=== PATIENT | male | born 1965 | race Caucasian/White ===

== ENCOUNTER 2019-07-23 10:39 | Inpatient (IN) | payer OTHER, MEDICAID ==
[~2019-07-23] VITALS: Ht 162.6 cm; Wt 63.0 kg
[~2019-07-23 10:39] MED LIST: ALBU0.0952 INH; ASPI81EC98 PO; ATI.5 PO; DIAZ10GE PR; LEVE500T9 PO; MIDO10TA PO; MIRABULK PO; NA P PR; SIMV20TA6 PO
[2019-07-23 10:58] VITALS: BP 102/65
[2019-07-23] MEDS ORDERED: ACETAMINOPHEN 325 MG TAB PO ONE (12:00)
[2019-07-23] MEDS ORDERED: FAMOTIDINE 20 MG TAB PO ONE (12:00)
[2019-07-23 12:15] LABS: BASOPHILS # (AUTO) 0.2 K/uL (0.00-0.22); BASOPHILS % (AUTO) 4.5 % (0.0-2.0); EOSINOPHILS % (AUTO) 0.6 % (0.0-4.0); HEMATOCRIT 39.7 % (36-52); HEMOGLOBIN 13.4 g/dL (12.0-18.0); LYMPHOCYTES # (AUTO) 0.9 K/uL (2.0-11.5); LYMPHOCYTES % (AUTO) 26.6 % (20.5-51.1); MEAN CORPUSCULAR HEMOGLOBIN 34 pg (27-31); MEAN CORPUSCULAR HGB CONC 34 g/dL (33-37); MEAN CORPUSCULAR VOLUME 99.5 fL (80-94); MONOCYTES # (AUTO) 0.7 K/uL (0.8-1.0); MONOCYTES % (AUTO) 18.9 % (1.7-9.3); NEUTROPHILS # (AUTO) 1.7 K/uL (1.8-7.7); NEUTROPHILS % (AUTO) 49.4 % (42.2-75.2); PLATELET COUNT (AUTO) 167 K/uL (140-450); RED BLOOD CELL COUNT(AUTO) 3.99 MIL/uL (4.20-6.10); RED CELL DISTRIBUTION WIDTH 13.6 % (11.6-13.7); WHITE BLOOD COUNT (AUTO) 3.5 K/uL (4.8-10.8)
[2019-07-23 12:22] LABS: ANION GAP 9.5 (8-16); CARBON DIOXIDE 32.1 mmol/L (21-32); CREATININE 0.8 mg/dL (0.7-1.3); POTASSIUM 4.6 mmol/L (3.5-5.1)
[2019-07-23 12:29] LABS: ALBUMIN 3.3 g/dL (3.4-5.0); TOTAL BILIRUBIN 0.2 mg/dL (0.0-1.0)
--- NOTE | 2019-07-23 12:30 | NUR ---
brought in by agricultural produce sorter s/p fall while seated in bed-pt more agitated than usual; pain left side of face, denies loc, denies use of blood thinners, denies recent seizure. ecchymosis os---no globe injury noted ambulates independently hx---down's syndrome/ copd/ bradycardia/chf/hld/seizure rx---see list
--- NOTE | 2019-07-23 12:48 | NUR ---
PT UNABLE TO GIVE URINE AT THIS TIME
--- NOTE | 2019-07-23 13:26 | NUR ---
# 14 FR Urinary catheter inserted utilizing sterile technique. Immediate return of YELLOW urine noted. Urine sample collected and sent to lab. Pt tolerated procedure WELL COMPLETED BY STUDENTS WITH INSTRUCTOR
--- NOTE | 2019-07-23 13:30 | NUR ---
URINE DIP COMPLETED
--- NOTE | 2019-07-23 14:08 | NUR ---
[place] swift in [facility] - 07/23/19 at 1536 by MEDAJR TIMA NAGEL PT
[2019-07-23 14:12] LABS: APPEARANCE,URINE CLEAR (CLEAR); BILIRUBIN,URINE NEGATIVE (NEGATIVE); BLOOD, URINE NEGATIVE (NEGATIVE); COLOR,URINE YELLOW (YELLOW); LEUKOCYTE ESTERASE ,URINE NEGATIVE (NEGATIVE); NITRITE, URINE NEGATIVE (NEGATIVE); PH,URINE 6.5 (5.0-9.0); UGLUCOSE NEGATIVE (NEGATIVE)
[2019-07-23] MEDS ORDERED: HYDROcodone/APAP 7.5/325 MG 1 TAB PO PRN (15:00)
[2019-07-23] MEDS ORDERED: ONDANSETRON 4 MG/2 ML VIAL IVP PRN (15:00)
[2019-07-23] MEDS ORDERED: ACETAMINOPHEN 325 MG TAB PO PRN ×2 (15:00→16:55)
[2019-07-23] MEDS ORDERED: SODI50SP NS (15:12)
[2019-07-23] MEDS ORDERED: PUL.5N NEB (15:13)
[2019-07-23] MEDS ORDERED: DOCU100C5 PO (15:15)
[2019-07-23] MEDS ORDERED: LEVE1000 PO (15:16)
[2019-07-23] MEDS ORDERED: MAGN400S60 PO (15:17)
[2019-07-23] MEDS ORDERED: NA P135N RC (15:20)
[2019-07-23] MEDS ORDERED: ROB PO (15:23)
[2019-07-23] MEDS ORDERED: ONDA4TAB PO (15:26)
[2019-07-23] MEDS ORDERED: OXCA600T2 PO (15:28)
[2019-07-23] MEDS ORDERED: OXCA300T PO (15:28)
[2019-07-23] MEDS ORDERED: ACET-2619 PO (15:30)
[2019-07-23 16:00] VITALS: BP 108/60
--- NOTE | 2019-07-23 16:10 | NUR ---
RECEIVED REPORT FROM FACULTY HEAD. PATIENT ARRIVED VIA GURNEY. PATIENT AMBULATED TO BED WITH SHUFFLED GAIT WHICH IS HIS BASELINE. PATIENT DENIES DIZZINESS OR SHORTNESS OF BREATH. NO SIGNS OF DISTRESS ON RA. 20 GAUGE IV CATHETER IN PLACE, SALINE LOCKED, IN RIGHT AC. DRESSING CLEAN DRY AND INTACT. PATIENT IS COOPERATIVE AND FOLLOWING COMMANDS. PATIENT CHANGED TO FALL RISK GOWN, TELE MONITOR IN PLACE. BED LOW. ORIENTED PATIENT TO ROOM AND CALL LIGHT. CALL LIGHT IN REACH.
[2019-07-23] MEDS ORDERED: MECLIZINE 25 MG TAB PO PRN (16:20)
--- NOTE | 2019-07-23 16:26 | NUR ---
Patient will be admitted to care of [facility]. Admited to tele. Will go to room 124b. Belongings list completed. Report to paula ugalde.
[2019-07-23 16:49] LABS: FREE T4 (FREE THYROXINE) 0.73 ng/dL (0.76-1.46); MAGNESIUM 2.3 mg/dL (1.8-2.4); PHOSPHORUS 4.3 mg/dL (2.5-4.9)
[2019-07-23 16:50] LABS: THYROID STIMULATING HORMONE 1.18 uIU/mL (0.34-3.74)
[2019-07-23] MEDS ORDERED: SODIUM CHLORIDE 0.65% 45 ML BTL NS PRN (16:55)
[2019-07-23] MEDS ORDERED: LORazepam 2 MG/ML VIAL IM/IVP PRN (16:55)
[2019-07-23] MEDS ORDERED: SODIUM PHOSPHATE 118 ML ENEM RC PRN (16:55)
[2019-07-23] MEDS: NACL 0.9% 1,000 ML IV SCH (16:55)
--- NOTE | 2019-07-23 17:15 | NUR ---
RECEIVED PHONE CALL FROM AMY CASTILLO, PRESIDENT OF [facility], PATIENT'S BOARD AND CARE OF RESIDENCE. SHE CAN BE REACHED AT [phone]. SHE SATED THAT CONSENT CAN BE OBTAINED FROM INDUCTION COORDINATION ENGINEER RENNY SIERRA AT [facility] AT [phone]. AMY ALSO STATED THAT PATIENT HAD CARDIAC WORKUP AT [facility] UNDER DR. RENITA ARIAS, 2 MONTHS AGO. IN-HOUSE DOCTOR AWARE.
--- NOTE | 2019-07-23 17:44 | NUR ---
PATIENT SITTING UP IN BED, EATING FOOD. NO DISTRESS NOTED ON RA. BED LOW, CALL LIGHT IN REACH. PATIENT IS IN PLEASANT COOPERATIVE MOOD.
--- NOTE | 2019-07-23 19:20 | NUR ---
RECEIVED ENDORSEMENT FROM AM SHIFT AT BEDSIDE FOR CONTINUITY OF CARE, PT IN STABLE CONDITION.
[2019-07-23] MEDS ORDERED: BUDESONIDE 0.5 MG/2 ML NEBU INH SCH (19:30)
[2019-07-23 20:00] VITALS: BP 93/57
--- NOTE | 2019-07-23 20:05 | NUR ---
PT SITTING UP IN BED AND HIS EYES STARTED TO CLOSE, PT STARTED TO HAVE A PETITE MAL SEIZURE HE WAS NODDING HIS HEAD SLIGHTLY UP AND DOWN AND SQUEEZING HIS HANDS ON AND OFF. PT ALSO NOTED WITH EYES FILTERING. SEIZURE LASTED 9 MINUTES. PAGED MD ARIAS NEW ORDERS RECEIVED. PT KEPPRA INCREASED FROM 1000MG BID TO 1500MG BID. CONSULT WITH DR. LYNNE ORDERED WELL EEG.
--- NOTE | 2019-07-23 20:30 | NUR ---
PT OUT OF BED TO BATHROOM. PT IS ORIENTED AT BASELINE.
[2019-07-23] MEDS: DOCUSATE SODIUM 100 MG GELCAP PO SCH (21:00)
[2019-07-23] MEDS ORDERED: levETIRAcetam 500 MG TAB PO SCH (21:00)
[2019-07-23] MEDS: levETIRAcetam 500 MG TAB PO SCH (21:01)
[2019-07-23] MEDS: OXcarbazepine 150 MG TAB PO SCH (21:02)
--- NOTE | 2019-07-23 21:15 | NUR ---
PT RECEIVED KEPPRA (INCREASED TO 1500) WELL ORDERED ATIVAN FOR POST SEIZURE. PT ALSO RECEIVED ALL SCHEDULED MEDS AT THIS TIME.
--- NOTE | 2019-07-23 22:30 | NUR ---
EEG DONE AT BEDSIDE.
--- NOTE | 2019-07-24 | NUR ---
PT IN BED ASLEEP V/S FOLLOWS T 97.75 P 45 R 18 B/P 90/50 02 93% ON ROOM AIR.
--- NOTE | 2019-07-24 02:00 | NUR ---
PT IN LOW BED WITH ALL SEIZURE PRECAUTIONS IN PLACE. PT SLEEPING SOUNDLY NO S/S OF PAIN OR DISTRESS NOTED.
[2019-07-24 04:00] VITALS: BP 100/65
--- NOTE | 2019-07-24 04:00 | NUR ---
PT UP AND MONITORED WITH STAND BY ASSISTANCE TO TOILET AND BACK TO BED. ALL FALLS AND SEIZURE PRECAUTIONS IN PLACE.
--- NOTE | 2019-07-24 06:00 | NUR ---
PT AWAKE AND SITTING UP IN BED NO S/S OF PAIN OR DISTRESS NOTED. IV SITE ON R AC INTACT AND RUNNING N/S AT 50MLS/HR. ALL FALLS AND SEIZURE PRECAUTIONS IN PLACE.
--- NOTE | 2019-07-24 07:20 | NUR ---
RECEIVED BEDSIDE REPORT FROM HOUSEFELLOW NURSE FOR CONTINUITY OF CARE. PATIENT IS AWAKE AND RESTING ON BED AT THIS TIME. PATIENT IS AAOX1 TO NAME AND ABLE TO STATE HIS BIRTHDAY CORRECTLY. PATIENT IS ABLE TO FOLLOW SIMPLE COMMANDS. RESPIRATION EVEN AND UNLABORED ON RA. PATIENT DENIED PAIN AND SOB. NO SIGNS OF DISTRESS NOTED. IV ON RAC 20, CLEAN AND INTACT,INFUSING PER MD ORDER. SKIN CLEAN AND INTACT. PATIENT IS ABLE TO ASK FOR HELP WHEN HE NEEDS TO GO TO BATHROOM. PATIENT IS ABLE TO AMBULATE WITH ASSIST. DISCUSSED PLAN OF CARE WITH PATIENT AND REINFORCEMENT NEEDED. TELE MONITOR IN PLACE. BED IN LOW POSITION AND CALL LIGHT WITHIN REACH. BED ALARM ACTIVATED. INSTRUCTED PATIENT TO USE THE CALL LIGHT FOR ANY ASSISTANCE AND PATIENT SAID " OK, I KNOW."
[2019-07-24 08:00] VITALS: BP 113/72
--- NOTE | 2019-07-24 08:36 | NUR ---
PATIENT HAS BEEN SCREENED AND CATEGORIZED MODERATE NUTRITION RISK. PATIENT WILL BE SEEN WITHIN 3-5 DAYS OF ADMISSION. 07/26/19D[address]
[2019-07-24 08:39] LABS: BASOPHILS # (AUTO) 0.1 K/uL (0.00-0.22); BASOPHILS % (AUTO) 3.4 % (0.0-2.0); EOSINOPHILS % (AUTO) 0.8 % (0.0-4.0); HEMATOCRIT 42.6 % (36-52); HEMOGLOBIN 14.1 g/dL (12.0-18.0); LYMPHOCYTES # (AUTO) 1.1 K/uL (2.0-11.5); LYMPHOCYTES % (AUTO) 29.4 % (20.5-51.1); MEAN CORPUSCULAR HEMOGLOBIN 33 pg (27-31); MEAN CORPUSCULAR HGB CONC 33 g/dL (33-37); MEAN CORPUSCULAR VOLUME 99.7 fL (80-94); MONOCYTES # (AUTO) 0.5 K/uL (0.8-1.0); MONOCYTES % (AUTO) 13.7 % (1.7-9.3); NEUTROPHILS # (AUTO) 1.9 K/uL (1.8-7.7); NEUTROPHILS % (AUTO) 52.7 % (42.2-75.2); PLATELET COUNT (AUTO) 180 K/uL (140-450); RED BLOOD CELL COUNT(AUTO) 4.27 MIL/uL (4.20-6.10); RED CELL DISTRIBUTION WIDTH 13.8 % (11.6-13.7); WHITE BLOOD COUNT (AUTO) 3.7 K/uL (4.8-10.8)
[2019-07-24] MEDS: POLYETHYLENE GLYCOL 17 GM/PKT PO SCH (09:34)
[2019-07-24] MEDS: levETIRAcetam 500 MG TAB PO SCH ×2 (09:35→20:19)
[2019-07-24] MEDS: OXcarbazepine 150 MG TAB PO SCH ×2 (09:35→20:18)
[2019-07-24] MEDS: FAMOTIDINE 20 MG TAB PO SCH (09:36)
[2019-07-24] MEDS: ASPIRIN 81 MG TAB.CHEW PO SCH (09:36)
[2019-07-24] MEDS: DOCUSATE SODIUM 100 MG GELCAP PO SCH ×2 (09:37→20:18)
--- NOTE | 2019-07-24 09:39 | NUR ---
ADMINISTERED MEDS PER MD ORDER, PATIENT TOLERATED WELL. MEDS EDUCATION PROVIDED TO PATIENT AND REINFORCEMENT NEEDED DUE TO PATIENT'S MENTAL CONDITION. PATIENT AWAKE AND RESTING ON BED. NO SIGNS OF DISTRESS NOTED. SAFETY MEASURES IN PLACE. BED IN LOW POSITION AND CALL LIGHT WITHIN REACH. BED ALARM ACTIVATED. INSTRUCTED PATIENT TO USE THE CALL LIGHT FOR ANY ASSISTANCE AND PATIENT SAID OK.
--- NOTE | 2019-07-24 09:53 | NUR ---
DR HUGO Neville IS TALKING AND ASSESSING PATIENT AT BEDSIDE. NO SIGNS OF DISTRESS NOTED. SAFETY MEASURES IN PLACE. TELE MONITOR ATTACHED. BED IN LOW POSITION AND CALL LIGHT WITHIN REACH. BED ALARM ACTIVATED.
[2019-07-24 10:58] LABS: ANION GAP 10.8 (8-16); CARBON DIOXIDE 30.3 mmol/L (21-32); POTASSIUM 4.1 mmol/L (3.5-5.1)
[2019-07-24 10:59] LABS: CREATININE 0.8 mg/dL (0.7-1.3)
[2019-07-24 11:12] LABS: MAGNESIUM 2.2 mg/dL (1.8-2.4); PHOSPHORUS 2.8 mg/dL (2.5-4.9)
--- NOTE | 2019-07-24 11:26 | NUR ---
PATIENT AWAKE AND DOING CROSS-WORD BOOK ON BED. PATIENT SAID " NO PAIN." NO SIGNS DISTRESS NOTED. SAFETY MEASURES IN PLACE. BED IN LOW POSITION AND CALL LIGHT WITHIN REACH. BED ALARM ACTIVATED. INSTRUCTED PATIENT TO USE THE CALL LIGHT FOR ANY ASSISTANCE AND PATIENT SAID "OK."
[2019-07-24] MEDS: NACL 0.9% 1,000 ML IV SCH (11:29)
[2019-07-24 12:00] VITALS: BP 96/68
--- NOTE | 2019-07-24 12:38 | NUR ---
PAGED DR ARIAS THAT PATIENT HAD 30 SECONDS SEIZURE DURING EEG.
--- NOTE | 2019-07-24 12:45 | NUR ---
RECEIVED A CALL BACK FROM DR ARIAS, NOTIFIED DR ARIAS PATIENT'S CURRENT CONDITION, BP 96/61, PULSE 52, RR16. PATIENT LOST CONSCIOUSNESS FOR 30 SECONDS, THEN HE WAS RESPONSIVE AND ABLE TO SPEAK AND ANSWERED QUESTION. PER DR ARIAS, HOLD THE ATIVAN IF PATIENT IS RESPONSIVE.
[2019-07-24 13:09] LABS: CHOL/HDL RATIO 3.1 (1-4.5)
--- NOTE | 2019-07-24 13:35 | NUR ---
PATIENT IS AWAKE AND RESTING ON BED. DENIED PAIN, DIZZINESS AND SOB. NO SIGNS DISTRESS NOTED. SAFETY MEASURES IN PLACE. BED IN LOW POSITION AND CALL LIGHT WITHIN REACH. BED ALARM ACTIVATED. INSTRUCTED PATIENT TO USE THE CALL LIGHT FOR ANY ASSISTANCE AND PATIENT WAS AWARE.
--- NOTE | 2019-07-24 15:15 | NUR ---
PATIENT AWAKE AND SITTING UP ON BED. ASKED IF PATIENT WANTS TO WATCH, AND HE SAID " SURE!" PATIENT DENIED PAIN AND SOB. NO SIGNS DISTRESS NOTED. SAFETY MEASURES IN PLACE. BED IN LOW POSITION AND CALL LIGHT WITHIN REACH. BED ALARM ACTIVATED. INSTRUCTED PATIENT TO USE THE CALL LIGHT FOR ANY ASSISTANCE AND PATIENT WAS AWARE.
[2019-07-24 16:00] VITALS: BP 101/57
--- NOTE | 2019-07-24 16:25 | NUR ---
PATIENT PULLED OUT HIS IV. ORIENTED PATIENT AND EDUCATED PATIENT NOT TO REMOVE HIS IV AND REINFORCEMENT NEEDED. PATIENT WAS POINTING AT ME AND SAID " YOU PULLED IT OUT. I DIDN'T DO ANYTHING." RESTARTED IV ON RFA 22G, CONTINUE INFUSING IVF. PATIENT AWAKE AND DOING CROSS-WORDS ON BED AT THIS TIME. NO SIGNS OF DISTRESS NOTED. SAFETY MEASURES IN PLACE. BED IN LOW POSITION AND CALL LIGHT WITHIN REACH. BED ALARM ACTIVATED AND TELE MONITOR ATTACHED.
--- NOTE | 2019-07-24 16:59 | NUR ---
KARYN FROM HALF-WAY IS TALKING TO PATIENT AT THIS TIME. NO SIGNS OF DISTRESS NOTED. TELE MONITOR ATTACHED. BED IN LOW POSITION AND CALL LIGHT WITHIN REACH. BED ALARM ACTIVATED.
--- NOTE | 2019-07-24 17:31 | NUR ---
PATIENT IS SITTING UP AND EATING SNACKS FROM KARYN. DENIED PAIN AND SOB. NO SIGNS OF DISTRESS NOTED. SAFETY MEASURES IN PLACE. BED IN LOW AND CALL LIGHT WITHIN REACH. TELE MONITOR ATTACHED. BED ALARM ACTIVATED.
--- NOTE | 2019-07-24 19:17 | NUR ---
ENDORSED PATIENT AT BEDSIDE TO RESIDENTIAL ELECTRICIAN NURSE FOR CONTINUITY OF CARE. PATIENT AWAKE AND EATING DINNER ON BED. NO SIGNS OF DISTRESS NOTED. PATIENT IS IN STABLE CONDITION. SAFETY MEASURES IN PLACE. TELE MONITOR ATTACHED. BED IN LOW POSITION AND CALL LIGHT WITHIN REACH. BED ALARM ACTIVATED. INSTRUCTED PATIENT TO USE THE CALL LIGHT FOR ANY ASSISTANCE AND PATIENT SAID "OK."
--- NOTE | 2019-07-24 19:30 | NUR ---
ASSUMED CARE OF PATIENT, EATING DINNER. NO COMPLAINS. CALL LIGHT WITHIN REACH.
[2019-07-24 19:49] VITALS: BP 96/62
--- NOTE | 2019-07-24 20:00 | NUR ---
VITALS SIGNS STABLE. NO COMPLAINS. CARE BOARD UPDATED. CALL LIGHT WITHIN REACH. BED ALARM ON ALL THE TIME.
--- NOTE | 2019-07-24 21:30 | NUR ---
PATIENT GETTING OUT OF BED, START PUTTING SHOES AND WANTING TO GO HOME. START PULLING OUT IV. WINDOW GLASS CUTTER OFF AT BEDSIDE, BACK IN BED. CALL LIGHT WITHIN REACH.
[2019-07-24] MEDS ORDERED: LORazepam 2 MG/ML VIAL IM/IVP PRN (21:50)
--- NOTE | 2019-07-25 | NUR ---
ASLEEP. NO COMPLAINS. VITAL SIGNS STABLE. CALL LIGHT WITHIN REACH.
[2019-07-25 00:43] VITALS: BP 97/48
--- NOTE | 2019-07-25 02:35 | NUR ---
SLEEPING WELL. NO DISTRESS. BED ALARM ON. CALL LIGHT WITHIN REACH.
[2019-07-25 03:53] VITALS: BP 96/49
--- NOTE | 2019-07-25 03:59 | NUR ---
ASLEEP. NO COMPLAINS. VITAL SIGNS STABLE CALL LIGHT WITHIN REACH.
--- NOTE | 2019-07-25 05:45 | NUR ---
ASSISTED BRP, AMBULATING WITH ASSIST. VOIDING WELL. BACK TO BED. CALL LIGHT WITHIN REACH. BED ALARM TURN ON.
--- NOTE | 2019-07-25 07:12 | NUR ---
ENDORSED CARE AT BEDSIDE WITH JUAN ANTHONY, PATIENT IN STABLE CONDITION.
--- NOTE | 2019-07-25 07:14 | NUR ---
RECEIVED BEDSIDE REPORT FROM MASSEUR/MASSEUSE NURSE FOR CONTINUITY OF CARE. PATIENT IS AWAKE AND RESTING ON BED AT THIS TIME. PATIENT IS AAOX1 TO NAME AND PATIENT STATED " I WANT COFFEE FOR BREAKFAST." PATIENT IS ABLE TO FOLLOW SIMPLE COMMANDS AND MAKE NEEDS KNOWN. RESPIRATION EVEN AND UNLABORED ON RA. PATIENT DENIED PAIN AND SOB. NO SIGNS OF DISTRESS NOTED. IV ON LFA 22G, CLEAN AND INTACT,INFUSING PER MD ORDER. SKIN CLEAN AND INTACT. PATIENT IS ABLE TO ASK FOR ASSIST TO GO TO BATHROOM. PATIENT IS ABLE TO AMBULATE WITH ASSIST. DISCUSSED PLAN OF CARE WITH PATIENT AND REINFORCEMENT NEEDED. TELE MONITOR IN PLACE. SAFETY MEASURES IN PLACE. SEIZURE PRECAUTION IN PLACE, PADDING ON BOTH SIDE RAILS AND SIGN POSTED. BED IN LOW POSITION AND CALL LIGHT WITHIN REACH. BED ALARM ACTIVATED. INSTRUCTED PATIENT TO USE THE CALL LIGHT FOR ANY ASSISTANCE AND PATIENT SAID OK.
[2019-07-25 08:00] VITALS: BP 93/58
[2019-07-25] MEDS: NACL 0.9% 1,000 ML IV SCH (08:39)
[2019-07-25] MEDS: POLYETHYLENE GLYCOL 17 GM/PKT PO SCH (08:39)
[2019-07-25] MEDS: levETIRAcetam 500 MG TAB PO SCH ×2 (08:40→20:51)
[2019-07-25] MEDS: DOCUSATE SODIUM 100 MG GELCAP PO SCH ×2 (08:41→20:52)
[2019-07-25] MEDS: FAMOTIDINE 20 MG TAB PO SCH (08:41)
[2019-07-25] MEDS: ASPIRIN 81 MG TAB.CHEW PO SCH (08:41)
[2019-07-25] MEDS: OXcarbazepine 150 MG TAB PO SCH ×2 (08:41→20:51)
--- NOTE | 2019-07-25 08:48 | NUR ---
ADMINISTERED MEDS PER MD ORDER, PATIENT TOLERATED WELL. MEDS EDUCATION PROVIDED TO PATIENT AT BEDSIDE, REINFORCEMENT NEEDED. PATIENT AWAKE AND RESTING ON BED. DENIED PAIN, DIZZINESS AND SOB. NO SIGNS OF DISTRESS NOTED. SAFETY MEASURES IN PLACE. SEIZURE PRECAUTION IN PLACE. BED IN LOW POSITION AND CALL LIGHT WITHIN REACH. TELE MONITOR ATTACHED. BED ALARM ACTIVATED. DEMONSTRATED TO PATIENT ON HOW TO USE THE CALL LIGHT AND INSTRUCTED PATIENT TO USE THE CALL LIGHT FOR ANY ASSISTANCE AND PATIENT WAS AWARE.
[2019-07-25] MEDS ORDERED: MAGNESIUM HYDROXIDE 2400 MG/30 ML UDC PO SCH (09:00)
--- NOTE | 2019-07-25 09:40 | NUR ---
PATIENT IS PARTICIPATING IN PHYSICAL THERAPY SESSION WITH PT THERAPIST LIA. NO SIGNS OF DISTRESS NOTED. TELE MONITOR ATTACHED.
--- NOTE | 2019-07-25 11:23 | NUR ---
PATIENT AWAKE AND DOING CROSS-WORD BOOK ON BED. DENIED PAIN. ASKED IF PATIENT WANTS TO GO TO USE THE BATHROOM, PATIENT SAID " NO, I DON'T NEED TO GO." NO SIGNS OF DISTRESS NOTED. TELE MONITOR ATTACHED. SAFETY MEASURES IN PLACE. BED IN LOW POSITION AND CALL LIGHT WITHIN REACH. BED ALARM ACTIVATED. INSTRUCTED PATIENT TO USE THE CALL LIGHT FOR ANY ASSISTANCE, PATIENT SAID OK.
[2019-07-25 12:00] VITALS: BP 92/54
--- NOTE | 2019-07-25 13:33 | NUR ---
PATIENT IS NAPPING ON BED AT THIS TIME. RESPIRATION EVEN AND UNLABORED ON RA. FLACC 0. NO SIGNS OF DISTRESS NOTED. SAFETY MEASURES IN PLACE. TELE MONITOR ATTACHED. BED IN LOW POSITION AND CALL LIGHT WITHIN REACH. BED ALARM ACTIVATED.
--- NOTE | 2019-07-25 15:27 | NUR ---
PATIENT AWAKE AND SITTING UP ON BED READING THE MAGAZINES. DENIED PAIN, DIZZINESS, AND SOB. NO SIGNS OF DISTRESS NOTED. ASKED IF PATIENT WANTS TO USE THE BATHROOM, PATIENT STATED " NOPE, NOT NOW." TELE MONITOR ATTACHED. SAFETY MEASURES IN PLACE. BED IN LOW POSITION AND CALL LIGHT WITHIN REACH. BED ALARM ACTIVATED. INSTRUCTED PATIENT TO USE THE CALL LIGHT FOR ANY ASSISTANCE AND PATIENT SAID "OK."
[2019-07-25 16:00] VITALS: BP 96/53
--- NOTE | 2019-07-25 16:40 | NUR ---
PATIENT IS MAZA AND ATTEMPTED TO PULL OUT THE IV LINE AND HE KEPT SAING " NAH NAH NAH...." REORIENTED PATIENT AND INSTRUCTED PATIENT NOT TO REMOVED THE IV AND PATIENT SAID "OK, I WANT SOME JELLO." PROVIDED JELLO TO PATIENT AND PATIENT IS EATING JELLO QUIETLY ON BED. NO SIGNS OF DISTRESS NOTED. SAFETY MEASURES IN PLACE. TELE MONITOR ATTACHED. BED IN LOW POSITION AND CALL LIGHT WITHIN REACH. BED ALARM ACTIVATED. INSTRUCTED PATIENT TO PRESS THE CALL LIGHT RED BOTTOM FOR ANY ASSISTANCE AND PATIENT SAID " I KNOW."
--- NOTE | 2019-07-25 17:29 | NUR ---
PATIENT AWAKE AND SITTING UP ON BED. PATIENT REMOVED HIS ID BAND AND SAID " NO WANT THIS." INSTRUCTED PATIENT NOT TO REMOVED ID BAND AND IV LINE, PATIENT SAID " OK, I AM NOT GOING TO DO." TAPED ID BAND ON SIDE RAIL FOR NOW. CALL ADMISSION FOR A NEW ID BAND. TELE MONITOR ATTACHED. SAFETY MEASURES IN PLACE. BED IN LOW POSITION AND CALL LIGHT WITHIN REACH. BED ALARM ACTIVATED.
--- NOTE | 2019-07-25 18:45 | NUR ---
ASSISTED PATIENT TO USE THE BATHROOM. PATIENT HAD 1 MEDIUM BM. BODY DESIGN CHECKER ASSISTS PATIENT TO GO BACK ON BED.
--- NOTE | 2019-07-25 19:23 | NUR ---
ENDORSED PATIENT AT BEDSIDE TO PARENT AIDE NURSE FOR CONTINUITY OF CARE. PATIENT AWAKE AND SITTING UP ON BED DOING CROSS-WORDS. NO SIGNS OF DISTRESS NOTED. PATIENT IS IN STABLE CONDITION. TELE MONITOR ATTACHED. SAFETY MEASURES IN PLACE. BED IN LOW POSITION AND CALL LIGHT WITHIN REACH. BED ALARM ACTIVATED.
--- NOTE | 2019-07-25 19:25 | NUR ---
RECEIVED BEDSIDE REPORT FROM AM SHIFT RN LIO, FOR PT'S CONTINUITY OF CARE. PT IS AWAKE, ALERT, ORIENTED TO PERSON/SELF, SITTING UP DOING WORD SEARCH ACTIVITY, IS ON HYDROSTATIC TUBING TESTER, ON ROOM AIR, HAS LEFT FA 22G INFUSING WITH NS AT 50ML/HR, DENIES PAIN AT THIS TIME. BED IS ON LOW POSITION, SIDE RAILS ARE UP, FALL PRECAUTION IS IN PLACE. WILL MONITOR PT THROUGHOUT SHIFT.
[2019-07-25 20:00] VITALS: BP 101/65
--- NOTE | 2019-07-25 20:52 | NUR ---
VS CHECKED AND CHARTED. ADMINISTERED SCHEDULED PO AND SUBQ MEDICATIONS ORDERED. PT TOLERATED THEM WELL. WILL CONTINUE TO MONITOR PT.
--- NOTE | 2019-07-25 22:30 | NUR ---
MADE ROUNDS. PT LYING DOWN IN BED STILL AWAKE WITH NO SIGNS OF DISTRESS. INSTRUCTED PT TO GET SOME REST/SLEEP. WILL CONTINUE TO MONITOR PT.
[2019-07-26] VITALS: BP 105/69
--- NOTE | 2019-07-26 00:10 | NUR ---
VS CHECKED AND CHARTED. PT STILL AWAKE, QUIETLY LYING DOWN, ENCOURAGED PT TO GET SOME SLEEP. WILL CONTINUE TO MONITOR PT.
--- NOTE | 2019-07-26 01:51 | NUR ---
MADE ROUNDS. PT LYING DOWN ASLEEP WITH NO SIGNS OF DISTRESS. WILL CONTINUE TO MONITOR PT.
[2019-07-26 04:00] VITALS: BP 106/50
[2019-07-26] MEDS: NACL 0.9% 1,000 ML IV SCH (04:00)
--- NOTE | 2019-07-26 04:05 | NUR ---
VS CHECKED AND CHARTED. PT DENIES ANY PAIN AT THIS TIME. CORRECTION ON IV SITE: LEFT FA 22G
--- NOTE | 2019-07-26 04:25 | NUR ---
MADE ROUNDS. PT LYING DOWN AWAKE, QUIETLY PLAYING WITH HIS BLANKET, WITH NO SIGNS OF DISTRESS. ENCOURAGED PT TO GO BACK TO SLEEP. WILL CONTINUE TO MONITOR PT.
--- NOTE | 2019-07-26 06:35 | NUR ---
PT LYING DOWN, ASLEEP, WITH NO SIGNS OF DISTRESS. WILL ENDORSE TO AM SHIFT RN FOR PT'S CONTINUITY OF CARE.
--- NOTE | 2019-07-26 07:20 | NUR ---
RECEIVED BEDSIDE REPORT FROM SPECIAL NEEDS BUS DRIVER NURSE HAJA. PT IS ASLEEP, NO S/S OF ACUTE DISTRESS NOTED. PT IS ON ROOM AIR, SKIN IS INTACT. FALL PRECAUTIONS ARE IN PLACE. IV SITE IS IN THE L FA 22 G, INFUSING NS 50 ML/HR. SEIZURE PRECAUTIONS ARE IN PLACE, CALL LIGHT IS WITHIN REACH. WILL CONTINUE TO MONITOR.
[2019-07-26 08:00] VITALS: BP 95/57
--- NOTE | 2019-07-26 08:43 | NUR ---
PT ENDORSED TO MELANIE ANTHONY FOR CONTINUITY OF CARE.
[2019-07-26] MEDS: OXcarbazepine 150 MG TAB PO SCH (09:42)
[2019-07-26] MEDS: ASPIRIN 81 MG TAB.CHEW PO SCH (09:42)
[2019-07-26] MEDS: levETIRAcetam 500 MG TAB PO SCH (09:42)
[2019-07-26] MEDS: DOCUSATE SODIUM 100 MG GELCAP PO SCH (09:42)
[2019-07-26] MEDS: FAMOTIDINE 20 MG TAB PO SCH (09:42)
[2019-07-26] MEDS: POLYETHYLENE GLYCOL 17 GM/PKT PO SCH (09:45)
--- NOTE | 2019-07-26 09:51 | NUR ---
MEDICATIONS ADMINISTERED PER ORDER. PATIENT TOLERATED WELL. SAFETY MEASURES IN PLACE. BED IN LOW POSITION. WILL CONTINUE TO MONITOR.
--- NOTE | 2019-07-26 12:22 | NUR ---
SW attempted to contact [facility] Betsey Miller [phone] to complete assessment. Betsey's voice mailbox is full. MEETA will attempt to call again.
--- NOTE | 2019-07-26 13:15 | NUR ---
DISCHARGE INSTRUCTIONS PROVIDED TO PATIENT/CAREGIVER AT BEDSIDE IN PREFERRED LANGUAGE OF PERUVIAN. INSTRUCTIONS ON MEDICATION REGIMEN, DIET REGIMEN, FOLLOW-UP WITH PCP AND DISEASE MANAGEMENT OF SEIZURES. ANSWERED ALL OF PATIENTS/CAREGIVERS QUESTIONS REGARDING DISCHARGE. PATIENT/CAREGIVER VERBALIZED COMPLETE UNDERSTANDING. IV SITE REMOVED WITH MINIMAL BLOOD AND LUMEN COMPLETELY INTACT. ID BANDS REMOVED. CAREGIVER TO HELP PATIENT GET DRESSED. PATIENT ALL DRESSED AND READY TO GO. ALL BELONGINGS WITH PATIENT/CAREGIVER. ESCORTED PATIENT TO LOBBY VIA AMBULATION. PATIENT DISCHARGED AT THIS TIME IN STABLE CONDITION TO [facility].
== END 2019-07-26 13:15 | disposition home or self-care (01) | DRG 74 ==
LOC: MED 10:39 → MTU 14:59
PROVIDERS: ADMIT Internal Medicine Cardiovascular Disease; ATTEND Internal Medicine Cardiovascular Disease
DX: G90.8 Other disorders of autonomic nervous system (principal); G40.909 Epilepsy, unspecified, not intractable, without status epilepticus; E87.8 Other disorders of electrolyte and fluid balance, not elsewhere classified; R00.1 Bradycardia, unspecified; J44.9 Chronic obstructive pulmonary disease, unspecified; I50.9 Heart failure, unspecified; E78.5 Hyperlipidemia, unspecified; K59.09 Other constipation; Q90.9 Down syndrome, unspecified
CPT/HCPCS: 36415; 71045; 80048; 80053; 81003; 82150; 83036; 83690; 83735; 83880; 84100; 84439; 84443; 84484; 85025; 85610; 85730; 87081; 93005; 93880; 95816; 97110; 97116; 97161-GP; 97530; 99285; C1758; J1644; J2060; J7030; Q0092

== ENCOUNTER 2022-11-13 22:20 | Inpatient (IN) | payer OTHER, MEDICAID ==
[~2022-11-13] VITALS: Ht 175.3 cm; Wt 74.4 kg
[~2022-11-13 22:20] MED LIST changes: +ACET-2619 PO; -ATI.5 PO; +DOCU100C5 PO; +LEVE1000 PO; -LEVE500T9 PO; +MAGN400S60 PO; -MIDO10TA PO; +ONDA4TAB PO; +OXCA300T PO; +OXCA600T2 PO; +PUL.5N NEB; +SIMV-30 PO; -SIMV20TA6 PO; +SODI50SP NS
[2022-11-13 22:23] VITALS: BP 124/74
[2022-11-13] MEDS ORDERED: methylPREDNISolone SS 125 MG/2 ML VIAL IVP ONE (22:40)
[2022-11-13] MEDS ORDERED: ALBUTEROL SULFATE/IPRATROPIU 3 ML SOL IH ONE (22:40)
[2022-11-13] MEDS ORDERED: NACL 0.9% 1,000 ML IV ONE (22:40)
[2022-11-13 23:04] LABS: BASOPHILS # (AUTO) 0.1 K/uL (0.00-0.22); BASOPHILS % (AUTO) 0.6 % (0.0-2.0); HEMATOCRIT 45.2 % (36-52); HEMOGLOBIN 15.2 g/dL (12.0-18.0); LYMPHOCYTES # (AUTO) 1.2 K/uL (2.0-11.5); LYMPHOCYTES % (AUTO) 7.2 % (20.5-51.1); MEAN CORPUSCULAR HEMOGLOBIN 33 pg (27-31); MEAN CORPUSCULAR HGB CONC 34 g/dL (33-37); MEAN CORPUSCULAR VOLUME 99.2 fL (80-94); MONOCYTES # (AUTO) 1.6 K/uL (0.8-1.0); MONOCYTES % (AUTO) 9.8 % (1.7-9.3); NEUTROPHILS # (AUTO) 13.2 K/uL (1.8-7.7); NEUTROPHILS % (AUTO) 82.4 % (42.2-75.2); PLATELET COUNT (AUTO) 249 K/uL (140-450); RED BLOOD CELL COUNT(AUTO) 4.56 MIL/uL (4.20-6.10); RED CELL DISTRIBUTION WIDTH 13.9 % (11.6-13.7)
[2022-11-13 23:20] LABS: ANION GAP 9.3 (8-16); ASPARTATE AMINOTRANSFERASE 28 U/L (15-37); CARBON DIOXIDE 35.2 mmol/L (21-32); CHLORIDE 104 mmol/L (98-107); CREATININE 0.9 mg/dL (0.6-1.3); GFR ARICAN-AMERICAN 112 mL/min (>90); GLUCOSE 127 mg/dL (74-106); POTASSIUM 4.5 mmol/L (3.5-5.1); SODIUM SERUM 144 mmol/L (136-145); TOTAL BILIRUBIN 0.3 mg/dL (0.0-1.0); UREA NITROGEN, BLOOD 16 mg/dL (7-18)
[2022-11-13] MEDS ORDERED: AZITHROMYCIN 500 MG in DEXTROSE 5% 250 ML IV ONE (23:25)
[2022-11-13] MEDS ORDERED: cefTRIAXone 1,000 MG VIAL ONE (23:54)
[2022-11-13] MEDS ORDERED: AZITHROMYCIN 500 MG INJ VIAL IV ONE (23:54)
[2022-11-14] MEDS ORDERED: MIRT-91 PO (00:21)
[2022-11-14] MEDS ORDERED: [UNRECOGNIZED DRUG - CODE] PO (00:21)
[2022-11-14] MEDS ORDERED: ONDA-188 PO (00:21)
[2022-11-14] MEDS ORDERED: ZINC220C29 PO (00:21)
[2022-11-14] MEDS ORDERED: FAMO-92 PO (00:21)
[2022-11-14] MEDS ORDERED: ASCO500T95 PO (00:21)
[2022-11-14] MEDS ORDERED: MAG-27 PO (00:21)
[2022-11-14 00:45] VITALS: BP 117/81
[2022-11-14 05:46] LABS: BASOPHILS # (AUTO) 0.1 K/uL (0.00-0.22); BASOPHILS % (AUTO) 0.5 % (0.0-2.0); HEMATOCRIT 43.5 % (36-52); HEMOGLOBIN 14.4 g/dL (12.0-18.0); LYMPHOCYTES # (AUTO) 0.6 K/uL (2.0-11.5); LYMPHOCYTES % (AUTO) 3.4 % (20.5-51.1); MEAN CORPUSCULAR HEMOGLOBIN 33 pg (27-31); MEAN CORPUSCULAR HGB CONC 33 g/dL (33-37); MEAN CORPUSCULAR VOLUME 99.4 fL (80-94); MONOCYTES # (AUTO) 0.5 K/uL (0.8-1.0); MONOCYTES % (AUTO) 2.9 % (1.7-9.3); NEUTROPHILS # (AUTO) 16.5 K/uL (1.8-7.7); NEUTROPHILS % (AUTO) 93.2 % (42.2-75.2); PLATELET COUNT (AUTO) 241 K/uL (140-450); RED BLOOD CELL COUNT(AUTO) 4.38 MIL/uL (4.20-6.10); RED CELL DISTRIBUTION WIDTH 14.3 % (11.6-13.7); WHITE BLOOD COUNT (AUTO) 17.7 K/uL (4.8-10.8)
[2022-11-14 06:03] LABS: ANION GAP 9.2 (8-16); CARBON DIOXIDE 34.9 mmol/L (21-32); CREATININE 0.9 mg/dL (0.6-1.3); POTASSIUM 5.1 mmol/L (3.5-5.1)
[2022-11-14] MEDS ORDERED: MAG SULF 2000 MG/WATER PREMIX 50 ML IV PRN (07:40)
[2022-11-14] MEDS ORDERED: POTASSIUM CHLORIDE 10 MEQ TABER PO PRN ×2 (07:40→08:15)
[2022-11-14] MEDS ORDERED: ONDANSETRON 4 MG/2 ML VIAL IVP PRN (07:40)
[2022-11-14] MEDS ORDERED: DOCUSATE SODIUM 100 MG GELCAP PO PRN (07:40)
[2022-11-14] MEDS ORDERED: ACETAMINOPHEN 325 MG TAB PO PRN (07:40)
[2022-11-14] MEDS ORDERED: ALBUTEROL 0.083% 2.5 MG/3 ML NEBU INH PRN (07:45)
[2022-11-14 08:00] VITALS: BP 136/64
[2022-11-14] MEDS ORDERED: DOCUSATE SODIUM 100 MG GELCAP PO SCH (09:00)
[2022-11-14] MEDS ORDERED: levETIRAcetam 500 MG TAB PO SCH (09:00)
[2022-11-14] MEDS: ECOTRIN 81 MG TABEC PO SCH (10:20)
[2022-11-14] MEDS: OXcarbazepine 150 MG TAB PO SCH (10:22)
[2022-11-14] MEDS: MAGNESIUM HYDROXIDE 2400 MG/30 ML UDC PO SCH (10:23)
[2022-11-14] MEDS: methylPREDNISolone SS 40 MG/ML VIAL IVP SCH ×2 (10:57→20:47)
[2022-11-14 12:00] VITALS: BP 109/57
[2022-11-14] MEDS: PIPERACILLIN/TAZOBACTAM 3.375 GM in DEXTROSE 5% 50 ML IV SCH ×2 (12:51→18:24)
[2022-11-14] MEDS: DEXT 5% /NACL 0.9% 1,000 ML IV SCH (15:31)
[2022-11-14 16:00] VITALS: BP 99/57
[2022-11-14 20:00] VITALS: BP 116/69
[2022-11-14] MEDS: LORazepam 2 MG/ML VIAL IVP PRN (20:20)
[2022-11-14] MEDS ORDERED: levETIRAcetam 100 MG/ML VIAL IV ONE (20:37)
[2022-11-14] MEDS: levETIRAcetam 1,000 MG in NACL 0.9% 100 ML IV SCH (20:48)
[2022-11-15] VITALS: BP 123/74
[2022-11-15] MEDS: PIPERACILLIN/TAZOBACTAM 3.375 GM in DEXTROSE 5% 50 ML IV SCH ×5 (00:23→23:25)
[2022-11-15 04:00] VITALS: BP 133/56
[2022-11-15 07:12] LABS: ANION GAP 10.4 (8-16); CARBON DIOXIDE 36.9 mmol/L (21-32); CREATININE 0.9 mg/dL (0.6-1.3); POTASSIUM 4.3 mmol/L (3.5-5.1)
[2022-11-15 07:30] LABS: BASOPHILS % (AUTO) 0.1 % (0.0-2.0); HEMOGLOBIN 14.3 g/dL (12.0-18.0); LYMPHOCYTES % (AUTO) 6.2 % (20.5-51.1); MEAN CORPUSCULAR HEMOGLOBIN 32 pg (27-31); MEAN CORPUSCULAR HGB CONC 33 g/dL (33-37); MEAN CORPUSCULAR VOLUME 99.1 fL (80-94); MONOCYTES # (AUTO) 1.4 K/uL (0.8-1.0); MONOCYTES % (AUTO) 8.3 % (1.7-9.3); NEUTROPHILS # (AUTO) 14.3 K/uL (1.8-7.7); NEUTROPHILS % (AUTO) 85.4 % (42.2-75.2); PLATELET COUNT (AUTO) 279 K/uL (140-450); RED BLOOD CELL COUNT(AUTO) 4.44 MIL/uL (4.20-6.10); RED CELL DISTRIBUTION WIDTH 13.9 % (11.6-13.7); WHITE BLOOD COUNT (AUTO) 16.7 K/uL (4.8-10.8)
[2022-11-15 08:00] VITALS: BP 141/67
[2022-11-15] MEDS: levETIRAcetam 1,000 MG in NACL 0.9% 100 ML IV SCH ×2 (08:46→20:24)
[2022-11-15] MEDS: methylPREDNISolone SS 40 MG/ML VIAL IVP SCH ×2 (08:46→20:25)
[2022-11-15] MEDS: MAGNESIUM HYDROXIDE 2400 MG/30 ML UDC PO SCH (08:51)
[2022-11-15] MEDS: OXcarbazepine 150 MG TAB PO SCH (08:51)
[2022-11-15] MEDS: ECOTRIN 81 MG TABEC PO SCH (08:51)
[2022-11-15] MEDS: DEXT 5% /NACL 0.9% 1,000 ML IV SCH (08:52)
[2022-11-15 16:00] VITALS: BP 101/64
[2022-11-15 20:00] VITALS: BP 90/53
[2022-11-16] VITALS: BP 99/57
[2022-11-16] MEDS: DEXT 5% /NACL 0.9% 1,000 ML IV SCH (04:43)
[2022-11-16] MEDS: PIPERACILLIN/TAZOBACTAM 3.375 GM in DEXTROSE 5% 50 ML IV SCH ×3 (05:39→17:57)
[2022-11-16 05:52] LABS: BASOPHILS % (AUTO) 0.1 % (0.0-2.0); HEMATOCRIT 39.1 % (36-52); HEMOGLOBIN 12.8 g/dL (12.0-18.0); LYMPHOCYTES % (AUTO) 7.4 % (20.5-51.1); MEAN CORPUSCULAR HEMOGLOBIN 32 pg (27-31); MEAN CORPUSCULAR HGB CONC 33 g/dL (33-37); MONOCYTES # (AUTO) 0.9 K/uL (0.8-1.0); MONOCYTES % (AUTO) 6.7 % (1.7-9.3); NEUTROPHILS % (AUTO) 85.8 % (42.2-75.2); PLATELET COUNT (AUTO) 250 K/uL (140-450); RED BLOOD CELL COUNT(AUTO) 3.94 MIL/uL (4.20-6.10); RED CELL DISTRIBUTION WIDTH 13.6 % (11.6-13.7); WHITE BLOOD COUNT (AUTO) 12.8 K/uL (4.8-10.8)
[2022-11-16 06:17] LABS: ANION GAP 7.8 (8-16); CARBON DIOXIDE 35.2 mmol/L (21-32); CREATININE 0.9 mg/dL (0.6-1.3)
[2022-11-16 08:00] VITALS: BP 102/65
[2022-11-16] MEDS: ECOTRIN 81 MG TABEC PO SCH (09:00)
[2022-11-16] MEDS: OXcarbazepine 150 MG TAB PO SCH (09:00)
[2022-11-16] MEDS: MAGNESIUM HYDROXIDE 2400 MG/30 ML UDC PO SCH (09:00)
[2022-11-16] MEDS: methylPREDNISolone SS 40 MG/ML VIAL IVP SCH ×2 (09:13→21:58)
[2022-11-16] MEDS: levETIRAcetam 1,000 MG in NACL 0.9% 100 ML IV SCH ×2 (09:13→21:57)
[2022-11-16] MEDS: DEXT 5% / NACL 0.9% 1,000 ML IV SCH ×2 (12:01→20:19)
[2022-11-16 16:00] VITALS: BP 106/68
[2022-11-17] VITALS: BP 97/59
[2022-11-17] MEDS: PIPERACILLIN/TAZOBACTAM 3.375 GM in DEXTROSE 5% 50 ML IV SCH ×4 (00:32→17:47)
[2022-11-17] MEDS: DEXT 5% / NACL 0.9% 1,000 ML IV SCH ×3 (04:39→21:19)
[2022-11-17 06:03] LABS: BASOPHILS # (AUTO) 0.1 K/uL (0.00-0.22); BASOPHILS % (AUTO) 0.7 % (0.0-2.0); HEMATOCRIT 36.8 % (36-52); HEMOGLOBIN 12.3 g/dL (12.0-18.0); LYMPHOCYTES # (AUTO) 0.6 K/uL (2.0-11.5); LYMPHOCYTES % (AUTO) 6.8 % (20.5-51.1); MEAN CORPUSCULAR HEMOGLOBIN 33 pg (27-31); MEAN CORPUSCULAR HGB CONC 34 g/dL (33-37); MEAN CORPUSCULAR VOLUME 98.1 fL (80-94); MONOCYTES # (AUTO) 0.3 K/uL (0.8-1.0); MONOCYTES % (AUTO) 3.4 % (1.7-9.3); NEUTROPHILS # (AUTO) 8.3 K/uL (1.8-7.7); NEUTROPHILS % (AUTO) 89.1 % (42.2-75.2); PLATELET COUNT (AUTO) 225 K/uL (140-450); RED BLOOD CELL COUNT(AUTO) 3.75 MIL/uL (4.20-6.10); RED CELL DISTRIBUTION WIDTH 13.6 % (11.6-13.7); WHITE BLOOD COUNT (AUTO) 9.3 K/uL (4.8-10.8)
[2022-11-17 06:35] LABS: ANION GAP 10.3 (8-16); CARBON DIOXIDE 30.6 mmol/L (21-32); CREATININE 0.8 mg/dL (0.6-1.3); POTASSIUM 3.9 mmol/L (3.5-5.1)
[2022-11-17 08:00] VITALS: BP 96/68
[2022-11-17] MEDS: ECOTRIN 81 MG TABEC PO SCH (09:00)
[2022-11-17] MEDS: MAGNESIUM HYDROXIDE 2400 MG/30 ML UDC PO SCH (09:00)
[2022-11-17] MEDS: OXcarbazepine 150 MG TAB PO SCH (09:00)
[2022-11-17] MEDS: methylPREDNISolone SS 40 MG/ML VIAL IVP SCH ×2 (11:02→20:49)
[2022-11-17] MEDS: levETIRAcetam 1,000 MG in NACL 0.9% 100 ML IV SCH ×2 (11:02→20:47)
[2022-11-17] MEDS: LORazepam 2 MG/ML VIAL IVP PRN (11:03)
[2022-11-17 11:58] VITALS: BP 102/60
[2022-11-17 18:20] VITALS: BP 125/83
[2022-11-17 20:00] VITALS: BP 98/63
[2022-11-17] MEDS: ZOLPIDEM 10 MG TAB PO PRN (21:16)
[2022-11-18] MEDS: PIPERACILLIN/TAZOBACTAM 3.375 GM in DEXTROSE 5% 50 ML IV SCH ×4 (00:35→18:59)
[2022-11-18 04:00] VITALS: BP 104/65
[2022-11-18] MEDS: DEXT 5% / NACL 0.9% 1,000 ML IV SCH ×3 (04:18→14:20)
[2022-11-18 05:57] LABS: BASOPHILS # (AUTO) 0.1 K/uL (0.00-0.22); BASOPHILS % (AUTO) 0.8 % (0.0-2.0); EOSINOPHILS % (AUTO) 0.3 % (0.0-4.0); HEMATOCRIT 38.7 % (36-52); HEMOGLOBIN 12.9 g/dL (12.0-18.0); LYMPHOCYTES % (AUTO) 9.8 % (20.5-51.1); MEAN CORPUSCULAR HEMOGLOBIN 32 pg (27-31); MEAN CORPUSCULAR HGB CONC 34 g/dL (33-37); MEAN CORPUSCULAR VOLUME 96.9 fL (80-94); MONOCYTES # (AUTO) 0.6 K/uL (0.8-1.0); NEUTROPHILS # (AUTO) 8.5 K/uL (1.8-7.7); NEUTROPHILS % (AUTO) 83.1 % (42.2-75.2); PLATELET COUNT (AUTO) 247 K/uL (140-450); RED BLOOD CELL COUNT(AUTO) 3.99 MIL/uL (4.20-6.10); RED CELL DISTRIBUTION WIDTH 13.5 % (11.6-13.7); WHITE BLOOD COUNT (AUTO) 10.2 K/uL (4.8-10.8)
[2022-11-18 06:47] LABS: ANION GAP 11.5 (8-16); CARBON DIOXIDE 28.7 mmol/L (21-32); CREATININE 0.8 mg/dL (0.6-1.3); POTASSIUM 4.2 mmol/L (3.5-5.1)
[2022-11-18] MEDS: methylPREDNISolone SS 40 MG/ML VIAL IVP SCH ×2 (09:23→22:10)
[2022-11-18] MEDS: MAGNESIUM HYDROXIDE 2400 MG/30 ML UDC PO SCH (09:24)
[2022-11-18] MEDS: ECOTRIN 81 MG TABEC PO SCH (09:24)
[2022-11-18] MEDS: OXcarbazepine 150 MG TAB PO SCH (09:24)
[2022-11-18] MEDS: levETIRAcetam 1,000 MG in NACL 0.9% 100 ML IV SCH ×2 (09:26→22:09)
[2022-11-18] MEDS: LORazepam 2 MG/ML VIAL IVP PRN (12:57)
[2022-11-18 16:00] VITALS: BP 101/60
[2022-11-18 20:00] VITALS: BP 107/64
[2022-11-19] VITALS: BP 118/80
[2022-11-19] MEDS: ZOLPIDEM 10 MG TAB PO PRN (00:35)
[2022-11-19] MEDS: LORazepam 2 MG/ML VIAL IVP PRN (04:29)
[2022-11-19 06:05] LABS: BASOPHILS % (AUTO) 0.2 % (0.0-2.0); HEMATOCRIT 39.3 % (36-52); HEMOGLOBIN 13.3 g/dL (12.0-18.0); LYMPHOCYTES # (AUTO) 0.7 K/uL (2.0-11.5); MEAN CORPUSCULAR HEMOGLOBIN 32 pg (27-31); MEAN CORPUSCULAR HGB CONC 34 g/dL (33-37); MEAN CORPUSCULAR VOLUME 95.3 fL (80-94); MONOCYTES # (AUTO) 0.4 K/uL (0.8-1.0); NEUTROPHILS # (AUTO) 9.7 K/uL (1.8-7.7); PLATELET COUNT (AUTO) 233 K/uL (140-450); RED BLOOD CELL COUNT(AUTO) 4.13 MIL/uL (4.20-6.10); RED CELL DISTRIBUTION WIDTH 13.5 % (11.6-13.7); WHITE BLOOD COUNT (AUTO) 10.8 K/uL (4.8-10.8)
[2022-11-19 06:26] LABS: ANION GAP 7.8 (8-16); CREATININE 0.7 mg/dL (0.6-1.3); POTASSIUM 3.8 mmol/L (3.5-5.1)
[2022-11-19] MEDS: DEXT 5% / NACL 0.9% 1,000 ML IV SCH ×2 (06:39→15:06)
[2022-11-19 07:16] LABS: LYMPHOCYTES % (AUTO) 6.5 % (20.5-51.1); NEUTROPHILS % (AUTO) 89.3 % (42.2-75.2)
[2022-11-19 08:00] VITALS: BP 126/42
[2022-11-19] MEDS: ECOTRIN 81 MG TABEC PO SCH (09:00)
[2022-11-19] MEDS: OXcarbazepine 150 MG TAB PO SCH (09:00)
[2022-11-19] MEDS: MAGNESIUM HYDROXIDE 2400 MG/30 ML UDC PO SCH (09:00)
[2022-11-19] MEDS: levETIRAcetam 1,000 MG in NACL 0.9% 100 ML IV SCH ×2 (09:52→21:50)
[2022-11-19] MEDS: methylPREDNISolone SS 40 MG/ML VIAL IVP SCH ×2 (09:53→21:51)
[2022-11-19] MEDS: PIPERACILLIN/TAZOBACTAM 3.375 GM in DEXTROSE 5% 50 ML IV SCH ×4 (12:47→17:00)
[2022-11-19 16:00] VITALS: BP 131/47
[2022-11-19 20:00] VITALS: BP 128/46
[2022-11-20] MEDS: DEXT 5% / NACL 0.9% 1,000 ML IV SCH ×3 (01:47→15:59)
[2022-11-20] MEDS: PIPERACILLIN/TAZOBACTAM 3.375 GM in DEXTROSE 5% 50 ML IV SCH ×4 (01:50→17:04)
[2022-11-20] MEDS: ZOLPIDEM 10 MG TAB PO PRN ×2 (02:03→23:41)
[2022-11-20 04:00] VITALS: BP 109/73
[2022-11-20] MEDS: ECOTRIN 81 MG TABEC PO SCH (08:49)
[2022-11-20] MEDS: methylPREDNISolone SS 40 MG/ML VIAL IVP SCH ×2 (08:49→21:57)
[2022-11-20] MEDS: OXcarbazepine 150 MG TAB PO SCH (08:49)
[2022-11-20] MEDS: MAGNESIUM HYDROXIDE 2400 MG/30 ML UDC PO SCH (09:00)
[2022-11-20] MEDS: levETIRAcetam 1,000 MG in NACL 0.9% 100 ML IV SCH ×2 (09:03→21:55)
[2022-11-20] MEDS: MORPHINE SULFATE 2 MG/ML SYR IVP PRN (09:04)
[2022-11-20 16:00] VITALS: BP 194/84
[2022-11-21] MEDS: PIPERACILLIN/TAZOBACTAM 3.375 GM in DEXTROSE 5% 50 ML IV SCH ×4 (00:37→18:15)
[2022-11-21] MEDS: DEXT 5% / NACL 0.9% 1,000 ML IV SCH ×3 (00:37→16:59)
[2022-11-21 04:00] VITALS: BP 142/75
[2022-11-21] MEDS: ECOTRIN 81 MG TABEC PO SCH (09:00)
[2022-11-21] MEDS: levETIRAcetam 1,000 MG in NACL 0.9% 100 ML IV SCH (09:00)
[2022-11-21] MEDS: OXcarbazepine 150 MG TAB PO SCH (09:00)
[2022-11-21] MEDS: methylPREDNISolone SS 40 MG/ML VIAL IVP SCH (09:00)
[2022-11-21] MEDS: MAGNESIUM HYDROXIDE 2400 MG/30 ML UDC PO SCH (09:00)
[2022-11-21] MEDS ORDERED: AZIT250T4 PO (09:16)
[2022-11-21] MEDS: MORPHINE SULFATE 2 MG/ML SYR IVP PRN (11:37)
[2022-11-21] MEDS: LORazepam 2 MG/ML VIAL IVP PRN (15:07)
[2022-11-21 17:07] VITALS: BP 136/75
== END 2022-11-21 18:45 | DRG 871 ==
LOC: MED 22:20 → MTU 11-14 00:22
PROVIDERS: ADMIT Family Medicine; ATTEND Family Medicine
PROC: 5A09357 Assistance with Respiratory Ventilation, Less than 24 Consecutive Hours, Continuous Positive Airway Pressure (ICD-10-PCS; principal; 2022-11-15)
PROC: 5A09357 Assistance with Respiratory Ventilation, Less than 24 Consecutive Hours, Continuous Positive Airway Pressure (ICD-10-PCS; 2022-11-16)
PROC: 5A09357 Assistance with Respiratory Ventilation, Less than 24 Consecutive Hours, Continuous Positive Airway Pressure (ICD-10-PCS; 2022-11-17)
DX: A41.9 Sepsis, unspecified organism (principal); I21.A1 Myocardial infarction type 2; J69.0 Pneumonitis due to inhalation of food and vomit; J96.00 Acute respiratory failure, unspecified whether with hypoxia or hypercapnia; J44.0 Chronic obstructive pulmonary disease with (acute) lower respiratory infection; E44.1 Mild protein-calorie malnutrition; I50.40 Unspecified combined systolic (congestive) and diastolic (congestive) heart failure; G80.9 Cerebral palsy, unspecified; R13.10 Dysphagia, unspecified; Z20.822 Contact with and (suspected) exposure to COVID-19; Z79.899 Other long term (current) drug therapy; Q90.9 Down syndrome, unspecified; Z68.24 Body mass index [BMI] 24.0-24.9, adult
CPT/HCPCS: 36415; 71045; 80048; 80053; 83605; 83735; 84484; 85025; 87040; 92610; 93005; 94660; 96365; 96375; 99285; J0456; J0696; J1953; J2060; J2270; J2543; J2920; J2930; J7060; J7613; Q0092

== ENCOUNTER 2023-03-09 21:17 | Inpatient (IN) | payer OTHER, MEDICAID ==
[~2023-03-09] VITALS: Ht 152.4 cm; Wt 71.7 kg
[~2023-03-09 21:17] MED LIST changes: +ASCO500T95 PO; +AZIT250T4 PO; +FAMO-92 PO; +MAG-27 PO; +MIRT-91 PO; +ONDA-188 PO; -ONDA4TAB PO; +ZINC220C29 PO; +[UNRECOGNIZED DRUG - CODE] PO
--- NOTE | 2023-03-09 21:25 | NUR ---
PT BIBA ALS ER BED 10
[2023-03-09 21:26] VITALS: BP 118/73
--- NOTE | 2023-03-09 21:35 | NUR ---
RT at bedside.
[2023-03-09] MEDS ORDERED: NACL 0.9% 2,000 ML IV ONE (21:40)
[2023-03-09] MEDS ORDERED: VANCOMYCIN 1,000 MG in DEXTROSE 5% 250 ML IV ONE (21:40)
[2023-03-09] MEDS ORDERED: MEROPENEM 1,000 MG in NACL 0.9% 50 ML IV ONE (21:40)
[2023-03-09] MEDS ORDERED: ALBUTEROL 0.083% 2.5 MG/3 ML NEBU INH ONE (21:45)
--- NOTE | 2023-03-09 21:59 | NUR ---
RAD at bedside for imaging.
[2023-03-09 22:22] LABS: BASOPHILS # (AUTO) 0.1 K/uL (0.00-0.22); BASOPHILS % (AUTO) 0.8 % (0.0-2.0); EOSINOPHILS % (AUTO) 0.1 % (0.0-4.0); HEMATOCRIT 41.3 % (36-52); HEMOGLOBIN 13.8 g/dL (12.0-18.0); LYMPHOCYTES # (AUTO) 0.9 K/uL (2.0-11.5); LYMPHOCYTES % (AUTO) 5.4 % (20.5-51.1); MEAN CORPUSCULAR HEMOGLOBIN 33 pg (27-31); MEAN CORPUSCULAR HGB CONC 34 g/dL (33-37); MONOCYTES % (AUTO) 6.3 % (1.7-9.3); NEUTROPHILS # (AUTO) 14.5 K/uL (1.8-7.7); NEUTROPHILS % (AUTO) 87.4 % (42.2-75.2); PLATELET COUNT (AUTO) 283 K/uL (140-450); RED BLOOD CELL COUNT(AUTO) 4.26 MIL/uL (4.20-6.10); RED CELL DISTRIBUTION WIDTH 14.5 % (11.6-13.7); WHITE BLOOD COUNT (AUTO) 16.6 K/uL (4.8-10.8)
[2023-03-09] MEDS ORDERED: MEROPENEM 1,000 MG VIAL IV ONE (22:22)
[2023-03-09] MEDS ORDERED: VANCOMYCIN 1,000 MG VIAL ONE (22:23)
--- NOTE | 2023-03-09 22:30 | NUR ---
Urine collected and sent to lab.
[2023-03-09 22:32] LABS: APPEARANCE,URINE CLEAR (CLEAR); BILIRUBIN,URINE NEGATIVE (NEGATIVE); BLOOD, URINE TRACE-I (NEGATIVE); COLOR,URINE YELLOW (YELLOW); LEUKOCYTE ESTERASE ,URINE NEGATIVE (NEGATIVE); NITRITE, URINE NEGATIVE (NEGATIVE); PH,URINE 5.5 (5.0-9.0); UGLUCOSE NEGATIVE (NEGATIVE)
[2023-03-09 22:36] LABS: ALBUMIN 3.2 g/dL (3.4-5.0); ANION GAP 11.3 (8-16); CARBON DIOXIDE 31.2 mmol/L (21-32); CREATININE 1.2 mg/dL (0.6-1.3); POTASSIUM 4.5 mmol/L (3.5-5.1); TOTAL BILIRUBIN 0.2 mg/dL (0.0-1.0)
[2023-03-09 22:38] LABS: WBC,URINE 0-5 /HPF (0-5)
[2023-03-10] VITALS (14 sets, daily range): BP systolic 79–128; BP diastolic 54–88
[2023-03-10] MEDS ORDERED: NACL 0.9% 1,000 ML IV SCH (00:35)
[2023-03-10] MEDS ORDERED: PIPERACILLIN/TAZOBACTAM 3.375 GM in DEXTROSE 5% 50 ML IV SCH (01:15)
--- NOTE | 2023-03-10 01:55 | NUR ---
Report given to De ANTHONY for transfer of care
--- NOTE | 2023-03-10 02:20 | NUR ---
RECEIVED PT FROM ER NURSE FOR CONTINUITY OF CARE. PATIENT O2 SATURATION WAS AT 65%. PER NURSE, O2 SAT WENT DOWN TO 60'S DURING TRANSPORT , CALLED RT FOR ASSISTANCE. BREATHING TREATMENT GIVEN AND HIGH FLOW OXYGEN GIVEN. INSPITE OF ALL EFFORTS, PATIENT STILL CONTINUE TO DESAT. CALLED DR SCOTT AND SHE SAID TO YRANSFER THE PATIENT TO ICU.
[2023-03-10] MEDS ORDERED: ALBUTEROL 0.083% 2.5 MG/3 ML NEBU INH ONE (02:44)
[2023-03-10] MEDS ORDERED: ALBUTEROL 0.083% 2.5 MG/3 ML NEBU INH PRN ×2 (02:50→07:30)
--- NOTE | 2023-03-10 03:00 | NUR ---
PATIENT TRANSFERRED TO ICU FOR CONTINUITY OF CARE. REPORT GIVEN TO ICU NURSE
[2023-03-10] MEDS ORDERED: FUROSEMIDE 20 MG/2 ML VIAL IVP SCH (04:20)
[2023-03-10] MEDS ORDERED: NOREPINEPHRINE 4 MG in DEXTROSE 5% 250 ML IV PRN (04:25)
[2023-03-10] MEDS ORDERED: FUROSEMIDE 40 MG/4 ML VIAL IVP ONE (04:42)
--- NOTE | 2023-03-10 04:46 | NUR ---
REPORT RECEIVED FROM RILEY ANTHONY. PT UPGRADED FOR ACUTE REPARATORY FAILURE. UPON ARRIVAL PT HAD A SHONCI SOUND UPON AUSCULTATION ON INSPIRATORY AND EXPIRATORY PHASE. PT HAS DOWN SYNDROME AND UNABLE TO COMMUNICATE WITH UNDERSTANDABLE WORDS. PT PLACED ON BIPAP BY RESPIRATORY THERAPIST. DR SCOTT CALLED REPORT SUSPICION OF FLUYID OVERLOAD AND LASIX WAS ORDERED WELL THE DC OF MAINTENANCE FLUID. LEVOPHED WAS ORDERED ON STANDBY. ECHO WAS ORDERED AND CHEST XRAY WAS ORDERED FOR SUSPICION OF PNEUMOTHORAX OR RIB INJURY DUE TO PATIENT GUARDING LEFT SIDE. DERMATITIS NOTED ON BUTTOCKS REGION WHERE DIAPER WAS UPON TRANSFER. DIAPER WAS REMOVED AND FORMED STOOL WAS NOTED WELL SIGNS OF URINATION. CONDOM CATH WAS PLACED WITHOUT COMPLICATION
[2023-03-10] MEDS ORDERED: NOREPINEPHRINE 4 MG/4 ML VIAL IV ONE (05:08)
[2023-03-10] MEDS ORDERED: PIPERACILLIN/TAZOBACTAM 3.375 GM VIAL IV ONE (05:27)
[2023-03-10] MEDS: PIPERACILLIN/TAZOBACTAM 3.375 GM in DEXTROSE 5% 50 ML IV SCH ×2 (06:04→12:44)
--- NOTE | 2023-03-10 06:12 | NUR ---
ATTEMPTED TO PLACE INDWELLING CATHETER HOWEVER OBSTRUCTION WAS FELT SO I WITHDREW AND PLACED CONDOM CATHETER INSTEAD. NO BLEEDING OR INJURY SUSTAINED. HOSPITAL ENTERTAINMENT AGENT AMY WILCOX ATTEMPPTED TO CALL N\ME TO GIVE MORE BACKGROUND INFO ON PATIENT BUT UNABLE TO ANSWER. ATTEMPTER\D TO CALL BACK BUT LINE WAS BUSY. WILLL ENDORSE TO AM SHIFT Addendum: 03/10/23 at 0646 by Agency Liz ANTHONY RN AMY WILCOX'S NUMBER IS [phone]
[2023-03-10] MEDS ORDERED: ONDANSETRON 4 MG/2 ML VIAL IVP PRN (07:30)
[2023-03-10] MEDS ORDERED: MORPHINE SULFATE 2 MG/ML SYR IVP PRN (07:30)
[2023-03-10] MEDS ORDERED: MAG SULF 2000 MG/WATER PREMIX 50 ML IV PRN (07:30)
[2023-03-10] MEDS ORDERED: DOCUSATE SODIUM 100 MG GELCAP PO PRN (07:30)
[2023-03-10] MEDS ORDERED: POTASSIUM CHLORIDE 10 MEQ TABER PO PRN (07:30)
[2023-03-10] MEDS ORDERED: VANCOMYCIN PER PHARMACY MC PRN ×2 (07:35→08:00)
[2023-03-10] MEDS ORDERED: ZOLPIDEM 5 MG TAB PO PRN (07:55)
[2023-03-10 08:23] LABS: BASOPHILS # (AUTO) 0.1 K/uL (0.00-0.22); BASOPHILS % (AUTO) 0.9 % (0.0-2.0); EOSINOPHILS # (AUTO) 0.1 K/uL (0-0.4); EOSINOPHILS % (AUTO) 0.5 % (0.0-4.0); HEMATOCRIT 39.4 % (36-52); HEMOGLOBIN 13.1 g/dL (12.0-18.0); MEAN CORPUSCULAR HEMOGLOBIN 33 pg (27-31); MEAN CORPUSCULAR HGB CONC 33 g/dL (33-37); MONOCYTES # (AUTO) 1.1 K/uL (0.8-1.0); MONOCYTES % (AUTO) 7.6 % (1.7-9.3); NEUTROPHILS # (AUTO) 12.6 K/uL (1.8-7.7); PLATELET COUNT (AUTO) 254 K/uL (140-450); RED BLOOD CELL COUNT(AUTO) 4.02 MIL/uL (4.20-6.10); RED CELL DISTRIBUTION WIDTH 14.1 % (11.6-13.7)
[2023-03-10 08:37] LABS: ANION GAP 8.2 (8-16); CARBON DIOXIDE 34.2 mmol/L (21-32); CREATININE 1.1 mg/dL (0.6-1.3); POTASSIUM 4.4 mmol/L (3.5-5.1)
[2023-03-10] MEDS: NACL 0.9% 1,000 ML IV SCH ×2 (08:49→21:53)
[2023-03-10] MEDS: ECOTRIN 81 MG TABEC PO SCH (08:55)
[2023-03-10] MEDS: SIMVASTATIN 20 MG TAB PO SCH (08:56)
[2023-03-10] MEDS: OXcarbazepine 150 MG TAB PO SCH (08:56)
[2023-03-10] MEDS ORDERED: levETIRAcetam 500 MG TAB PO SCH (09:00)
--- NOTE | 2023-03-10 09:01 | NUR ---
PATIENT HAS BEEN SCREENED AND CATEGORIZED MODERATE NUTRITION RISK. PATIENT WILL BE SEEN WITHIN 3-5 DAYS OF ADMISSION. REVIEWED BY MARILIN PALACIOS RD Addendum: 03/10/23 at [address] PATIENT RE-SCREENED HIGH NUTRITION RISK. PATIENT WILL BE SEEN WITHIN 1-2 DAYS OF ADMISSION. 03/11/23-03/12/23
[2023-03-10] MEDS: levETIRAcetam 1,000 MG in NACL 0.9% 100 ML IV SCH ×2 (10:16→20:31)
--- NOTE | 2023-03-10 10:40 | NUR ---
PT BIPAP WAS TITRATED TO 12/6 RR 16 FIO2 30% DUE TO PT RECEIVING HIGH TIDAL VOLUMES WITH 14/6 SETTINGS. PT IS TOLERATING NEW SETTINGS WELL. NO DISTRESS NOTED. WILL CONTINUE TO MONITOR.
--- NOTE | 2023-03-10 12:14 | NUR ---
DC PLANNING ASSESSMENT COMPLETE PLEASE REFER TO ASSESSMENT FOR ADDITIONAL DETAILS MEETA OUTREACHED TO [facility] NURSE, , TO GATHER COLLATERAL INFORMATION.JOSEE PITTS PT HAS BEEN A LONG-TERM RESIDENT OF [facility], [facility], ADMISSION DATE 10/16/2007. RAMONA PITTS PT IS [facility] CONNECTED, MEEAT; SUZANNE PRO, . PT IS REPORTED TO BE MINIMALLY VERBAL AND CAN BE HARD TO UNDERSTAND. PT IS ABLE TO ANSWER SIMPLE QUESTIONS WITH YES/NO. PT IS REPORTED TO HAVE NO FAMILY INVOLVEMENT. PT IS REPORTED TO BE AMBULATORY AT BASELINE, NO DME REPORTED, HOWEVER, JOSEE REPORTS PT'S HEALTH HAS DECLINED OF RECENT. PT IS REPORTED TO BE AMBULATORY WHEN IN A GOOD MOOD AND IS TOTAL CARE AT FACILITY. JOSEE REPORTS PT HAS RECENTLY BECOME FEARFUL OF WALKING AND WILL REFUSE TO WALK HOWEVER, ON SOME DAYS PT WILL WALK WITH NO DME ASSISTANCE. PT IS REPORTED TO BE COOPERATIVE AND DOES NOT DISPLAY ANY COMBATIVE/AGGRESSIVE BEHAVIORS. JOSEESusan PITTS DC PLAN IS FOR PT TO RETURN, ONCE MEDICALLY STABLE. JOSEE REPORTS TRANSPORTATION IS PROVIDED BY FACILITY HOWEVER, IF TRANSPORTATION UNAVAILABLE FACILITY TYPICALLY UTILIZES [employer]. JOSEE REQUESTING CLINICAL UPDATE, JOSEE TRANSFERRED TO ICU. PEDRO EQUESTED CM OUTREACH TO HER, MEETA ENDORSED TO LEONEL, LEONEL INGRAM. Addendum: 03/10/23 at 1215 by Amie BEASLEY Amended: Links added.
[2023-03-10] MEDS: methylPREDNISolone SS 125 MG/2 ML VIAL IVP SCH ×2 (12:44→20:29)
--- NOTE | 2023-03-10 16:41 | NUR ---
03/10/23 RD INITIAL ASSESSMENT COMPLETED PLEASE REFER TO NUTRITION ASSESSMENT UNDER CARE ACTIVITY FOR ESTIMATED NUTRITIONAL NEEDS. 1. RECOMMEND REGULAR DIET WITH TEXTURE MODIFICATIONS PER ST SWALLOW EVAL RECOMMENDATIONS 2. MONITOR PO INTAKE AND NUTRITION RELATED LAB VALUES 3. RD TO FOLLOW-UP 2-3 DAYS, HIGH RISK REVIEWED BY MARILIN PALACIOS RD
[2023-03-10] MEDS ORDERED: VANCOMYCIN 1,000 MG in DEXTROSE 5% 250 ML IV SCH (17:00)
[2023-03-10] MEDS: ALBUTEROL 0.083% 2.5 MG/3 ML NEBU INH SCH ×3 (17:15→19:54)
--- NOTE | 2023-03-10 19:20 | NUR ---
PT WAS SEEN FOR DYSPHAGIA. PT WAS ABLE TO SAFELY SWALLOW PUREE DIET WITH NTL LIQUID. MILD COUGH FOR THIN LIQUID. RECOMMENDATION PUREE DIET WITH NECTAR THICK LIQUID
--- NOTE | 2023-03-10 19:30 | NUR ---
RECEIVED PT FROM MORNING SHIFT NURSE. PT IS ON AOX1 AND BEDBOUND. PT IS ON 4L NC WITH CCHO DIET. PT HAS CONDOM CATHETER AND HAS IV ON RIGHT HAND GAUGE 20 SALINE LOCK AND LEFT AC GAUGE 20 RUNNING WITH NS AT 80ML/HR. PT HAS EXCORATION IN BUTTOCKS. ALL SAFETY MEASURES IMPLEMENTED. BED IN LOW POSITION, BED WHEELS ON LOCK AND CALL LIGHT WITHIN REACH.
--- NOTE | 2023-03-10 20:31 | NUR ---
ALL SCHEDULED AND PRESCRIBED MEDICATION WAS GIVEN TO PT PER MD ORDER. ALL SAFETY MEASURES IMPLEMENTED. BED IN LOW POSITION, BED WHEELS ON LOCK AND CALL LIGHT WITHIN REACH.
[2023-03-10] MEDS: LORazepam 2 MG/ML VIAL IVP PRN (22:00)
--- NOTE | 2023-03-10 22:00 | NUR ---
ATIVAN WAS GIVEN TO PT DUE TO AGITATION AND ANXIETY. ALL SAFETY MEASURES IMPLEMENTED. BED IN LOW POSITION, BED WHEELS ON LOCK AND CALL LIGHT WITHIN REACH.
[2023-03-11] VITALS (9 sets, daily range): BP systolic 98–133; BP diastolic 62–75
--- NOTE | 2023-03-11 | NUR ---
PT IS ON SLEEP. CHEST RISE AND FALL SYMMETRICALLY NOTED. RESPIRATION IS EVEN AND UNLABORED. ALL SAFETY MEASURES IMPLEMENTED. BED IN LOW POSITION AND CALL LIGHT WITHIN REACH.
[2023-03-11] MEDS: PIPERACILLIN/TAZOBACTAM 3.375 GM in DEXTROSE 5% 50 ML IV SCH ×5 (00:14→18:11)
[2023-03-11] MEDS: ALBUTEROL 0.083% 2.5 MG/3 ML NEBU INH SCH ×4 (00:27→19:00)
--- NOTE | 2023-03-11 04:00 | NUR ---
MORNING CARE WAS DONE TO PT. CHANGED LINENS AND CHUCKS. ALL SAFETY MEASURES IMPLEMENTED. BED IN LOW POSITION, BED WHEELS ON LOCKS AND CALL LIGHT WITHIN REACH.
[2023-03-11] MEDS: methylPREDNISolone SS 125 MG/2 ML VIAL IVP SCH (04:38)
--- NOTE | 2023-03-11 06:48 | NUR ---
LIABILITY ANALYST CALLED TO BEDSIDE; PATIENT PRESENTING WITH INCREASED WOB WITH RATE AT 32 BPM; SUPPLEMENTAL OXYGEN AT 4 LPM VIA NC SATURATION 89%-90%; BREATH SOUNDS DIMINISHED BILATERAL GOOD CHEST RISE; SPONTANEOUS COUGH ORAL PHARYNGEAL SUCTION FOR HAZY BLOOD FREIDA SECRETIONS; LIABILITY ANALYST TO ADMINISTRATION [facility]; POST [facility] LIABILITY ANALYST TO ASSESS FOR POSSIBLE BIPAP TO MASK
--- NOTE | 2023-03-11 07:26 | NUR ---
ENDORSED PT TO MORNING SHIFT NURSE FOR CONTINUITY OF CARE.
[2023-03-11 07:29] LABS: BASOPHILS % (AUTO) 0.3 % (0.0-2.0); HEMATOCRIT 39.8 % (36-52); HEMOGLOBIN 13.2 g/dL (12.0-18.0); LYMPHOCYTES # (AUTO) 0.7 K/uL (2.0-11.5); LYMPHOCYTES % (AUTO) 5.6 % (20.5-51.1); MEAN CORPUSCULAR HEMOGLOBIN 33 pg (27-31); MEAN CORPUSCULAR HGB CONC 33 g/dL (33-37); MEAN CORPUSCULAR VOLUME 97.8 fL (80-94); MONOCYTES # (AUTO) 0.4 K/uL (0.8-1.0); MONOCYTES % (AUTO) 2.9 % (1.7-9.3); NEUTROPHILS # (AUTO) 11.2 K/uL (1.8-7.7); PLATELET COUNT (AUTO) 257 K/uL (140-450); RED BLOOD CELL COUNT(AUTO) 4.07 MIL/uL (4.20-6.10); RED CELL DISTRIBUTION WIDTH 14.3 % (11.6-13.7); WHITE BLOOD COUNT (AUTO) 12.3 K/uL (4.8-10.8)
[2023-03-11 07:44] LABS: ANION GAP 11.4 (8-16); CARBON DIOXIDE 29.7 mmol/L (21-32); CREATININE 0.7 mg/dL (0.6-1.3); POTASSIUM 4.1 mmol/L (3.5-5.1)
--- NOTE | 2023-03-11 08:00 | NUR ---
RECEIVED PATIENT IN BED WITH RT AT BEDSIDE. PER NOC NURSE PATIENT WAS DESATING TO 84'S. BREATHING TREATMENT WAS GIVEN. PLACED PATIENT ON BIPAP TOLERATING WELL. O2 SAT ON 97-99%. WILL CONTINUE TO MONITOR.
[2023-03-11 08:13] LABS: NEUTROPHILS % (AUTO) 91.2 % (42.2-75.2)
[2023-03-11] MEDS: VANCOMYCIN 1,000 MG in DEXTROSE 5% 250 ML IV SCH ×2 (09:12→21:42)
[2023-03-11] MEDS: SIMVASTATIN 20 MG TAB PO SCH (09:14)
[2023-03-11] MEDS: OXcarbazepine 150 MG TAB PO SCH (09:14)
[2023-03-11] MEDS: FUROSEMIDE 20 MG/2 ML VIAL IVP SCH (09:14)
[2023-03-11] MEDS: ECOTRIN 81 MG TABEC PO SCH (09:14)
[2023-03-11] MEDS: levETIRAcetam 1,000 MG in NACL 0.9% 100 ML IV SCH ×2 (09:15→20:15)
[2023-03-11] MEDS: NACL 0.9% 1,000 ML IV SCH (11:05)
[2023-03-11] MEDS: methylPREDNISolone SS 40 MG/ML VIAL IVP SCH ×2 (14:46→20:20)
[2023-03-11] MEDS: LORazepam 2 MG/ML VIAL IVP PRN (14:46)
--- NOTE | 2023-03-11 19:30 | NUR ---
RECEIVED REPORT FROM DAY SHIFT NURSE LUIS FERNANDO FOR CONTINUITY OF CARE. PATIENT IS A&O X0. PATIENT IS ON BIPAP, BREATHING IS NORMAL WITH SYMMETRICAL RISE AND FALL OF CHEST. IV IS A 20G RHAND, RUNNING NS; AND A 20G LFA. PATIENT IS SLEEPING, LYING HIGH-FOWLERS POSITION. BED IS IN LOWEST POSITION, WHEELS LOCKED, CALL LIGHT IN PLACE. WILL CONTINUE TO OBSERVE PATIENT.
[2023-03-11] MEDS ORDERED: levETIRAcetam 100 MG/ML VIAL IV ONE (20:10)
[2023-03-12] VITALS: BP 118/77
--- NOTE | 2023-03-12 | NUR ---
PATIENT IS LYING SEMI-FOWLERS POSITION. BREATHING IS NORMAL ON BIPAP, WITH SYMMETRICAL RISE AND FALL OF CHEST. WILL CONTINUE TO OBSERVE PATIENT.
[2023-03-12] MEDS: NACL 0.9% 1,000 ML IV SCH ×2 (00:25→13:45)
[2023-03-12] MEDS: PIPERACILLIN/TAZOBACTAM 3.375 GM in DEXTROSE 5% 50 ML IV SCH ×4 (00:28→17:43)
[2023-03-12] MEDS: ALBUTEROL 0.083% 2.5 MG/3 ML NEBU INH SCH ×4 (00:41→19:41)
[2023-03-12 04:00] VITALS: BP 130/81
--- NOTE | 2023-03-12 04:00 | NUR ---
PATIENT WAS CLEAN AND DRY. PATIENT DID NOT HAVE A BM AND CONDOM CATHETER WAS STILL INTACT OVER PENIS. CATHETER BAG IS EMPTY WITH NO URINE. PATIENT'S CHUCKS ARE DRY. WILL CONTINUE TO OBSERVE PATIENT.
[2023-03-12] MEDS: methylPREDNISolone SS 40 MG/ML VIAL IVP SCH ×3 (05:12→20:15)
[2023-03-12 07:28] LABS: BASOPHILS % (AUTO) 0.2 % (0.0-2.0); HEMATOCRIT 37.1 % (36-52); HEMOGLOBIN 12.4 g/dL (12.0-18.0); LYMPHOCYTES # (AUTO) 0.8 K/uL (2.0-11.5); LYMPHOCYTES % (AUTO) 5.9 % (20.5-51.1); MEAN CORPUSCULAR HEMOGLOBIN 32 pg (27-31); MEAN CORPUSCULAR HGB CONC 33 g/dL (33-37); MEAN CORPUSCULAR VOLUME 96.8 fL (80-94); MONOCYTES # (AUTO) 0.8 K/uL (0.8-1.0); MONOCYTES % (AUTO) 6.3 % (1.7-9.3); NEUTROPHILS # (AUTO) 11.3 K/uL (1.8-7.7); NEUTROPHILS % (AUTO) 87.6 % (42.2-75.2); PLATELET COUNT (AUTO) 259 K/uL (140-450); RED BLOOD CELL COUNT(AUTO) 3.83 MIL/uL (4.20-6.10); RED CELL DISTRIBUTION WIDTH 14.2 % (11.6-13.7); WHITE BLOOD COUNT (AUTO) 12.9 K/uL (4.8-10.8)
[2023-03-12 07:39] LABS: ANION GAP 7.1 (8-16); CARBON DIOXIDE 32.7 mmol/L (21-32); CREATININE 0.8 mg/dL (0.6-1.3); POTASSIUM 3.8 mmol/L (3.5-5.1)
--- NOTE | 2023-03-12 07:47 | NUR ---
ENDORSED TO DAY SHIFT NURSE ELAINE FOR CONTINUITY OF CARE. PATIENT IS STABLE.
[2023-03-12 08:00] VITALS: BP 96/61
--- NOTE | 2023-03-12 08:30 | NUR ---
FOUND PT ON BIPAP, SKIN BREAKDOWN AND REDNESS NOTED. PLACED PT ON 2 L NASAL CANNULA. PT SHOWS NO SIGNS OF RESPIRATORY DISTRESS. PT VITALS ARE STABLE. RN NOTIFIED Addendum: 03/12/23 at 1121 by AVRIL JAIME RT FOUND PT ON BIPAP, SKIN BREAKDOWN AND REDNESS NOTED. PLACED PT ON 2 L NASAL CANNULA. PT SHOWS NO SIGNS OF RESPIRATORY DISTRESS. PT VITALS ARE STABLE. RN NOTIFIED, WILL CONTINUE TO MONITOR
[2023-03-12] MEDS: levETIRAcetam 1,000 MG in NACL 0.9% 100 ML IV SCH ×2 (10:23→20:21)
[2023-03-12] MEDS: VANCOMYCIN 1,000 MG in DEXTROSE 5% 250 ML IV SCH ×2 (10:23→21:39)
[2023-03-12] MEDS: FUROSEMIDE 20 MG/2 ML VIAL IVP SCH (10:24)
[2023-03-12] MEDS: OXcarbazepine 150 MG TAB PO SCH (10:25)
[2023-03-12] MEDS: SIMVASTATIN 20 MG TAB PO SCH (10:25)
[2023-03-12] MEDS: ECOTRIN 81 MG TABEC PO SCH (10:25)
--- NOTE | 2023-03-12 10:35 | NUR ---
1035 pt found with Right hand 22G dislodged from vein, lying on top of hand covered with tape. No active bleeding, pt not in pain or distress. skin intact and canula intact.
[2023-03-12 11:30] VITALS: BP 126/83
--- NOTE | 2023-03-12 13:40 | NUR ---
Correction to eMAR, Keppra given at 1310.
[2023-03-12 15:30] VITALS: BP 112/57
--- NOTE | 2023-03-12 15:33 | NUR ---
03/12/23 RD FOLLOW UP COMPLETED.PLEASE REFER TO NUTRITION ASSESSMENT UNDER CARE ACTIVITY FOR ESTIMATED NUTRITIONAL NEEDS. 1. RECOMMEND PUREE DIET WITH NECTAR THICK LIQUID PER ST RECOMMENDATION. 2. MONITOR PO INTAKE 3. RD TO FOLLOW-UP IN 3-5 DAYS PATIENT IS MODERATE RISK. RILEY TROTTER RD
[2023-03-12] MEDS: MUPIROCIN CA NASAL 2% 1GM TUBE NS SCH (17:43)
--- NOTE | 2023-03-12 18:00 | NUR ---
Not able to update I/O accurately due to missing information.
--- NOTE | 2023-03-12 19:30 | NUR ---
RECEIVED REPORT FROM DAY SHIFT NURSE ELAINE FOR CONTINUITY OF CARE. PATIENT IS A&O X0. PATIENT IS ON NC 2L, BREATHING IS NORMAL WITH SYMMETRICAL RISE AND FALL OF CHEST. IV IS A 20G LFA, RUNNING NS. PATIENT IS AWAKE, LYING HIGH-FOWLERS POSITION. BED IS IN LOWEST POSITION, WHEELS LOCKED, CALL LIGHT IN PLACE. WILL CONTINUE TO OBSERVE PATIENT.
[2023-03-12 20:00] VITALS: BP 127/71
[2023-03-12] MEDS: CHLORHEXADINE GLUC 2% CLOTH TP SCH (20:02)
--- NOTE | 2023-03-12 21:45 | NUR ---
RECEIVED TROPH OF 18.1. CALLED OVERNIGHT PHARMACIST AND SPOKE TO PHARMACIST NIXON. INFORMED HIM OF TROP LEVEL. PHARMACIST THANKED ME FOR INFORMING HIM AND SAID ELINA WAS OKAY TO GIVE. HE SAID HE WILL SET UP A NEW TROPH DATE. MEDICATION WAS STARTED SUCCESSFULLY WITHOUT ANY ISSUES. WILL CONTINUE TO OBSERVE PATIENT.
[2023-03-13] VITALS: BP 109/68
[2023-03-13] MEDS: LORazepam 2 MG/ML VIAL IVP PRN (00:25)
[2023-03-13] MEDS: PIPERACILLIN/TAZOBACTAM 3.375 GM in DEXTROSE 5% 50 ML IV SCH ×4 (00:25→17:14)
--- NOTE | 2023-03-13 00:35 | NUR ---
PATIENT WOKE UP AROUND 2230 AND HAS NOT GONE BACK TO SLEEP. PATIENT CONTINUED TO GROW AGITATED; YELLING AND PULLING OFF PULSE OXIMETER AND NASAL CANULA. ALL EFFORTS TO CALM PATIENT DOWN HAVE BEEN UNSUCCESSFUL. CHECKED PATIENT'S BP; BP WAS 102/77, O2 WAS 95%, HR WAS 85. ADMINISTERED ATIVAN FOR AGITATION AT 0025. PATIENT'S BREATHING IS NORMAL. WILL CONTINUE TO OBSERVE PATIENT.
[2023-03-13] MEDS: ALBUTEROL 0.083% 2.5 MG/3 ML NEBU INH SCH ×4 (01:00→19:20)
[2023-03-13] MEDS: NACL 0.9% 1,000 ML IV SCH ×2 (03:05→16:28)
[2023-03-13 04:00] VITALS: BP 105/58
--- NOTE | 2023-03-13 04:21 | NUR ---
PATIENT'S 02 SATURATION WAS DECREASING ON NC (FLUCTUATING BETWEEN 70 - 90%). NOTIFIED RT TO ASSESS NEED FOR BIPAP. RT RESPONDED AND ASSESSED PATIENT. RT DECIDED TO PLACE PATIENT ON BIPAP. PATIENT IS NOW ON BIPAP, SATURATION FLUCTUATING BETWEEN 90 - 100%. WILL CONTINUE TO OBSERVE PATIENT.
[2023-03-13] MEDS: methylPREDNISolone SS 40 MG/ML VIAL IVP SCH ×3 (05:34→21:40)
--- NOTE | 2023-03-13 07:15 | NUR ---
RECEIVED REPORT FROM SYSTEMS SUPPORT SPECIALIST NURSE FOR CONTINUITY OF CARE. PT STABLE AT THIS TIME.
[2023-03-13 07:24] LABS: BASOPHILS % (AUTO) 0.3 % (0.0-2.0); LYMPHOCYTES # (AUTO) 1.1 K/uL (2.0-11.5); LYMPHOCYTES % (AUTO) 9.3 % (20.5-51.1); MEAN CORPUSCULAR HEMOGLOBIN 32 pg (27-31); MEAN CORPUSCULAR HGB CONC 33 g/dL (33-37); MEAN CORPUSCULAR VOLUME 96.5 fL (80-94); MONOCYTES # (AUTO) 1.3 K/uL (0.8-1.0); MONOCYTES % (AUTO) 11.5 % (1.7-9.3); NEUTROPHILS % (AUTO) 78.9 % (42.2-75.2); PLATELET COUNT (AUTO) 254 K/uL (140-450); RED BLOOD CELL COUNT(AUTO) 3.73 MIL/uL (4.20-6.10); RED CELL DISTRIBUTION WIDTH 14.4 % (11.6-13.7); WHITE BLOOD COUNT (AUTO) 11.5 K/uL (4.8-10.8)
[2023-03-13 07:43] LABS: CARBON DIOXIDE 30.5 mmol/L (21-32); CREATININE 0.7 mg/dL (0.6-1.3); POTASSIUM 4.5 mmol/L (3.5-5.1)
--- NOTE | 2023-03-13 07:48 | NUR ---
ENDORSED TO DAY SHIFT NURSE ANTHONY FOR CONTINUITY OF CARE. PATIENT IS STABLE.
[2023-03-13 08:00] VITALS: BP 108/76
--- NOTE | 2023-03-13 08:50 | NUR ---
PT. WITH LOW BLAYNE SCALE AT MODERATE TO HIGH RISK, CONTINUE TO FOLLOW PRESSURE INJURY PREVENTION INTERVENTIONS. -POSITIONING: TURN AND REPOSITION PATIENT Q 2H OR SOONER USE PILLOWS TO KEEP BONY PROMINENCES FROM DIRECT CONTACT WITH SURFACES USE REPOSITIONING WEDGES TO PROVIDE 30-DEGREE ANGLE FOR SIDE LYING POSITIONS OFFLOADING OR FOAM DRESSING TO ALL TUBING TO PREVENT MEDICAL DEVICES RELATED PRESSURE INJURY -RE-EVALUATING AND MANAGING INCONTINENCE MONITOR SKIN CONDITION DURING POSITION CHANGE DO NOT MASSAGE REDNESS, BONY PROMINENCES FREQUENT JR-CARE AND PROVIDE BARRIER CREAMS PRN IF SOILING MOISTURE CONTROL BY OFFER BED PRIETO/URINAL /ABSORBENT PAD TO WICK AND HOLD MOISTURE KEEP SKIN DRY AND PROTECT FROM FRICTION -MANAGE FRICTION/SHEAR/MOBILITY KEEP HOB AT THE LOWEST LEVEL OF ELEVATION NO MORE THAN 30 DEGREE UNLESS OTHERWISE CONTRAINDICATED USE LIFT SHEET OR TRANSFER DEVICE TO MOVE PATIENT AND PREVENT LATERAL SHEER. PROTECT HEELS, ELBOWS BONY PROMINENCES WITH SKIN BERRIES OR FOAM DRESSING IF EXPOSED TO FRICTION OFFLOAD BILATERAL HEELS BY PLACING PILLOWS UNDER CALVES AT ALL TIMES, UNLESS OTHERWISE CONTRAINDICATED -PRESSURE REDISTRIBUTION SURFACE THERAPY CAROL ISOFLEX MATTRESS -NUTRITION: PLEASE FOLLOW RD RECOMMENDATIONS AND OFFER NUTRITION SUPPLEMENTS IF ORDERED. PLEASE CONTACT WOUND CARE NURSE FOR ANY QUESTION AND CHANGE OF WOUND CONDITION.
[2023-03-13] MEDS: OXcarbazepine 150 MG TAB PO SCH (09:00)
[2023-03-13] MEDS: ECOTRIN 81 MG TABEC PO SCH (09:00)
[2023-03-13] MEDS: SIMVASTATIN 20 MG TAB PO SCH (09:00)
[2023-03-13] MEDS: FUROSEMIDE 20 MG/2 ML VIAL IVP SCH (09:01)
[2023-03-13] MEDS: levETIRAcetam 1,000 MG in NACL 0.9% 100 ML IV SCH ×2 (09:04→21:40)
--- NOTE | 2023-03-13 09:11 | NUR ---
TRIED TO WAKE PT TO ADMINISTER ORAL MORNING MEDICATION, PT WOULD WAKE A LITTLE BUT ENOUGH TO SAFELY SWALLOW. WHILE IN ROOM PTS HR KEEPS DROPPING TO 44 AND WILL JUMP BACK UP ABOVE 55. DR INGRAM WILL CONTINUE TO MONITOR.
[2023-03-13] MEDS: VANCOMYCIN 1,000 MG in DEXTROSE 5% 250 ML IV SCH ×2 (09:56→22:47)
[2023-03-13 12:00] VITALS: BP 99/64
[2023-03-13] MEDS: Z-GUARD PASTE TP SCH (12:05)
--- NOTE | 2023-03-13 14:00 | NUR ---
PT WAS REMOVED FROM BIPAP AND PLACED ON 2L NC. PT IS STATING IN THE HIGH 90'S.
[2023-03-13 16:00] VITALS: BP 118/74
[2023-03-13] MEDS: MUPIROCIN CA NASAL 2% 1GM TUBE NS SCH (17:12)
--- NOTE | 2023-03-13 19:15 | NUR ---
ENDORSED TO BURR BENCH HAND NURSE FOR CONTINUITY OF CARE. PT STABLE AT THIS TIME.
[2023-03-13] MEDS: CHLORHEXADINE GLUC 2% CLOTH TP SCH (19:30)
[2023-03-13 20:00] VITALS: BP_SYST 118; BP_SYST 122; BP_DIAS 67; BP_DIAS 74
--- NOTE | 2023-03-13 21:30 | NUR ---
PT KEEPING PULLING THE NASAL CANULLA , THE IV AND TRY TO GET UP , AND KEEP BITTING HIS FINGERS - WILL REFER TO
[2023-03-13] MEDS: ACETAMINOPHEN 325 MG TAB PO PRN (22:43)
[2023-03-14] VITALS: BP 125/70
--- NOTE | 2023-03-14 00:50 | NUR ---
de sat to 88 % - refer to rt .
--- NOTE | 2023-03-14 00:54 | NUR ---
rt at bedside , giving breathing treatment .
[2023-03-14] MEDS: PIPERACILLIN/TAZOBACTAM 3.375 GM in DEXTROSE 5% 50 ML IV SCH ×4 (01:00→17:46)
--- NOTE | 2023-03-14 01:02 | NUR ---
o2 sat 99 %
[2023-03-14] MEDS: ALBUTEROL 0.083% 2.5 MG/3 ML NEBU INH SCH ×2 (01:11→17:24)
[2023-03-14] MEDS: Z-GUARD PASTE TP SCH ×2 (01:39→13:33)
--- NOTE | 2023-03-14 01:40 | NUR ---
bp re check 122/ 70 , hr 80 , rr 20 - still awake and keep on talking , - will medicate , on tele monitor .
--- NOTE | 2023-03-14 03:54 | NUR ---
ROUNDS , BP 122/75 , O2 SAT 97 % , ON TELE MONITOR - SR , RR 20 , TEMP 98.8 F HR 84 . WILL CONT. TO MONITOR
[2023-03-14 04:00] VITALS: BP 127/62
--- NOTE | 2023-03-14 04:24 | NUR ---
inform dr. cruz pt redd uw and the pt ocassional sr , sb - for closely watch .
[2023-03-14 04:39] LABS: BASOPHILS % (AUTO) 0.1 % (0.0-2.0); HEMATOCRIT 36.2 % (36-52); HEMOGLOBIN 12.2 g/dL (12.0-18.0); LYMPHOCYTES # (AUTO) 0.7 K/uL (2.0-11.5); LYMPHOCYTES % (AUTO) 7.3 % (20.5-51.1); MEAN CORPUSCULAR HEMOGLOBIN 33 pg (27-31); MEAN CORPUSCULAR HGB CONC 34 g/dL (33-37); MEAN CORPUSCULAR VOLUME 96.7 fL (80-94); MONOCYTES # (AUTO) 0.7 K/uL (0.8-1.0); MONOCYTES % (AUTO) 6.8 % (1.7-9.3); NEUTROPHILS # (AUTO) 8.3 K/uL (1.8-7.7); NEUTROPHILS % (AUTO) 85.8 % (42.2-75.2); PLATELET COUNT (AUTO) 239 K/uL (140-450); RED BLOOD CELL COUNT(AUTO) 3.74 MIL/uL (4.20-6.10)
[2023-03-14 04:55] LABS: WHITE BLOOD COUNT (AUTO) 9.7 K/uL (4.8-10.8)
[2023-03-14 05:00] LABS: ANION GAP 8.6 (8-16); CREATININE 0.8 mg/dL (0.6-1.3); POTASSIUM 3.6 mmol/L (3.5-5.1)
[2023-03-14 05:06] LABS: MAGNESIUM 2.1 mg/dL (1.8-2.4); PHOSPHORUS 3.1 mg/dL (2.5-4.9)
--- NOTE | 2023-03-14 05:40 | NUR ---
RELAYED THE RESULT OF BMP , PHOS , MG TO DR. VELAZQUEZ - BP 118/ 60 , HR 63 , O2 SAT 98 % , AFEBRILE - WILL CONT. TO MONITOR .
[2023-03-14] MEDS: NACL 0.9% 1,000 ML IV SCH (05:45)
[2023-03-14] MEDS: methylPREDNISolone SS 40 MG/ML VIAL IVP SCH ×2 (06:00→13:11)
--- NOTE | 2023-03-14 07:15 | NUR ---
RECEIVED REPORT FROM DISC PAD GRINDER NURSE FOR CONTINUITY OF CARE. PT STABLE AT THIS TIME.
--- NOTE | 2023-03-14 07:25 | NUR ---
ENDORSED PT FOR CONT. OF CARE , AWAKE , O2 SAT 96 % , BP 115/ 67
[2023-03-14 08:00] VITALS: BP 115/72
[2023-03-14] MEDS ORDERED: HALOPERIDOL IM 5 MG/ML VIAL IM SCH (08:22)
[2023-03-14] MEDS: FUROSEMIDE 20 MG/2 ML VIAL IVP SCH (09:30)
[2023-03-14] MEDS: SIMVASTATIN 20 MG TAB PO SCH (09:30)
[2023-03-14] MEDS: ECOTRIN 81 MG TABEC PO SCH (09:30)
[2023-03-14] MEDS: OXcarbazepine 150 MG TAB PO SCH (09:31)
[2023-03-14] MEDS: levETIRAcetam 1,000 MG in NACL 0.9% 100 ML IV SCH (09:36)
[2023-03-14 12:00] VITALS: BP 127/62
--- NOTE | 2023-03-14 12:27 | NUR ---
DC PLANNING A 57 Y.O. MALE PATIENT, A RESIDENT OF [facility] ([facility]) WAS BROUGHT TO ER FOR FEVER,TACHYCARDIA AND SOB.HE IS NON VERBAL.WITH HX OF DOWN SYNDROME,SEIZURE DISORDER,CARDIOMEGALY AND COPD.ON AN DOFF BI PAP BUT CURRENTLY ON 5L NC.BLOOD AND URINE CULTURE (-).CXR SHOWS CARDIOMEGALY WITH PULM VASCULAR CONGESTION.ON VANCO AND ZOSYN.DC PLAN- BACK TO [facility] WHEN PATIENT RESPONDS TO TX.CM TO FOLLOW.
[2023-03-14 16:00] VITALS: BP 86/47
[2023-03-14 16:09] LABS: FREE T4 (FREE THYROXINE) 1.11 ng/dL (0.76-1.46); THYROID STIMULATING HORMONE 0.32 uIU/mL (0.34-3.74)
[2023-03-14] MEDS: MUPIROCIN CA NASAL 2% 1GM TUBE NS SCH (17:46)
--- NOTE | 2023-03-14 19:30 | NUR ---
ENDORSED TO STONEWORKER NURSE FOR CONTINUITY OF CARE. PT STABLE AT THIS TIME.
[2023-03-15] MEDS: Z-GUARD PASTE TP SCH ×2 (01:00→13:06)
[2023-03-15] MEDS: PIPERACILLIN/TAZOBACTAM 3.375 GM in DEXTROSE 5% 50 ML IV SCH ×3 (01:12→12:55)
[2023-03-15 06:50] LABS: BASOPHILS % (AUTO) 0.2 % (0.0-2.0); HEMATOCRIT 39.2 % (36-52); LYMPHOCYTES % (AUTO) 10.1 % (20.5-51.1); MEAN CORPUSCULAR HEMOGLOBIN 32 pg (27-31); MEAN CORPUSCULAR HGB CONC 33 g/dL (33-37); MEAN CORPUSCULAR VOLUME 97.9 fL (80-94); MONOCYTES # (AUTO) 0.8 K/uL (0.8-1.0); NEUTROPHILS % (AUTO) 81.7 % (42.2-75.2); PLATELET COUNT (AUTO) 261 K/uL (140-450); RED BLOOD CELL COUNT(AUTO) 4.01 MIL/uL (4.20-6.10); RED CELL DISTRIBUTION WIDTH 14.1 % (11.6-13.7); WHITE BLOOD COUNT (AUTO) 9.7 K/uL (4.8-10.8)
[2023-03-15 06:55] LABS: ANION GAP 8.1 (8-16); CARBON DIOXIDE 35.3 mmol/L (21-32); CREATININE 0.9 mg/dL (0.6-1.3); POTASSIUM 4.4 mmol/L (3.5-5.1)
--- NOTE | 2023-03-15 07:32 | NUR ---
RECEIVED REPORT FROM RELIABILITY MANAGER NURSE FOR CONTINUITY OF CARE. PT IN BED AT THIS TIME RESTING. RESPIRATIONS ARE EVEN AND UNLABORED, PT IS ON 3L NC, HOWEVER, PER RELIABILITY MANAGER NURSE, PT CONTINUES TO REMOVED NC. PT HAS HX OF DOWN SYNDROME. ABD IS NONTENDER, NONDISTENDED WITH BOWEL SOUNDS PRESENT. PT HAS IV TO RAC 22G. SKIN IS WARM AND DRY. REDNESS NOTED AT JR AREA. 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 CALL LIGHT WITHIN REACH. ALL SAFETY MEASURES IN PLACE.
[2023-03-15 08:00] VITALS: BP 145/61
[2023-03-15] MEDS: NACL 0.9% 1,000 ML IV SCH (08:25)
[2023-03-15] MEDS: ECOTRIN 81 MG TABEC PO SCH (09:03)
[2023-03-15] MEDS: OXcarbazepine 150 MG TAB PO SCH (09:03)
[2023-03-15] MEDS: SIMVASTATIN 20 MG TAB PO SCH (09:03)
[2023-03-15] MEDS: ALBUTEROL 0.083% 2.5 MG/3 ML NEBU INH SCH ×2 (09:15→14:38)
[2023-03-15] MEDS: FUROSEMIDE 20 MG/2 ML VIAL IVP SCH (09:30)
[2023-03-15] MEDS: levETIRAcetam 1,000 MG in NACL 0.9% 100 ML IV SCH (11:10)
--- NOTE | 2023-03-15 11:10 | NUR ---
SILVANA IVPB ADMINISTERED BY
[2023-03-15 12:00] VITALS: BP 95/46
[2023-03-15] MEDS: methylPREDNISolone SS 40 MG/ML VIAL IVP SCH ×2 (13:00→13:16)
--- NOTE | 2023-03-15 13:44 | NUR ---
PT HAS DISCHARGE ORDER. CALLED [facility], SPOKE WITH JOSEE TO INFORM HER. GAVE JOSEE REPORT. PER OJSEE, [facility] CONTRACTS WITH [employer] SO THEY WILL CALL US WITH A MANAGER ARCHITECTURAL TIME.
[2023-03-15 13:59] VITALS: BP 108/66
--- NOTE | 2023-03-15 14:19 | NUR ---
IV PUSH PREDNISONE ADMINISTERED BY CORBY ANTHONY.
--- NOTE | 2023-03-15 14:59 | NUR ---
CALLED JEN FROM [facility] TO SCHEDULE PICKUP TO [facility]. ESTIMATED PICKUP TIME IS 17:30.
[2023-03-15] MEDS: ACETAMINOPHEN 325 MG TAB PO PRN (15:39)
--- NOTE | 2023-03-15 15:43 | NUR ---
PT THRASHING AROUND IN BED, GRIMACING, AND YELLING. ADMINISTERED PO TYLENOL. WILL RE-ASSESS PT.
[2023-03-15 16:00] VITALS: BP 96/48
[2023-03-15] MEDS: MUPIROCIN CA NASAL 2% 1GM TUBE NS SCH (17:30)
--- NOTE | 2023-03-15 17:48 | NUR ---
[facility] HERE TO SENIOR SHAREPOINT DEVELOPER PT. DISCHARGE PACKET SENT HOME WITH PT. REMOVED IV. IV CATHETER INTACT.
== END 2023-03-15 17:50 | disposition home or self-care (01) | DRG 871 ==
LOC: MED 21:17 → MTU 03-10 00:35 → MIC 03-10 03:05 → MTU 03-10 16:00
PROVIDERS: ADMIT Family Medicine; ATTEND Family Medicine
PROC: 5A09357 Assistance with Respiratory Ventilation, Less than 24 Consecutive Hours, Continuous Positive Airway Pressure (ICD-10-PCS; principal; 2023-03-10)
PROC: 5A09457 Assistance with Respiratory Ventilation, 24-96 Consecutive Hours, Continuous Positive Airway Pressure (ICD-10-PCS; 2023-03-11)
PROC: 5A0935A Assistance with Respiratory Ventilation, Less than 24 Consecutive Hours, High Flow/Velocity Cannula (ICD-10-PCS; 2023-03-14)
DX: A41.9 Sepsis, unspecified organism (principal); G93.41 Metabolic encephalopathy; J18.9 Pneumonia, unspecified organism; R65.21 Severe sepsis with septic shock; J96.01 Acute respiratory failure with hypoxia; J96.02 Acute respiratory failure with hypercapnia; I50.33 Acute on chronic diastolic (congestive) heart failure; E44.1 Mild protein-calorie malnutrition; J81.1 Chronic pulmonary edema; E83.51 Hypocalcemia; Q90.9 Down syndrome, unspecified; Z68.30 Body mass index [BMI] 30.0-30.9, adult; G47.33 Obstructive sleep apnea (adult) (pediatric); G40.909 Epilepsy, unspecified, not intractable, without status epilepticus; Z20.822 Contact with and (suspected) exposure to COVID-19; J44.9 Chronic obstructive pulmonary disease, unspecified
CPT/HCPCS: 36415; 36600; 71045; 80048; 80053; 80202; 81001; 82803; 83605; 83735; 83880; 84100; 84439; 84443; 85025; 87040; 87070; 87081; 87086; 87205; 89220; 93005; 94640; 94660; 96365; 96368; 99291; J1630; J1940; J1953; J2060; J2185; J2543; J2920; J2930; J3370; J3490; J7060; J7613; Q0092

== ENCOUNTER 2023-04-28 21:24 | Inpatient (IN) | payer OTHER, MEDICAID ==
--- NOTE | 2020-05-05 01:00 | NUR ---
bradycardia-49- dopamine increased up to 15 mcg/kg/min. still christopher at times fentanyl decreased to 10mcg/hr. .slept most of the noc. vented with same setting no resp. distress noted. restraint to both arms intact. cont. to monitor pt.
[~2023-04-28] VITALS: Ht 167.6 cm; Wt 64.9 kg
[~2023-04-28 21:24] MED LIST changes: -AZIT250T4 PO; +LEVO-481 PO; +METH4TAB1 PO; +PANT40EC56 PO
--- NOTE | 2023-04-28 21:32 | NUR ---
PT. INOCENTE VILLARREAL. PLACED IN BED 04
[2023-04-28 21:33] VITALS: BP 98/45; PULSE 110; RESP 18; TEMP 99.6; O2SAT 95
--- NOTE | 2023-04-28 21:49 | NUR ---
Patient resting in bed, alert but confused, chest rise and fall symmetrical, no s/s of pain and no s/s of distress, on monitor. Addendum: 04/28/23 at 2215 by [email or web address] Patient resting in bed, alert but confused, chest rise and fall symmetrical, no s/s of pain and no s/s of distress, on monitor, seizure precautions/pads in place.
[2023-04-28] MEDS ORDERED: NACL 0.9% 1,000 ML IV ONE ×3 (21:50→23:45)
--- NOTE | 2023-04-28 22:13 | NUR ---
X-Ray at bedside.
[2023-04-28 22:20] LABS: APPEARANCE,URINE CLEAR (CLEAR); BILIRUBIN,URINE NEGATIVE (NEGATIVE); BLOOD, URINE NEGATIVE (NEGATIVE); COLOR,URINE YELLOW (YELLOW); LEUKOCYTE ESTERASE ,URINE NEGATIVE (NEGATIVE); NITRITE, URINE NEGATIVE (NEGATIVE); UGLUCOSE NEGATIVE (NEGATIVE)
[2023-04-28 22:22] LABS: HEMOGLOBIN 13.5 g/dL (12.0-18.0); MEAN CORPUSCULAR HEMOGLOBIN 32 pg (27-31); MEAN CORPUSCULAR HGB CONC 34 g/dL (33-37); MEAN CORPUSCULAR VOLUME 95.5 fL (80-94); PLATELET COUNT (AUTO) 275 K/uL (140-450); RED BLOOD CELL COUNT(AUTO) 4.18 MIL/uL (4.20-6.10); WHITE BLOOD COUNT (AUTO) 24.5 K/uL (4.8-10.8)
[2023-04-28 22:36] LABS: ALBUMIN 2.8 g/dL (3.4-5.0); ANION GAP 11.7 (8-16); CARBON DIOXIDE 29.7 mmol/L (21-32); POTASSIUM 4.4 mmol/L (3.5-5.1); TOTAL BILIRUBIN 0.2 mg/dL (0.0-1.0)
[2023-04-28 22:39] LABS: LIPASE 72 U/L (73-393)
[2023-04-28] MEDS ORDERED: PIPERACILLIN/TAZOBACTAM 3.375 GM in DEXTROSE 5% 50 ML IV ONE (22:40)
[2023-04-28] MEDS ORDERED: VANCOMYCIN 1,000 MG in DEXTROSE 5% 250 ML IV ONE (22:40)
--- NOTE | 2023-04-28 22:41 | NUR ---
DR. GRAMAJO AT BEDSIDE
[2023-04-28] MEDS ORDERED: PIPERACILLIN/TAZOBACTAM 3.375 GM VIAL IV ONE (22:50)
[2023-04-28 22:58] LABS: BASOPHILS % (MANUAL) 0 % (0-2); EOSINOPHILS % (MANUAL) 0 % (0-4); LYMPHOCYTES % (MANUAL) 5 % (20-46); MONOCYTES % (MANUAL) 9 % (5-12)
[2023-04-28] MEDS ORDERED: MORPHINE SULFATE 2 MG/ML SYR IVP PRN (23:40)
[2023-04-28] MEDS ORDERED: POTASSIUM CHLORIDE 10 MEQ TABER PO PRN (23:40)
[2023-04-28] MEDS ORDERED: MAG SULF 2000 MG/WATER PREMIX 50 ML IV PRN (23:40)
[2023-04-28] MEDS ORDERED: ZOLPIDEM 10 MG TAB PO PRN (23:40)
[2023-04-28] MEDS ORDERED: DOCUSATE SODIUM 100 MG GELCAP PO PRN (23:40)
[2023-04-28] MEDS ORDERED: VANCOMYCIN PER PHARMACY MC PRN (23:45)
[2023-04-28] MEDS ORDERED: FLUO118.1 TP (23:54)
[2023-04-28] MEDS ORDERED: ATI.5 PO (23:54)
[2023-04-28] MEDS ORDERED: VOL25 PO (23:54)
[2023-04-28] MEDS ORDERED: NA P135N RC (23:54)
[2023-04-28] MEDS ORDERED: QUET25TA PO (23:54)
[2023-04-28] MEDS ORDERED: KETO120S5 TP (23:54)
[2023-04-28] MEDS ORDERED: ROB PO (23:54)
[2023-04-28] MEDS ORDERED: [UNRECOGNIZED DRUG - CODE] PO (23:54)
[2023-04-28] MEDS ORDERED: [UNRECOGNIZED DRUG - CODE] PO (23:54)
[2023-04-28] MEDS ORDERED: VANCOMYCIN 1,000 MG VIAL ONE (23:55)
--- NOTE | 2023-04-28 23:55 | NUR ---
PT. MOVED TO BED 01.
[2023-04-29] VITALS (22 sets, daily range): BP systolic 92–158; BP diastolic 54–84; PULSE 51–89; RESP 9–33; TEMP 96.9–98.4; O2SAT 93–100
--- NOTE | 2023-04-29 00:45 | NUR ---
Patient resting in bed, alert but confused, chest rise and fall symmetrical, no s/s of pain and no s/s of distress, on monitor, seizure precautions/pads in place.
[2023-04-29] MEDS: ALBUTEROL 0.083% 2.5 MG/3 ML NEBU INH PRN ×2 (00:50→16:14)
--- NOTE | 2023-04-29 02:23 | NUR ---
Patient resting in bed, alert but confused, chest rise and fall symmetrical, no s/s of pain and no s/s of distress, on monitor, seizure precautions/pads in place. on moderate high back rest
--- NOTE | 2023-04-29 02:28 | NUR ---
pt. screaming on bed
[2023-04-29] MEDS: LORazepam 2 MG/ML VIAL IVP PRN ×2 (02:32→14:34)
--- NOTE | 2023-04-29 02:59 | NUR ---
pt. seen resting, not in distress
[2023-04-29] MEDS ORDERED: PIPERACILLIN/TAZOBACTAM 3.375 GM VIAL IV ONE (05:05)
[2023-04-29] MEDS: PIPERACILLIN/TAZOBACTAM 3.375 GM in DEXTROSE 5% 50 ML IV SCH ×3 (05:14→21:09)
[2023-04-29 05:45] LABS: BASOPHILS # (AUTO) 0.1 K/uL (0.00-0.22); BASOPHILS % (AUTO) 0.4 % (0.0-2.0); EOSINOPHILS % (AUTO) 0.2 % (0.0-4.0); HEMOGLOBIN 11.9 g/dL (12.0-18.0); LYMPHOCYTES # (AUTO) 1.1 K/uL (2.0-11.5); LYMPHOCYTES % (AUTO) 5.8 % (20.5-51.1); MEAN CORPUSCULAR HEMOGLOBIN 32 pg (27-31); MEAN CORPUSCULAR HGB CONC 33 g/dL (33-37); MEAN CORPUSCULAR VOLUME 97.6 fL (80-94); MONOCYTES # (AUTO) 1.6 K/uL (0.8-1.0); MONOCYTES % (AUTO) 8.6 % (1.7-9.3); NEUTROPHILS # (AUTO) 15.8 K/uL (1.8-7.7); PLATELET COUNT (AUTO) 234 K/uL (140-450); RED BLOOD CELL COUNT(AUTO) 3.69 MIL/uL (4.20-6.10); WHITE BLOOD COUNT (AUTO) 18.6 K/uL (4.8-10.8)
[2023-04-29 06:10] LABS: CARBON DIOXIDE 29.3 mmol/L (21-32); CREATININE 0.8 mg/dL (0.6-1.3); POTASSIUM 4.3 mmol/L (3.5-5.1)
--- NOTE | 2023-04-29 06:59 | NUR ---
bedside care done, change linen and diaper, turned to side with side rail up
--- NOTE | 2023-04-29 07:02 | NUR ---
wound care done on right buttock
--- NOTE | 2023-04-29 07:19 | NUR ---
Change of shift report given to AM shift Nurse Bartolo ANTHONY. AM shift Nurse Bartolo RN verbalized understanding of report, no further questions.
--- NOTE | 2023-04-29 07:30 | NUR ---
low bp, 78/45, repeated 79/48, nsr on cm, hr 78. pt sleeping, not arousable bs 129, perrl admitting md texted
[2023-04-29] MEDS ORDERED: NOREPINEPHRINE 4 MG/4 ML VIAL IV ONE ×2 (07:42→20:41)
[2023-04-29] MEDS: NOREPINEPHRINE 4 MG/4 ML VIAL IV ONE ×2 (07:44→08:08)
[2023-04-29] MEDS: NOREPINEPHRINE 4 MG in DEXTROSE 5% 250 ML IV PRN ×2 (07:52→09:02)
--- NOTE | 2023-04-29 08:05 | NUR ---
started on Levophed per admitting MD, 5 mcg/min bp 83/58, then 81/52, hr 75 then increased to 8 mcg/min, bp now 90/53, then 98/59, hr 73
[2023-04-29] MEDS: DOCUSATE SODIUM 100 MG GELCAP PO SCH ×3 (09:00→17:00)
[2023-04-29] MEDS ORDERED: OXcarbazepine 150 MG TAB PO SCH (09:00)
[2023-04-29] MEDS: MAGNESIUM HYDROXIDE 2400 MG/30 ML UDC PO SCH (09:00)
[2023-04-29] MEDS ORDERED: levETIRAcetam 500 MG TAB PO SCH (09:00)
[2023-04-29] MEDS ORDERED: ECOTRIN 81 MG TABEC PO SCH (09:00)
[2023-04-29] MEDS: SIMVASTATIN 20 MG TAB PO SCH (09:00)
--- NOTE | 2023-04-29 10:15 | NUR ---
PT NOT AROUSABLE, NOT ABLE TO GIVE PO MEDS, WILL TEXT MD, WILL TRANSFER PT TO ICU
--- NOTE | 2023-04-29 10:20 | NUR ---
PT TRANSFERRED TO ICU 3, REPORT TO GABRIELLE JOY PT SHOWED NO DISTRESS AT TRANSFER TIME, NSR ON CM O2 SAT 96% 3L/M VIA NC
--- NOTE | 2023-04-29 10:38 | NUR ---
PT TOO LETHARGIC TO TOLERATE PO MEDS. DR. SCOTT MADE AWARE.
--- NOTE | 2023-04-29 10:50 | NUR ---
PT ADMITTED FROM ED TRANSFER TO ICU FRO CLOSED MONITOING PT IS DROWSY REPSOSNE TO PAIN NONVERBAL GROANS AND MOANS ABLE TO OPEN EYES PT V/S 96.9 HR 60 BP 99/68 RR 18 O2 SAT ON 3 LPM NC 100% PT IS ON LEVOPHED DRIP 8 MCG/ HAS 2 iv LINE lAC AND RIGHT fa INTACT PATENT PT HAS 1 BM SOFT LARGE BROWN IN COLOR PT IS INCONTINENT OF BOTH BLADDER AND BOWEL PT HAS NOTED A RIGHT BUTTOCK SKIN PRESSURE DRESSING WAS PLACED AND WOUND CARE CONSULT PT ON FALL PRECAUTION LOW BED PLACED INTENTIONAL ROUNDING DONE.
[2023-04-29] MEDS ORDERED: levETIRAcetam 1,000 MG in NACL 0.9% 100 ML IV SCH (11:00)
--- NOTE | 2023-04-29 11:01 | NUR ---
RECEIVED PT FROM ER. CURRENTLY ON 2 L NASAL CANNULA, SATURATION 99%. BREATH SOUNDS ARE COARSE. PT UNABLE TO COUGH OUT SECRETIONS. NASOTRACHEAL SUCTIONED AND SENT SPUTUM SAMPLE TO LAB. PT RESTING COMFORTABLY. NO DISTRESS NOTED. WILL CONTINUE TO MONITOR.
[2023-04-29] MEDS: VANCOMYCIN 1,000 MG in DEXTROSE 5% 250 ML IV SCH ×2 (12:49→23:14)
--- NOTE | 2023-04-29 13:01 | NUR ---
CALLED CUSTODIAL HAZARDOUS SUBSTANCES SCIENTIST, ARMANI, TO UPDATE ON PT PLAN OF CARE AND NOTIFY OF PICC LINE ORDER. NO FURTHER QUESTIONS AT THIS TIME.
--- NOTE | 2023-04-29 14:31 | NUR ---
DRESSING PLACED MEPILEX NO DRAINAGE NOTED Addendum: 04/29/23 at 1432 by ISAIAH MUSA RN Amended: Links added.
--- NOTE | 2023-04-29 15:00 | NUR ---
SPOKE WITH DR BOONE. PT UNABLE TO PROTECT AIRWAY, PER DOCTOR ORDER WE INTUBATED. DR. ZAPATA PERFORMED THE INTUBATION. PER DR ORDER ACVC 400, F22,+5, 70%. ABG TO FOLLOW. PT VOLUMES ARE GOOD. SATURATION 98%. BLOOD PRESSURE STABLE, PT RESTING COMFORTABLY. WILL CONTINUE TO MONITOR.
[2023-04-29] MEDS ORDERED: fentaNYL citrate 1 MG in NACL 0.9% 80 ML IV PRN (16:55)
[2023-04-29] MEDS ORDERED: NACL 0.9% 1,000 ML IV ONE (16:55)
--- NOTE | 2023-04-29 16:55 | NUR ---
PHONE CALL TO MATERIAL INSPECTOR DR. BOONE TO NOTIFY OF PT CHANGE IN CONDITION. PT INCREASINGLY TACHYPNEIC WITH LABORED BREATHING. MADE AWARE AND ORDERED FOR ER DOCTOR TO INTUBATE.
[2023-04-29] MEDS ORDERED: PROPOFOL 1000 MG/100 ML PREMIX 100 ML IV ONE (16:58)
--- NOTE | 2023-04-29 17:10 | NUR ---
dR SANCHES CAME IN AND SEE PT AWARE ON ONGOING INTUBATION
[2023-04-29] MEDS ORDERED: SUCCINYLCHOLINE CHLORIDE 200 MG/10 ML VIAL IVP SCH (17:20)
[2023-04-29] MEDS ORDERED: ETOMIDATE 20 MG/10 ML VIAL IVP SCH (17:20)
--- NOTE | 2023-04-29 17:20 | NUR ---
ER DOCTOR Emiliana SEN CAME TO BEDSIDE AND INTUBATED PT. ORDERS RECEIVED FOR ETOMIDATE 20MG IVP AND SUCCINYLCHOLINE 100 MG IVP. NGT PLACED TO R NARE.
[2023-04-29] MEDS ORDERED: fentaNYL citrate 0.05 MG/ML VIAL ONE ×2 (17:42→17:59)
[2023-04-29] MEDS: PROPOFOL 1000 MG/100 ML PREMIX 100 ML IV PRN (17:49)
--- NOTE | 2023-04-29 17:50 | NUR ---
PROGRAM ADVOCATE AT BEDSIDE TO PERFORM ORDERED CXR. AWAITING IMPRESSION.
--- NOTE | 2023-04-29 18:11 | NUR ---
ABG DRAWN AND WALKED TO RN IN ICU. FIO2 DECREASED FROM 70% TO 40%. WILL CONTINUE TO MONITOR.
--- NOTE | 2023-04-29 18:12 | NUR ---
DR. BOONE NOTIFIED OF ABG RESULTS. NO NEW ORDERS.
--- NOTE | 2023-04-29 19:15 | NUR ---
NICOLE GARCIA RN MEDICAL DELIVERY TECHNICIAN PT IS STABLE V/S AT THIS TIME 52 HR 22 RR 99% O2SAT 101/64 BP ON ETT TO VENT AC FIO2 35 TV 400 RATE 22 PEEP 5 PT HAS IC DRIP PROFOL DRIP 10 MCG LEVOPHED DRIP 10 MCG SUBLIMAZE 25 MCG PENDING CXR FOR NGT PLACEMENT ON RIGHT NARES, AWAIITNG PICC LINE NURSE AT [facility].
--- NOTE | 2023-04-29 20:08 | NUR ---
PICC NURSE AT BEDSIDE PREPARING FOR PICC INSERTION
--- NOTE | 2023-04-29 20:08 | NUR ---
TRANSFER OF CARE FROM DAY SHIFT, REPORT RECEIVED FROM OMAR RN, AND ISAIAH RN. PATIENT IS CURRENTLY INTUBATED AND SEDATED, WITH THE FOLLOWING VENT SETTINGS: MODE = AC/VC, FIO2 = 40%, VT = 400, R = 22, AND PEEP = 5. PATIENT HAS NG TUBE TO LEFT NARE AND IS PENDING CONFIRMATION OF PLACEMENT. PATIENT HAS 18G PERIPHERAL LINE IN THE LEFT AC AND 20G PERIPHERAL LINE IN THE RIGHT WRIST. PATIENT HAS CONDOM CATHETER IN PLACE. PRESSURE INJURY TO BUTTOCKS. PATIENT HAS THE FOLLOWING MEDICATION CURRENTLY INFUSING: LEVOPHED 4MG @ 10MC/MIN, FENTANYL 1MG @ 25MCG/HR, PROPOFOL 1000MG @ 10MCG/KG/MIN, AND NORMAL SALINE @ 5ML/HR. VITALS AT START OF SHIFT ARE: TEMP = 98.1F, HR = 53, RESP = 22, O2 SAT = 98%, BP = 106/72
--- NOTE | 2023-04-29 20:19 | NUR ---
PHONE CALL PLACED TO RADIOLOGY FOR STAT XRAY TO CONFIRM PICC PLACEMENT
--- NOTE | 2023-04-29 20:36 | NUR ---
PER PICC NURSE, PICC IS NOW OKAY TO USE HAS 2CM OUT
[2023-04-29] MEDS ORDERED: QUEtiapine FUMARATE 25 MG TAB PO SCH (21:00)
[2023-04-29] MEDS: levETIRAcetam 1,000 MG in NACL 0.9% 100 ML IV SCH (21:08)
[2023-04-29] MEDS: NOREPINEPHRINE 8 MG in DEXTROSE 5% 250 ML IV PRN (21:35)
--- NOTE | 2023-04-29 23:35 | NUR ---
PATIENT WITH BRADYCARDIA AND IS BEING SEDATED WITH BOTH PROPOFOL AND FENTANYL, HR DROPPED TO 38 AND SEDATION WAS STOPPED FOR 30 MINUTES, HR THEN INCREASED TO THE HIGH 60's TO THE LOW 70's AND PATIENT BEGAN TO AWAKEN SO PROPOFOL WAS RESTARTED. PATIENT THEN BEGAN TO HAVE BRADYCARDIA AGAIN WITH HEART RATE LOW 44. FENTANYL REMAINS TURNED OFF. MESSAGE SENT TO DR. SCOTT AN FYI CALL PLACED TO DR BOONE REGARDING PATIENT'S HEART RATE. NEW ORDER RECEIVED FOR DOPAMINE 5MCG/KG/MIN NON-TITRATABLE.
[2023-04-29] MEDS ORDERED: DOPamine 400 MG/D5W PREMIX 250 ML IV ONE (23:47)
[2023-04-29] MEDS: DOPamine 400 MG/D5W PREMIX 250 ML IV PRN (23:57)
[2023-04-30] VITALS (33 sets, daily range): BP systolic 84–121; BP diastolic 50–103; PULSE 52–70; RESP 22–23; TEMP 97.9–98.2; O2SAT 56–100
[2023-04-30] MEDS: PROPOFOL 1000 MG/100 ML PREMIX 100 ML IV PRN ×3 (02:55→20:45)
[2023-04-30 05:06] LABS: BASOPHILS # (AUTO) 0.1 K/uL (0.00-0.22); BASOPHILS % (AUTO) 0.7 % (0.0-2.0); EOSINOPHILS # (AUTO) 0.3 K/uL (0-0.4); EOSINOPHILS % (AUTO) 2.1 % (0.0-4.0); HEMATOCRIT 36.3 % (36-52); HEMOGLOBIN 12.1 g/dL (12.0-18.0); LYMPHOCYTES # (AUTO) 1.3 K/uL (2.0-11.5); LYMPHOCYTES % (AUTO) 8.8 % (20.5-51.1); MEAN CORPUSCULAR HEMOGLOBIN 32 pg (27-31); MEAN CORPUSCULAR HGB CONC 33 g/dL (33-37); MEAN CORPUSCULAR VOLUME 96.3 fL (80-94); MONOCYTES # (AUTO) 1.4 K/uL (0.8-1.0); MONOCYTES % (AUTO) 9.8 % (1.7-9.3); NEUTROPHILS # (AUTO) 11.6 K/uL (1.8-7.7); NEUTROPHILS % (AUTO) 78.6 % (42.2-75.2); PLATELET COUNT (AUTO) 255 K/uL (140-450); RED BLOOD CELL COUNT(AUTO) 3.77 MIL/uL (4.20-6.10); RED CELL DISTRIBUTION WIDTH 14.9 % (11.6-13.7); WHITE BLOOD COUNT (AUTO) 14.7 K/uL (4.8-10.8)
[2023-04-30 05:22] LABS: ANION GAP 9.1 (8-16); CARBON DIOXIDE 29.1 mmol/L (21-32); CREATININE 0.6 mg/dL (0.6-1.3); POTASSIUM 3.2 mmol/L (3.5-5.1)
[2023-04-30] MEDS: PIPERACILLIN/TAZOBACTAM 3.375 GM in DEXTROSE 5% 50 ML IV SCH ×3 (05:40→20:01)
--- NOTE | 2023-04-30 05:47 | NUR ---
MESSAGE SENT TO MD REGARDING LOW POTASSIUM LEVEL (3.2); PATIENT CURRENTLY DOES NOT HAVE ORDERS FOR SUPPLEMENT
--- NOTE | 2023-04-30 07:00 | NUR ---
RECEIVED REPORT FROM POLLY RADIOLOGICAL TECHNOLOGIST RN PT V/S TEMP 98.1 HR 63 BP 91/58 RR 22 O2SAT 96 ON ETT TO VENT AC MODE FIO2 35 TV 400 RATE 22 PEEP 5 PT IS SEDATED TO MAINTAIN RASS SCORE OF -3 PT PT IS SR ON THE MONITOR PT HAS LEFT NARES NGT NPO EXCEPT MEDS PT IS BOTH INCONTINENECE BLADDER AND BOWEL PT HAS KRISTI PICC LINE WITH IV DRIPS OF DOMAPINE 4.998 MCG/KG/HR, PROPOFOL 20 MCG,KG/HR, LECOPHED 10 MCG/MIN HAS A LEAC IV PERIPHERAL KVO PT HAS RIGHT BUTTOCK WOUND WITH DRESSING INTACT WITH MEIPLEX BORDER INTACT ON SACROCCYX ON BILATERLA SOFT WRIST RESTRAINTS KEP SAFE COMFORTABLE FREQUESNT ROUNDINGS DONE. Addendum: 04/30/23 at 1019 by ISAIAH MSUA RN ADDITIONAL PT HAS BROWN CATHETER DRAINING YELLOW COLRED URINE .
--- NOTE | 2023-04-30 07:00 | NUR ---
RECEIVED PT ON ACVC 400,F22,+5,35%. VENT PLUGGED INTO RED OUTLET, WHEELS ARE LOCKED, ALARMS ARE SET AND AUDIBLE, AMBUBAG AT BEDSIDE. BREATH SOUNDS ARE CLEAR/ DIMINISHED. SATURATION 96%. PT RESTING COMFORTABLY, NO DISTRESS NOTED. WILL CONTINUE TO MONITOR.
--- NOTE | 2023-04-30 07:09 | NUR ---
TRANSFER OF CARE TO DAY SHIFT, REPORT ENDORSED TO GABRIELLE BRUNO AND ISAIAH RN
--- NOTE | 2023-04-30 09:03 | NUR ---
PATIENT HAS BEEN SCREENED AND CATEGORIZED HIGH NUTRITION RISK. PATIENT WILL BE SEEN WITHIN 1-2 DAYS OF ADMISSION. 04/28/23-04/30/[address] FNS CONSULT RECEIVED FOR PRESSURE INJURY
[2023-04-30] MEDS: levETIRAcetam 1,000 MG in NACL 0.9% 100 ML IV SCH ×2 (09:10→20:02)
[2023-04-30] MEDS: MAGNESIUM HYDROXIDE 2400 MG/30 ML UDC PO SCH (09:21)
[2023-04-30] MEDS: SIMVASTATIN 20 MG TAB PO SCH (09:21)
--- NOTE | 2023-04-30 09:40 | NUR ---
DR SCOTT CAME IN AND SEE PT TODAY. Addendum: 04/30/23 at 1224 by ISAIAH MUSA RN MADE AWARE OF K LEVEL 3.2 TODAY OKAY TO GIVE K RIDER 40 MEQ IVPB AND OKAY TO FOLLOW PROTOCOL PRN FOR KCL IV K LEVEL LESS THAN 3
[2023-04-30] MEDS: VANCOMYCIN 1,000 MG in DEXTROSE 5% 250 ML IV SCH ×2 (09:59→22:47)
--- NOTE | 2023-04-30 10:34 | NUR ---
04/30/23 RD INITIAL ASSESSMENT COMPLETED. PLEASE REFER TO NUTRITION ASSESSMENT UNDER CARE ACTIVITY FOR ESTIMATED NUTRITIONAL NEEDS. 1. RECOMMEND VITAL AF 1.2 MALLY WITH A GOAL RATE OF 55 ML/HR -START AT 10 ML/HR AND INCREASE BY 10 ML Q4H UNTIL GOAL RATE IS REACHED -FWF 200 Q6H OR PER MD THIS WILL PROVIDE 1320 ML VOLUME, 1584 KCAL, AND 99 GRAMS OF PROTEIN. WITH TENISHA AND PROPOFOL AT CURRENT RATE (PROVIDES 277 KCAL), THIS MEETS 100% OF ESTIMATED ENERGY NEEDS; ADEQUATE 2. RECOMMEND TENISHA BID (180 KCAL, 5 GRAMS PROTEIN) TO PROMOTE WOUND HEALING 3. MONITOR GI SYMPTOMS AND WOUND 4. RD TO FOLLOW-UP 2-3 DAYS, RISK RILEY TROTTER RD
[2023-04-30] MEDS: ASPIRIN 81 MG TAB.CHEW GT SCH (10:38)
[2023-04-30] MEDS: DOCUSATE 100 MG/10 ML UDC GT SCH ×3 (10:39→16:53)
[2023-04-30] MEDS: KCL 20 MEQ IN 100 mL PREMIX 200 ML IV PRN ×2 (10:40→12:21)
--- NOTE | 2023-04-30 12:24 | NUR ---
dR EVERT BENJAMIN mD [employer] IN AND SEE PT TODAY.
--- NOTE | 2023-04-30 13:00 | NUR ---
PT BLOOD PRESSURE IS LOW. NOTIFIED RN.
--- NOTE | 2023-04-30 14:40 | NUR ---
PAGED DR BOONE REGARDING PT BP KEEP DROPPING WITH TITRATING UP LEVOPHED. RECEIVED PT THIS MORNING LEVOPHED AT 10MCG/MIN. AT 1432, BP 81/47, AND LEVOPHED AT 14 MCG/KG/MIN. LEVOPHED TITRATE UP TO 16 MCG/MIN. DR BOONE ORDER VASOPRESSIN AND EPINEPHRINE. IF VASOPRESSIN NOT WORKING, THEN START EPINEPHRINE. KEEP DOPAMINE AT 5 MCG/KG/MIN.
[2023-04-30] MEDS ORDERED: EPINEPHrine 1 mg/mL 1 MG in DEXTROSE 5% 250 ML IV PRN (14:45)
[2023-04-30] MEDS: VASOPRESSIN 20 UNITS in NACL 0.9% 250 ML IV SCH ×2 (15:05→17:58)
--- NOTE | 2023-04-30 16:57 | NUR ---
SPUTUM SAMPLE OBTAINED AND DROPPED OFF AT LAB.
--- NOTE | 2023-04-30 18:17 | NUR ---
DR AMEZQUITA CAME IN AND SEE PT TODAY.
--- NOTE | 2023-04-30 19:15 | NUR ---
RECEIVED REPORT FROM [facility] NURSEISAIAHRN. ALL CARES ASSUMED. RECEIVED PT ON BED, ON SEMI-MONACO'S POSITION WITH PADDED SIDE RAILS UP. PT IS SEDATED BUT RESPONSIVE TO DEEP STIMULI. ON ETT TO VENT A/C VC SETTINGS FIO2 35% TV-400ML RR-22 PEEP-5, EQUAL CHEST RISE NOTED, SPO2 95%. ON SINUS RHYTHM ON MANAGEMENT ASSOCIATE. WITH NGT OVER LEFT NARES, INTACT WITH TUBE FEEDING OF VITAL AF 1.2 AT 20ML/HR 200ML FWF Q6H. WITH RIGHT UPPER ARM PICC LINE FLOWING LEVOPHED AT 14 MCG/MIN, PROPOFOL 20 MCG/KG/MIN, VASOPRESSIN 0.03 UNITS/MIN & DOPAMINE 5 MCG/KG/MIN - ALL FLUIDS FLOWING WELL. WITH IV ACCESS OVER RIGHT WRIST GAUGE 20 - INTACT AND PATENT. WITH ANOTHER PERIPHERAL IV ACCESS OVER LEFT ARM WITH NS FLOWING AT TKO - PATENT AND INTACT. ON BILATERAL SOFT WRIST RESTRAINTS. BOWEL SOUNDS ACTIVE. ON BROWN CATHETER DRAINING TO GRAVITY. WITH HEEL PROTECTORS. WITH WOUND OVER RIGHT BUTTOCKS WITH DRESSING APPLIED-DRY AND INTACT. SAFETY AND SEIZURE PRECAUTIONS OBSERVED. WILL MONITOR PT CLOSELY.
--- NOTE | 2023-04-30 19:15 | NUR ---
ENDORSED PT TO AVNI ANTHONY PARIMUTUEL CASHIER PT IS SEDATED ON ETT TO VENT FIO2 OF 35 TV 400 RATE 22 PEEP 5 PT V/S IS 60 HR 22 RR 95% O2SAT 97/52 BP PT HAS KRISTI PICC LINE WITH LEVOPHED DRIP 14 MCG, DOPAMINE AT 5 MCG PROPOFOL AT 20 MCG VASOPRESSIN AT 0.03 MCG HAS RIGHT WRIST AND LEFT FOREARM. PT IS SB AND SR ON THE HEART MONITOR. PT HAS LEFT NARES NGT WITH FEEDING VITAL AF GOAL IS 55ML TO START AT 10 INCREASE BY 10 Q4HR TOLERATED WELL. PT HAS F/C INTACT PATENT DRAINING YELLOW URINE. PT REPOSITOON AND TURN Q2H PT RIGHT BUTTOCK WOUND DRESSING INTACT. ENDORSED PROPOFOL AND DOPAMINE AND LEVOPHED DRIP MEDS TO BE GIVEN AT THE BEDSIDE TABLE FOR READILY AVAILABLE. PT ON BILATERAL WRIST RESTRAINTS KEPST PATIENT SAFE AND COMFORTABLE
--- NOTE | 2023-04-30 19:40 | NUR ---
FIO2 DECREASED BY RT TO 30%. PT SATTING AT 90-95%. NO RESP DISTRESS OBSERVED.
--- NOTE | 2023-04-30 21:00 | NUR ---
NGT PLACEMENT CHECKED VIA AUSCULTATION AND GASTRIC ASPIRATES. TUBE FEEDING RESIDUAL CHECKED - 20 ML OBTAINED. TUBE FEEDING INCREASED TO 30 ML/HR.
[2023-04-30] MEDS: NOREPINEPHRINE 8 MG in DEXTROSE 5% 250 ML IV PRN (21:01)
[2023-04-30] MEDS: DOPamine 400 MG/D5W PREMIX 250 ML IV PRN (21:06)
[2023-05-01] VITALS (32 sets, daily range): BP systolic 103–163; BP diastolic 56–82; PULSE 48–64; RESP 20–48; TEMP 96.5–97.8; O2SAT 93–99
[2023-05-01] MEDS ORDERED: VASOPRESSIN 20 UNITS/ML VIAL ONE (00:51)
[2023-05-01] MEDS: VASOPRESSIN 20 UNITS in NACL 0.9% 250 ML IV SCH ×2 (01:18→13:09)
--- NOTE | 2023-05-01 03:00 | NUR ---
TUBE FEEDING INCREASED TO 40 ML/HR AFTER LESS THAN 50ML RESIDUAL.
--- NOTE | 2023-05-01 04:00 | NUR ---
MORNING CARE DONE. BED SPONGE BATH PROVIDED. ORAL CARE GIVEN. KEPT COMFORTABLE IN BED.
--- NOTE | 2023-05-01 04:10 | NUR ---
IV LINE OVER RIGHT WRIST NON-INTACT. REMOVED ASEPTICALLY DRESSING APPLIED.
[2023-05-01] MEDS: PIPERACILLIN/TAZOBACTAM 3.375 GM in DEXTROSE 5% 50 ML IV SCH ×3 (04:44→20:21)
--- NOTE | 2023-05-01 05:00 | NUR ---
FEEDING INCREASED TO 55ML/HR AFTER RESIDUAL LESS THAN 50ML.
[2023-05-01] MEDS: PROPOFOL 1000 MG/100 ML PREMIX 100 ML IV PRN ×2 (05:27→13:23)
[2023-05-01 05:55] LABS: BASOPHILS # (AUTO) 0.1 K/uL (0.00-0.22); BASOPHILS % (AUTO) 0.8 % (0.0-2.0); EOSINOPHILS # (AUTO) 0.1 K/uL (0-0.4); EOSINOPHILS % (AUTO) 0.8 % (0.0-4.0); HEMATOCRIT 33.9 % (36-52); HEMOGLOBIN 11.6 g/dL (12.0-18.0); LYMPHOCYTES # (AUTO) 1.2 K/uL (2.0-11.5); LYMPHOCYTES % (AUTO) 7.5 % (20.5-51.1); MEAN CORPUSCULAR HEMOGLOBIN 33 pg (27-31); MEAN CORPUSCULAR HGB CONC 34 g/dL (33-37); MEAN CORPUSCULAR VOLUME 96.4 fL (80-94); MONOCYTES # (AUTO) 2.1 K/uL (0.8-1.0); NEUTROPHILS # (AUTO) 12.4 K/uL (1.8-7.7); NEUTROPHILS % (AUTO) 77.9 % (42.2-75.2); PLATELET COUNT (AUTO) 213 K/uL (140-450); RED BLOOD CELL COUNT(AUTO) 3.51 MIL/uL (4.20-6.10); RED CELL DISTRIBUTION WIDTH 14.5 % (11.6-13.7); WHITE BLOOD COUNT (AUTO) 15.9 K/uL (4.8-10.8)
[2023-05-01 05:57] LABS: ANION GAP 10.3 (8-16); CARBON DIOXIDE 28.4 mmol/L (21-32); POTASSIUM 3.7 mmol/L (3.5-5.1)
[2023-05-01 06:06] LABS: CREATININE 0.6 mg/dL (0.6-1.3)
--- NOTE | 2023-05-01 07:00 | NUR ---
PT SEDATED THE WHOLE SHIFT WITH COUGH REFLEX PRESENT OFTEN TIMES. SINUS BRADYCARDIC TO SINUR RHYTHM ON MONITOR. NORMOTENSIVE THE WHOLE SHIFT. STILL ON ETT TO VENT SPO2 ALWAYS ABOVE 90%. MAINTAINED DOPAMINE DRIP AT 5MCG/KG/MIN, LEVOPHED AT 12MCG/MIN, PROPOFOL AT 20 MCG/KG/MIN AND VASOPRESSIN AT 0.03 UNITS/MIN. TUBE FEEDING GOAL RATE OF 55 ML/HR REACHED AND MAINTAINED- WELL TOLERATED BY PT. BM NOTED ONCE - SMEAR ONLY. ADEQUATE URINE OUTPUT OBTAINED. NO SEIZURE EPISODES THE WHOLE SHIFT. NO PAIN OBSERVED - FLACC 0. STILL ON BILATERAL SOFT WRIST RESTRAINTS.STILL WITH WOUND ON RIGHT BUTTOCKS - INTACT AND DRY.
--- NOTE | 2023-05-01 07:10 | NUR ---
REPORT GIVEN TO DA[employer]FLFT NURSE, GABRIELLE BORREGO. ALL QUESTIONS ANSWERED.
[2023-05-01] MEDS: ALBUTEROL 0.083% 2.5 MG/3 ML NEBU INH PRN ×2 (07:21→21:27)
--- NOTE | 2023-05-01 07:26 | NUR ---
Received report from material handler 1st shift nurse GABRIELLE Moore. Patient is AOx0 unable to follow commands. PERRL noted. Currently on ETT to vent A/C VC FIO2 30%, VT 400, RR 22, Peep 5 with SpO2 saturation of 94%. Sinus Pierce on monitor. Abdomen is soft with abdominal quadrants active. Patient has NGT to left nare with Vital AF infusing at 55 ml/hr with FWF of 200 QH6 with TENISHA BID. Right buttocks wound to skin. Left AC 20G infusing NS TKO at 5 ml/hr, no infiltration or redness noted. Right upper arm picc line no infiltration or redness noted currently infusing propofol at 20 mcg/kg/min, Dopamine 5mcg/kg/min, Vasopressin 0.03 units/min. Fentanyl on standby. Donis catheter to gravity with no dependent loops with clear yellow urine. Patient has bilateral soft wrist restraints in place for safety. standard precaution, HOB 30 degrees for aspiration precaution, bed wheels locked and in lowest position. Addendum: 05/01/23 at 0823 by KUN SIDHU RN Left forearm 20G not AC.
[2023-05-01] MEDS ORDERED: NOREPINEPHRINE 4 MG/4 ML VIAL IV ONE (08:42)
--- NOTE | 2023-05-01 09:35 | NUR ---
WOUND CARE EVALUATION NOTE: SKIN ASSESSMENT DONE WITH THIS 58 Y/O PT ADMITTED WITH INITIAL DX SHORTNESS OF BREATH.PAST MEDICAL HX INCLUDES HX DOWN SYNDROME, SEIZURE DISORDER, COPD. PT ADMITTED FROM SNF WITH PRESSURE ULCER TO SACRAL. ALL ABOVE INFORMATION OBTAINED FROM ADMISSION H&P AND CHART REVIEW. PT IS INTUBATED, TF, SKIN IS WARM AND DRY, BILATERAL LOWER EXTREMITY NO EDEMA. DORSAL PEDAL PULSES PRESENT AND NORMAL. CAPILLARY REFILLED <3 SEC. X 10 TOES. F/C PATENT WITH SMALL AMOUNT MARCUS COLOR URINE OUT PUT OBSERVED. PLAN OF CARE DISCUSSED WITH PRIMARY RN KUN. COMORBIDITIES RELATED TO DELAY WOUND HEALING, FURTHER SKIN BREAKS: INFECTION, ACUTE HYPOXEMIC DECREASE TISSUE PERFUSION, DECREASE MOBILITY AND FUNCTIONAL ABILITIES, AND HOB ELEVATED THE MAJORITY OF TIMES DUE TO MEDICAL REASONS. INTEGUMENTARY: -LIPS AND ORAL MUCOSA DRY AND CLEAN. SKIN INTACT. -MOISTURE ASSOCIATED SKIN DAMAGE(MASD) TO: B/L GROINS, SCROTAL, SKIN MOIST -PRESSURE INJURY STAGE 3, SACRAL 1X1X0.2CM, WOUND BED 100% PINK TISSUE, MOIST, NO ODOR, WOUND EDGE FLAT, JR-WOUND SKIN MOIST SURROUNDING BLANCHABLE REDNESS WITH SKIN INTACT RECOMMENDATIONS: -APPLY HYDRAGUARD TO ALL LIMBS, TRUNK OF BODY, R/L GROINS AND SCROTAL BID AND PRN IF SOILING -CLEANSE SACRAL WOUND WITH WOUND CLEANSING SOLUTION AND APPLY HYDROGEL TO WOUND BED AND HYDROGUARD TO JR WOUND SKIN COVER WITH FOAM DRESSING QD AND PRN IF SOILING -POSITIONING: TURN AND REPOSITION PATIENT Q 2H OR SOONER USE PILLOWS TO KEEP BONY PROMINENCES FROM DIRECT CONTACT WITH SURFACES USE REPOSITIONING WEDGES TO PROVIDE 30-DEGREE ANGLE FOR SIDE LYING POSITIONS OFFLOADING OR FOAM DRESSING TO ALL TUBING TO PREVENT MEDICAL DEVICES RELATED PRESSURE INJURY -RE-EVALUATING AND MANAGING INCONTINENCE MONITOR SKIN CONDITION DURING POSITION CHANGE DO NOT MASSAGE REDNESS, BONY PROMINENCES, DO NOT USE DONUT-TYPE DEVICES FREQUENT JR-CARE AND PROVIDE BARRIER CREAMS PRN IF SOILING MOISTURE CONTROL BY F/C, ABSORBENT PAD TO WICK AND HOLD MOISTURE. KEEP SKIN DRY AND PROTECT FROM FRICTION -MANAGE FRICTION/SHEAR/MOBILITY KEEP HOB AT THE LOWEST LEVEL OF ELEVATION NO MORE THAN 30 DEGREES UNLESS OTHERWISE CONTRAINDICATED USE LIFT SHEET OR TRANSFER DEVICE TO MOVE PATIENT AND PREVENT LATERAL SHEER. CONSIDER TRAPEZE IF APPROPRIATE PROTECT HEELS, ELBOWS BONY PROMINENCES WITH SKIN BERRIES OR FOAM DRESSING IF EXPOSED TO FRICTION OFFLOAD BILATERAL HEELS BY PLACING PILLOWS UNDER CALVES AT ALL TIMES, UNLESS OTHERWISE CONTRAINDICATED -PRESSURE REDISTRIBUTION SURFACE THERAPY CAROL ISOFLEX BRALDY MATTRESS -NUTRITION: PLEASE FOLLOW RD RECOMMENDATIONS AND OFFER NUTRITION SUPPLEMENTS IF ORDERED.
--- NOTE | 2023-05-01 09:40 | NUR ---
Wound care nurse Khloe ANTHONY, rounded at patient bedside. See wound assessment notes.
[2023-05-01] MEDS: SIMVASTATIN 20 MG TAB PO SCH (09:49)
[2023-05-01] MEDS: ASPIRIN 81 MG TAB.CHEW GT SCH (09:49)
[2023-05-01] MEDS: MAGNESIUM HYDROXIDE 2400 MG/30 ML UDC PO SCH (09:49)
[2023-05-01] MEDS: DOCUSATE 100 MG/10 ML UDC GT SCH ×3 (09:49→16:53)
[2023-05-01] MEDS: levETIRAcetam 1,000 MG in NACL 0.9% 100 ML IV SCH ×2 (09:51→20:23)
[2023-05-01] MEDS ORDERED: SKINTEGRITY HYDROGEL TP PRN (10:40)
--- NOTE | 2023-05-01 10:50 | NUR ---
status update: stop and turned off patients feeding. Residuals are more than 180 ml. will continue to follow plan of care.
--- NOTE | 2023-05-01 11:45 | NUR ---
Spoke to pharmacist Salma regarding patients critical Trough levels drawn yesterday of 16.5. Per Salma ok to administer Vancomycin today since Trough levels haven't exceeded 20. Will continue to follow plan of care.
[2023-05-01] MEDS: VANCOMYCIN 1,000 MG in DEXTROSE 5% 250 ML IV SCH ×2 (11:50→22:18)
--- NOTE | 2023-05-01 11:50 | NUR ---
status update: rechecked patients residuals, current residual 30 ml. Will continue patient on feeding. HOB at 30 degree for aspiration precautions. No acute distress or SOB noted. Will continue to follow plan of care.
--- NOTE | 2023-05-01 12:11 | NUR ---
DC PLANNING A 58Y.O. WITH MENTAL DISABILITY ,HX OF DOWN'S SYNDROME.SEIZURE DISORDER COPD ADMITTED FOR EVAL OF LOW BP.ON VASOPRESSIN.DOPAMINE,NOREPINEPHRINE,FENTANYL. PROPOFOL ,VANCO,ZOSYN.LEVITARECEM .BLOOD CULTURE (-),SPUTUM GM STAIN AND CULTURE (-).PATIENT IS INTUBATED.PULMO.CARDIO,ID FOLLOWING.DC PLAN-BACK TO [facility] WHEN PATIENT RESPOND TO TX.CM TO FOLLOW. Addendum: 05/03/23 at 1518 by KING NEAL CM DC PLANNING PATIENT HAD SEIZURE TODAY.WAS GIVEN ATIVAN. HR AND MAP B/P <65.LEVOPHED WAS RESTARTED. BLOOD, URINE AND SPUTUM CULTURES (-)ON ZOSYN AND LEVETIRACETAM .STILL INTUBATED.[facility] WORKER UPADATED BY CHELSIE TO FOLLOW. Addendum: 05/04/23 at 1608 by KING NEAL CM DC PLANNING ATTEMPTED CPAP TRIAL THIS AM BUT PATIENT FAILED .PLACED BACK ON AC MODE.OFF LEVOPHED DRIP .FENTANYL DRIP ON HOLD.WBC GOING UP(21.5 ).ID ,PULMO AND CARDIO ON BOARD.CM TO FOLLOW. Addendum: 05/08/23 at 1545 by KING NEAL CM DC PLANNING UNABLE TO EXTUBATE PATIENT.ON DOPAMINE DRIP OFF LEVOPHED.CONSERVATOR ADVISED BY MEETA FOLEY) THE NEED FOR TRACHEOSTOMY CONSENT.PNEUMONIA AND UTI IMPROVING PER ID.CM TO FOLLOW. Addendum: 05/11/23 at 1152 by KING NEAL CM DC PLANNING PATIENT IS STILL INTUBATED AND ON DRIPS (DOPAMINE,LEVOPHED AND FENTANYL).WAITING FOR TRACHEOSTOMY CONSENT.FOLLOWED UP WITH DAVID WHO'S COVERING FOR SUZANNE, THE CONSERVATOR AT [facility].CM TO FOLLOW. Addendum: 05/12/23 at 1115 by KING NEAL CM DC PLANNING CONSENT FOR TRACH AND PEG SIGNED BY CONSERVATOR AND SENT TO ICU BY KYLEE MENA. DR. PKA WAS ASKED TO BE NOTIFIED BY ICU NURSE THAT CONSENT HAS BEEN PROVIDED FOR THE PLANNED PROCEDURE HAS BEEN OBTAINED.PATIENT STILL ON PRESSORS .STARTED LOOKING FOR POSSIBLE SUBACUTE PLACEMENT.CLINICALS TO BE FAXED TO [facility].CARDIO, PULMO,ID ON BOARD.CM TO FOLLOW. Addendum: 05/15/23 at 1108 by Stefanie Lazar RN DC PLANNING: PATIENT STILL INTUBATED SEDATED ON LEVO AND DOPAMINE DRIP FOR BP SUPPORT, PER SURGEON TO HOLD OFF ON TRACH AND PEG UNTIL PATIENT IS MORE HEMODYNAMICALLY STABLE /DECREASED PRESSORS. CONTINUE CPAP TRIALS. ORDERED LTAC EVALUATION. CM FAXED TO [facility] TO FOLLOW Addendum: 05/18/23 at 1115 by KING NEAL CM DC PLANNING CX TO SURGERY REQUESTED BUT UNABLE TO DO TRACH AND PEG DUE TO LOW B/P .ON LEVOPHED BUT LOW DOSE.ON MIDODRINE PO Q 8H.WBC DOWN TO 9.8.HGB STABLE.(+) FOR MRSA ETT SPECIMEN.LTAC EVALUATION INITIATED.WILL FOLLOW UP WITH [facility].MEENAKSHI TO BE NOTIFIED OF ABOVE PLAN.CM TO FOLLOW. Addendum: 05/19/23 at 1407 by KING NEAL CM DC PLANNING PATIENT HAS PERFORATED BOWEL AND NEED TO GO TO OR TODAY PER .LEFT A MESSAGE TO DAVID ARRIETA AT [facility] .CM TO FOLLOW. Addendum: 05/19/23 at 1510 by KING NEAL CM LATE ENTRY ABDOMEN/PELVIS CT SCAN 05/18 SHOWS SMALL BOWEL RUPTURE.PATIENT HAD ABDOMINAL DISTENTION.SCHEDULED TRACH AND PEG TODAY ON HOLD FOR NOW. Addendum: 05/22/23 at 1252 by KING NEAL CM DC PLANNING INTUBATED SINCE 05/12.05/19 HAD EXPLOR LAP FOR BOWEL INFARCT WITH BOWEL PERFORATION.ON DOPAMINE DRIP.HAS 3 ABX (VANCOMYCIN , MEROPENEM AND FLUCONAZOLE).GI WAS CONSULTED FOR A DROP IN HGB/HCT R/O GI BLEED POSSIBLE STRESS ULCER..WAS GIVEN 1 UNIT PRBC.ID ,GI,CARDIO ON BOARD. SUZANNE, THE CONSERVATOR FROM [facility] UPDATED OF PATIENT'S STATUS AND PLAN FOR TRANSFER TO EITHER [facility] OR [facility].CM TO FOLLOW. Addendum: 05/24/23 at 1200 by KING NEAL CM DC PLANNING TRACH AND PEG DONE 05/23.PATIENT STILL ON DOPAMINE DRIP.ON TRIPLE ABXS (MEROPENEM,FLUCONAZOLE AND VANCOMYCIN) TRACH TO VENT.PATIENT HAS BEEN ACCEPTED AT [facility] WAITING FOR BED ASSIGNMENT.SUZANNE AT [facility] TO BE NOTIFIED OF PATIENT'S TRANSFER TO [facility].PATIENTS NEEDS FOLLOW UP WITH CARDIO, PULMO AND PRIMARY CARE AT [facility].CM TO FOLLOW. Addendum: 05/24/23 at 1256 by TRAMAINE VALLES CM RECEIVED ORDER FOR PATIENT TO GET DISCHARGED TO AC [facility] LOCATED AT [address] [address]. TRANSPORTATION ARRANGED WITH [facility] THAT WAS SETUP TO BE A WILL CALL DUE TO NO BED INDORSED TO US YET. ONCE LEONEL MALIK OR STAFF GETS BED AT [facility] CALL [facility] TO SETUP TIME THEY WANT PATIENT TO GET PICKED UP. Addendum: 05/25/23 at 1110 by KING NEAL CM DC PLANNING WBC TRENDING UP (27.3).FLUCONAZOLE ADDED TO VANCO AND MEROPENEM.BLOOD AND URINE CULTURE 05/20/23 NEGATIVE.OFF DOPAMINE DRIP.AWAITING FOR A BED AT [facility].CM TO FOLLOW. Addendum: 05/25/23 at 1112 by KING NEAL CM LATE ENTRY [facility] WAS ADVISED 05/24 THAT PATIENT WILL GO TO [facility] FOR LT[facility].SPOKE WITH KARYN AND LEFT A MESSAGE TO JOSEE AND LATTER WAS ASKED TO INFORM AYM. Addendum: 05/26/23 at 0926 by TRAMAINE VALLES CM TRANSPORTATION ARRANGED WITH [facility] FOR A WILL CALL LIST ONCE WE OBTAIN BED DUE TO BED CHANGE AT [facility]. Addendum: 05/26/23 at 1220 by KING NEAL CM DC PLANNING PATIENT GOING TO [facility] ROOM 502, ACCEPTING DIXIE PEARSON . GARMENT PARTS CUTTER HAND TIME AT 3PM BY [facility].ICU NOTIFIED.
[2023-05-01] MEDS: SKINTEGRITY HYDROGEL TP SCH (12:37)
[2023-05-01] MEDS: HYDRAGUARD CREAM TP SCH (12:37)
--- NOTE | 2023-05-01 13:00 | NUR ---
Performed wound dressing change on patient's right sacral area. No oozing, foul smell, or drainage noted. Bed of wound is pink with red color noticeable around the wound. Will continue to follow plan of care.
[2023-05-01] MEDS ORDERED: DEXTROSE 50% 50 ML SYR IVP PRN (13:15)
--- NOTE | 2023-05-01 13:35 | NUR ---
Helper Shear Operator CHEMICAL LABORATORY CHIEF was asked to look into this mentally challenged pt. who recently was intubated. Pt. resides at [facility], , and Admin is Audrey, who stated pt. is with [facility], Shanell Patino, . CHEMICAL LABORATORY CHIEF wanted to inform Audrey that pt. is no longer medically cleared and was intubated over the weekend. Audrey stated she knows as an Rn. called from the hospital. CHEMICAL LABORATORY CHIEF called Audrey from [facility] and stated this pt. passed his swallow eval but feels he is still at risk for aspiration. Additionally, Audrey stated 3 doctors are recommending a g-tube, but [facility] does not want one. Dr. Morales is planning on speaking with [facility]. CHEMICAL LABORATORY CHIEF will remain available as needed.
--- NOTE | 2023-05-01 13:53 | NUR ---
Zosyn started to infuse after vancomycin IVPB done per protocol. Pt. with no acute distress. Remains intubed with no diff. no resp. diff. Pt. is being closely monitored.
--- NOTE | 2023-05-01 16:30 | NUR ---
Patient had large hard and formed brown green BM's. Will continue to follow plan of care.
--- NOTE | 2023-05-01 16:45 | NUR ---
Dr. Vuong at bedside to examine pt. After MD order ABG stat. Respiratory therapist notified. Pt. with no acute distress. Pt. is with NO fever. Pt. remains intubated with no acute distress. No Sx of pain or discomfort. Pt. remains sedated on Propofol. Will cont. to monitor.
[2023-05-01] MEDS: BLOOD GLUCOSE MONITORING 1 DEV DEV FS SCH ×2 (16:49→20:32)
--- NOTE | 2023-05-01 18:20 | NUR ---
Patients caregiver Betsey came to receive patient updates. Caregiver stated she will call at night to receive more updates.
[2023-05-01] MEDS: DOPamine 400 MG/D5W PREMIX 250 ML IV PRN (18:29)
[2023-05-01] MEDS: NOREPINEPHRINE 8 MG in DEXTROSE 5% 250 ML IV PRN (18:34)
--- NOTE | 2023-05-01 19:13 | NUR ---
Endorsed report to warehouse worker 2nd shift nurses GABRIELLE Moore and GABRIELLE Hendricks. For continuity of care. All answered questions.
--- NOTE | 2023-05-01 19:15 | NUR ---
REPORT RECEIVED FROM MICAELA ANTHONY, KITA. PT IS ON SEMI MONACO'S POSITION AND SIDE RAILS UP. PT IS ON BILATERAL ARM SOFT WRIST RESTRAINTS. PT. ORALLY INTUBATED WITH ETT IN PLACE ATTACH TO VENT. VENT: A/C VC, FIO2 30%, R 22, PEEP 5, VT 400. PT IS SEDATED AND ONLY RESPONDS TO PHYSICAL STIMULATION WITH STERNAL RUB. RECEIVED PT ON SINUS RHYTHM ON TRUCK BRACER. BILATERAL CHEST EXPANSION NOTED. WITH NGT ON LEFT NARE WITH VITAL AF TUBE FEEDING AT 50 ML/HR WITH 200ML FWF. WITH KRISTI PICC LINE - DRESSING DRY AND INTACT- FLOWING WITH NOREPINEPHRINE 12MCG/MIN, PROPOFOL 20 MCG/KG/MIN, DOPAMINE 5MCG/KG/MIN, VASOPRESSIN 0.03 IU/MIN. WITH LEFT ARM IV ACCESS GAUGE 20 WITH FLOWING NS ON TKO-PATENT AND INTACT. PT'S SKIN IS INTACT EXCEPT WITH WOUND TO RIGHT SACRUM AREA, DRESSING IN PLACE. BROWN CATH IN PLACE INTACT AND DRAINING TO GRAVITY. HEEL PROTECTORS IN PLACE. NOT IN DISTRESS. WILL CONTINUE TO MONITOR.
[2023-05-01] MEDS: FAMOTIDINE 20 MG/2 ML VIAL IV SCH (20:22)
[2023-05-01] MEDS: INSULIN LISPRO SLIDING SCALE 100 UNITS/ML VIAL SUBQ PRN (20:41)
--- NOTE | 2023-05-01 21:10 | NUR ---
TACHYPNEA NOTED 48 CPM. DONE SUCTIONING, PROPOFOL INCREASED TO 25 MCG/KG/MIN. REFERRED TO RT FOR FURTHER EVALUATION.
--- NOTE | 2023-05-01 21:20 | NUR ---
RT ARRIVED AND ASSESS THE PT. MEDS GIVEN PRN DOSE.
[2023-05-01] MEDS: DEXAMETHASONE 4 MG/ML VIAL IVP SCH (23:26)
[2023-05-02] VITALS (33 sets, daily range): BP systolic 51–137; BP diastolic 46–78; PULSE 43–72; RESP 17–25; TEMP 96.8–98.4; O2SAT 93–99
[2023-05-02] MEDS: PROPOFOL 1000 MG/100 ML PREMIX 100 ML IV PRN (00:08)
[2023-05-02] MEDS: VASOPRESSIN 20 UNITS in NACL 0.9% 250 ML IV SCH ×2 (00:11→06:34)
[2023-05-02] MEDS: ALBUTEROL 0.083% 2.5 MG/3 ML NEBU INH PRN ×2 (02:48→08:08)
--- NOTE | 2023-05-02 04:17 | NUR ---
0400 PATIENT TAKEN OFF PROPOFOL. PATIENTS RR INCREASED AND PT SEEMS UNCOMFORTABLE
[2023-05-02] MEDS: PIPERACILLIN/TAZOBACTAM 3.375 GM in DEXTROSE 5% 50 ML IV SCH ×3 (04:26→20:48)
[2023-05-02] MEDS: HYDRAGUARD CREAM TP SCH ×2 (05:00→12:07)
[2023-05-02 05:29] LABS: BASOPHILS # (AUTO) 0.1 K/uL (0.00-0.22); BASOPHILS % (AUTO) 0.5 % (0.0-2.0); EOSINOPHILS % (AUTO) 0.1 % (0.0-4.0); HEMOGLOBIN 11.8 g/dL (12.0-18.0); LYMPHOCYTES # (AUTO) 0.5 K/uL (2.0-11.5); LYMPHOCYTES % (AUTO) 3.3 % (20.5-51.1); MEAN CORPUSCULAR HEMOGLOBIN 32 pg (27-31); MEAN CORPUSCULAR HGB CONC 34 g/dL (33-37); MEAN CORPUSCULAR VOLUME 95.2 fL (80-94); MONOCYTES # (AUTO) 0.4 K/uL (0.8-1.0); MONOCYTES % (AUTO) 2.4 % (1.7-9.3); NEUTROPHILS # (AUTO) 13.9 K/uL (1.8-7.7); NEUTROPHILS % (AUTO) 93.7 % (42.2-75.2); PLATELET COUNT (AUTO) 223 K/uL (140-450); RED BLOOD CELL COUNT(AUTO) 3.67 MIL/uL (4.20-6.10); RED CELL DISTRIBUTION WIDTH 14.4 % (11.6-13.7); WHITE BLOOD COUNT (AUTO) 14.8 K/uL (4.8-10.8)
[2023-05-02 05:31] LABS: ANION GAP 9.8 (8-16); CARBON DIOXIDE 28.1 mmol/L (21-32); CREATININE 0.6 mg/dL (0.6-1.3); POTASSIUM 3.9 mmol/L (3.5-5.1)
[2023-05-02] MEDS: DEXAMETHASONE 4 MG/ML VIAL IVP SCH (06:07)
--- NOTE | 2023-05-02 07:26 | NUR ---
ENDORSED PT AND REPORT TO NURSE KITA RN. FOR CONTINUITY OF CARE. ALL QUESTIONS ANSWERED.
--- NOTE | 2023-05-02 07:30 | NUR ---
Received report from third shift lieutenant nurse GABRIELLE Moore. Patient is sedated. PERRL noted. Currently on ETT to vent A/C VC FIO2 30%, VT 400, RR 22, Peep 5 with SpO2 saturation of 98%. Sinus Pierce on monitor. Abdomen is soft with abdominal quadrants active. Patient has NGT to left nare with Vital AF infusing at 55 ml/hr with FWF of 200 QH6 with TENISHA BID. Right sacral wound to skin. Left forearm 20G infusing NS TKO at 5 ml/hr, no infiltration or redness noted dressing is dry and intact. Right upper arm picc line dressing is dry and intact currently infusing propofol at 5 mcg/kg/min, Dopamine 5mcg/kg/min, Vasopressin 0.03 units/min. Donis catheter to gravity with no dependent loops with clear yellow urine. Patient has bilateral soft wrist restraints in place for safety. standard precaution, HOB 30 degrees for aspiration precaution, bed wheels locked and in lowest position.
[2023-05-02] MEDS: BLOOD GLUCOSE MONITORING 1 DEV DEV FS SCH ×4 (07:54→23:37)
[2023-05-02] MEDS: INSULIN LISPRO SLIDING SCALE 100 UNITS/ML VIAL SUBQ PRN ×4 (07:54→23:40)
[2023-05-02] MEDS ORDERED: ZOLPIDEM 5 MG TAB PO PRN (08:00)
[2023-05-02] MEDS: LORazepam 2 MG/ML VIAL IVP PRN (09:01)
--- NOTE | 2023-05-02 09:01 | NUR ---
Pt noted agitated and tachypneic despite suctioning and other comfort measures. Administered PRN ativan per MD order.
--- NOTE | 2023-05-02 09:30 | NUR ---
Dr Cadena rounded at patients bedside. New orders received. MD wants patient to be off propofol and start him on Fentanyl and Versed. Will continue to follow plan of care.
--- NOTE | 2023-05-02 09:45 | NUR ---
Pt noted calm and in no signs of distress or pain after PRN ativan given. No adverse reactions noted.
[2023-05-02] MEDS: DOCUSATE 100 MG/10 ML UDC GT SCH ×3 (10:08→17:32)
[2023-05-02] MEDS: FAMOTIDINE 20 MG/2 ML VIAL IV SCH ×2 (10:08→20:40)
[2023-05-02] MEDS: ASPIRIN 81 MG TAB.CHEW GT SCH (10:08)
[2023-05-02] MEDS: SIMVASTATIN 20 MG TAB PO SCH (10:08)
[2023-05-02] MEDS: MAGNESIUM HYDROXIDE 2400 MG/30 ML UDC PO SCH (10:10)
[2023-05-02] MEDS: levETIRAcetam 1,000 MG in NACL 0.9% 100 ML IV SCH ×2 (10:11→21:00)
[2023-05-02] MEDS: SKINTEGRITY HYDROGEL TP SCH (12:07)
[2023-05-02] MEDS: DEXAMETHASONE 10 MG/ML VIAL IVP SCH ×3 (12:07→23:48)
--- NOTE | 2023-05-02 14:18 | NUR ---
05/02/23 RD FOLLOW UP COMPLETED PLEASE REFER TO NUTRITION ASSESSMENT UNDER CARE ACTIVITY FOR ESTIMATED NUTRITIONAL NEEDS. 1. RD RECOMMENDS CONTINUE WITH VITAL AF 1.2 MALLY AT 55 ML/H WITH FWF 200ML Q6H OR PER MD. THIS WILL PROVIDE 1584 KCALS AND 99 GRAMS OF PROTEIN. 2. RD RECOMMENDS CONTINUE WITH TENISHA BID FOR WOUNDS WHICH WILL PROVIDE 160 CALORIES AND 5 GRAMS OF PROTEIN. 3. RD WILL MONITOR WEIGHT, NUTRITION SUPPORT, GI ISSUES AND RELATED LABS. 4. RD TO FOLLOW-UP 2-3 DAYS, HIGH RISK CHYNA CLAYTON RD
[2023-05-02] MEDS: DOPamine 400 MG/D5W PREMIX 250 ML IV PRN (15:32)
[2023-05-02] MEDS: EPINEPHrine 1 mg/mL 3 MG in DEXTROSE 5% 250 ML IV PRN (15:35)
[2023-05-02] MEDS: NOREPINEPHRINE 8 MG in DEXTROSE 5% 250 ML IV PRN (15:35)
[2023-05-02] MEDS: MIDAZOLAM MDV 50 MG in NACL 0.9% 40 ML IV PRN (16:04)
[2023-05-02] MEDS: fentaNYL citrate 1 MG in NACL 0.9% 80 ML IV PRN (16:08)
--- NOTE | 2023-05-02 17:27 | NUR ---
Dr. New assessed and rounded at patients bedside. No new orders received. Will continue to follow plan of care.
--- NOTE | 2023-05-02 19:18 | NUR ---
Endorsed report to slot shift manager nurse GABRIELLE Espinoza for continuity of care. Patient vss with no acute distress or SOB.
--- NOTE | 2023-05-02 20:00 | NUR ---
RECEIVED REPORT FROM DAY SHIFT NURSE GABRIELLE BORREGO. PT WAS IN BED SEDATED PER ORDER OF RASS-2. NO S/S OF DISTRESS. PT AROUSED BY STIMULATIONS AND QUICKLY FALLING BACK TO SLEEP. PT WITH HR OF 47 AND SINUS BRADYCARDIA. LUNG SOUNDS WAS CLEAR TO AUSCULTATION. NO SOB. PT WITH ETT TO VENT WITH FIO2 OF 30%. THERE IS NO PRESENCE OF COUGH. UPON ASSESSMENT PT SKIN WAS WARM AND DRY. REPORT OF A PRESSURE WOUND ON PT SACRUM AREA WITH MEPIPLEX IN PLACE CLEAN, DRY, AND INTACT. PT UPPER AND LOWER EXTREMITY WITHDRAW TO PAIN WITH CAPILLARY RETURN OF <3 SECONDS. PT WAS ON LEVOPHED AT 4MCG, FENTANYL AT 25MCG, DOPAMINE AT 5MCG, AND VERSED AT 1MCG. PT WITH RESTRAINTS FOR NON-BEHAVIORAL. Q2H ASSESSMENT. CONTINUE TO MONITOR FOR CHANGES
[2023-05-03] VITALS (30 sets, daily range): BP systolic 91–115; BP diastolic 47–63; PULSE 46–69; RESP 22–23; TEMP 97.4–97.9; O2SAT 93–98
[2023-05-03] MEDS: HYDRAGUARD CREAM TP SCH ×3 (01:33→15:48)
[2023-05-03] MEDS: PIPERACILLIN/TAZOBACTAM 3.375 GM in DEXTROSE 5% 50 ML IV SCH ×3 (05:03→20:17)
[2023-05-03 05:39] LABS: BASOPHILS # (AUTO) 0.1 K/uL (0.00-0.22); BASOPHILS % (AUTO) 0.5 % (0.0-2.0); HEMATOCRIT 33.8 % (36-52); HEMOGLOBIN 11.1 g/dL (12.0-18.0); LYMPHOCYTES # (AUTO) 0.4 K/uL (2.0-11.5); LYMPHOCYTES % (AUTO) 2.9 % (20.5-51.1); MEAN CORPUSCULAR HEMOGLOBIN 32 pg (27-31); MEAN CORPUSCULAR HGB CONC 33 g/dL (33-37); MONOCYTES # (AUTO) 0.5 K/uL (0.8-1.0); MONOCYTES % (AUTO) 3.1 % (1.7-9.3); NEUTROPHILS # (AUTO) 13.8 K/uL (1.8-7.7); NEUTROPHILS % (AUTO) 93.5 % (42.2-75.2); PLATELET COUNT (AUTO) 246 K/uL (140-450); RED BLOOD CELL COUNT(AUTO) 3.53 MIL/uL (4.20-6.10); RED CELL DISTRIBUTION WIDTH 14.3 % (11.6-13.7); WHITE BLOOD COUNT (AUTO) 14.8 K/uL (4.8-10.8)
[2023-05-03] MEDS: DOPamine 400 MG/D5W PREMIX 250 ML IV PRN (05:40)
[2023-05-03 05:55] LABS: ANION GAP 8.7 (8-16); CARBON DIOXIDE 30.3 mmol/L (21-32); CREATININE 0.7 mg/dL (0.6-1.3)
[2023-05-03] MEDS: BLOOD GLUCOSE MONITORING 1 DEV DEV FS SCH ×3 (06:26→17:52)
[2023-05-03] MEDS: INSULIN LISPRO SLIDING SCALE 100 UNITS/ML VIAL SUBQ PRN ×2 (06:28→12:18)
[2023-05-03] MEDS: DEXAMETHASONE 10 MG/ML VIAL IVP SCH ×3 (06:29→17:56)
--- NOTE | 2023-05-03 07:30 | NUR ---
RECEIVED PT FROM SWATI ANTHONY DAY SHIFT PT IS MODERATE SEDATED ABLE TO WITHDRAW EXTREMITY TO MILD STIMULI AND ABLE TO OPEN EYES BOTH + PERRL, NO RESPIRATORY DISTRESS NOTED,, SB-SR ON THE HEART MONITOR VS/ 97.4 HR 51 Addendum: 05/03/23 at 0936 by ISAIAH MUSA RN VS 97.4 HR 51 BP 102/62 RR22 O2SAT 94% ON ETT TO VENT FIO2 30 VT 400 RATE 22 PEEP 5 ON KRISTI PICC LINE WITH DONT DRIPS OF FENTABYL 25 MCG AND DOPMAINE AT 10 MMCG PT HAS BASWR FOR SAFETY ABLE TO MOVE HIS HANDS PT HAS BROWN CATH PATENT AND INTACT DRAINING YELLOW URINE PT HAS LEFT NARES NGT WITH FEEDING XIOMARA AF AT 55 ML GOAR AND FWF Q6 200ML PT HAS NO RESIDUAL CHECK PT HAS RIGHT BUTTOCK PRESSURE MEPILEX DRESSING INTACT. PT KEPT SAFE AND COMFORTABLE WILL CONTINUE CLOSE MONITORING
[2023-05-03] MEDS: ASPIRIN 81 MG TAB.CHEW GT SCH (08:45)
[2023-05-03] MEDS: MAGNESIUM HYDROXIDE 2400 MG/30 ML UDC PO SCH (08:45)
[2023-05-03] MEDS: SIMVASTATIN 20 MG TAB PO SCH (08:45)
[2023-05-03] MEDS: DOCUSATE 100 MG/10 ML UDC GT SCH ×4 (08:45→17:56)
[2023-05-03] MEDS: FAMOTIDINE 20 MG/2 ML VIAL IV SCH ×2 (08:46→20:16)
[2023-05-03] MEDS: levETIRAcetam 1,000 MG in NACL 0.9% 100 ML IV SCH ×2 (08:48→20:16)
--- NOTE | 2023-05-03 10:00 | NUR ---
dR. Kaye MADE ROUNDS TODAY ASSESS PT AT BEDSIDE NO NEW ORDER GIVEN. Addendum: 05/03/23 at 1419 by ISAIAH MUSA RN ERROR ENTRY THE NAME OF DR VALERIA FATIMA IS THE PT MADE ROUNDS TODAY ASSESS PT AT BEDSIDE NO NEW ORDER GIVEN.
--- NOTE | 2023-05-03 11:05 | NUR ---
DR. CARBAJAL MADE ROUND TODAY GET UPDATE FOR PT REPOSRT PT HAS EPISODE OF LOW BP TODAY IS 92/48 PT ON FENTANYL DRIP AT 20 MCG AND DOPAMINE DRIP AT 10 MCG WITH NEW ORDER TO START LEVOPHED AT 2MCG Addendum: 05/03/23 at 1113 by ISAIAH MUSA RN RECHECK BP AFTER RESTARTING LEVOPHED DRIP BP 101/56 TO KEEP MAP >65
--- NOTE | 2023-05-03 11:44 | NUR ---
JOSEE ANTHONY FROM [facility] GET UPDATE FOR PT REPOSRT GIVEN PT ONN ETT TO VENT AND SETTINGS GIVEN PT IS AFEBRILE, PT ON DRIPS AND CLOSELY MONITORING THE BLOOD PRESSURE ALL QUESTIONS ANSWERED VERBALIZED UNDERSTANDING.
[2023-05-03] MEDS: fentaNYL citrate 1 MG in NACL 0.9% 80 ML IV PRN (12:33)
[2023-05-03] MEDS: LORazepam 2 MG/ML VIAL IVP PRN (12:51)
--- NOTE | 2023-05-03 12:51 | NUR ---
AROUND 1249 PT FOUND HAVING TONIC CLONIC SEIZURE AT 1249 ATIVAN GIVEN AT 2 MG IVP PT CALM AND NO SOB AFTER ATIVAN GIVEN WILL CALL MD TO [facility].
[2023-05-03] MEDS: SKINTEGRITY HYDROGEL TP SCH ×2 (13:00→15:47)
--- NOTE | 2023-05-03 13:09 | NUR ---
CALLED DR. FATIMA AND MADE AWARE REGARDING PT HAS A GENERALIZED SEIZURE EPISODE VS 53HR 112/56 BP 95% O2SAT ON EET TO VENT RR 22 PT GIVEN ATIVAN 2 MG PER PRN MED ORDER PT IS CALM NO DISTRESS NO SEIZURE NOTED AWAITING FOR NEW ORDERS.
--- NOTE | 2023-05-03 14:14 | NUR ---
DR. SANCHES CAME IN AND SEE PT UPDATE FOR PT GIVEN WITH DRIPS OF FEBTANYL, DOPAMINE AND LEVOPHED RESTARTED PER DR CARBAJAL FOR PT HAS EPISODE OF BP MAP <65 AND PT HAS EPISODE OF SEIZURE GENERAL TONIC CLONIC NO NEW ORDER GIVEN
--- NOTE | 2023-05-03 14:48 | NUR ---
Central Office Maintainer OIL WELL GUN PERFORATOR OPERATOR called and spoke to Shanell Patino, from [facility] to let her know since pt. is currently intubated, at some point pt. may need to have a trach. At that point, hospital would need a consent from . Shanell appreciated the heads up , asked for hospital to notify them a couple of days prior to needed to trach so they can decide if consent will be given. OIL WELL GUN PERFORATOR OPERATOR thanked her for her input.
--- NOTE | 2023-05-03 19:22 | NUR ---
ENDORSED PT TO POLLY ANTHONY AND CLARK COLON RN PT VS 58 HR RR 22 BP 93/54 95% O2 SAT ON ETT TO VENT FIO2 30% TV 400 PEEP 5 RATE 22 NO DISTRESS NO SEIZURE EPSIODE PT IS AFEBRILE MAKE ON FENTANYL DRIP AT 20 MCG AND DOPAMNNE DRIP AT 10 MCG ON KRISTI PICC LINE MAKE PT SAFE AND COMFORTABLE.
--- NOTE | 2023-05-03 19:30 | NUR ---
REPORT RECEIVED FROM [facility] NURSE ISAIAH RN. PT IS ON SEMI MONACO'S POSITION AND SIDE RAILS UP. PT IS ON BILATERAL ARM SOFT WRIST RESTRAINTS. PT. ORALLY INTUBATED WITH ETT IN PLACE ATTACH TO VENT. VENT: A/C VC, FIO2 30%, R 22, PEEP 5, VT 400. PT IS SEDATED AND ONLY RESPONDS TO PHYSICAL STIMULATION WITH STERNAL RUB. RECEIVED PT ON SINUS RHYTHM ON AUTO ROLLER. BILATERAL CHEST EXPANSION NOTED. WITH NGT ON LEFT NARE WITH VITAL AF TUBE FEEDING AT 55 ML/HR WITH 200ML FWF Q6H. WITH KRISTI PICC LINE - DRESSING DRY AND INTACT- FLOWING WITH FENTANYL 20MCG/HR, DOPAMINE 10 MCG/KG/MIN. WITH LEFT ARM IV ACCESS GAUGE 20 WITH FLOWING NS ON TKO-PATENT AND INTACT. PT'S SKIN IS INTACT EXCEPT WITH WOUND TO RIGHT SACRUM AREA, DRESSING IN PLACE. BROWN CATH IN PLACE INTACT AND DRAINING TO GRAVITY. HEEL PROTECTORS IN PLACE. NOT IN DISTRESS. WILL CONTINUE TO MONITOR.
[2023-05-04] VITALS (37 sets, daily range): BP systolic 91–133; BP diastolic 50–92; PULSE 51–99; RESP 14–36; TEMP 97.2–98.7; O2SAT 52–98
[2023-05-04] MEDS: DEXAMETHASONE 10 MG/ML VIAL IVP SCH ×5 (00:19→23:32)
[2023-05-04] MEDS: BLOOD GLUCOSE MONITORING 1 DEV DEV FS SCH ×5 (00:27→23:50)
[2023-05-04] MEDS: HYDRAGUARD CREAM TP SCH ×2 (01:00→13:19)
[2023-05-04] MEDS: DOPamine 400 MG/D5W PREMIX 250 ML IV PRN ×3 (01:59→22:06)
--- NOTE | 2023-05-04 02:57 | NUR ---
PT IS SEDATED. CHECKED NGT RESIDUAL = 100 ML.
[2023-05-04] MEDS: PIPERACILLIN/TAZOBACTAM 3.375 GM in DEXTROSE 5% 50 ML IV SCH ×3 (04:51→20:49)
[2023-05-04] MEDS: INSULIN LISPRO SLIDING SCALE 100 UNITS/ML VIAL SUBQ PRN ×3 (05:39→23:41)
--- NOTE | 2023-05-04 07:30 | NUR ---
RECEIVED PT FROM POLLY ANTHONY AND CLARK COLON RN DAY SHIFT PT IS MODERATE SEDATED ABLE TO WITHDRAW EXTREMITY TO MILD STIMULI AND ABLE TO OPEN EYES BOTH + PERRL, NO RESPIRATORY DISTRESS NOTED,, SB-SR ON THE HEART MONITOR VS 97.4 HR 58 BP 117/64 RR22 O2SAT 94% ON ETT TO VENT FIO2 30 VT 400 RATE 22 PEEP 5 ON KRISTI PICC LINE WITH DONT DRIPS OF FENTABYL 20 MCG AND DOPMAINE AT 10 MMCG PT HAS BSWR FOR SAFETY ABLE TO MOVE HIS HANDS PT HAS BROWN CATH PATENT AND INTACT DRAINING YELLOW URINE PT HAS LEFT NARES NGT WITH FEEDING XIOMARA AF AT 55 ML GOAL MET AND FWF Q6 200ML PT HAS NO RESIDUAL CHECK PT HAS RIGHT BUTTOCK PRESSURE MEPILEX DRESSING INTACT. PT KEPT SAFE AND COMFORTABLE WILL CONTINUE CLOSE MONITORING
--- NOTE | 2023-05-04 07:30 | NUR ---
ENDORSED PT TO DAYSHIFT NURSE ISAIAH RN AND OMAR RN. ALL QUESTIONS ANSWERED.
[2023-05-04] MEDS: LORazepam 2 MG/ML VIAL IVP PRN ×2 (07:54→19:00)
[2023-05-04 08:00] LABS: HEMATOCRIT 34.6 % (36-52); HEMOGLOBIN 11.6 g/dL (12.0-18.0); MEAN CORPUSCULAR HEMOGLOBIN 32 pg (27-31); MEAN CORPUSCULAR HGB CONC 34 g/dL (33-37); MEAN CORPUSCULAR VOLUME 94.9 fL (80-94); PLATELET COUNT (AUTO) 303 K/uL (140-450); RED BLOOD CELL COUNT(AUTO) 3.65 MIL/uL (4.20-6.10); RED CELL DISTRIBUTION WIDTH 14.3 % (11.6-13.7); WHITE BLOOD COUNT (AUTO) 21.5 K/uL (4.8-10.8)
--- NOTE | 2023-05-04 08:00 | NUR ---
AROUND 0751 PT HAS EPISODE OF SEIZURE 0754 ATIVAN 2 MG IVP GIVEN 0755 SEIZURE STOP PT THR 60 BP 117/64 RR 22 O2 SAT 95% KEPT SAFE
[2023-05-04 08:10] LABS: ANION GAP 10.5 (8-16); CARBON DIOXIDE 30.5 mmol/L (21-32); CREATININE 0.7 mg/dL (0.6-1.3)
[2023-05-04 08:13] LABS: MAGNESIUM 2.5 mg/dL (1.8-2.4); PHOSPHORUS 2.4 mg/dL (2.5-4.9)
[2023-05-04 08:15] LABS: BASOPHILS % (MANUAL) 0 % (0-2); EOSINOPHILS % (MANUAL) 0 % (0-4); LYMPHOCYTES % (MANUAL) 4 % (20-46); MONOCYTES % (MANUAL) 4 % (5-12)
[2023-05-04] MEDS: FAMOTIDINE 20 MG/2 ML VIAL IV SCH ×2 (09:30→20:48)
[2023-05-04] MEDS: levETIRAcetam 1,000 MG in NACL 0.9% 100 ML IV SCH (09:30)
[2023-05-04] MEDS: DOCUSATE 100 MG/10 ML UDC GT SCH ×3 (09:30→18:12)
[2023-05-04] MEDS: ASPIRIN 81 MG TAB.CHEW GT SCH (09:30)
[2023-05-04] MEDS: SIMVASTATIN 20 MG TAB PO SCH (09:30)
[2023-05-04] MEDS: MAGNESIUM HYDROXIDE 2400 MG/30 ML UDC PO SCH (09:30)
--- NOTE | 2023-05-04 10:16 | NUR ---
DR SANON CAME IN AND SEE PT ASSESS AND UPDATE PT CONDITION PT HAS X2 EPISODE OF SEIZURE YESTERDAY 05/03 AND TODAY 05/04 NEW ORDER GIVEN TO INCREASE DOSE OF KEPPRA TO 1500 MG BID ORDER PLACED WILL CLOSELY MONITOR.
--- NOTE | 2023-05-04 10:36 | NUR ---
dR. CARBAJAL CAME IN AND SEE PT GET UPDATE MADE AWARE OF TALITA CAVAZOS NEW ORDER FOR EPISODE OF SEIZURE AND DR SANCHES ORDER TO LEVOPHED OFF AND OKA FOR DOPAMINE TO TITRATE UP FOR HR AND BP SUPPORT, RT AT BEDSIDE DR. CARBAJAL PLAN ON WEAN TO CPAP TRIAL ORDER TO HOLD FENTANYL DRIP.
--- NOTE | 2023-05-04 10:46 | NUR ---
PER VERBAL ORDER OF DR. SANON, AND CONFIRMED BY DR. CARBAJAL, ATTEMPTED CPAP TRIAL AT 1029. PT RESPIRATORY RATE BEGAN TO DECREASE AFTER 2 MINUTES. AT 1034 RESP RATE WAS AT 8 BPM. RETURNED TO AC/VC VENT SETTINGS. DR. CARBAJAL SAID TO STOP FENTANYL AND REATTEMPT SBT IN 2 HOURS. RN AWARE OF PLAN. WILL CONTINUE TO MONITOR PT.
[2023-05-04] MEDS: SKINTEGRITY HYDROGEL TP SCH (13:19)
--- NOTE | 2023-05-04 14:05 | NUR ---
RESTARTED SBT NOW THAT PATIENT IS OFF FENTANYL. PATIENT MORE AWAKE AND ALERT. INITIALLY RR DROPPED TO 8 BPM BUT QUICKLY REBOUNDED AND WAS RESP RATE WAS BETWEEN 14 AND 17. TOOK OFF AT 1505. PT RESTING COMFORTABLY. WILL CONTINUE TO MONITOR PT.
--- NOTE | 2023-05-04 19:15 | NUR ---
185 PT STARTED SEIZURE AT 1899 ATIVAN 2 MG IVP GIVEN 1901 SEIZURE STOP V/S HR 103 , RR 21 BP 130/85 O2 SAT 95% KEPT SAFE.
--- NOTE | 2023-05-04 19:31 | NUR ---
REPORT GIVEN TO POLLY ANTHONY AND CLARK COLON RN FOR CONITNUITY OF CARE PT SAFE AND COMFORTABLE
--- NOTE | 2023-05-04 19:34 | NUR ---
FOUND PT ON VENT SETTINGS AC/VC RR 12, TV 400, PEEP 5, 30%. THE SET RATE DOES NOT CORRESPOND TO VENT ORDER AND FLOW SHEET CHART. SWITCHED SET RATE BACK TO 22 IN THE VENT ORDER.
[2023-05-04] MEDS: levETIRAcetam 1,500 MG in NACL 0.9% 100 ML IV SCH (20:51)
[2023-05-05] VITALS (34 sets, daily range): BP systolic 89–150; BP diastolic 55–83; PULSE 44–84; RESP 15–23; TEMP 97.1–98; O2SAT 94–98
[2023-05-05] MEDS: HYDRAGUARD CREAM TP SCH ×2 (01:36→12:10)
[2023-05-05 05:23] LABS: BASOPHILS % (AUTO) 0.1 % (0.0-2.0); HEMATOCRIT 37.7 % (36-52); HEMOGLOBIN 12.5 g/dL (12.0-18.0); LYMPHOCYTES # (AUTO) 0.9 K/uL (2.0-11.5); LYMPHOCYTES % (AUTO) 4.4 % (20.5-51.1); MEAN CORPUSCULAR HEMOGLOBIN 32 pg (27-31); MEAN CORPUSCULAR HGB CONC 33 g/dL (33-37); MEAN CORPUSCULAR VOLUME 95.4 fL (80-94); MONOCYTES # (AUTO) 1.2 K/uL (0.8-1.0); NEUTROPHILS # (AUTO) 17.3 K/uL (1.8-7.7); NEUTROPHILS % (AUTO) 89.5 % (42.2-75.2); PLATELET COUNT (AUTO) 305 K/uL (140-450); RED BLOOD CELL COUNT(AUTO) 3.95 MIL/uL (4.20-6.10); RED CELL DISTRIBUTION WIDTH 14.8 % (11.6-13.7); WHITE BLOOD COUNT (AUTO) 19.4 K/uL (4.8-10.8)
[2023-05-05] MEDS: PIPERACILLIN/TAZOBACTAM 3.375 GM in DEXTROSE 5% 50 ML IV SCH ×3 (05:27→20:22)
[2023-05-05] MEDS: BLOOD GLUCOSE MONITORING 1 DEV DEV FS SCH ×3 (05:28→17:59)
[2023-05-05] MEDS: DEXAMETHASONE 10 MG/ML VIAL IVP SCH ×3 (05:36→17:11)
[2023-05-05 05:46] LABS: ANION GAP 10.8 (8-16); CARBON DIOXIDE 30.2 mmol/L (21-32); CREATININE 0.7 mg/dL (0.6-1.3)
[2023-05-05 05:49] LABS: MAGNESIUM 2.6 mg/dL (1.8-2.4); PHOSPHORUS 2.7 mg/dL (2.5-4.9)
--- NOTE | 2023-05-05 07:17 | NUR ---
PLACED PT ON SBT TRIAL WITH PRESSURE SUPPORT OF 10. COACHED PT TO START BREATHING ON OWN PT FAILED TRAIL AFTER 2MIN RR DECREASED TO 8. PT PLACED BACK ON PREVIOUS SETTINGS . WILL TRY AGAIN LATER ON IN DAY. NO DISTRESS NOTED AT THIS TIME. WILL CONTINUE TO MONITOR
--- NOTE | 2023-05-05 07:30 | NUR ---
Opening Received report on pt. Pt intubated and sedated with fentanyl drip. No signs of distress or pain noted, opens eyes, does not follow commands. Pt also on dopamine drip. Noted HR in 40s. NGT with tube feeding. Donis draining urine to gravity. Bilateral soft wrist restraints in place for safety.
[2023-05-05] MEDS: DOPamine 400 MG/D5W PREMIX 250 ML IV PRN ×2 (08:08→17:14)
[2023-05-05] MEDS: MAGNESIUM HYDROXIDE 2400 MG/30 ML UDC PO SCH (08:14)
[2023-05-05] MEDS: FAMOTIDINE 20 MG/2 ML VIAL IV SCH ×2 (08:15→20:27)
[2023-05-05] MEDS: SIMVASTATIN 20 MG TAB PO SCH (08:15)
[2023-05-05] MEDS: DOCUSATE 100 MG/10 ML UDC GT SCH ×3 (08:15→17:11)
[2023-05-05] MEDS: ASPIRIN 81 MG TAB.CHEW GT SCH (08:15)
[2023-05-05] MEDS: levETIRAcetam 1,500 MG in NACL 0.9% 100 ML IV SCH ×2 (08:17→20:28)
--- NOTE | 2023-05-05 11:56 | NUR ---
WOUND CARE NOTE: PT. AT ICU, INTUBATED WITH SEDATION. SKIN /WOUND CARE PER ORDERS PT. SUPINE POSITION WITH SACRALCOCCYX AND HEELS OFFLOADING WITH PILLOWS. -MOISTURE ASSOCIATED SKIN DAMAGE(MASD) TO: B/L GROINS, SCROTAL, SKIN MOIST -PRESSURE INJURY STAGE 3, SACRAL 1X1CM, SUPERFICIAL DEPTH, WOUND BED 100% PINK TISSUE, MOIST, NO ODOR, WOUND EDGE FLAT, JR-WOUND SKIN MOIST SURROUNDING BLANCHABLE REDNESS WITH SKIN INTACT
[2023-05-05] MEDS: SKINTEGRITY HYDROGEL TP SCH (12:11)
--- NOTE | 2023-05-05 18:00 | NUR ---
Jewels replaced per MD clemons using aseptic technique. Pt tolerated well. Addendum: 05/05/23 at 1928 by Agency Nurse GABRIELLE Duran RN 16 Fr catheter
[2023-05-05] MEDS: FLUCONAZOLE 200 MG/NS PREMIX 100 ML IV SCH (18:01)
--- NOTE | 2023-05-05 19:28 | NUR ---
Closing Pt in no signs of pain or distress, remains on dopamine drip. Fentanyl drip on hold. Endorsed plan of care to RN.
--- NOTE | 2023-05-05 19:30 | NUR ---
RECEIVED PATIENT ON BED LETHARGIC, TRIES TO OPEN EYES TO CALLS;ORALLY INTUBATED AND VENTILATED AT 24% FIO2. SO2 96%. CARDIADSCOPE SHOWS ON SINUS RHYTHM HR 65/MIN NO ARRHYTHMIAS SEEN. DOPAMINE DRIP IN PROGRESS AT 10 MCG/KG/MIN VIA PICC LINE ON RIGHT UPPER ARM; PATENT AND INTACT. ABDOMEN SOFT; NON TENDER WITH ACTIVE BOWEL SOUNDS; WITH NGT TO LEFT NARE AND RECEIVING CONTINOUS TUBE FEEDING VITAL AF AT 55 ML/HR WITH WATER FLUSH 200 ML Q6 HR;BROWN CATH IN SITU TO GRAVITY DRAINAGE BAG, DRAINING TO CLEAR PALE YELLOW URINE OUTPUT; INTACT.
--- NOTE | 2023-05-05 20:00 | NUR ---
PATIENT IS SOMEWHAT RESTLESS; FENTANYL DRIP RE STARTED AT 2 MCG/HR.
--- NOTE | 2023-05-05 20:30 | NUR ---
TURNED AND REPOSITIONED PATIENT; ORAL CARE DONE WITH VAP KIT.
[2023-05-06] VITALS (37 sets, daily range): BP systolic 80–144; BP diastolic 46–86; PULSE 43–77; RESP 12–25; TEMP 97.4–98.2; O2SAT 95–99
--- NOTE | 2023-05-06 | NUR ---
ACCUCHECK DONE; RESULT IS 162, 2 UNITS HUMALOG INSULIN GIVEN SUBQ PER SLIDING SCALE.
[2023-05-06] MEDS: DEXAMETHASONE 10 MG/ML VIAL IVP SCH ×4 (00:03→17:47)
[2023-05-06] MEDS: INSULIN LISPRO SLIDING SCALE 100 UNITS/ML VIAL SUBQ PRN ×4 (00:15→17:52)
[2023-05-06] MEDS: BLOOD GLUCOSE MONITORING 1 DEV DEV FS SCH ×4 (00:22→17:45)
[2023-05-06] MEDS: DOPamine 400 MG/D5W PREMIX 250 ML IV PRN ×2 (02:51→14:19)
[2023-05-06] MEDS: HYDRAGUARD CREAM TP SCH ×2 (04:30→12:11)
--- NOTE | 2023-05-06 04:30 | NUR ---
HAD BM TO MODERATE AMOUNT OF SOFT PASTY BROWN STOOL; MORNING BED BATH DONE; KEPT CLEAN DRY AND COMFORTABLE.
--- NOTE | 2023-05-06 04:45 | NUR ---
DRESSING CHANGED ON RIGHT UPPER ARM PICC LINE.
[2023-05-06] MEDS: PIPERACILLIN/TAZOBACTAM 3.375 GM in DEXTROSE 5% 50 ML IV SCH ×3 (04:54→20:55)
[2023-05-06 05:26] LABS: BASOPHILS % (AUTO) 0.2 % (0.0-2.0); HEMATOCRIT 35.6 % (36-52); HEMOGLOBIN 12.2 g/dL (12.0-18.0); LYMPHOCYTES # (AUTO) 0.6 K/uL (2.0-11.5); LYMPHOCYTES % (AUTO) 3.6 % (20.5-51.1); MEAN CORPUSCULAR HEMOGLOBIN 32 pg (27-31); MEAN CORPUSCULAR HGB CONC 34 g/dL (33-37); MEAN CORPUSCULAR VOLUME 94.2 fL (80-94); MONOCYTES # (AUTO) 0.8 K/uL (0.8-1.0); MONOCYTES % (AUTO) 4.8 % (1.7-9.3); NEUTROPHILS # (AUTO) 16.1 K/uL (1.8-7.7); NEUTROPHILS % (AUTO) 91.4 % (42.2-75.2); PLATELET COUNT (AUTO) 320 K/uL (140-450); RED BLOOD CELL COUNT(AUTO) 3.78 MIL/uL (4.20-6.10); RED CELL DISTRIBUTION WIDTH 14.7 % (11.6-13.7); WHITE BLOOD COUNT (AUTO) 17.6 K/uL (4.8-10.8)
[2023-05-06 05:31] LABS: ANION GAP 11.5 (8-16); CARBON DIOXIDE 27.3 mmol/L (21-32); CREATININE 0.7 mg/dL (0.6-1.3); POTASSIUM 3.8 mmol/L (3.5-5.1)
[2023-05-06 05:35] LABS: MAGNESIUM 2.4 mg/dL (1.8-2.4); PHOSPHORUS 2.2 mg/dL (2.5-4.9)
--- NOTE | 2023-05-06 07:15 | NUR ---
Opening Received report on pt. Pt intubated on ventilator, sedated with fentanyl drip, no signs of pain or distress noted, eyes open and calm. Pt also on dopamine drip, HR 40s. NGT with feeding, residual [address] draining urine to gravity. Bilateral soft wrist restraints in place for safety, pulses present, skin intact. HOB elevated 30 degrees. Bilateral heels offloaded with heel protector boots.
--- NOTE | 2023-05-06 07:40 | NUR ---
Dr. Cadena roundjacki on pt, made aware of weaning attempts and current updates.
[2023-05-06] MEDS: ALBUTEROL 0.083% 2.5 MG/3 ML NEBU INH PRN (08:42)
[2023-05-06] MEDS: MAGNESIUM HYDROXIDE 2400 MG/30 ML UDC PO SCH (08:56)
[2023-05-06] MEDS: SIMVASTATIN 20 MG TAB PO SCH (08:56)
[2023-05-06] MEDS: DOCUSATE 100 MG/10 ML UDC GT SCH ×3 (08:57→17:49)
[2023-05-06] MEDS: ASPIRIN 81 MG TAB.CHEW GT SCH (08:57)
[2023-05-06] MEDS: FAMOTIDINE 20 MG/2 ML VIAL IV SCH ×2 (08:57→20:54)
[2023-05-06] MEDS: levETIRAcetam 1,500 MG in NACL 0.9% 100 ML IV SCH ×2 (09:00→20:54)
[2023-05-06] MEDS: fentaNYL citrate 1 MG in NACL 0.9% 80 ML IV PRN (09:02)
--- NOTE | 2023-05-06 12:00 | NUR ---
Remains orally intubated on ventilator, sedated with fentanyl drip, no signs of pain or distress noted, eyes open and calm. Dopamine drip with no diff. to PICC line to Right upper arm with dressing intact, HR 40s. NGT with feeding, pt. tolerating with no difficulty. Donis draining urine clear-yellow to gravity. Bilateral soft wrist restraints in place for safety, pulses present, skin intact. HOB elevated 30 degrees. Bilateral heels offloaded with heel protector boot. Will cont. to monitor.
[2023-05-06] MEDS: SKINTEGRITY HYDROGEL TP SCH (12:12)
[2023-05-06] MEDS: FLUCONAZOLE 200 MG/NS PREMIX 100 ML IV SCH (17:49)
[2023-05-07] VITALS (31 sets, daily range): BP systolic 91–143; BP diastolic 49–86; PULSE 43–68; RESP 20–26; TEMP 97.2–98.6; O2SAT 91–98
[2023-05-07] MEDS: DEXAMETHASONE 10 MG/ML VIAL IVP SCH ×4 (01:15→18:11)
[2023-05-07] MEDS: HYDRAGUARD CREAM TP SCH ×2 (01:15→12:53)
[2023-05-07] MEDS: BLOOD GLUCOSE MONITORING 1 DEV DEV FS SCH ×4 (01:34→18:10)
[2023-05-07] MEDS: INSULIN LISPRO SLIDING SCALE 100 UNITS/ML VIAL SUBQ PRN ×4 (01:35→18:07)
[2023-05-07] MEDS: DOPamine 400 MG/D5W PREMIX 250 ML IV PRN ×3 (01:42→22:21)
[2023-05-07 05:14] LABS: HEMATOCRIT 37.1 % (36-52); HEMOGLOBIN 12.5 g/dL (12.0-18.0); LYMPHOCYTES # (AUTO) 0.5 K/uL (2.0-11.5); LYMPHOCYTES % (AUTO) 3.1 % (20.5-51.1); MEAN CORPUSCULAR HEMOGLOBIN 32 pg (27-31); MEAN CORPUSCULAR HGB CONC 34 g/dL (33-37); MEAN CORPUSCULAR VOLUME 95.1 fL (80-94); MONOCYTES % (AUTO) 5.9 % (1.7-9.3); PLATELET COUNT (AUTO) 352 K/uL (140-450); RED BLOOD CELL COUNT(AUTO) 3.91 MIL/uL (4.20-6.10); RED CELL DISTRIBUTION WIDTH 14.9 % (11.6-13.7); WHITE BLOOD COUNT (AUTO) 16.5 K/uL (4.8-10.8)
[2023-05-07] MEDS: PIPERACILLIN/TAZOBACTAM 3.375 GM in DEXTROSE 5% 50 ML IV SCH ×3 (05:30→21:14)
[2023-05-07 05:36] LABS: ANION GAP 10.6 (8-16); CREATININE 0.6 mg/dL (0.6-1.3); POTASSIUM 3.6 mmol/L (3.5-5.1)
[2023-05-07 05:46] LABS: MAGNESIUM 2.4 mg/dL (1.8-2.4)
--- NOTE | 2023-05-07 07:30 | NUR ---
RECEIVED REPORT FROM MIDDLE OR INTERMEDIATE SCHOOL PRINCIPAL NURSE. PATIENT LYING DOWN IN BED SLEEPING, RESPONDS TO SHAKING. ON ETT TO VENT WITH O2 SAT 97%. NO DISTRESS NOTED. SEDATED PER MD ORDERS. KRISTI PICC LINE INTACT, PATENT, AND INFUSING IVF AND DRIPS PER MD ORDERS. BROWN CATH IN PLACE. RIGHT BUTTOCK WOUND DRESSING INTACT. BILATERAL SOFT WRIST RESTRAINTS IN PLACE, NO S/S OF SKIN BREAKDOWN. REVIEWED PLAN OF CARE WITH PATIENT, UNABLE TO COMPREHEND, SEDATED. SAFETY MEASURES IN PLACE, CALL LIGHT WITHIN REACH. WILL CONTINUE TO MONITOR.
[2023-05-07] MEDS: DOCUSATE 100 MG/10 ML UDC GT SCH ×3 (09:06→18:05)
[2023-05-07] MEDS: MAGNESIUM HYDROXIDE 2400 MG/30 ML UDC PO SCH (09:07)
[2023-05-07] MEDS: ASPIRIN 81 MG TAB.CHEW GT SCH (09:07)
[2023-05-07] MEDS: SIMVASTATIN 20 MG TAB PO SCH (09:07)
[2023-05-07] MEDS: FAMOTIDINE 20 MG/2 ML VIAL IV SCH ×2 (09:08→20:33)
[2023-05-07] MEDS: levETIRAcetam 1,500 MG in NACL 0.9% 100 ML IV SCH ×2 (09:52→20:31)
--- NOTE | 2023-05-07 10:00 | NUR ---
SCHEDULED MEDICATIONS DUE GIVEN. WILL CONTINUE TO MONITOR.
[2023-05-07] MEDS: fentaNYL citrate 1 MG in NACL 0.9% 80 ML IV PRN (10:50)
--- NOTE | 2023-05-07 10:50 | NUR ---
DECREASED FENTANYL TO 40 MCG/HR. WILL CONTINUE TO MONITOR.
--- NOTE | 2023-05-07 12:06 | NUR ---
05/07/23 RD FOLLOW UP COMPLETED. PLEASE REFER TO NUTRITION ASSESSMENT UNDER CARE ACTIVITY FOR ESTIMATED NUTRITIONAL NEEDS. 1. CONTINUE WITH VITAL AF 1.2 MALLY AT 55 ML/H WITH FWF 200ML Q6H OR PER MD. THIS WILL PROVIDE 1584 KCALS AND 99 GRAMS OF PROTEIN. WITH TENISHA, THIS MEETS 89% OF ESTIMATED ENERGY NEEDS; ADEQUATE 2. CONTINUE WITH TENISHA BID FOR WOUNDS WHICH WILL PROVIDE 160 CALORIES AND 5 GRAMS OF PROTEIN. 3. RD WILL MONITOR WEIGHT, NUTRITION SUPPORT, GI ISSUES AND RELATED LABS. 4. RD TO FOLLOW-UP IN 2-3 DAYS PATIENT IS HIGH RISK. RILEY TROTTER RD
[2023-05-07] MEDS: SKINTEGRITY HYDROGEL TP SCH (12:53)
--- NOTE | 2023-05-07 12:53 | NUR ---
SCHEDULED MEDICATIONS DUE GIVEN. WILL CONTINUE TO MONITOR.
--- NOTE | 2023-05-07 17:30 | NUR ---
PT RESTLESS, INCREASED FENTAYL RATE
[2023-05-07] MEDS: FLUCONAZOLE 200 MG/NS PREMIX 100 ML IV SCH (18:11)
--- NOTE | 2023-05-07 18:12 | NUR ---
SCHEDULED MEDICATIONS DUE GIVEN. WILL CONTINUE TO MONITOR.
--- NOTE | 2023-05-07 19:23 | NUR ---
GAVE REPORT TO CASKET TRIMMER NURSE FOR CONTINUITY OF CARE.
--- NOTE | 2023-05-07 19:30 | NUR ---
RECEIVED REPORT FROM DAY SHIFT NURSE. PATIENT LYING DOWN IN BED SLEEPING, RESPONDS TO SHAKING. ON ETT TO VENT WITH O2 SAT 97%, VENT SETTING AC/VC FIO2 24, VT 400, RATE 22, PEEP 55 . NO DISTRESS NOTED. SINUS BRADYCARDIA ON ASSISTANT WOMEN'S BASKETBALL COACH KRISTI PICC LINE INTACT, PATENT, AND INFUSING IVF AND DRIPS PER MD ORDERS. BROWN CATH IN PLACE. RIGHT BUTTOCK WOUND DRESSING INTACT. BILATERAL SOFT WRIST RESTRAINTS IN PLACE, NO S/S OF SKIN BREAKDOWN. REVIEWED PLAN OF CARE WITH PATIENT, UNABLE TO COMPREHEND, SEDATED. SAFETY MEASURES IN PLACE, CALL LIGHT WITHIN REACH. WILL CONTINUE TO MONITOR.
--- NOTE | 2023-05-07 21:30 | NUR ---
PT RESTLESS, INCREASED FENTAYL RATE TO 60 MCG/HR.
[2023-05-07] MEDS: MIDAZOLAM MDV 50 MG in NACL 0.9% 40 ML IV PRN (22:03)
--- NOTE | 2023-05-07 22:10 | NUR ---
STARTED VERSED AT 1.0 MCG/HR PT STILL RESTLESS.
--- NOTE | 2023-05-07 22:30 | NUR ---
CHECKED NGT FOR RESIDUAL (RESIDUAL = 15 ML). TENISHA SUPPLEMENT GIVEN.
[2023-05-08] VITALS (33 sets, daily range): BP systolic 70–132; BP diastolic 47–80; PULSE 44–73; RESP 14–27; TEMP 96.7–97.9; O2SAT 93–98
--- NOTE | 2023-05-08 | NUR ---
PT IS ASLEEP AND NOT RESTLESS.
[2023-05-08] MEDS: DEXAMETHASONE 10 MG/ML VIAL IVP SCH ×3 (00:12→20:16)
[2023-05-08] MEDS: BLOOD GLUCOSE MONITORING 1 DEV DEV FS SCH ×4 (00:21→18:17)
[2023-05-08] MEDS: INSULIN LISPRO SLIDING SCALE 100 UNITS/ML VIAL SUBQ PRN ×4 (00:23→18:21)
[2023-05-08] MEDS: HYDRAGUARD CREAM TP SCH ×2 (01:00→13:59)
[2023-05-08] MEDS: PIPERACILLIN/TAZOBACTAM 3.375 GM in DEXTROSE 5% 50 ML IV SCH ×3 (05:21→20:11)
[2023-05-08 05:23] LABS: BASOPHILS # (AUTO) 0.1 K/uL (0.00-0.22); BASOPHILS % (AUTO) 0.4 % (0.0-2.0); HEMATOCRIT 40.6 % (36-52); HEMOGLOBIN 13.5 g/dL (12.0-18.0); LYMPHOCYTES # (AUTO) 0.5 K/uL (2.0-11.5); LYMPHOCYTES % (AUTO) 2.8 % (20.5-51.1); MEAN CORPUSCULAR HEMOGLOBIN 32 pg (27-31); MEAN CORPUSCULAR HGB CONC 33 g/dL (33-37); MEAN CORPUSCULAR VOLUME 95.2 fL (80-94); MONOCYTES # (AUTO) 0.6 K/uL (0.8-1.0); MONOCYTES % (AUTO) 3.3 % (1.7-9.3); NEUTROPHILS % (AUTO) 93.5 % (42.2-75.2); PLATELET COUNT (AUTO) 369 K/uL (140-450); RED BLOOD CELL COUNT(AUTO) 4.27 MIL/uL (4.20-6.10); RED CELL DISTRIBUTION WIDTH 14.6 % (11.6-13.7); WHITE BLOOD COUNT (AUTO) 18.2 K/uL (4.8-10.8)
[2023-05-08 05:42] LABS: MAGNESIUM 2.5 mg/dL (1.8-2.4); PHOSPHORUS 2.7 mg/dL (2.5-4.9)
[2023-05-08 06:10] LABS: ANION GAP 10.8 (8-16); CREATININE 0.6 mg/dL (0.6-1.3); POTASSIUM 3.8 mmol/L (3.5-5.1)
--- NOTE | 2023-05-08 07:00 | NUR ---
RECEIVED REPORT FROM CLARK [facility] DAY SHIFT PT IS SEDATED ON FENTANYL DRIP RUNNING AT 60MCG/HR OPEN EYES PT CONNECETED TO ETT TO VENT FIO2 OF 24% TV 400 RR22 PEEP 5 PT HAS LEFT NARES NGT FEEDING AND VITAL AF RUNING AT 55ML/H AND FWF 200ML Q6 PER REPORT NO REDUAL TOLERATED FEEDING PT HAS F/C PATENT DRAINING YELLOW URINE PT HAS KRISTI PICC LINE ON DOPAMINE DRIP 10 MCG VS TODAT TEMOP 97.3 HR 45 BP 112/65 RR 22 O2SAT 95% PT HAS RIGHT BUTTOCK OPEN WOUND WITH MEPILEX DRESSING . KEPT PT SAFE BED LOCKED AND LOW POSITION ON PADDED SIDE RAILS WILL CONITNUNE TO MONITOR.
--- NOTE | 2023-05-08 07:32 | NUR ---
ENDORSED REPORT TO DAYSMOFT NURSE FOR CONTINUITY OF CARE.
[2023-05-08] MEDS: DOPamine 400 MG/D5W PREMIX 250 ML IV PRN ×2 (09:08→18:11)
[2023-05-08] MEDS: MAGNESIUM HYDROXIDE 2400 MG/30 ML UDC PO SCH (09:21)
[2023-05-08] MEDS: DOCUSATE 100 MG/10 ML UDC GT SCH ×3 (09:21→18:19)
[2023-05-08] MEDS: SIMVASTATIN 20 MG TAB PO SCH (09:21)
[2023-05-08] MEDS: ASPIRIN 81 MG TAB.CHEW GT SCH (09:21)
[2023-05-08] MEDS: levETIRAcetam 1,500 MG in NACL 0.9% 100 ML IV SCH ×2 (09:21→20:47)
--- NOTE | 2023-05-08 09:30 | NUR ---
DR. FATIMA CAME IN AND SEE PT GET UPDATE ON PT CONDITION NO NEW ORDER GIVEN.
[2023-05-08] MEDS: FAMOTIDINE 20 MG/2 ML VIAL IV SCH ×2 (09:33→20:12)
[2023-05-08] MEDS: fentaNYL citrate 1 MG in NACL 0.9% 80 ML IV PRN (09:36)
--- NOTE | 2023-05-08 10:55 | NUR ---
Shared Services And Outsourcing Manager GARMENT SUPERVISOR called Shanell SCHMIDT to update her from last conversation. [facility] it was discussed pt. has been on a vent and may need a trach on Day 14. GARMENT SUPERVISOR asked Shanell if she can prepare for possible trach. Shanell will need the consent form sent, will speak to her Rn and rest of team to discuss if they will give consent for Trac. Additionally, Shanell is leaving for vacation, last day is 05/09. GARMENT SUPERVISOR can call Main agency number and ask to speak to "[facility]" where anyone can be of assistance in this matter. Pt does not have a POLST. This is something else they will discuss. GARMENT SUPERVISOR transferred Shanell to legal internship. [phone]. GARMENT SUPERVISOR will remain available as needed. Our Rn will fax over the consent form to Shanell. Addendum: 05/08/23 at 1348 by April Barragan CM Shared Services And Outsourcing Manager [facility] workerShanell unavailable. GARMENT SUPERVISOR attempted to call 3 times, called and spoke to Duty Worker Miranda. GARMENT SUPERVISOR will fax over the consent for them to begin working on it. [facility] will decide if they will provide consent with the help of their Rn. GARMENT SUPERVISOR will fax over consent to [phone] ( also her phone number) Miranda confirmed she received fax, will forward to their Rn and notify Jose Guadalupe Reece.s [facility] Worker.
--- NOTE | 2023-05-08 11:40 | NUR ---
DR. BROOKS CAME IN AND SEE PT GET UPDATE MD ORDER FOR WEAN TRIAL TODAY FOR 1 HR ORDER TO STOP SEDATION. WEAN TRIAL STARTED AT 1130 RT AT BEDSIDE AWARE.
--- NOTE | 2023-05-08 11:47 | NUR ---
PT PLACED ON SBT CPAP 5 PS 10 FIO2 24% SEDATION VACATION STARTED PRIOR TO TRIAL.
--- NOTE | 2023-05-08 12:15 | NUR ---
PT DID NOT TOLERATE SBT FOR ANY LONGER THAN 20 MIN. PT TACHYPNEIC RR RANGING FROM 35-40. PT AGITATED KICKING AND MOVING AROUND IN BED. NURSE MADE AWARE.
[2023-05-08] MEDS: SKINTEGRITY HYDROGEL TP SCH (13:00)
--- NOTE | 2023-05-08 14:27 | NUR ---
WOUND CARE NOTE: PT. SKIN IMPROVING WITH CURRENT TX. PT. SIDE LYING POSITION WITH SACRALCOCCYX AND HEELS OFFLOADING WITH PILLOWS. WILL CONTINUE ALL INTERVENTIONS PREVENT FURTHER SKIN BREAKS -MOISTURE ASSOCIATED SKIN DAMAGE(MASD) TO: B/L GROINS, SCROTAL, SKIN MOIST -PRESSURE INJURY STAGE 3, SACRAL RESURFACING WITH THIN SCARING TISSUE,WOUND BED 100% PINK TISSUE, MOIST, NO ODOR, WOUND EDGE FLAT, JR-WOUND SKIN MOIST SURROUNDING BLANCHABLE REDNESS WITH SKIN INTACT
--- NOTE | 2023-05-08 16:45 | NUR ---
STABLE RESTING COMFORTABLY NO DISTRESS NOTED GOOD CHEST RISE ENDOTRACHEAL SUCTION FOR MODERATE THIN PALE YELLOW SECRETIONS AIRWAY PATENT
[2023-05-08] MEDS: FLUCONAZOLE 200 MG/NS PREMIX 100 ML IV SCH (18:19)
--- NOTE | 2023-05-08 19:15 | NUR ---
RECEIVED PATIENT IN BED WITH EYES CLOSED ORALLY INTUBATED AND VENTILATED FIO2-24, R-22. NGT TO LEFT NARE WITH CONTINOUS TUBE FEEDING OF VITAL AF AT 55 ML/HR. NO S/S OF RESPIRATORY DISTRESS. FENTANYL DRIP AT 60 MCG/HR , DOPAMINE DRIP AT 10 MCG/KG/MIN INFUSING TO RIGHT UPPER ARM PICC LINE. BROWN CATHETER DRAINING TO GRAVITY WITH CLEAR YELLOW URINE.
[2023-05-08] MEDS: ALBUTEROL 0.083% 2.5 MG/3 ML NEBU INH PRN (19:24)
--- NOTE | 2023-05-08 20:14 | NUR ---
ENDORSED TO LUZ MARIA ANTHONY NIGHT FOR CONTINUITY OF CARE. PT STABLE NO CHANGE OF CONDITION AT THIS TIME. SAFE AND COMFORTABLE.
[2023-05-09] VITALS (34 sets, daily range): BP systolic 60–141; BP diastolic 35–95; PULSE 46–88; RESP 10–52; TEMP 96.8–97.8; O2SAT 94–99
[2023-05-09] MEDS: BLOOD GLUCOSE MONITORING 1 DEV DEV FS SCH ×4 (00:03→17:46)
[2023-05-09] MEDS: INSULIN LISPRO SLIDING SCALE 100 UNITS/ML VIAL SUBQ PRN ×4 (00:05→17:46)
[2023-05-09] MEDS: HYDRAGUARD CREAM TP SCH ×2 (01:47→12:48)
[2023-05-09] MEDS: PIPERACILLIN/TAZOBACTAM 3.375 GM in DEXTROSE 5% 50 ML IV SCH ×3 (04:37→21:00)
[2023-05-09] MEDS: fentaNYL citrate 1 MG in NACL 0.9% 80 ML IV PRN (04:51)
[2023-05-09] MEDS: DOPamine 400 MG/D5W PREMIX 250 ML IV PRN ×2 (05:07→15:35)
[2023-05-09] MEDS ORDERED: NOREPINEPHRINE 4 MG/4 ML VIAL IV ONE (05:18)
[2023-05-09] MEDS: NOREPINEPHRINE 8 MG in DEXTROSE 5% 250 ML IV PRN (05:26)
[2023-05-09 05:28] LABS: BASOPHILS # (AUTO) 0.1 K/uL (0.00-0.22); BASOPHILS % (AUTO) 0.4 % (0.0-2.0); HEMATOCRIT 39.6 % (36-52); HEMOGLOBIN 13.2 g/dL (12.0-18.0); LYMPHOCYTES # (AUTO) 0.6 K/uL (2.0-11.5); LYMPHOCYTES % (AUTO) 3.4 % (20.5-51.1); MEAN CORPUSCULAR HEMOGLOBIN 32 pg (27-31); MEAN CORPUSCULAR HGB CONC 33 g/dL (33-37); MONOCYTES # (AUTO) 0.7 K/uL (0.8-1.0); MONOCYTES % (AUTO) 4.4 % (1.7-9.3); NEUTROPHILS # (AUTO) 14.8 K/uL (1.8-7.7); NEUTROPHILS % (AUTO) 91.8 % (42.2-75.2); PLATELET COUNT (AUTO) 357 K/uL (140-450); RED BLOOD CELL COUNT(AUTO) 4.17 MIL/uL (4.20-6.10); RED CELL DISTRIBUTION WIDTH 14.5 % (11.6-13.7); WHITE BLOOD COUNT (AUTO) 16.2 K/uL (4.8-10.8)
[2023-05-09 05:57] LABS: ANION GAP 12.9 (8-16); CREATININE 0.8 mg/dL (0.6-1.3); POTASSIUM 3.9 mmol/L (3.5-5.1)
[2023-05-09 06:00] LABS: MAGNESIUM 2.6 mg/dL (1.8-2.4); PHOSPHORUS 3.5 mg/dL (2.5-4.9)
--- NOTE | 2023-05-09 08:12 | NUR ---
RECEIVED PT ON CURRENT VENTILATOR SETTINGS, VC 400, R22, PEEP 5, 24%. NO SBT STATRED AT THIS TIME BP IS 84/62 . RN AWARE AND AT BEDSIDE. WILL CONTINUE TO MONITOR.
[2023-05-09] MEDS: SIMVASTATIN 20 MG TAB PO SCH (09:52)
[2023-05-09] MEDS: ASPIRIN 81 MG TAB.CHEW GT SCH (09:52)
[2023-05-09] MEDS: DOCUSATE 100 MG/10 ML UDC GT SCH ×3 (09:52→17:35)
[2023-05-09] MEDS: MAGNESIUM HYDROXIDE 2400 MG/30 ML UDC PO SCH (09:52)
[2023-05-09] MEDS: FAMOTIDINE 20 MG/2 ML VIAL IV SCH ×2 (09:52→21:00)
[2023-05-09] MEDS: DEXAMETHASONE 10 MG/ML VIAL IVP SCH ×2 (09:53→21:00)
[2023-05-09] MEDS: levETIRAcetam 1,500 MG in NACL 0.9% 100 ML IV SCH ×2 (09:57→21:00)
[2023-05-09] MEDS: MIDAZOLAM MDV 50 MG in NACL 0.9% 40 ML IV PRN (10:01)
[2023-05-09] MEDS: SKINTEGRITY HYDROGEL TP SCH (12:48)
--- NOTE | 2023-05-09 13:14 | NUR ---
05/09/23 RD FOLLOW UP COMPLETED PLEASE REFER TO NUTRITION ASSESSMENT UNDER CARE ACTIVITY FOR ESTIMATED NUTRITIONAL NEEDS. 1. RD RECOMMENDS TO INCREASE GOAL RATE OF TUBE FEEDING TO 60ML/HR WITH FWF OF 200ML Q6H. THIS WILL PROVIDE1, 728 CALORIES AND 105 GRAMS OF PROTEIN. INCREASE IS FOR WEIGHT LOSS OF ~3 KG IN [address] RECOMMENDS CONTINUE WITH TENISHA BID FOR WOUNDS WHICH WILL PROVIDE 160 CALORIES AND 5 GRAMS OF PROTEIN. 3. RD TO FOLLOW-UP 2-3 DAYS, HIGH RISK CHYNA CLAYTON RD
--- NOTE | 2023-05-09 13:30 | NUR ---
Placed pt back on full support ventilation (previous settings) due to low BP 71/43 and low RR of 9. Pt was on CPAP weaning trial from 852-1330. CPAP ABG completed. bill of lading clerk aware. Will continue to monitor.
[2023-05-09] MEDS: FLUCONAZOLE 200 MG/NS PREMIX 100 ML IV SCH (17:37)
[2023-05-10] VITALS (35 sets, daily range): BP systolic 78–140; BP diastolic 40–94; PULSE 53–109; RESP 12–27; TEMP 97.1–97.6; O2SAT 94–100
--- NOTE | 2023-05-10 01:00 | NUR ---
RECEIVED REPORT FROM GABRIELLE SOLIS FOR CONTINUITY OF CARE. ALL CARES ASSUMED. RECEIVED PT ON SAME SETTINGS. PT IS RESTING COMFORTABLY.
[2023-05-10] MEDS: HYDRAGUARD CREAM TP SCH ×2 (01:10→12:26)
[2023-05-10] MEDS: DOPamine 400 MG/D5W PREMIX 250 ML IV PRN ×3 (01:29→20:10)
[2023-05-10] MEDS: PIPERACILLIN/TAZOBACTAM 3.375 GM in DEXTROSE 5% 50 ML IV SCH ×3 (06:02→20:19)
[2023-05-10] MEDS: BLOOD GLUCOSE MONITORING 1 DEV DEV FS SCH ×4 (06:06→17:27)
[2023-05-10] MEDS: INSULIN LISPRO SLIDING SCALE 100 UNITS/ML VIAL SUBQ PRN ×3 (06:07→17:31)
--- NOTE | 2023-05-10 07:20 | NUR ---
Opening Received report on pt. Pt intubated and sedated with fentanyl and versed drip. Pt with no signs of pain or distress. Currently receiving dopamine and levophed drips. NGT left nare, auscultated for placement, noted 230 ml residual with tube feeding, placed on hold. Donis draining urine to gravity. Bilateral soft wrist restraints in place for safety. HOB elevated to 30 degrees. Bilateral heels with heel protector boots and offloaded with pillows.
--- NOTE | 2023-05-10 07:25 | NUR ---
REPORT GIVEN TO DAY SHIFT NURSECARMEN RN. ALL QUESTIONS ASKED.
[2023-05-10] MEDS: ALBUTEROL 0.083% 2.5 MG/3 ML NEBU INH PRN (07:43)
--- NOTE | 2023-05-10 07:43 | NUR ---
RECEIVED ON A EquallogicAPE R860 VENTILATOR PLUGGED INTO RED OUTLET TOLERATING WELL WITHOUT COMPLICATIONS NOTED TO AN ENDOTRACHEAL TUBE #7.5 SECURED AT 22cm WITH AN ANCHOR FAST CUFF PRESSURE CHECKED NOTED AMBU BAG AT BEDSIDE SEDATED STABLE GOOD CHEST RISE ENDOTRACHEAL SUCTION FOR LARGE THIN PALE YELLOW SECRETIONS AIRWAY PATENT
[2023-05-10] MEDS: ASPIRIN 81 MG TAB.CHEW GT SCH (08:19)
[2023-05-10] MEDS: MAGNESIUM HYDROXIDE 2400 MG/30 ML UDC PO SCH (08:19)
[2023-05-10] MEDS: SIMVASTATIN 20 MG TAB PO SCH (08:19)
[2023-05-10] MEDS: DOCUSATE 100 MG/10 ML UDC GT SCH ×3 (08:19→17:28)
[2023-05-10] MEDS: DEXAMETHASONE 10 MG/ML VIAL IVP SCH (08:20)
[2023-05-10] MEDS: FAMOTIDINE 20 MG/2 ML VIAL IV SCH ×2 (08:20→20:23)
[2023-05-10] MEDS: levETIRAcetam 1,500 MG in NACL 0.9% 100 ML IV SCH ×2 (08:21→21:04)
[2023-05-10 11:09] LABS: HEMATOCRIT 43.2 % (36-52); HEMOGLOBIN 14.6 g/dL (12.0-18.0); MEAN CORPUSCULAR HEMOGLOBIN 32 pg (27-31); MEAN CORPUSCULAR HGB CONC 34 g/dL (33-37); MEAN CORPUSCULAR VOLUME 93.8 fL (80-94); PLATELET COUNT (AUTO) 377 K/uL (140-450); RED BLOOD CELL COUNT(AUTO) 4.61 MIL/uL (4.20-6.10); WHITE BLOOD COUNT (AUTO) 22.6 K/uL (4.8-10.8)
[2023-05-10 11:27] LABS: ANION GAP 12.2 (8-16); CARBON DIOXIDE 28.3 mmol/L (21-32); CREATININE 0.7 mg/dL (0.6-1.3); POTASSIUM 4.5 mmol/L (3.5-5.1)
--- NOTE | 2023-05-10 11:33 | NUR ---
DOMI ROMERO GOOD CHEST RISE AND AERATIO THROUGHOUT BILATERAL LUNG ALMARAZ AIRWAY PATENT Addendum: 05/10/23 at 1547 by Logan Timmons RT DOMI ROMERO=STABLE
[2023-05-10 11:57] LABS: BASOPHILS % (MANUAL) 0 % (0-2); EOSINOPHILS % (MANUAL) 0 % (0-4); LYMPHOCYTES % (MANUAL) 6 % (20-46); MONOCYTES % (MANUAL) 4 % (5-12)
[2023-05-10] MEDS: SKINTEGRITY HYDROGEL TP SCH (12:26)
--- NOTE | 2023-05-10 13:06 | NUR ---
PATIENT PRESENTING WITH INTERMITTENT IRRITABLE PLACED BACK ON SEDATION BY CARMEN/BUILDING CONSTRUCTION SUPERVISOR FENTANYL 25mcg
--- NOTE | 2023-05-10 13:55 | NUR ---
PATIENT PRESENTING WITH IRRITABLE WITH RESPIRATORY RATE AT 35-36 BPM PLACED VENTILATOR BACK ON FULL SUPPORT NOTED GOOD CHEST ENDOTRACHEAL SUCTION FOR SMALL THIN PALE YELLOW SECRETIONS AIRWAY PATENT
--- NOTE | 2023-05-10 15:59 | NUR ---
SEDATED STABLE GOOD CHEST RISE AIRWAY PATENT
[2023-05-10] MEDS: NOREPINEPHRINE 8 MG in DEXTROSE 5% 250 ML IV PRN (16:48)
[2023-05-10] MEDS: FLUCONAZOLE 200 MG/NS PREMIX 100 ML IV SCH (17:28)
--- NOTE | 2023-05-10 18:49 | NUR ---
Closing Pt remains intubated and sedated with fentanyl and versed, remains on dopamine and levophed drip. Pt with no signs of distress. Bilateral wrist restraints in place for safety. Donis draining urine to gravity. NGT with feeding. Will endorse plan of care to RN.
--- NOTE | 2023-05-10 19:20 | NUR ---
TRANSFER OF CARE FROM DAY SHIFT, REPORT RECEIVED FROM CARMEN ANTHONY. RECEIVED PATIENT LYING IN BED INTUBATED AND SEDATED, WITH THE FOLLOWING VENT SETTINGS: MODE = AC/VC, FIO2 = 24%, VT = 400, R = 22, AND PEEP = 5. PATIENT HAS NG TUBE TO LEFT NARE AND HAS VITAL AF 1.2 RUNNING AT 55ML/HR. PATIENT 22G PERIPHERAL LINE IN THE RIGHT FOREARM AND KRISTI PICC. PATIENT HAS BROWN CATHETER IN PLACE WITH 200CC CLEAR YELLOW URINE. HAS PRESSURE INJURY TO RIGHT BUTTOCKS. PATIENT HAS THE FOLLOWING MEDICATION CURRENTLY INFUSING: LEVOPHED 8MG @ 6MCG/MIN, FENTANYL 1MG @ 30MCG/HR, VERSED 50MG @ 2MG/HR, DOPAMINE 400MG @ 10MCG/KG/MIN AND NORMAL SALINE @ 5ML/HR. VITAL SIGNS AT START OF SHIFT ARE FOLLOWS: TEMP = 97.6F, HR = 66, R = 22, O2 SAT = 98%, AND BP = 111/68. WILL CONTINUE TO MONITOR PATIENT FOR ANY CHANGES IN CONDITION AND NOTIFY MD ACCORDINGLY.
[2023-05-10] MEDS: MIDAZOLAM MDV 50 MG in NACL 0.9% 40 ML IV PRN (20:15)
[2023-05-11] VITALS (31 sets, daily range): BP systolic 90–134; BP diastolic 49–85; PULSE 54–98; RESP 15–23; TEMP 96.4–97.9; O2SAT 95–100
--- NOTE | 2023-05-11 | NUR ---
RT AT BEDSIDE, NO CHANGES MADE TO VENT
[2023-05-11] MEDS: BLOOD GLUCOSE MONITORING 1 DEV DEV FS SCH ×5 (00:33→23:55)
[2023-05-11] MEDS: INSULIN LISPRO SLIDING SCALE 100 UNITS/ML VIAL SUBQ PRN ×3 (00:36→23:57)
[2023-05-11] MEDS: HYDRAGUARD CREAM TP SCH ×2 (01:00→13:00)
[2023-05-11] MEDS: PIPERACILLIN/TAZOBACTAM 3.375 GM in DEXTROSE 5% 50 ML IV SCH ×2 (04:47→13:57)
[2023-05-11 05:30] LABS: BASOPHILS # (AUTO) 0.1 K/uL (0.00-0.22); BASOPHILS % (AUTO) 0.4 % (0.0-2.0); HEMATOCRIT 44.1 % (36-52); HEMOGLOBIN 14.8 g/dL (12.0-18.0); LYMPHOCYTES # (AUTO) 0.9 K/uL (2.0-11.5); LYMPHOCYTES % (AUTO) 4.2 % (20.5-51.1); MEAN CORPUSCULAR HEMOGLOBIN 32 pg (27-31); MEAN CORPUSCULAR HGB CONC 34 g/dL (33-37); MEAN CORPUSCULAR VOLUME 94.9 fL (80-94); MONOCYTES # (AUTO) 1.9 K/uL (0.8-1.0); MONOCYTES % (AUTO) 8.5 % (1.7-9.3); NEUTROPHILS # (AUTO) 18.9 K/uL (1.8-7.7); NEUTROPHILS % (AUTO) 86.9 % (42.2-75.2); PLATELET COUNT (AUTO) 312 K/uL (140-450); RED BLOOD CELL COUNT(AUTO) 4.64 MIL/uL (4.20-6.10); RED CELL DISTRIBUTION WIDTH 15.1 % (11.6-13.7); WHITE BLOOD COUNT (AUTO) 21.8 K/uL (4.8-10.8)
[2023-05-11 05:43] LABS: ANION GAP 12.5 (8-16); CARBON DIOXIDE 27.3 mmol/L (21-32); CREATININE 0.6 mg/dL (0.6-1.3); POTASSIUM 3.8 mmol/L (3.5-5.1)
[2023-05-11] MEDS: fentaNYL citrate 1 MG in NACL 0.9% 80 ML IV PRN (05:50)
[2023-05-11] MEDS: DOPamine 400 MG/D5W PREMIX 250 ML IV PRN ×2 (05:52→16:33)
--- NOTE | 2023-05-11 07:29 | NUR ---
RECEIVED PT ON CARESCAPE ACVC 400,F22,+5,24%. ETT 7.5, SECURED WITH SHANNAN 22CM AT TEETH. VENT PLUGGED INTO RED OUTLET, WHEELS LOCKED, ALARMS ARE SET AND AUDIBLE, AMBUBAG AT BEDSIDE. EQUAL CHEST RISE, CLEAR BREATH SOUNDS, SATURATION 98%. LITTLE TO NO SECRETIONS SUCTIONED. SBT SCHEDULED FOR THIS MORNING. WILL CONTINUE TO MONITOR.
--- NOTE | 2023-05-11 07:30 | NUR ---
TRANSFER OF CARE TO DAY SHIFT, CARE OF PATIENT ENDORSED TO CHARGE NURSE SHANAE
[2023-05-11] MEDS: MAGNESIUM HYDROXIDE 2400 MG/30 ML UDC PO SCH (09:12)
[2023-05-11] MEDS: DOCUSATE 100 MG/10 ML UDC GT SCH ×3 (09:12→18:06)
[2023-05-11] MEDS: DEXAMETHASONE 10 MG/ML VIAL IVP SCH (09:16)
[2023-05-11] MEDS: SIMVASTATIN 20 MG TAB PO SCH (09:16)
[2023-05-11] MEDS: ASPIRIN 81 MG TAB.CHEW GT SCH (09:16)
[2023-05-11] MEDS: FAMOTIDINE 20 MG/2 ML VIAL IV SCH ×2 (09:17→20:19)
[2023-05-11] MEDS: levETIRAcetam 1,500 MG in NACL 0.9% 100 ML IV SCH ×2 (09:21→20:30)
--- NOTE | 2023-05-11 10:53 | NUR ---
PT LASTED LESS THAN 10 MINUTES ON CPAP 15/5 BEFORE APNEA ALARM SWITCHED BACK OVER TO FULL VENT SUPPORT, TRIED TWICE. WILL CONTINUE MONITOR PATIENT.
[2023-05-11] MEDS: SKINTEGRITY HYDROGEL TP SCH (13:00)
--- NOTE | 2023-05-11 13:56 | NUR ---
05/11/23 RD FOLLOW UP COMPLETED PLEASE REFER TO NUTRITION ASSESSMENT UNDER CARE ACTIVITY FOR ESTIMATED NUTRITIONAL NEEDS. 1. RD RECOMMENDS CONTINUING WITH VITAL A.F @55ML/HR WITH FWF OF 200ML/HR. THIS WILL PROVIDE 1,584 CALORIES AND 96 GRAMS OF PROTEIN, MEETING AT LEAST 75% OF PATIENTS ESTIMATED NUTRITIONAL NEEDS. 2. RD RECOMMENDS CONTINUE WITH TENISHA BID FOR WOUNDS WHICH WILL PROVIDE 160 CALORIES AND 5 GRAMS OF PROTEIN. 3. RD WILL CONTINUE TO MONITOR WEIGHTS, GI ISSUES, SKIN INTEGRITY AND NUTRITION RELATED LABS. 4. RD TO FOLLOW-UP 2-3 DAYS, HIGH RISK CHYNA CLAYTON RD
--- NOTE | 2023-05-11 16:25 | NUR ---
Brilliandeer Lopper DRAWER LINER [facility] clive asked if pt would need to be on a Trach terminal supervisor and if a G tube would be placed DRAWER LINER called real estate sales supervisor. Corin who did not know if pt would be Trach dependent, pt. currently has a n-g tube. Re. placement of a G-tube, that is up to the GI. pt. failed breathing trials today within 30 second. 4 attempts were made. The above info was shared with [facility] Rn, Jennifer who stated they would consent to the Trach only if a G tube would be placed as well since it would be easier for the facility to provide care. DRAWER LINER will share info with ICU.
[2023-05-11] MEDS: EPINEPHrine 1 mg/mL 3 MG in DEXTROSE 5% 250 ML IV PRN (18:05)
[2023-05-11] MEDS: FLUCONAZOLE 200 MG/NS PREMIX 100 ML IV SCH (18:10)
--- NOTE | 2023-05-11 19:10 | NUR ---
[facility] FOR CONTINUITY OF CARE. ALL CARES ASSUMED. PT ON SEMI-MONACO'S POSITION WITH SIDE RAILS RAISED UP. PT IS SEDATED, AROUSABLE TO STIMULATION WITH EYE OPENING. WITH NGT TO LEFT NARE ATTACHED TO TUBE FEEDING OF VITAL AF 1.2 AT 55ML/HR WITH 200CC FWF Q6H - TOLERATED. ETT TO VENT ON AC/VC MODE FIO2-24% TV-400ML RR-22COM PEEP-5- SPO2 AT 96%, EQUAL CHEST RISE OBSERVED, NOT IN DISTRESS. ON SINUS RHYTHM ON BOX BLANK MACHINE FEEDER. WITH RIGHT UPPER PICC LINE- DRY AND INTACT- FLOWING WELL TO VERSED 2MG/HR, DOPAMINE 10 MCG/KG/MIN, LEVOPHED 6 MCG/MIN, FENTANYL 30 MCG/HR. WITH ANOTHER PERIPHERAL IV ACCESS OVER RIGHT FA - DRY AND INTACT- FLOWING WELL TO NS AT TKO. ON BILATERAL SOFT WRIST RESTRAINTS. WITH SACRAL WOUND DRESSING - DRY AND INTACT. ON BROWN CATHETER DRAINING TO GRAVITY TO YELLOW COLORED URINE. SAFETY AND SEIZURE PRECAUTIONS IN PLACE. WILL MONITOR PT CLOSELY.
[2023-05-12] VITALS (34 sets, daily range): BP systolic 71–137; BP diastolic 47–78; PULSE 70–140; RESP 15–26; TEMP 96.4–98.6; O2SAT 93–100
[2023-05-12] MEDS: MIDAZOLAM MDV 50 MG in NACL 0.9% 40 ML IV PRN (00:12)
[2023-05-12] MEDS: HYDRAGUARD CREAM TP SCH ×2 (01:00→15:20)
[2023-05-12] MEDS: DOPamine 400 MG/D5W PREMIX 250 ML IV PRN ×3 (02:47→21:13)
--- NOTE | 2023-05-12 03:00 | NUR ---
HYPOTENSION NOTED - 71/47 MMHG. LEVOPHED UPTITRATED TO 10 MCG/MIN. KEPT MONITORED.
--- NOTE | 2023-05-12 04:00 | NUR ---
MORNING CARE DONE. SPONGE BATH DONE. GOWN AND LINENS CHANGED. PICC LINE DRESSING CHANGED.
[2023-05-12 05:32] LABS: BASOPHILS # (AUTO) 0.2 K/uL (0.00-0.22); BASOPHILS % (AUTO) 1.3 % (0.0-2.0); HEMATOCRIT 46.4 % (36-52); HEMOGLOBIN 15.3 g/dL (12.0-18.0); LYMPHOCYTES # (AUTO) 0.9 K/uL (2.0-11.5); LYMPHOCYTES % (AUTO) 4.5 % (20.5-51.1); MEAN CORPUSCULAR HEMOGLOBIN 32 pg (27-31); MEAN CORPUSCULAR HGB CONC 33 g/dL (33-37); MEAN CORPUSCULAR VOLUME 96.3 fL (80-94); MONOCYTES # (AUTO) 1.9 K/uL (0.8-1.0); MONOCYTES % (AUTO) 9.9 % (1.7-9.3); NEUTROPHILS # (AUTO) 15.9 K/uL (1.8-7.7); NEUTROPHILS % (AUTO) 84.3 % (42.2-75.2); PLATELET COUNT (AUTO) 328 K/uL (140-450); RED BLOOD CELL COUNT(AUTO) 4.82 MIL/uL (4.20-6.10); RED CELL DISTRIBUTION WIDTH 15.2 % (11.6-13.7); WHITE BLOOD COUNT (AUTO) 18.9 K/uL (4.8-10.8)
[2023-05-12 05:44] LABS: CARBON DIOXIDE 30.1 mmol/L (21-32); CREATININE 0.7 mg/dL (0.6-1.3); POTASSIUM 4.1 mmol/L (3.5-5.1)
[2023-05-12] MEDS: BLOOD GLUCOSE MONITORING 1 DEV DEV FS SCH ×4 (06:00→23:27)
[2023-05-12] MEDS: INSULIN LISPRO SLIDING SCALE 100 UNITS/ML VIAL SUBQ PRN ×3 (06:04→23:32)
--- NOTE | 2023-05-12 06:45 | NUR ---
RECEIVED PT ON CARESCAPE ACVC 400, F22,+5, 24%. ETT SECURED AT 22CM @TEETH. AIRWAY IS PATENT. VENT WHEELS ARE LOCKED, PLUGGED INTO RED OUTLET, ALARMS ARE SET AND AUDIBLE, AMBUBAG AT BEDSIDE. SLIGHT RHONCHI HEARD ON AUSCULTATION, IMPROVED WITH SUCTION. SATURATION 97%. CPAP SCHEDULED FOR TODAY. WILL CONTINUE TO MONITOR.
--- NOTE | 2023-05-12 07:20 | NUR ---
REPORT GIVEN TO DAY SHIFT NURSE, DRU,RN. ALL QUESTIONS ANSWERED.
--- NOTE | 2023-05-12 07:30 | NUR ---
REPORT RECEIVED FROM DIRECTOR SECURITY MANAGEMENT RN, ALBERTINA HOLLY. PT. SEDATED, AROUSABLE TO STIMULATION, OPENS EYES. NGT TO LEFT NARE VITAL AF 1.2 AT 55ML/HR WITH 200CC FWF Q6H. ETT TO VENT ON AC/VC FIO2-24% TV-400ML RR-22. EQUAL CHEST RISE, TRACHEA MIDLINE. SINUS RHYTHM ON ECG. RIGHT UPPER ARM PICC LINE- DRESSING DRY AND INTACT- VERSED 2MG/HR, DOPAMINE 10 MCG/KG/MIN, LEVOPHED 6 MCG/MIN, FENTANYL 30 MCG/HR. IV RIGHT FA - DRY AND INTACT. ON BILATERAL SOFT WRIST RESTRAINTS. WITH SACRAL WOUND DRESSING - DRY AND INTACT. ON BROWN CATHETER DRAINING TO GRAVITY W YELLOW URINE. SAFETY AND SEIZURE PRECAUTIONS. PT. WITH NO DISTRESS, NO SOB.
--- NOTE | 2023-05-12 08:57 | NUR ---
CPAP TRIAL ON PATIENT 27/03. LASTED LESS THAN 5 MINUTES BEFORE LOW RESPIRATORY RATE TRIGGERED THE VENT BACK TO FULL SUPPORT. WILL CONTINUE TO MONITOR. Addendum: 05/12/23 at 0913 by Ondina Perez RT WILL TRY CPAP AGAIN WHEN HE WAKES UP A LITTLE MORE.
--- NOTE | 2023-05-12 10:07 | NUR ---
SIMV-VC 12/5,F15,24%,+5. PT LASTED 10 MINUTES BEFORE HEART RATE ELEVATED FROM MID 70S TO ABOVE 140S. INFORMED RN OF ELEVATED HR. PUT PT BACK ON FULL VENT SUPPORT ACVC 400,f22,+5,24%. WILL CONTINUE TO MONITOR.
[2023-05-12] MEDS: levETIRAcetam 1,500 MG in NACL 0.9% 100 ML IV SCH ×2 (10:48→20:27)
[2023-05-12] MEDS ORDERED: NOREPINEPHRINE 4 MG/4 ML VIAL IV ONE (10:59)
[2023-05-12] MEDS: MAGNESIUM HYDROXIDE 2400 MG/30 ML UDC PO SCH (11:28)
[2023-05-12] MEDS: ASPIRIN 81 MG TAB.CHEW GT SCH (11:30)
[2023-05-12] MEDS: DOCUSATE 100 MG/10 ML UDC GT SCH ×3 (11:30→18:42)
[2023-05-12] MEDS: SIMVASTATIN 20 MG TAB PO SCH (11:30)
[2023-05-12] MEDS: FAMOTIDINE 20 MG/2 ML VIAL IV SCH ×2 (11:33→20:27)
--- NOTE | 2023-05-12 12:45 | NUR ---
Received call from Dr. Poole from radiology. He stated that pt.s Right PICC line has migrated into the neck with tip off the [id number]. Recommend removal and replacement of right PICC. Dr. Wynne notified. ordered new PICC line placed and Right Upper arm PICC line to be removed after. PICC line RN has been called by dye house supervisor. Pt. is with no distress. IV fluid infusing with no difficulty. Pt. neck does not appear swollen or distended. NO crepitus noted to any chest or neck area. Will cont. to monitor.
--- NOTE | 2023-05-12 14:30 | NUR ---
Pt. with no change in status. IV fluid infusing with no difficulty to Right Upper Arm PICC Line. Pt. neck does not appear swollen or distended. NO crepitus noted to any chest or neck area. Will cont. to monitor. Tube feeding in place infusing with no diff. Will cont. Restraints in place with skin intact.
[2023-05-12] MEDS: SKINTEGRITY HYDROGEL TP SCH (15:21)
--- NOTE | 2023-05-12 19:00 | NUR ---
RECEIVED PT OFF SEDATION, PT VERY RESTLESS, AGITATED.FENTANYL AND VERSED DRIP RESTARTED ORDERED
--- NOTE | 2023-05-12 19:25 | NUR ---
RECEIVED REPORT FROM GABRIELLE HAND.
--- NOTE | 2023-05-12 19:25 | NUR ---
RECEIVED PATIENT SEDATED AROUSABLE TO STIMULATION. PATIENT INTUBATED. VENT SETTING AC/VC FIO2 24, TV 400, RATE 22, PEEP 5. NO S/S OF RESPIRATORY DISTRESS. BREATHING NORMAL WITH SYMMETRICAL RISE AND FALL OF THE CHEST. NGT TO LEFT NARE WITH FEEDING VITAL AF RUNNING AT 55 MLS TOLERATING WELL. NO RESIDUAL NOTED. AFEBRILE. FENTANYL DRIP AT 20 MCG/HR, DOPAMINE DRIP AT 10 MCG/KG/MIN NOR EPINEPHRINE AT 20 MCG/MIN. VERSED 1 MCG/HR. BROWN CATHETER IN PLACE DRAINING TO GRAVITY WITH CLEAR YELLOW URINE. PICC LINE WITH DOUBLE LUMEN TO RIGHT UPPER ARM NO BLOOD RETURN NOTED. WOUND HEALED TO LEFT CHEEK BUTTOCK.
--- NOTE | 2023-05-12 19:30 | NUR ---
IV fluid infusing with no difficulty to Right Upper PICC line. Pt. neck does not appear swollen or distended. NO crepitus noted to any chest or neck area. Will cont. to monitor. Pt. with no change in status. Non signs of pain or discomfort. Restrains in place with skin intact. NO new skin breakdown noted. Tube feeding infusing with no diff. residual at < 10 cc. Pt. Levophed and Dopamine infusing. Versed drip and Fentanyl drips stopped since 0900. Donis cath draining clear and yellow urine. Report given to Virgen ANTHONY for plant operator/shift supervisor.
--- NOTE | 2023-05-12 20:45 | NUR ---
ENDORSED FROM DAY SHIFT THAT PATIENT WILL NEED NEW PICC INSERTED (REFER TO BELOW IMPRESSION FROM CXR REPORT) "Right PICC line versus cephalad into the neck with tip off the [id number]. Recommend removal and replacement of right PICC." PHONE CALL PLACED TO PATIENT'S ADVOCATE FOR CONSENT FOR NEW PICC LINE, CALL AND SPOKE WITH KARYN Garvin ([phone]) WHO STATES THAT I WOULD NEED TO CONTACT HER BOSS AMY IN ORDER TO GET CONSENT. KARYN STATES THAT SHE IS ONLY AN RN. CALL AND SPOKE WITH AMY (JOSEE), ; WHO STATES THAT SHE IS UNABLE TO GIVE CONSENT AND THAT I WOULD HAVE TO CONTACT THE [facility] TO OBTAIN CONSENT FOR THE PATIENT, OR TWO PHYSICIANS CAN PROVIDE CONSENT IF IT IS URGENT/EMERGENCY. JOSEE ALSO STATES THAT BEING THAT IT IS A MONDAY/HOLIDAY WEEKEND, THE OFFICE WILL BE CLOSED AND THEY MAY DEFER THE CALL TO THE AFTER HOURS TEAM OR WE CAN CONTACT [facility] ON Monday05/15/2023. [facility]: MONDAY-MONDAY 8AM - 5PM [phone]
[2023-05-13] VITALS (33 sets, daily range): BP systolic 100–126; BP diastolic 42–75; PULSE 76–118; RESP 22–27; TEMP 97.2–98.6; O2SAT 81–100
[2023-05-13] MEDS: HYDRAGUARD CREAM TP SCH ×2 (01:00→12:44)
--- NOTE | 2023-05-13 02:20 | NUR ---
PICC LINE NURSE SHAWN CAME TO READJUST THE PATIENT PICC LINE. CXR DONE. PER SHAWN IT'S NOW MIDLINE AFTER READJUSTED. CATHETER IS IN THE SUBCLAVIAN.
[2023-05-13] MEDS: NOREPINEPHRINE 8 MG in DEXTROSE 5% 250 ML IV PRN ×3 (02:30→16:15)
--- NOTE | 2023-05-13 03:32 | NUR ---
PATIENT WAS CLEANED , CHANGED AND REPOSITIONED.
[2023-05-13 03:42] LABS: HEMATOCRIT 47.2 % (36-52); HEMOGLOBIN 15.8 g/dL (12.0-18.0); MEAN CORPUSCULAR HEMOGLOBIN 32 pg (27-31); MEAN CORPUSCULAR HGB CONC 34 g/dL (33-37); MEAN CORPUSCULAR VOLUME 96.1 fL (80-94); PLATELET COUNT (AUTO) 304 K/uL (140-450); RED BLOOD CELL COUNT(AUTO) 4.91 MIL/uL (4.20-6.10); RED CELL DISTRIBUTION WIDTH 15.6 % (11.6-13.7); WHITE BLOOD COUNT (AUTO) 18.7 K/uL (4.8-10.8)
[2023-05-13 04:00] LABS: ANION GAP 8.5 (8-16); CREATININE 0.7 mg/dL (0.6-1.3); POTASSIUM 3.5 mmol/L (3.5-5.1)
[2023-05-13 04:29] LABS: LYMPHOCYTES % (MANUAL) 3 % (20-46)
[2023-05-13 04:30] LABS: EOSINOPHILS % (MANUAL) 0 % (0-4); MONOCYTES % (MANUAL) 2 % (5-12)
[2023-05-13] MEDS: BLOOD GLUCOSE MONITORING 1 DEV DEV FS SCH ×3 (05:38→17:44)
[2023-05-13] MEDS: INSULIN LISPRO SLIDING SCALE 100 UNITS/ML VIAL SUBQ PRN (05:41)
[2023-05-13] MEDS: DOPamine 400 MG/D5W PREMIX 250 ML IV PRN ×2 (07:53→17:21)
[2023-05-13] MEDS: MAGNESIUM HYDROXIDE 2400 MG/30 ML UDC PO SCH (08:07)
[2023-05-13] MEDS: DOCUSATE 100 MG/10 ML UDC GT SCH ×3 (08:07→16:40)
[2023-05-13] MEDS: FAMOTIDINE 20 MG/2 ML VIAL IV SCH ×2 (08:08→20:17)
[2023-05-13] MEDS: ASPIRIN 81 MG TAB.CHEW GT SCH (08:08)
[2023-05-13] MEDS: SIMVASTATIN 20 MG TAB PO SCH (08:08)
[2023-05-13] MEDS: levETIRAcetam 1,500 MG in NACL 0.9% 100 ML IV SCH ×2 (08:58→20:24)
[2023-05-13] MEDS: MIDAZOLAM MDV 50 MG in NACL 0.9% 40 ML IV PRN (09:01)
[2023-05-13] MEDS: fentaNYL citrate 1 MG in NACL 0.9% 80 ML IV PRN (11:12)
[2023-05-13] MEDS: SKINTEGRITY HYDROGEL TP SCH (12:42)
--- NOTE | 2023-05-13 13:07 | NUR ---
05/13/23 RD FOLLOW UP COMPLETED PLEASE REFER TO NUTRITION ASSESSMENT UNDER CARE ACTIVITY FOR ESTIMATED NUTRITIONAL NEEDS. 1. RD RECOMMENDS CONTINUING WITH VITAL A.F @55ML/HR WITH FWF OF 200ML Q6H. THIS WILL PROVIDE 1,584 CALORIES AND 96 GRAMS OF PROTEIN 2. RD RECOMMENDS CONTINUING WITH TENISHA BID FOR WOUNDS WHICH WILL PROVIDE 160 CALORIES AND 5 GRAMS OF PROTEIN. -WITH TENISHA, PT WILL RECEIVE 91% OF ESTIMATED KCAL AND 100% OF ESTIMATED PROTEIN NEEDS; ADEQUATE 3. RD WILL CONTINUE TO MONITOR WEIGHTS, GI ISSUES, SKIN INTEGRITY AND NUTRITION RELATED LABS. 4. RD TO FOLLOW-UP 2-3 DAYS, HIGH RISK MARILIN PALACIOS RD
[2023-05-13] MEDS: MIDODRINE 5 MG TAB PO SCH ×2 (15:04→20:20)
[2023-05-13] MEDS: ACETAMINOPHEN 325 MG TAB PO PRN (15:05)
[2023-05-13] MEDS: NACL 0.9% 1,000 ML IV SCH (18:38)
[2023-05-14] VITALS (36 sets, daily range): BP systolic 73–114; BP diastolic 39–66; PULSE 85–146; RESP 3–25; TEMP 97.5–100.4; O2SAT 90–100
[2023-05-14] MEDS: BLOOD GLUCOSE MONITORING 1 DEV DEV FS SCH ×4 (00:27→18:00)
[2023-05-14] MEDS: INSULIN LISPRO SLIDING SCALE 100 UNITS/ML VIAL SUBQ PRN ×3 (00:29→12:04)
[2023-05-14] MEDS: HYDRAGUARD CREAM TP SCH ×2 (00:30→13:15)
[2023-05-14] MEDS: NOREPINEPHRINE 8 MG in DEXTROSE 5% 250 ML IV PRN ×4 (00:36→21:45)
[2023-05-14] MEDS: MIDODRINE 5 MG TAB PO SCH ×3 (05:06→20:50)
[2023-05-14] MEDS: DOPamine 400 MG/D5W PREMIX 250 ML IV PRN (05:09)
[2023-05-14 06:05] LABS: BASOPHILS % (AUTO) 0.2 % (0.0-2.0); EOSINOPHILS % (AUTO) 0.1 % (0.0-4.0); HEMATOCRIT 41.5 % (36-52); HEMOGLOBIN 14.1 g/dL (12.0-18.0); LYMPHOCYTES # (AUTO) 0.6 K/uL (2.0-11.5); MEAN CORPUSCULAR HEMOGLOBIN 32 pg (27-31); MEAN CORPUSCULAR HGB CONC 34 g/dL (33-37); MEAN CORPUSCULAR VOLUME 94.5 fL (80-94); MONOCYTES # (AUTO) 0.4 K/uL (0.8-1.0); MONOCYTES % (AUTO) 2.5 % (1.7-9.3); PLATELET COUNT (AUTO) 212 K/uL (140-450); RED BLOOD CELL COUNT(AUTO) 4.39 MIL/uL (4.20-6.10); RED CELL DISTRIBUTION WIDTH 15.3 % (11.6-13.7)
[2023-05-14 06:14] LABS: ANION GAP 8.1 (8-16); CARBON DIOXIDE 30.5 mmol/L (21-32); CREATININE 0.9 mg/dL (0.6-1.3); POTASSIUM 3.6 mmol/L (3.5-5.1)
[2023-05-14 07:07] LABS: LYMPHOCYTES % (AUTO) 3.1 % (20.5-51.1); NEUTROPHILS % (AUTO) 94.1 % (42.2-75.2)
--- NOTE | 2023-05-14 07:11 | NUR ---
RECEIVED PT ON CARESCAPE. EET 22CM AT THE TEETH. ACVC 400,F22,+5,24%. CLEAR/ DIM BREATH SOUNDS, SATURATION 99%, VENT PLUGGED INTO RED OUTLET, WHEELS ARE LOCKED. AMBUBAG AT BEDSIDE. ALARMS ARE SET AND AUDIBLE. WILL CONTINUE TO MONITOR
[2023-05-14] MEDS: MAGNESIUM HYDROXIDE 2400 MG/30 ML UDC PO SCH (09:00)
--- NOTE | 2023-05-14 09:55 | NUR ---
DR DIOR NOTIFIED OF TEMP BEING 100.4 AND MAP OF PATIENT BEING 58 AND HR IS 160. WITH LEVOPHED AT 25 AND DOPAMINE AT 10. 1 LITER BOLUS ORDERED
[2023-05-14] MEDS ORDERED: NACL 0.9% 1,000 ML IV ONE (10:00)
[2023-05-14] MEDS: SIMVASTATIN 20 MG TAB PO SCH (10:03)
[2023-05-14] MEDS: ASPIRIN 81 MG TAB.CHEW GT SCH (10:04)
[2023-05-14] MEDS: DOCUSATE 100 MG/10 ML UDC GT SCH ×3 (10:06→17:00)
[2023-05-14] MEDS: FAMOTIDINE 20 MG/2 ML VIAL IV SCH ×2 (10:27→20:49)
[2023-05-14] MEDS: levETIRAcetam 1,500 MG in NACL 0.9% 100 ML IV SCH ×2 (10:28→20:50)
--- NOTE | 2023-05-14 11:35 | NUR ---
PATIENT SWITCHED TO AC/VC VT 400 RR 16 PEEP 5 FIO2 40% DUE TO EXTREMELY HIGH TIDAL VOLUMES REACHED ON PC. ACCORDING TO PATIENTS IDEAL BODY WEIGHT PATIENT SHOULD HAVE TIDAL VOLUMES BETWEEN [phone]. IT IS FOR PATIENT SAFETY THAT VENTILATOR SETTING WERE TRANSITIONED BACK TO VOLUME CONTROL MODE.
--- NOTE | 2023-05-14 11:55 | NUR ---
SIMV-VC STARTED AT 1120. 10/17, F18, 24%. WILL MONITOR PATIENT.
--- NOTE | 2023-05-14 11:55 | NUR ---
05/14/23 RD FOLLOW UP COMPLETED.PLEASE REFER TO NUTRITION ASSESSMENT UNDER CARE ACTIVITY FOR ESTIMATED NUTRITIONAL NEEDS. 1. CONTINUE WITH VITAL A.F @55ML/HR WITH FWF OF 200ML Q6H. THIS WILL PROVIDE 1,584 CALORIES AND 99 GRAMS OF PROTEIN 2. CONTINUE WITH TENISHA BID FOR WOUNDS WHICH WILL PROVIDE 160 CALORIES AND 5 GRAMS OF PROTEIN. -WITH TENISHA, PT WILL RECEIVE 89% OF ESTIMATED KCAL AND 100% OF ESTIMATED PROTEIN NEEDS; ADEQUATE 3. MONITOR GI ISSUES AND NUTRITION RELATED LABS. 4. RD TO FOLLOW-UP IN 2-3 DAYS PATIENT IS HIGH RISK. RILEY TROTTER RD
--- NOTE | 2023-05-14 12:50 | NUR ---
PURCHASE ANALYST CALLED TO BEDSIDE BY SHANAE/ICU CASEWORK SUPERVISOR; PATIENT PRESENTING TACHYCARDIA AT +160'S; EMESIS WITH DESCENDING SATURATION TO 90% ON FIO2 OF 24% PEEP 5cmH2O; INCREASED FIO2 TO 28% TO KEEP SATURATION GREATER THAN 90% BREATH SOUNDS COARSE RALES LEFT GREATER THAN RIGHT SIDE ENDOTRACHEAL SUCTION FOR MODERATE THIN PALE YELLOW SECRETIONS AIRWAY PATENT HME CHANGED FOR PRECAUTIONARY MEASURES ICU ASSOCIATE PROFESSOR OF GEOLOGY TO ORDER CHEST XRAY FOR ASPIRATION
[2023-05-14] MEDS: PHENYLEPHRINE 20 MG in NACL 0.9% 250 ML IV PRN ×3 (13:05→17:01)
[2023-05-14] MEDS: SKINTEGRITY HYDROGEL TP SCH (13:16)
--- NOTE | 2023-05-14 15:03 | NUR ---
Report will be endorsed to Anna ANTHONY. Pt had an episode of unmeasured amount of large emesis. tube feeding ordered to stiop. chest xray done. pt weaned off of dopamine and started on neosynephrine. vent settings titrated up per o2 requirements. pt afebrile. pt cleaned. no bm fof shift. no skin breakdown noted. sacral pad present for prevention
--- NOTE | 2023-05-14 15:19 | NUR ---
VENT CHANGE PER DR. MASON PC 18, F18, +5,40%. ABG TO FOLLOW IN AN HOUR. WILL CONTINUE TO MONITOR.
[2023-05-14] MEDS ORDERED: NACL 0.9% 1,000 ML IV SCH (15:25)
[2023-05-14] MEDS ORDERED: VANCOMYCIN PER PHARMACY MC PRN (15:30)
--- NOTE | 2023-05-14 15:30 | NUR ---
SEEN BY ISABELLA CAVAZOS AT BED SIDE ORDER RECIEVED,
--- NOTE | 2023-05-14 16:00 | NUR ---
GIVED 1000ML OF NS BOLUS..BLOOD C/S, URINE C/S AND SPUTUM C/S SENT TO LAB.
[2023-05-14] MEDS ORDERED: PHENYLEPHRINE 40 MG in NACL 0.9% 250 ML IV PRN (16:10)
--- NOTE | 2023-05-14 16:38 | NUR ---
CURRENT ABG RESULTS CALLED IN TO DR MASON. VENT RATE WAS DROPPED FROM 18BPM TO 16BPM. SPUTUM CULTURE WALKED TO LAB. WILL CONTINUE TO MONITOR.
--- NOTE | 2023-05-14 16:42 | NUR ---
SEEN BY DR. REINA AT BED SIDE NO ORDER RECEIVED.
[2023-05-14] MEDS: VANCOMYCIN 1.25GM PREMIX 250 ML IV SCH (17:13)
[2023-05-14] MEDS: NACL 0.9% 1,000 ML IV SCH ×4 (17:14→21:36)
--- NOTE | 2023-05-14 18:00 | NUR ---
BL. GLUCOSE 146.NO INSULIN GIVEN.
--- NOTE | 2023-05-14 19:19 | NUR ---
REPORT GIVE TO MADELINE FOR CONTINUITY CARE,
[2023-05-14] MEDS: PHENYLEPHRINE 40 MG in NACL 0.9% 250 ML IV PRN (19:20)
--- NOTE | 2023-05-14 19:25 | NUR ---
RECEIVED PT FROM DAYSIDFT NURSE SHANAE RN, FOR CONTINUITY OF CARE. ALL CARES ASSUMED. PT ON SEMI-MONACO'S POSITION WITH SIDE RAILS RAISED UP. PT IS SEDATED, RASS -2. WITH NGT TO LEFT NARES, CLAMPED AT THIS TIME. ETT TO VENT ON A/C PC MODE FIO2-40% RR-16 PEEP-5- SPO2 AT 100%, EQUAL CHEST RISE OBSERVED, NOT IN DISTRESS.SINUS TACHYCARDIA ON MERCURY WASHER. WITH KRISTI (MIDLINE)- DRY AND INTACT- INFUSING VERSED 3MG/HR, LEVOPHED 8MG IN 250 ML D5W AT 30 MCG/MIN, FENTANYL 25 MCG/HR, VASOPRESSIN 0.01 IU/MIN, NEOSYNEPHRINE 20MG IN 250ML NS AT 150 MCG/MIN. WITH PERIPHERAL IV ACCESS OVER RIGHT FOREARM - DRY AND INTACT- INFUSING NS AT 50 ML/HR. W/ BILATERAL SOFT WRIST RESTRAINTS.NO INJURIES NOTED. WITH BROWN CATHETER DRAINING TO GRAVITY TO YELLOW COLORED URINE,SMALL AMOUNT.W/FOAM DRESSING TO SACROCOCCYGEAL.FALL PRECAUTION IN PLACE.CALL LIGHT WITHIN REACH, WILL CONTINUE TO CLOSELY MONITOR PT.
[2023-05-14] MEDS: VASOPRESSIN 20 UNITS in NACL 0.9% 250 ML IV SCH (19:46)
--- NOTE | 2023-05-14 20:30 | NUR ---
PHONE CALL TO DR MASON, PTS BP STILL 78/55 HR 102, PT MAX DOSE ON LEVOPHED,NEOSYNEPRINE AND VASOPRESSIN, ORDERS RECEIVED TO GIVE 1L NS BOLUS AND CHANGED FREQUENCY OF SOLU-MEDROL TO 40MG Q8RS INSTEAD OF Q12H, TO GIVE ONE DOSE NOW.ORDERS CARRIED OUT.PER DR MASON, 3 VASOPRESSORS IS ENOUGH.
[2023-05-14] MEDS ORDERED: methylPREDNISolone SS 40 MG/ML VIAL ONE (20:44)
[2023-05-14] MEDS: MEROPENEM 500 MG in NACL 0.9% 50 ML IV SCH (20:50)
[2023-05-14] MEDS: methylPREDNISolone SS 40 MG/ML VIAL IVP SCH (20:52)
[2023-05-14] MEDS ORDERED: fentaNYL citrate - 50mL vial 2.5 MG in NACL 0.9% 200 ML IV PRN (21:00)
[2023-05-14] MEDS ORDERED: methylPREDNISolone SS 40 MG/ML VIAL IVP SCH (21:00)
--- NOTE | 2023-05-14 21:00 | NUR ---
CHECKED PATIENT'S NGT. NGT INTACT AND PATENT. GIVE MEDS PER MD ORDERED. FLUSHED WITH STERILE WATER.
[2023-05-15] VITALS (33 sets, daily range): BP systolic 91–156; BP diastolic 53–80; PULSE 83–98; RESP 12–33; TEMP 97.3–101.4; O2SAT 93–100
[2023-05-15] MEDS: PHENYLEPHRINE 40 MG in NACL 0.9% 250 ML IV PRN ×4 (00:04→16:24)
[2023-05-15] MEDS: BLOOD GLUCOSE MONITORING 1 DEV DEV FS SCH ×4 (00:04→18:26)
[2023-05-15] MEDS: INSULIN LISPRO SLIDING SCALE 100 UNITS/ML VIAL SUBQ PRN ×2 (00:05→18:29)
[2023-05-15] MEDS: ACETAMINOPHEN 325 MG TAB PO PRN (00:19)
--- NOTE | 2023-05-15 00:19 | NUR ---
PT TEMP 100.4 F. TYLENOL ADMIN ORDERED.WILL CONTINUE TO MONITOR PT.
[2023-05-15] MEDS: MIDAZOLAM MDV 50 MG in NACL 0.9% 40 ML IV PRN (00:43)
--- NOTE | 2023-05-15 01:19 | NUR ---
temp reassessed 97.8
[2023-05-15] MEDS: NOREPINEPHRINE 8 MG in DEXTROSE 5% 250 ML IV PRN ×3 (01:50→11:44)
[2023-05-15] MEDS: HYDRAGUARD CREAM TP SCH ×2 (01:51→13:00)
--- NOTE | 2023-05-15 03:00 | NUR ---
PT VOMITED MODERATE AMOUNT OF GREENISH VOMITUS. PROVIDED MORNING CARE AND ORAL CARE TO PT.
--- NOTE | 2023-05-15 04:00 | NUR ---
PT IS CALM AND RESTING, NOT MOVING AND DOES NOT PULL MEDICAL TUBES AND LINES. NON - BEHAVIORAL SOFT WRIST RESTRAINT IS ON HOLD FOR NOW.
[2023-05-15] MEDS ORDERED: PHENYLEPHRINE 10 MG/ML VIAL ONE (04:24)
[2023-05-15] MEDS: methylPREDNISolone SS 40 MG/ML VIAL IVP SCH ×3 (04:36→20:29)
[2023-05-15] MEDS: MIDODRINE 5 MG TAB PO SCH ×3 (04:36→20:31)
[2023-05-15] MEDS: VANCOMYCIN 1.25GM PREMIX 250 ML IV SCH ×2 (04:37→16:51)
[2023-05-15] MEDS: MEROPENEM 500 MG in NACL 0.9% 50 ML IV SCH ×3 (04:37→20:31)
[2023-05-15 05:11] LABS: BASOPHILS % (AUTO) 0.1 % (0.0-2.0); HEMATOCRIT 41.4 % (36-52); HEMOGLOBIN 14.1 g/dL (12.0-18.0); LYMPHOCYTES # (AUTO) 0.3 K/uL (2.0-11.5); MEAN CORPUSCULAR HEMOGLOBIN 32 pg (27-31); MEAN CORPUSCULAR HGB CONC 34 g/dL (33-37); MEAN CORPUSCULAR VOLUME 94.4 fL (80-94); MONOCYTES # (AUTO) 0.6 K/uL (0.8-1.0); MONOCYTES % (AUTO) 2.1 % (1.7-9.3); NEUTROPHILS % (AUTO) 96.8 % (42.2-75.2); PLATELET COUNT (AUTO) 177 K/uL (140-450); RED BLOOD CELL COUNT(AUTO) 4.38 MIL/uL (4.20-6.10); RED CELL DISTRIBUTION WIDTH 15.4 % (11.6-13.7)
[2023-05-15 05:14] LABS: ANION GAP 14.9 (8-16); CARBON DIOXIDE 21.5 mmol/L (21-32); POTASSIUM 4.4 mmol/L (3.5-5.1)
[2023-05-15 05:54] LABS: WHITE BLOOD COUNT (AUTO) 25.8 K/uL (4.8-10.8)
[2023-05-15] MEDS ORDERED: NOREPINEPHRINE 4 MG/4 ML VIAL IV ONE (06:33)
--- NOTE | 2023-05-15 07:01 | NUR ---
PHONE CALL FROM DR MELANIE VELIZ, SURGEON, UPDATED ON PTS PRESENT CONDITION.MADE AWARE PT IS MAX DOSE ON 2 PRESSORS(LEVOPHED AND NEOSYNEPHRINE), QUESTIONS ANSWERED.PER SURGEON, HE WON'T BE ABLE TO PERFORM TRACHEOSTOMY PLACEMENT TODAY, PT UNSTABLE.
--- NOTE | 2023-05-15 07:30 | NUR ---
RECEIVED REPORT FROM YAZAN ANTHONY AND CLARK COLON RN ADVANCED MANUFACTURING CONSULTANT PT IS SEDATED WITH FACIAL GRIMACE ON PAIN + PERRL BOTH EYES SLUGGISH 2MM PT ON ETT TO VENT AC/VC FIO2 40% TV 400 RR 16, PEEP 5 PT ON LEFT NARES NGT FEED AND FEEDING WAS HOLD EPISODE OF VOMITING AND PT STOMACH IS SOFT LARGE DISTENDED AND FACIAL GRIMACE ON PALPATION. PT HAS KRISTI MIDLINE AND RIGHT FA PERIPHERAL WITH DRIP NEOSYNPHRINE 150MCG, LEVOPHED 30 MCG, VERSED 2MG, FENTANYL 10 MCG. PT HAS F/C MARCUS COLOR. URINE . PT LBM PER REPORT IS 05/06. PT KEPT SAFE AND COMFORTABLE MONITORE CLOSELY.
--- NOTE | 2023-05-15 07:40 | NUR ---
ON OR ABOUT THIS TIME SALIMA GONSALES AND ISAIAH/SCRAP DROP CRANE OPERATOR'S AND ATMOSPHERIC SCIENCES PROFESSOR AT BEDSIDE FOR PATIENT ASSESSMENT AND COURSE OF ACTION; PATIENT SEDATED ON 2 TYPES; PRESSORS ON 2 TYPES; NO REACTION TO NAME ONLY PHYSICAL STIMULUS; ABDOMINAL SOFT AND DESTINED WITH REACTION TO ABDOMINAL HAND PRESSURE; ABDOMINAL OUTPUT/EVACUATION CONDUCTED RESULTING IN A TOTAL OF 600ml OF "WATERY PEA GREEN" VIA SYRINGE X 3 (300ml) PLUS CONTINUOS SUCTION VIA NASOGASTRIC SUBSIDING AT 300ml' THEREAFTER PLACED ON INTERMITTENT SUCTION AT 20mmHg; KUB ORDERED; ALL RN ORDERS APPROVED BY DR. GINA SANON
--- NOTE | 2023-05-15 07:45 | NUR ---
DR. SANON MADE AWARE ON PATIENT LARGE SOFT DISTENDED ABDOMEN WITH 300 ML OF GREENISH RESIDUAL AND FACIAL GRIMACING ON PALPATION. AND LAST BM 05/06 NEW ORDER FORM ENEMA 10 MG Q6H AND KUB ABDOMEN.STAT. AND CONNECT NGT TO LOW INTERMITTENT SUCTION.
--- NOTE | 2023-05-15 08:05 | NUR ---
RADIOLOGY AT BEDSIDE FOR KUB
[2023-05-15] MEDS: ALBUTEROL 0.083% 2.5 MG/3 ML NEBU INH PRN ×2 (08:06→12:53)
--- NOTE | 2023-05-15 08:07 | NUR ---
Spoke to boiling house hand Mejia regarding patients PICC line migration. Per Mejia "we can use the same consent if it was in the same hospitalization." Parole Or Probation Officer will reach out to PICC line nurse to come put a new one. Will continue to follow plan of care.
--- NOTE | 2023-05-15 08:14 | NUR ---
BLENDER CAME IN FOR KUB ABDOMEN STAT DONE.
--- NOTE | 2023-05-15 08:20 | NUR ---
RECEIVED ON A [employer]APE R860 VENTILATOR PLUGGED INTO RED OUTLET TOLERATING WELL WITHOUT ADVERSE REACTIONS NOTED TO AN ENDOTRACHEAL TUBE #7.5 SECURED AT 22cm TEETH/GUM LINE WITH ANCHOR FAST CUFF PRESSURE CHECKED NOTED AMBU BAG AT BEDSIDE SEDATED RESTING WELL GOOD CHEST RISE DIFFUSED RHONCHI BILATERAL ENDOTRACHEAL SUCTION FOR SMALL THIN YELLOW SECRETINS AIRWAY PATENT
--- NOTE | 2023-05-15 08:26 | NUR ---
DR. PAK CAME IN AND ASSESS PT GET UPDATE PER MD PT UNSTABLE FOR TRACHE PLACEMENT NO OTHER NEW ORDERS GIVEN..
[2023-05-15] MEDS: DOCUSATE 100 MG/10 ML UDC GT SCH ×3 (09:14→16:51)
[2023-05-15] MEDS: MAGNESIUM HYDROXIDE 2400 MG/30 ML UDC PO SCH (09:15)
[2023-05-15] MEDS: ASPIRIN 81 MG TAB.CHEW GT SCH (09:15)
[2023-05-15] MEDS: SIMVASTATIN 20 MG TAB PO SCH (09:15)
[2023-05-15] MEDS: FAMOTIDINE 20 MG/2 ML VIAL IV SCH ×2 (09:15→20:31)
[2023-05-15] MEDS: levETIRAcetam 1,500 MG in NACL 0.9% 100 ML IV SCH ×2 (09:15→20:32)
--- NOTE | 2023-05-15 10:29 | NUR ---
DR. SANON CAME IN AND SEE ASSESS PT MADE AWARE OF PT BLIATERAL UPPER ARM SWOLLEN AND FACIAL NECK SWOLLEN NO NEW ORDER GIVEN . ORDER TO CALL FOR RESULT OF SUSANNAH VILLASENOR Addendum: 05/15/23 at 1139 by ISAIAH MUSA RN ADDITIONAL REPORTED ALSO LABS FRO TODAY NOT WNL WBC, BUN NO NEW ORDER
--- NOTE | 2023-05-15 10:31 | NUR ---
SEDATED STABLE EQUAL CHEST RISE AND AERATION THROUGHOUT BILATERAL LUNG ALMARAZ AIRWAY PATENT
--- NOTE | 2023-05-15 10:45 | NUR ---
CALLED DR. SANON CALLED FOR KUB ABDOMEN RESULT NEW ORDER FOR ENEMA 10 MG Q6H CALLED PHARMMACY NEED TO CLARIFY WITH MD ENEMA COMES WITH 118 ML OR PHRAMACY RECOMMEND BISACODYL SUPP AWAITING CALL BACK FROM .
--- NOTE | 2023-05-15 11:30 | NUR ---
WOUND RE-EVAL NOTE: PT. SKIN IMPROVING WITH CURRENT TX. PT. SIDE LYING POSITION WITH SACRALCOCCYX AND HEELS OFFLOADING WITH PILLOWS. WILL CONTINUE ALL INTERVENTIONS PREVENT FURTHER SKIN BREAKS - IMPROVING MOISTURE ASSOCIATED SKIN DAMAGE(MASD) TO: B/L GROINS, SCROTAL, SKIN MOIST - IMPROVING PRESSURE INJURY STAGE 3, SACRAL RESURFACING WITH THIN SCARING TISSUE,WOUND BED 100% PINK TISSUE, MOIST, NO ODOR, WOUND EDGE FLAT, JR-WOUND SKIN MOIST SURROUNDING BLANCHABLE REDNESS WITH SKIN INTACT
--- NOTE | 2023-05-15 11:53 | NUR ---
DR. SANON CALLED BACK AND ORDER TO GIVE ENEMA 118 ML Q6H RBVTO.
[2023-05-15] MEDS: SKINTEGRITY HYDROGEL TP SCH (13:00)
--- NOTE | 2023-05-15 13:05 | NUR ---
DR. GIANNI JUAREZ AT BEDSIDE; REVIEWED ABG RESULTS; VORBO: NO CHANGES TO VENTILATOR SETTINGS AND HHN FREQUENCY
--- NOTE | 2023-05-15 13:23 | NUR ---
DR. JUAREZ CAME IN AND SEE AND ASSESS PT MADE AWARE OF PT BP WITH CONTINUOUS DRIPS AND SEDATION MEDS DRIP AND PT ABDOMEN ON KUB CONTISPATION NEW ORDER GIVEN. STOP VERSED START PRECEDEX. TITRATE SEDATION , LACTULOSE SUPP. RBVTO
[2023-05-15] MEDS ORDERED: SODIUM PHOSPHATE 118 ML ENEM RC PRN (13:50)
[2023-05-15] MEDS ORDERED: SODIUM PHOSPHATE 118 ML ENEM RC SCH (14:00)
--- NOTE | 2023-05-15 15:06 | NUR ---
SEDATED STABLE NO DISTRESS NOTED GOOD CHEST RISE ENDOTRACHEAL SUCTION FOR SMALL THIN PALE YELLOW SECRETIONS AIRWAY PATENT
--- NOTE | 2023-05-15 15:12 | NUR ---
SUPPLY CHAIN SYSTEMS MANAGER STANDBY FOR VENTILATOR AND CIRCUIT MANAGEMENT; ON OR ABOUT THIS TIME PATIENT GIVEN LACTULOSE ENEMA 300ml Addendum: 05/15/23 at 1553 by Logan Timmons RT ENEMA PROCEDURE BY BONE DENSITY TECHNICIAN'S
[2023-05-15] MEDS ORDERED: LACTULOSE 20 GM/30 ML UDC PR SCH (15:30)
--- NOTE | 2023-05-15 15:47 | NUR ---
. MYRON CAVAZOS CAME IN AND ASSESS PT GET UPDATE NO NEW ORDER AT THIS TIME.
[2023-05-15] MEDS: DEXMEDETOMIDINE HCL 400 MCG in NACL 0.9% 96 ML IV PRN (16:14)
[2023-05-15] MEDS: NOREPINEPHRINE 16 MG in DEXTROSE 5% 250 ML IV PRN (16:21)
[2023-05-15] MEDS: VASOPRESSIN 20 UNITS in NACL 0.9% 250 ML IV SCH (16:25)
--- NOTE | 2023-05-15 17:21 | NUR ---
SEDATED RESTING COMFORTABLY GOOD CHEST RISE ENDOTRACHEAL SUCTION FOR SMALL "WATERY" YELLOW SECRETIONS AIRWAY PATENT
--- NOTE | 2023-05-15 17:32 | NUR ---
DR. AMEZQUITA CAME OIN AND SEE PT GET UPDATE WBC LEVEL AND TEMP AND PENDING BLOOD, SPUTUM AND URINE CULTRE TODAY. NON NEW ORDER GIVEN
--- NOTE | 2023-05-15 19:29 | NUR ---
ENDORSED TO YAZAN ANTHOYN EDGE SETTER REGARDING PT PROBLEM ON GI WITH DR SANON AND DR GUZMAN ORDER NURISNG INTERVENTIONS DONE. REPSORT GIVEN FORN CONTINUITY OF CARE.
--- NOTE | 2023-05-15 19:30 | NUR ---
ASSUMED CARE OF PT.INITIAL ASSESSMENT COMPLETED.PT SEDATED. SR NOTED ON MONITOR.ORALLY INTUBATED AC VC MODE FIO2 40% TV400 RATE 16 PEEP5.W/KRISTI MIDLINE INTACT.FLUSHED INFUSING LEVOPHED 16MG IN 250ML D5W AT 20MCG/MIN, DMITRY SYNEPHRINE 40MG IN 250ML NS AT 75MCG/MIN,FENTANYL AT 10MCG/HR,PRECEDEX DRIP AT 0.2MCG/KG/HR AND NS AT 50ML/HR.W/LT NARES NGT INTACT, PLACEMENT VERIFIED TO LOW INTERMITTENT SUCTION, SMALL AMT OF GREENISH SECRETIONS NOTED.W/HEALED WOUND TO SACROCOCCYGEAL.D/I FOAM DRESSING NOTED.W/BROWN CATHETER TO BSD DRAINING SMALL AMT OF YELLOW URINE.FLACC 0.FALL PRECAUTION IN PLACE.BED IN LOW POSITION. Addendum: 05/15/23 at 2001 by Justina Byrd RN W/PERIPHERAL IV TO KRISTI INTACT INFUSING IVF.
--- NOTE | 2023-05-15 20:02 | NUR ---
BM NOTED.MODERATE AMOUNT OF BROWNISH MUCOID STOOL NOTED
--- NOTE | 2023-05-15 23:00 | NUR ---
BM NOTED, LARGE AMT OF LIQUID BROWNISH STOOL.PT CLEANED,INSERTED FLEXI SEAL ORDERED BY CHARGE NURSE GABRIELLE PAGE.
[2023-05-16] VITALS (38 sets, daily range): BP systolic 92–145; BP diastolic 57–80; PULSE 70–100; RESP 16–33; TEMP 98.1–98.7; O2SAT 93–100
[2023-05-16] MEDS: HYDRAGUARD CREAM TP SCH ×2 (00:27→13:14)
[2023-05-16] MEDS: BLOOD GLUCOSE MONITORING 1 DEV DEV FS SCH ×5 (00:27→23:52)
[2023-05-16] MEDS: PHENYLEPHRINE 40 MG in NACL 0.9% 250 ML IV PRN (01:32)
[2023-05-16] MEDS: NOREPINEPHRINE 16 MG in DEXTROSE 5% 250 ML IV PRN ×2 (01:33→17:09)
[2023-05-16] MEDS: NACL 0.9% 1,000 ML IV SCH (02:05)
--- NOTE | 2023-05-16 02:07 | NUR ---
SHAWN PICC LINE NURSE AT BEDSIDE, MARTHA PICC LINE INSERTED, CXR TAKEN, OK TO USE PER GABRIELLE ESCOBAR
--- NOTE | 2023-05-16 04:00 | NUR ---
ORAL CARE USING VAP KIT RENDERED.PT REPOSITIONED.AFEBRILE.FLACC 0
[2023-05-16] MEDS: methylPREDNISolone SS 40 MG/ML VIAL IVP SCH ×3 (04:48→21:03)
[2023-05-16] MEDS: MIDODRINE 5 MG TAB PO SCH ×3 (04:48→21:06)
[2023-05-16] MEDS: VANCOMYCIN 1.25GM PREMIX 250 ML IV SCH ×2 (04:48→18:45)
[2023-05-16] MEDS: MEROPENEM 500 MG in NACL 0.9% 50 ML IV SCH ×3 (04:48→21:05)
[2023-05-16 05:12] LABS: BASOPHILS # (AUTO) 0.1 K/uL (0.00-0.22); BASOPHILS % (AUTO) 0.3 % (0.0-2.0); EOSINOPHILS # (AUTO) 0.1 K/uL (0-0.4); EOSINOPHILS % (AUTO) 0.2 % (0.0-4.0); HEMATOCRIT 32.4 % (36-52); HEMOGLOBIN 11.1 g/dL (12.0-18.0); LYMPHOCYTES # (AUTO) 0.1 K/uL (2.0-11.5); LYMPHOCYTES % (AUTO) 0.5 % (20.5-51.1); MEAN CORPUSCULAR HEMOGLOBIN 32 pg (27-31); MEAN CORPUSCULAR HGB CONC 34 g/dL (33-37); MEAN CORPUSCULAR VOLUME 94.4 fL (80-94); MONOCYTES # (AUTO) 0.4 K/uL (0.8-1.0); MONOCYTES % (AUTO) 1.8 % (1.7-9.3); NEUTROPHILS # (AUTO) 24.4 K/uL (1.8-7.7); NEUTROPHILS % (AUTO) 97.2 % (42.2-75.2); PLATELET COUNT (AUTO) 164 K/uL (140-450); RED BLOOD CELL COUNT(AUTO) 3.44 MIL/uL (4.20-6.10); RED CELL DISTRIBUTION WIDTH 15.5 % (11.6-13.7)
[2023-05-16 05:30] LABS: WHITE BLOOD COUNT (AUTO) 25.1 K/uL (4.8-10.8)
--- NOTE | 2023-05-16 05:30 | NUR ---
MORNING CARE DONE.FOAM DRESSING TO SACRUM CHANGED.FLACC 0.NO S/SX OF RESP DISTRESS NOTED.PT STILL SEDATED RASS -2 AND VASOPRESSORS STILL INFUSING
[2023-05-16 05:32] LABS: ANION GAP 10.3 (8-16); CARBON DIOXIDE 26.9 mmol/L (21-32); CREATININE 0.7 mg/dL (0.6-1.3); POTASSIUM 3.2 mmol/L (3.5-5.1)
[2023-05-16 05:36] LABS: MAGNESIUM 2.1 mg/dL (1.8-2.4); PHOSPHORUS 2.2 mg/dL (2.5-4.9)
--- NOTE | 2023-05-16 07:00 | NUR ---
BP 107/53, NEOSYNEPHRINE DRIP ON HOLD FOR NOW.PT STILL ON LEVOPHED DRIP AT 20MCG/MIN. REPORT GIVEN TO ALONDRA, PT OPENS EYES TO TOUCH/VOICE STIMULI.
--- NOTE | 2023-05-16 07:33 | NUR ---
Received report from plant operations vice president nurse GABRIELLE Mera. Patient is AOx0 unable to follow commands. PERRL noted. Currently on ETT to vent A/C VC FIO2 24%, VT 500, RR 14, Peep 5 with SpO2 saturation of 94%. Sinus Tachy on monitor. Abdomen is distended with abdominal quadrants active. Flexiseal to the rectum. Patient has NGT to left nare currently NPO with exception of meds. Sacral wound. Right forearm 22G IV saline locked with dressing dry and intact. Right midline with no ecchymosis or redness noted infusing normal saline at 100 ml/hr. Left upper picc line with no redness and minor ecchymosis a insertion site infusing Fentanyl 10 mcg/hr, Norepinephrine 20 mcg/min and Neosynephrine on standby. Donis catheter to gravity with no dependent loops with yellow urine. Standard precaution, HOB 30 degrees for aspiration precaution, bed wheels locked and in lowest position for patient safety. Addendum: 05/16/23 at 0945 by KUN SIHDU RN NGT to left nare with low intermittent suction received with 450 ml of green fluid
[2023-05-16] MEDS: POTASSIUM CHLORIDE 20% 40 MEQ/15 ML UDC GT PRN (09:32)
[2023-05-16] MEDS: MAGNESIUM HYDROXIDE 2400 MG/30 ML UDC PO SCH (09:33)
[2023-05-16] MEDS: SODIUM PHOS / POTASSIUM PHOS 1 PKT PDR PO PRN (09:33)
[2023-05-16] MEDS: FAMOTIDINE 20 MG/2 ML VIAL IV SCH ×2 (09:33→21:03)
[2023-05-16] MEDS: DOCUSATE 100 MG/10 ML UDC GT SCH ×3 (09:33→18:44)
[2023-05-16] MEDS: SIMVASTATIN 20 MG TAB PO SCH (09:34)
[2023-05-16] MEDS: ASPIRIN 81 MG TAB.CHEW GT SCH (09:34)
[2023-05-16] MEDS: levETIRAcetam 1,500 MG in NACL 0.9% 100 ML IV SCH ×2 (09:36→21:06)
[2023-05-16] MEDS: SKINTEGRITY HYDROGEL TP SCH (13:14)
[2023-05-16] MEDS ORDERED: fentaNYL citrate 1 MG in NACL 0.9% 80 ML IV PRN (15:00)
[2023-05-16] MEDS: DEXMEDETOMIDINE HCL 400 MCG in NACL 0.9% 96 ML IV PRN (17:10)
--- NOTE | 2023-05-16 19:14 | NUR ---
RECEIVED PT ON VENTILATOR PLUGGED INTO RED OUTLET WITH SETTINGS AC 16, Vt 400, PEEP +5, FiO2 40%. AMBU BAG AT BEDSIDE AND SUCTION IS SETUP. BREATH SOUNDS ARE COURSE, SXN LARGE AMOUNT OF YELLOWISH SECRETION. OBTAINED ENDOTRACHEALLY AND SMALL AMT OF WHITE/YELLOW ORAL SECRETIONS. PATIENT IS NOT AWAKE AND TOLERATING VENT WELL, WILL CONTINUE TO MONITOR PT.
--- NOTE | 2023-05-16 19:40 | NUR ---
ASSUMED CARE OF PT.INITIAL ASSESSMENT COMPLETED.PT SEDATED. SR NOTED ON MONITOR.ETT TO VENT AC VC MODE FIO2 40% TV400 RATE 16 PEEP5.W/KRISTI MIDLINE INTACT.FLUSHED INFUSING NS ORDERED.RT F/A PERIPHERAL IV REMOVED.W/MARTHA PICC INTACT GOOD BLOOD RETURN TO ALL PORTS INFUSING LEVOPHED 16MG IN 250ML D5W AT 20MCG/MIN,PRECEDEX DRIP AT 0.2MCG/KG/HR .W/LT NARES NGT INTACT, PLACEMENT VERIFIED TO LOW INTERMITTENT SUCTION, NO SECRETIONS NOTED AT THIS TIME.FLEXI SEAL ALSO NOTED SMALL AMT OF LIQUID BROWNISH STOOL.W/HEALED WOUND TO SACROCOCCYGEAL.D/I FOAM DRESSING NOTED.W/BROWN CATHETER TO BSD DRAINING SMALL AMT OF YELLOW URINE.FLACC 0.FALL PRECAUTION IN PLACE.BED IN LOW POSITION.
--- NOTE | 2023-05-16 21:00 | NUR ---
ALL DUE MEDS GIVEN.ORAL CARE USING VAP KIT RENDERED.PT ON PEPCID FOR GI PROPHYLAXIS AND HEPARIN FOR DVT PROPHYLAXIS.NO RESP DISTRESS NOTED.WILL CONTINUE TO CLOSELY MONITOR PT
[2023-05-17] VITALS (45 sets, daily range): BP systolic 101–137; BP diastolic 48–72; PULSE 61–79; RESP 16–25; TEMP 97.1–98.3; O2SAT 94–100
--- NOTE | 2023-05-17 | NUR ---
ORAL CARE USING VAP KIT RENDERED.PT STILL SEDATED.FIO2 ON VENT 40%, NO RESP DISTRESS NOTED.AFEBRILE.REPOSITIONED.FLACC 0
[2023-05-17] MEDS: HYDRAGUARD CREAM TP SCH ×2 (00:50→11:49)
--- NOTE | 2023-05-17 02:26 | NUR ---
PTS CONDITION REMAINS UNCHANGED.STILL ON LEVOPHED DRIP AT 5MCG/MIN.WILL CONTINUE TO CLOSELY MONITOR V/S,ALSO SEDATED ON PRECEDEX DRIP AT 0.2MCG/KG/HR RASS -2; FLACC 0,REPOSITIONED
--- NOTE | 2023-05-17 04:00 | NUR ---
MORNING CARE DONE.ORAL CARE RENDERED.PT TOLERATED ADL, FLACC 0.REPOSITIONED
[2023-05-17] MEDS: NACL 0.9% 1,000 ML IV SCH (04:22)
[2023-05-17] MEDS: methylPREDNISolone SS 40 MG/ML VIAL IVP SCH ×3 (05:03→20:22)
[2023-05-17] MEDS: VANCOMYCIN 1.25GM PREMIX 250 ML IV SCH ×2 (05:03→17:00)
[2023-05-17] MEDS: MEROPENEM 500 MG in NACL 0.9% 50 ML IV SCH ×3 (05:03→20:21)
[2023-05-17] MEDS: MIDODRINE 5 MG TAB PO SCH ×3 (05:03→20:23)
[2023-05-17] MEDS: BLOOD GLUCOSE MONITORING 1 DEV DEV FS SCH ×3 (05:16→17:01)
[2023-05-17 05:41] LABS: BASOPHILS # (AUTO) 0.1 K/uL (0.00-0.22); BASOPHILS % (AUTO) 0.3 % (0.0-2.0); HEMATOCRIT 26.6 % (36-52); HEMOGLOBIN 8.9 g/dL (12.0-18.0); LYMPHOCYTES # (AUTO) 0.1 K/uL (2.0-11.5); LYMPHOCYTES % (AUTO) 0.5 % (20.5-51.1); MEAN CORPUSCULAR HEMOGLOBIN 32 pg (27-31); MEAN CORPUSCULAR HGB CONC 34 g/dL (33-37); MEAN CORPUSCULAR VOLUME 96.2 fL (80-94); MONOCYTES # (AUTO) 0.5 K/uL (0.8-1.0); MONOCYTES % (AUTO) 2.3 % (1.7-9.3); NEUTROPHILS # (AUTO) 21.4 K/uL (1.8-7.7); NEUTROPHILS % (AUTO) 96.9 % (42.2-75.2); PLATELET COUNT (AUTO) 126 K/uL (140-450); RED BLOOD CELL COUNT(AUTO) 2.76 MIL/uL (4.20-6.10); RED CELL DISTRIBUTION WIDTH 15.5 % (11.6-13.7); WHITE BLOOD COUNT (AUTO) 22.1 K/uL (4.8-10.8)
[2023-05-17 06:05] LABS: ANION GAP 8.5 (8-16); CARBON DIOXIDE 27.2 mmol/L (21-32); CREATININE 0.7 mg/dL (0.6-1.3); POTASSIUM 3.7 mmol/L (3.5-5.1)
[2023-05-17 06:07] LABS: MAGNESIUM 2.3 mg/dL (1.8-2.4); PHOSPHORUS 2.1 mg/dL (2.5-4.9)
--- NOTE | 2023-05-17 06:14 | NUR ---
PT REMAINS INTUBATED, SAME VENT SETTINGS.MARTHA PICC INTACT STILL INFUSING PRECEDEX DRIP AND LEVOPHED DRIP.FLACC 0.FLEXI SEAL AND BROWN CATHETER INTACT.
--- NOTE | 2023-05-17 07:39 | NUR ---
REFCEIVED ON A [employer] R860 VENTILATOR PLUGGED INTO RED OUTLET TOLERATING WELL WITHOUT ADVERSE REACTIONS NOTED TO AN ENDOTRACHEAL TUBE #7.5N SECURED AT 22cm TEETH/GUM LINE WITH AN ANCHOR FAST CUFF PRESSURE CHECKED NOTED AMBU BAG AT BEDSIDE SEDATED PRECEDEX 100 AT 0.2mcg VASOPRESSOR NOR EPI 16 AT 2mcg STABLE GOOD CHEST RISE ENDOTRACHEAL SUCTION FOR MODERATE THIN PALE YELLOW SECRETIONS AIRWAY PATENT
--- NOTE | 2023-05-17 07:54 | NUR ---
STABLE RESTING WELL PLACED ON CPAP TRIALS NOTED ENDOTRACHEAL SUCTION FOR SMALL THIN PALE YELLOW SECRETIONS AIRWAY PATENT AURA/RN AT BEDSIDE PATIENT PLACED ON SEDATION VACATION AT THIS TIME
[2023-05-17] MEDS: DOCUSATE 100 MG/10 ML UDC GT SCH ×3 (08:18→17:00)
[2023-05-17] MEDS: MAGNESIUM HYDROXIDE 2400 MG/30 ML UDC PO SCH (08:18)
[2023-05-17] MEDS: FAMOTIDINE 20 MG/2 ML VIAL IV SCH ×2 (08:18→20:24)
[2023-05-17] MEDS: ASPIRIN 81 MG TAB.CHEW GT SCH (08:18)
[2023-05-17] MEDS: SIMVASTATIN 20 MG TAB PO SCH (08:19)
--- NOTE | 2023-05-17 09:00 | NUR ---
due morning meds given, tolerated well. Oral care done. turned and repositioned
[2023-05-17] MEDS: levETIRAcetam 1,500 MG in NACL 0.9% 100 ML IV SCH ×2 (09:14→20:23)
--- NOTE | 2023-05-17 09:55 | NUR ---
UZ VENOUS DOPPLER BILATERAL LOWER EXTREMITY AT BEDSIDE Addendum: 05/17/23 at 0957 by ISAIAH MUSA RN ERROR ENTRY WRONG PATIENT
--- NOTE | 2023-05-17 09:57 | NUR ---
RECEIVED REPORT FROM AVNI ANTHONY NIGHT PT ADMITTED FOR PNA AND SEPSIS, PT IS SEDATED RASS-3 OPEN EYES BOTH +PERRL, RECATIVE. ON MILD STIMULI PT O FLACC NO PAIN. PT IS ON ETT TO VENT FIO2 40% TV 400 RR 16 PEEP 5 VS/ T.97.4 HR 67 BP 126/42 RR 21, O2SAT 95% PT IS SR ON THE MONITOR. PT HAS LEFT NARES NGT CONNECTED TO LIS DRAING YELLOW DRAIN ABDOMEN IS LARGE AND SOFT. PT HAS KRISTI MIDLIN AND MARTHA PICC LINE LEVOPHED 5 MCG, PRECEDEX 0.2 MCG AND NS AT 50 ML/HR. PT HAS BROWN CATHETER DRAINIG LIGHT MARCUS URINE PT HAS RECTAL TUBE PLACED DARING LIGHT BROWN LIQUID STOOL. PT HAS RIGHT BUTTOCK WOUND WOUND C ARE FOLLOWING. PT KESP SAFE AND COMFORTABLE CLOSED MONITORING PROVIDED.
--- NOTE | 2023-05-17 10:55 | NUR ---
SEDATED GOOD CHEST RISE TOLERATING CPAP TRIAL WITHOUT PULMONARY DISTRESS NOTED ENDOTRACHEAL SUCTION FOR LARGE THIN PALE YELLOW SECRETIONS AIRWAY PATENT
[2023-05-17] MEDS: SKINTEGRITY HYDROGEL TP SCH (13:00)
[2023-05-17] MEDS: ALBUTEROL 0.083% 2.5 MG/3 ML NEBU INH PRN ×2 (13:07→13:13)
--- NOTE | 2023-05-17 13:13 | NUR ---
TOLERATING CPAP TRIAL NOTED EQUAL CHEST RISE ENDOTRACHEAL SUCTION FOR SMALL THIN PALE YELLOW SECRETIONS AIRWAY PATENT SEDATED PRECEDEX 0.2mcg VASOPRESSOR NOR EPI 2mcg
--- NOTE | 2023-05-17 13:17 | NUR ---
05/17/23 RD FOLLOW UP COMPLETED PLEASE REFER TO NUTRITION ASSESSMENT UNDER CARE ACTIVITY FOR ESTIMATED NUTRITIONAL NEEDS. 1. ONCE MEDICALLY APPROPRIATE PLEASE PLACE PATIENT BACK ON TUBE FEEDING VITAL A.F. @55ML/HR WITH FWF 200 Q6H TOLERATED. THIS WILL PROVIDE 1,584 CALORIES AND 98 GRAMS OF PROTEIN. 2. ONCE MEDICALLY APPROPRIATE PLEASE PLACE PATIENT BACK ON TENISHA BID FOR WOUNDS THIS WILL PROVIDE 160 CALORIES AND 5 GRAMS OF PROTEIN TOLERATED. 3. RD TO FOLLOW-UP 2-3 DAYS, HIGH RISK CHYNA CLAYTON RD
--- NOTE | 2023-05-17 13:38 | NUR ---
TOLERATING CPAP TRIAL WITHOUT PULMONARY DISTRESS NOTED GOOD CHEST RISE AIRWAY PATENT Addendum: 05/17/23 at 1800 by Logan Timmons RT CORRECT TIME [id number]
--- NOTE | 2023-05-17 13:40 | NUR ---
PLACED MODE BACK ON AC TO REST PATIENT AT THIS TIME TOLERATED CPAP TRIAL WITHOUT DISTRESS X 7.5 HOURS; SATURATION 96% ON FIO2 OF 40% PEEP 5cmH2O TITRATED FIO2 TO 35% AURA/DIRECTOR PROCESS ENGINEERING NOTIFIED Addendum: 05/17/23 at 1801 by Logan Timmons RT CORRECT TIME 1440; CPAP TRIAL X 8.5 HRS
--- NOTE | 2023-05-17 13:55 | NUR ---
DR. GIANNI JUAREZ ROUNDING AT BEDSIDE; REVIEWED CPAP TRIAL AND PATIENT TOLERANCE; DIAGNOSTIC MONITORING READINGS; REVIEWED BREATH SOUNDS AND EXUDATION OF SECRETIONS; VORBO DR. JUAREZ: CONTINUE WITH CPAP/SBT TRIAL
[2023-05-17] MEDS: FUROSEMIDE 20 MG/2 ML VIAL IVP SCH ×2 (14:16→20:22)
--- NOTE | 2023-05-17 15:47 | NUR ---
DR. JUAREZ CAME IN AND SEE PT GET UPDATE NO NEW ORDER GIVEN FOR NURSING AT THIS TIME.
--- NOTE | 2023-05-17 19:26 | NUR ---
GAVE REPORT TO YAZAN ANTHONY AND CLARK CHENG FOR CONTINUITY OF CARE. PT HAS NO CHANGE OF CONDITION AT THIS TIME.
--- NOTE | 2023-05-17 19:30 | NUR ---
RECEIVED REPORT FROM AURA ANTHONY DAYSHIFT NURSE. PT IS SEDATED RASS -2 OPENS BOTH EYES +PERRL, REACTIVE. PT O FLACC NO PAIN. PT IS ON ETT TO VENT FIO2 35% TV 400 RR 16 PEEP 5 , O2SAT 96% PT IS SR ON THE MONITOR. PT HAS LEFT NARE NGT CONNECTED TO LOW INTERMITTENT SUCTION DRAINING YELLOW DRAIN ABDOMEN IS LARGE AND SOFT. PT HAS KRISTI MIDLINE AND MARTHA PICC LINE LEVOPHED 2 MCG, PRECEDEX 0.2 MCG AND NS AT 50 ML/HR. PT HAS BROWN CATHETER DRAINING LIGHT MARCUS URINE PT HAS RECTAL TUBE PLACED DRAINING BROWN LIQUID STOOL. WILL CONTINUE TO MONITOR PT CLOSELY.
--- NOTE | 2023-05-17 21:00 | NUR ---
LEVOPHED IS ON HOLD FOR NOW PER PROTOCOL. BP 126/62. WILL CONTINUE TO MONITOR.
[2023-05-18] VITALS (31 sets, daily range): BP systolic 95–136; BP diastolic 42–62; PULSE 56–95; RESP 17–22; TEMP 97.1–98; O2SAT 92–97
[2023-05-18] MEDS: DEXMEDETOMIDINE HCL 400 MCG in NACL 0.9% 96 ML IV PRN ×2 (00:14→21:36)
[2023-05-18] MEDS: BLOOD GLUCOSE MONITORING 1 DEV DEV FS SCH ×4 (00:22→18:48)
[2023-05-18] MEDS: HYDRAGUARD CREAM TP SCH ×2 (01:00→12:23)
--- NOTE | 2023-05-18 04:16 | NUR ---
AM CARE AND ORAL CARE DONE. PT AFEBRILE, NO DISTRESS NOTED.
[2023-05-18] MEDS: methylPREDNISolone SS 40 MG/ML VIAL IVP SCH ×3 (04:41→21:33)
[2023-05-18] MEDS: MIDODRINE 5 MG TAB PO SCH ×3 (04:41→21:33)
[2023-05-18] MEDS: MEROPENEM 500 MG in NACL 0.9% 50 ML IV SCH ×3 (04:42→21:32)
[2023-05-18] MEDS: VANCOMYCIN 1.25GM PREMIX 250 ML IV SCH ×2 (05:25→18:21)
[2023-05-18 05:27] LABS: BASOPHILS % (AUTO) 0.2 % (0.0-2.0); EOSINOPHILS % (AUTO) 0.3 % (0.0-4.0); HEMATOCRIT 27.8 % (36-52); HEMOGLOBIN 9.3 g/dL (12.0-18.0); LYMPHOCYTES # (AUTO) 0.1 K/uL (2.0-11.5); LYMPHOCYTES % (AUTO) 1.2 % (20.5-51.1); MEAN CORPUSCULAR HEMOGLOBIN 33 pg (27-31); MEAN CORPUSCULAR HGB CONC 34 g/dL (33-37); MEAN CORPUSCULAR VOLUME 97.1 fL (80-94); MONOCYTES # (AUTO) 0.2 K/uL (0.8-1.0); MONOCYTES % (AUTO) 2.5 % (1.7-9.3); NEUTROPHILS # (AUTO) 9.4 K/uL (1.8-7.7); NEUTROPHILS % (AUTO) 95.8 % (42.2-75.2); PLATELET COUNT (AUTO) 129 K/uL (140-450); RED BLOOD CELL COUNT(AUTO) 2.86 MIL/uL (4.20-6.10); RED CELL DISTRIBUTION WIDTH 15.9 % (11.6-13.7); WHITE BLOOD COUNT (AUTO) 9.8 K/uL (4.8-10.8)
[2023-05-18 06:15] LABS: ANION GAP 10.7 (8-16); CARBON DIOXIDE 28.6 mmol/L (21-32); CREATININE 0.7 mg/dL (0.6-1.3); POTASSIUM 3.3 mmol/L (3.5-5.1)
[2023-05-18 06:22] LABS: MAGNESIUM 2.8 mg/dL (1.8-2.4); PHOSPHORUS 2.3 mg/dL (2.5-4.9)
--- NOTE | 2023-05-18 07:15 | NUR ---
ENDORSED PT TO DAYSHIFT NURSE KITA. ALL QUESTIONS ANSWERED.
--- NOTE | 2023-05-18 07:20 | NUR ---
Received report from couture dressmaker nurses Samaria RN and Eladio RN. Patient is AOx0 unable to follow commands. PERRL noted. Currently on ETT to vent A/C VC FIO2 35%, VT 400, RR 16, Peep 5 with SpO2 saturation of 96%. Sinus Rhythm on monitor. Abdomen is distended with abdominal quadrants active. Flexiseal to the rectum. Patient has NGT to left nare currently NPO with exception of meds. Sacral wound. Right midline with no ecchymosis or redness noted saline lock. Left upper picc line with no redness and minor ecchymosis at insertion site infusing Precedex 0.2 mcg/hr and Normal Saline at 100 ml/hr Norepinephrine on standby. Donis catheter to gravity with no dependent loops with yellow urine. Standard precaution, HOB 30 degrees for aspiration precaution, bed wheels locked and in lowest position for patient safety.
[2023-05-18] MEDS: FUROSEMIDE 20 MG/2 ML VIAL IVP SCH ×2 (09:00→21:32)
[2023-05-18] MEDS: MAGNESIUM HYDROXIDE 2400 MG/30 ML UDC PO SCH (09:07)
[2023-05-18] MEDS: DOCUSATE 100 MG/10 ML UDC GT SCH ×3 (09:07→18:24)
[2023-05-18] MEDS: ASPIRIN 81 MG TAB.CHEW GT SCH (09:07)
[2023-05-18] MEDS: SIMVASTATIN 20 MG TAB PO SCH (09:07)
[2023-05-18] MEDS: FAMOTIDINE 20 MG/2 ML VIAL IV SCH ×2 (09:08→21:32)
[2023-05-18] MEDS: levETIRAcetam 1,500 MG in NACL 0.9% 100 ML IV SCH ×2 (09:10→21:32)
--- NOTE | 2023-05-18 10:19 | NUR ---
Dr. Rose rounded at patients bedside. Received new orders. Per MD wants patient to have CT scan of the abdomen and pelvis with contrast. Start patient on TPN. Will continue to follow plan of care.
[2023-05-18] MEDS ORDERED: TPN PER PHARMACY MC PRN (10:45)
[2023-05-18] MEDS: NACL 0.9% 1,000 ML IV SCH ×2 (12:19→17:55)
[2023-05-18] MEDS: SKINTEGRITY HYDROGEL TP SCH (12:23)
--- NOTE | 2023-05-18 13:18 | NUR ---
Received called from Paul from [place] regarding patient. General Road Foreman from [place] asked questions regarding patients medications. All questions were answered.
--- NOTE | 2023-05-18 13:54 | NUR ---
Received new orders from Dr. Arreola. Keep patient NPO excepts for medications for tracheostomy and peg tube procedure. Will continue to follow plan of care.
--- NOTE | 2023-05-18 14:41 | NUR ---
WOUND CARE NOTE: PT. SKIN IMPROVING WITH NO NEW SKIN BREAKS. PT. IS PENDING TRACH AND PEG. WILL CONTINUE ALL INTERVENTIONS PREVENT SKIN BREAKS -MOISTURE ASSOCIATED SKIN DAMAGE(MASD) TO: B/L GROINS, SCROTAL, SKIN MOIST -PRESSURE INJURY STAGE 3, SACRAL RESURFACING WITH THIN SCARING TISSUE. FOAM DRESSING IN PLACE, DCI.
[2023-05-18] MEDS: POTASSIUM CHLORIDE 20% 40 MEQ/15 ML UDC GT PRN (15:22)
[2023-05-18] MEDS: SODIUM PHOS / POTASSIUM PHOS 1 PKT PDR PO PRN (15:23)
--- NOTE | 2023-05-18 19:14 | NUR ---
Endorsed report to audiologist registry nurse GABRIELLE Bermeo for continuity of care.
--- NOTE | 2023-05-18 19:28 | NUR ---
CALL LIGHT WITHIN REACH. VENT ALARMS AUDIBLE, AND BVM BEDSIDE
--- NOTE | 2023-05-18 19:30 | NUR ---
Recieved report from Jessica at 1930. Pt was found in a suspine 30 degree angle. Pt is intubated on a ventalator. Pt was turned to the left to prevent any pressure sores. pt also had precedes at 0.2 for sedation at the time of the assessment. Pt vital signs were stable and nuerologically pt just opens his eyes. Skin was checked and there a skin tear on the upper back which was open to air. Pt was not under any distress and was asleep. Pt call light was within reached and bed was at its lowest point for safety.
[2023-05-18] MEDS ORDERED: MULTIVITAMIN-12 10 ML in DEXTROSE 50% 600 ML, AMINO ACIDS 8.5% 600 ML IV SCH ×3 (20:00)
--- NOTE | 2023-05-18 22:00 | NUR ---
Pt was turned to the right. Pic line was intacted and also the midline was intact. There was no open wounds at this time.
[2023-05-19] VITALS (31 sets, daily range): BP systolic 94–168; BP diastolic 41–92; PULSE 48–86; RESP 16–26; TEMP 96.7–98.2; O2SAT 92–99
--- NOTE | 2023-05-19 | NUR ---
Pt was turned to the right at this time. There was no sign of pt under distressed or open wounds at this time. Call light within reach and bed at its lowest point for safety
[2023-05-19] MEDS: HYDRAGUARD CREAM TP SCH ×2 (01:00→13:01)
--- NOTE | 2023-05-19 02:00 | NUR ---
Pt was turned to the left and skin was assesssed. Pt called light was in reach and bed at its lowest point.
--- NOTE | 2023-05-19 04:00 | NUR ---
Pt was turned to the left and skin was assesssed. Pt called light was in reach and bed at its lowest point.
[2023-05-19] MEDS: MEROPENEM 500 MG in NACL 0.9% 50 ML IV SCH (04:24)
[2023-05-19] MEDS: VANCOMYCIN 1.25GM PREMIX 250 ML IV SCH ×2 (04:24→17:50)
[2023-05-19] MEDS: methylPREDNISolone SS 40 MG/ML VIAL IVP SCH ×3 (04:27→20:58)
[2023-05-19] MEDS: MIDODRINE 5 MG TAB PO SCH ×3 (04:27→22:02)
[2023-05-19] MEDS: BLOOD GLUCOSE MONITORING 1 DEV DEV FS SCH ×4 (05:06→18:00)
[2023-05-19 05:35] LABS: EOSINOPHILS # (AUTO) 0.1 K/uL (0-0.4); EOSINOPHILS % (AUTO) 1.2 % (0.0-4.0); LYMPHOCYTES # (AUTO) 0.1 K/uL (2.0-11.5); LYMPHOCYTES % (AUTO) 1.8 % (20.5-51.1); MEAN CORPUSCULAR HEMOGLOBIN 33 pg (27-31); MEAN CORPUSCULAR HGB CONC 34 g/dL (33-37); MEAN CORPUSCULAR VOLUME 97.4 fL (80-94); MONOCYTES # (AUTO) 0.1 K/uL (0.8-1.0); MONOCYTES % (AUTO) 3.2 % (1.7-9.3); NEUTROPHILS # (AUTO) 4.1 K/uL (1.8-7.7); NEUTROPHILS % (AUTO) 93.8 % (42.2-75.2); PLATELET COUNT (AUTO) 84 K/uL (140-450); RED BLOOD CELL COUNT(AUTO) 1.98 MIL/uL (4.20-6.10); RED CELL DISTRIBUTION WIDTH 15.8 % (11.6-13.7); WHITE BLOOD COUNT (AUTO) 4.3 K/uL (4.8-10.8)
[2023-05-19 05:40] LABS: HEMOGLOBIN 6.4 g/dL (12.0-18.0)
[2023-05-19 05:41] LABS: HEMATOCRIT 19.2 % (36-52)
[2023-05-19 05:55] LABS: CARBON DIOXIDE 27.9 mmol/L (21-32); CREATININE 0.5 mg/dL (0.6-1.3)
[2023-05-19 05:58] LABS: POTASSIUM 2.9 mmol/L (3.5-5.1)
[2023-05-19 05:59] LABS: ALBUMIN 0.8 g/dL (3.4-5.0); BILIRUBIN,DIRECT 0.1 mg/dL (0.0-0.3); TOTAL BILIRUBIN 0.2 mg/dL (0.0-1.0)
--- NOTE | 2023-05-19 06:00 | NUR ---
Pt was turned to the left and skin was assesssed. Pt called light was in reach and bed at its lowest point.
[2023-05-19 06:01] LABS: MAGNESIUM 2.5 mg/dL (1.8-2.4)
[2023-05-19] MEDS: POTASSIUM CHLORIDE 20% 40 MEQ/15 ML UDC GT PRN (06:08)
--- NOTE | 2023-05-19 07:20 | NUR ---
Report was given to Paradise and pt was left stable with vital signs stable at this time. Pt was not under any distress and was left stable.
--- NOTE | 2023-05-19 07:30 | NUR ---
RECEIVED REPOSRT FROM JESSE ANTHONY PT ADMIT FOR HUPOTENSION AND PNA. PT IS OPEN EYES ONLY, SLEEPY, ABLE TO MOVE EXTREMITY WITH MILD STIMULI. PT ON ETT TO VENT AC/VC FIO2 35% TV 400 RR16 PEEP 5. IS SINU RHYTHYM ON THE MOPNITOR NO SOB NO SEIZURE NOTED.PT HAS LEFT NARES NGT CONNECTED TO LIS PATENT DRAINING YELLOW DRAINAGE. PT HAS BROWN CATHETER DRAING YELLOW URINE PATENT. PT HAS AMRTHA PICC LINE AND KRISTI MIDLINE. PT IS ON PRECEDEX 0.2 MCG, TPN AT 50 PT HAS SKIN PROBLEM AT THE BACK WOUND CARE FOLLOWING. PT IS SCHEDULED FOR TRACHE A.D PEG PLACEMENT PT K LEVEL IS 2.9 PER RN PREPLACED K VIA GT.PT HGB IS 6.4 HAS ORDER FOR 2 UNITS PRBC KEPT PAT SAFE AND COMFORTABLE
--- NOTE | 2023-05-19 08:00 | NUR ---
RN Rounds Repositioned with pillow support, heels floating, ET care provided, bed low and locked for safety, call light in reach.
[2023-05-19] MEDS: DOCUSATE 100 MG/10 ML UDC GT SCH ×3 (08:07→17:00)
[2023-05-19] MEDS: ASPIRIN 81 MG TAB.CHEW GT SCH (08:07)
[2023-05-19] MEDS: MAGNESIUM HYDROXIDE 2400 MG/30 ML UDC PO SCH (08:08)
[2023-05-19] MEDS: SIMVASTATIN 20 MG TAB PO SCH (08:08)
[2023-05-19] MEDS: FUROSEMIDE 20 MG/2 ML VIAL IVP SCH ×2 (08:16→20:59)
[2023-05-19] MEDS: levETIRAcetam 1,500 MG in NACL 0.9% 100 ML IV SCH ×2 (08:17→21:01)
[2023-05-19] MEDS: FAMOTIDINE 20 MG/2 ML VIAL IV SCH ×2 (08:17→20:59)
--- NOTE | 2023-05-19 08:45 | NUR ---
Patient taken to CT for imaging per order, RT at bedside conducting Vent management, patient [placed onto portable monitor, SR noted, O2 98%, patient remains sedated and intubated in no acute distress and or discomfort.
--- NOTE | 2023-05-19 09:25 | NUR ---
Patient returned from CT scan, placed back onto ventilator in room by RT, placed onto cardiac unit monitor, SR, O2 99% on 35% FIO2, patient remains stable from baseline in no acute distress and or discomfort, bed low and locked for safety, call light in reach, SRx2 for safety.
--- NOTE | 2023-05-19 09:37 | NUR ---
0958 DR. MELCHOR RADIOLOGIST CALLED FOR RESILT OF CTA ABDOMEN PT PER DOCT PT HAS PERFORRATED BOWEL NEED SURGEY CONSULT STAT. [id number] DR SANON TO RED BACK RESULT AWIAITNG CALL BACK.
--- NOTE | 2023-05-19 10:28 | NUR ---
DR. JUAREZ CAME IN AND SEE PT AND GET UPDATE FOR PT NO NEW ORDER FOR NURSING AT THIS TIME.
[2023-05-19] MEDS ORDERED: KCL 20 MEQ IN 100 mL PREMIX 200 ML IV ONE (11:05)
[2023-05-19] MEDS: KCL 20 MEQ IN 100 mL PREMIX 200 ML IV PRN (11:14)
--- NOTE | 2023-05-19 11:22 | NUR ---
DR. SALINAS CALLED AND GIVE ORDER FOR PT 40 MEQ IV RUN FOR 2 HRS IN CENTRAL LINE GIVE NOW AND REPEAT CBC AND BMP AND TRY TO GET HOLD OF THE CONSERVATOR TO GET CONSENT IF NO AVAIL 2 MD/S CAN SIGN CONSENT.
[2023-05-19] MEDS ORDERED: POTASSIUM PHOSPHATE 15 MM in NACL 0.9% 250 ML IV SCH (11:30)
--- NOTE | 2023-05-19 11:33 | NUR ---
Dr. Dorcas bai MD ordered stat ECHO ordered. RT Dept aware.
[2023-05-19] MEDS: NOREPINEPHRINE 16 MG in DEXTROSE 5% 250 ML IV PRN (11:37)
[2023-05-19] MEDS ORDERED: VANCOMYCIN PER PHARMACY MC PRN (11:40)
--- NOTE | 2023-05-19 12:25 | NUR ---
AT 1025 1 UNIT OF PRBC STARTED NO S/SX OF TRANSFUSION REACTION END 1225 WITH HAVE STAT CBC AND BMP
[2023-05-19] MEDS: FLUCONAZOLE 400 MG/NS PREMIX 200 ML IV SCH (12:55)
[2023-05-19] MEDS: KCL 20 MEQ IN 100 mL PREMIX 100 ML IV SCH ×2 (12:56→12:58)
[2023-05-19] MEDS: SKINTEGRITY HYDROGEL TP SCH (13:01)
[2023-05-19] MEDS: INSULIN LISPRO SLIDING SCALE 100 UNITS/ML VIAL SUBQ PRN ×2 (13:02→18:03)
[2023-05-19] MEDS: MEROPENEM 1,000 MG in NACL 0.9% 50 ML IV SCH ×2 (13:03→21:00)
[2023-05-19 13:06] LABS: BASOPHILS % (AUTO) 0.2 % (0.0-2.0); EOSINOPHILS # (AUTO) 0.1 K/uL (0-0.4); EOSINOPHILS % (AUTO) 0.7 % (0.0-4.0); HEMATOCRIT 33.8 % (36-52); HEMOGLOBIN 11.5 g/dL (12.0-18.0); LYMPHOCYTES # (AUTO) 0.1 K/uL (2.0-11.5); LYMPHOCYTES % (AUTO) 1.6 % (20.5-51.1); MEAN CORPUSCULAR HEMOGLOBIN 32 pg (27-31); MEAN CORPUSCULAR HGB CONC 34 g/dL (33-37); MONOCYTES # (AUTO) 0.4 K/uL (0.8-1.0); NEUTROPHILS # (AUTO) 8.5 K/uL (1.8-7.7); NEUTROPHILS % (AUTO) 93.5 % (42.2-75.2); PLATELET COUNT (AUTO) 131 K/uL (140-450); RED BLOOD CELL COUNT(AUTO) 3.56 MIL/uL (4.20-6.10); RED CELL DISTRIBUTION WIDTH 16.2 % (11.6-13.7); WHITE BLOOD COUNT (AUTO) 9.1 K/uL (4.8-10.8)
[2023-05-19 13:11] LABS: ANION GAP 8.8 (8-16); CARBON DIOXIDE 31.4 mmol/L (21-32); CREATININE 0.6 mg/dL (0.6-1.3); POTASSIUM 4.2 mmol/L (3.5-5.1)
[2023-05-19] MEDS: DOPamine 400 MG/D5W PREMIX 250 ML IV PRN (13:13)
--- NOTE | 2023-05-19 13:50 | NUR ---
05/19/23 RD FOLLOW UP COMPLETED PLEASE REFER TO NUTRITION ASSESSMENT UNDER CARE ACTIVITY FOR ESTIMATED NUTRITIONAL NEEDS. 1. CONTINUE TPN RECOMMENDED BY PHARMACY. 2. RD WILL MONITOR NUTRITION ESTIMATED NEEDS, GI ISSUES, WEIGHT, AND NUTRITION RELATED LAB VALUES. 3. RD TO FOLLOW-UP 2-3 DAYS, HIGH RISK CHYNA CLAYTON RD
[2023-05-19] MEDS ORDERED: ONDANSETRON 4 MG/2 ML VIAL ONE ×2 (14:00→15:48)
[2023-05-19] MEDS ORDERED: ROCURONIUM 50 MG/5 ML VIAL IV ONE ×2 (14:00→15:47)
[2023-05-19] MEDS ORDERED: SEVOFLURANE 250 ML BTL INH ONE (14:00)
[2023-05-19] MEDS ORDERED: BUPIVACAINE-MPF 0.25% 30 ML VIAL INJ ONE (14:10)
[2023-05-19] MEDS ORDERED: LIDOCAINE 1% 500 MG/50 ML VIAL ONE (14:14)
--- NOTE | 2023-05-19 14:25 | NUR ---
OR TEAM WITH DR PALACIOS ASSITED PT TO OR FOR PLANNED EX. LAP UNDER DR. ESPINOZA VS TAKEN 1 UNIT S/P PRBC CBC AND BMP RESLT REVIEWED BY DR. PALACIOS. NO OTHER CRITICAL VALUES NOTED
--- NOTE | 2023-05-19 16:30 | NUR ---
PT CAME BACK FROM SURGERY PT V/S TEMP 97.3, HR 86 92% O2SAT RR 16 PUT BACK TO ETT TO VENT ACVC FIO2 75%TV 400 RR16 PEEP [address] PALACIOS PROCEDURE DONE EXPLORE LAPAROOMY, BOWEL RESECTION, ILEOCECECTOMY. MID ABDOMEN INSICION WITH DRESSING INTACT AND DRY WITH MOHSEN DRAIN 100 ML LIGHT RED COLOR DRANAGE. PT HAS RIGHT ABDOMEN COLOSTOMY WITH DRAINAGE BAG NO STOOL NOTED. PT ON IV DOPAMIN DRIP AT 5MCE, PRECEDEX 0.2MCG OFF LEVOPHED,.MAKE SAFE AND COMFORTABLE WILL MONITOR.
[2023-05-19] MEDS ORDERED: NACL 0.9% 1,000 ML IV SCH ×2 (16:35)
[2023-05-19] MEDS ORDERED: HYDROmorphone 1 MG/ML AMP IVP PRN ×2 (16:35)
[2023-05-19] MEDS ORDERED: LABETALOL 20 MG/4 ML VIAL IVP PRN (16:43)
[2023-05-19] MEDS ORDERED: DEXTROSE 10% 1,000 ML IV SCH (17:20)
--- NOTE | 2023-05-19 18:32 | NUR ---
DR SANCHES CAME IN AND ASSESS PT GET UPDATE DID CHART REVIEW. NO NEW ORDER FOR NURSING
[2023-05-19] MEDS: DEXMEDETOMIDINE HCL 400 MCG in NACL 0.9% 96 ML IV PRN (18:51)
--- NOTE | 2023-05-19 19:46 | NUR ---
RECEIVED REPORT FROM DAY SHIFT NURSEISAIAHRN FOR CONTINUITY OF CARE. ALL CARES ASSUMED.
--- NOTE | 2023-05-19 19:46 | NUR ---
GAVE REPORT TO AVNI ANTHONY FOR CONTINUITY OF CARE.
--- NOTE | 2023-05-19 19:48 | NUR ---
ROUNDED PT AT BEDSIDE AND ASSESSED. RECEIVED ON SEMI-MONACO'S POSITION WITH SIDE RAILS RAISED UP. PT IS ON MODERATE SEDATION (RASS -3), AROUSABLE TO STIMULI BUT NO EYE CONTACT. NGT ATTACHED TO LEFT NARE ON LOW INTERMITTENT SUCTION, WITH YELLOWISH GASTRIC OUTPUT OBSERVED. ON ETT ATTACHED TO MECHANICAL VENTILATOR ON A/V Addendum: 05/20/23 at 0004 by ALBERTINA HADLEY RN DOUBLE ENTRY
--- NOTE | 2023-05-19 19:48 | NUR ---
ROUNDED PT AT BEDSIDE AND ASSESSED. RECEIVED ON SEMI-MONACO'S POSITION WITH SIDE RAILS RAISED UP. PT IS ON MODERATE SEDATION (RASS -3), AROUSABLE TO STIMULI BUT NO EYE CONTACT. NGT ATTACHED TO LEFT NARE ON LOW INTERMITTENT SUCTION, WITH YELLOWISH GASTRIC OUTPUT OBSERVED. ON ETT ATTACHED TO MECHANICAL VENTILATOR ON A/C VC MODE, FIO2- 35% TV-400ML RATE-16CPM PEEP-5, SPO2 AT 98% SPO2, NOT IN DISTRESS, WITH EQUAL CHEST RISE OBSERVED. ON SINUS BRADYCARDIA ON BEDSIDE MONITOR. WITH RIGHT UPPER ARM PICC LINE, DOUBLE LUMEN- DRESSING DRY AND INTACT- FLOWING TO NS AT TKO AND DOPAMINE AT 5 MCG/KG/MIN. WITH ANOTHER PICC LINE OVER LEFT UPPER ARM- DRESSING DRY AND INTACT- FLOWING WELL TO PRECEDEX 0.4 MCG/KG/HR AND DEXTROSE 10% AT 50 ML/HR. WITH POST-OP MID ABDOMINAL WOUND DRESSING FROM SURGERY (E/LAP WITH BOWEL RESECTION AND ILEOCYSECTOMY) THIS MORNING - DRESSING DRY AND INTACT. WITH MOHSEN DRAIN ON NEGATIVE SUCTION AT LEFT LOWER QUADRANT WITH SEROSANGUINEOUS OUTPUT. WITH SIGMOID COLOSTOMY, STOMA IS INTACT, MOIST AND PINK TO RED IN COLOR WITH PERISTOMA SKIN NORMAL- WITH BROWNISH LIQUID STOOL OBSERVED IN MODERATE AMOUNT. ON BROWN CATHETER DRAINING BY GRAVITY TO YELLOW-COLORED URINE. WITH EXISTING WOUND AT BACK AREA- MALATHI AND HEALED WOUND OVER BUTTOCKS AREA. SAFETY AND SEIZURE PRECAUTIONS IN PLACE AND MAINTAINED. CALL LIGHT PLACED WITHIN REACHED. HOB AT 30 DEGREES AND BED ON LOW POSITION. WILL MONITOR PT CLOSELY. Addendum: 05/20/23 at 0054 by ALBERTINA HADLEY RN WITH LEFT FOREARM PURPLISH BRUISE OBSERVED.
--- NOTE | 2023-05-19 20:00 | NUR ---
REPOSITIONED PT. BEDSIDE CARE DONE. ORAL CARE DONE. KEPT MONITORED.
[2023-05-19] MEDS: MULTIVITAMIN-12 10 ML in DEXTROSE 50% 600 ML, AMINO ACIDS 8.5% 500 ML, FAT EMULSION 20%... IV SCH ×4 (20:08)
--- NOTE | 2023-05-19 20:08 | NUR ---
TPN STARTED THRU CENTRAL LINE AND REGULATED TO 50 ML//HR PER MD ORDER.
[2023-05-19] MEDS ORDERED: AMIODARONE 200 MG TAB PO SCH (21:00)
--- NOTE | 2023-05-19 21:00 | NUR ---
PT WITH DUE MIDODRINE TAB BUT NO UPDATED DIET ORDER POST-OP. SURGEON DR. VELIZ INFORMED WITH ORDER FOR NPO EXCEPT MEDS- CARRIED OUT.
--- NOTE | 2023-05-19 21:04 | NUR ---
SEEN AND EXAMINED AT BEDSIDE BY DR. AMEZUQITA. UPDATED PTS CURRENT STATUS. NO NEW ORDERS MADE.
--- NOTE | 2023-05-19 22:00 | NUR ---
REPOSITIONED PT. BEDSIDE CARE DONE. KEPT WARM WITH BLANKETS AND KEPT MONITORED.
--- NOTE | 2023-05-19 22:40 | NUR ---
MOHSEN DRAIN FULLY INFLATED. 60 ML SEROSANGUINEOUS OUTPUT OBTAINED AND NEGATIVE PRESSURE APPLIED AGAIN.
[2023-05-20] VITALS (29 sets, daily range): BP systolic 91–177; BP diastolic 42–89; PULSE 54–86; RESP 17–34; TEMP 97–101.1; O2SAT 93–100
--- NOTE | 2023-05-20 | NUR ---
REPOSITIONED PT. BEDSIDE CARE DONE. ORAL CARE DONE. KEPT MONITORED.
[2023-05-20] MEDS: BLOOD GLUCOSE MONITORING 1 DEV DEV FS SCH ×5 (00:45→23:54)
[2023-05-20] MEDS: INSULIN LISPRO SLIDING SCALE 100 UNITS/ML VIAL SUBQ PRN ×5 (00:49→23:56)
[2023-05-20] MEDS: HYDRAGUARD CREAM TP SCH ×2 (01:01→12:45)
--- NOTE | 2023-05-20 02:00 | NUR ---
REPOSITIONED PT. BEDSIDE CARE DONE. KEPT MONITORED.
--- NOTE | 2023-05-20 03:00 | NUR ---
ASSESSED RESPONSE TO STIMULI. ON DEEP SEDATION, UNRESPONSIVE TO PAIN STIMULI. V/S WNL. PRECEDEX TITRATED DOWN FROM O.4 MCG/KG/HR TO 0.3 MCG/KG/HR. WILL MONITOR AFTER 30 MINS.
--- NOTE | 2023-05-20 03:09 | NUR ---
PT STILL WITH 1 AVAILABLE PRBC. LATEST HGB 11.5. NO SIGNS OF BLEEDING. MESSAGED DR. LANG IF STILL NEED TO TRANSFUSE AVAILABLE BLOOD. ALSO UPDATED PTS CURRENT LABS AND CONDITION. DR. LANG REPLIED TO HOLD THE TRANSFUSION.
[2023-05-20] MEDS: methylPREDNISolone SS 40 MG/ML VIAL IVP SCH ×3 (04:28→20:30)
[2023-05-20] MEDS: MIDODRINE 5 MG TAB PO SCH ×3 (04:28→21:00)
[2023-05-20] MEDS: MEROPENEM 1,000 MG in NACL 0.9% 50 ML IV SCH ×3 (04:28→20:27)
[2023-05-20] MEDS: VANCOMYCIN 1.25GM PREMIX 250 ML IV SCH ×2 (04:29→17:45)
[2023-05-20] MEDS: ACETAMINOPHEN 325 MG TAB PO PRN ×3 (04:29→17:47)
--- NOTE | 2023-05-20 05:00 | NUR ---
SPONGE BATH DONE. KEPT CLEAN AND DRY.
[2023-05-20 05:26] LABS: BASOPHILS % (AUTO) 0.1 % (0.0-2.0); HEMOGLOBIN 12.1 g/dL (12.0-18.0); LYMPHOCYTES # (AUTO) 0.1 K/uL (2.0-11.5); MEAN CORPUSCULAR HEMOGLOBIN 32 pg (27-31); MEAN CORPUSCULAR HGB CONC 34 g/dL (33-37); MEAN CORPUSCULAR VOLUME 95.1 fL (80-94); MONOCYTES # (AUTO) 0.3 K/uL (0.8-1.0); MONOCYTES % (AUTO) 3.5 % (1.7-9.3); NEUTROPHILS # (AUTO) 8.8 K/uL (1.8-7.7); PLATELET COUNT (AUTO) 74 K/uL (140-450); RED BLOOD CELL COUNT(AUTO) 3.78 MIL/uL (4.20-6.10); RED CELL DISTRIBUTION WIDTH 16.2 % (11.6-13.7); WHITE BLOOD COUNT (AUTO) 9.2 K/uL (4.8-10.8)
--- NOTE | 2023-05-20 05:55 | NUR ---
CHILLS NOTED. TEMP 95.2 F. REQUESTED NATIVIDAD TRONCOSO. LAYERED WITH THICK BLANKETS AND KEPT WARM. KEPT MONITORED.
[2023-05-20 05:58] LABS: NEUTROPHILS % (AUTO) 95.4 % (42.2-75.2)
[2023-05-20 06:15] LABS: MAGNESIUM 2.4 mg/dL (1.8-2.4); PHOSPHORUS 2.9 mg/dL (2.5-4.9)
[2023-05-20 06:29] LABS: ANION GAP 7.7 (8-16); CARBON DIOXIDE 31.6 mmol/L (21-32); POTASSIUM 4.3 mmol/L (3.5-5.1)
[2023-05-20 06:47] LABS: CREATININE 0.7 mg/dL (0.6-1.3)
--- NOTE | 2023-05-20 07:20 | NUR ---
REPORT GIVEN TO DAY SHIFT NURSE, GABRIELLE BORREGO. ALL QUESTIONS ASKED. LATEST TEMP OF PT IS 98.1 F.
--- NOTE | 2023-05-20 07:30 | NUR ---
Received report from shift supervisor rn nurse GABRIELLE Moore. Patient is AOx0 unable to follow commands. PERRL noted. Currently on ETT to vent A/C VC FIO2 25%, VT 400, RR 16, Peep 5 with SpO2 saturation of 94%. Sinus Rhythm on monitor. Abdomen is distended. Abdominal dressing is dry and intact. Colostomy bag with beefy red stoma with no leakage or redness around the skin on right quadrant with brown watery stool. MOHSEN drain to the left lateral side with yellow red fluid noted. Patient has NGT to left nare currently NPO with exception of meds on low intermittent suction with green fluid noted. Sacral wound and upper back cut open to air. Right midline with no ecchymosis or redness noted infusing normal saline at TKO.Left upper picc line with no redness and minor ecchymosis a insertion site infusing Precedex 0.3 mcg/hr, Dopamine 5 mcg/hr, and TPN infusing at 50 ml/hr. Levophed on standby. Donis catheter to gravity with no dependent loops with yellow urine. Standard precaution, HOB 30 degrees for aspiration precaution, bed wheels locked and in lowest position for patient safety. Addendum: 05/20/23 at 1005 by KUN SIDHU RN Pt has skin tear on right toes bony prominence. No purulent or odorous drainage noted.
--- NOTE | 2023-05-20 07:51 | NUR ---
Dr. Rosales rounded at patient bedside. No new orders received. Per MD "once patient is stable lets get him trache and peg." Will continue to follow plan of care.
--- NOTE | 2023-05-20 08:35 | NUR ---
Reached out to Dr. Barrera regarding patients low platelet levels of 74. Instructed to hold Heparin and Aspirin for now. Will continue to follow plan of care.
[2023-05-20] MEDS: MAGNESIUM HYDROXIDE 2400 MG/30 ML UDC PO SCH (08:51)
[2023-05-20] MEDS: DOCUSATE 100 MG/10 ML UDC GT SCH ×3 (08:51→17:47)
[2023-05-20] MEDS: FUROSEMIDE 20 MG/2 ML VIAL IVP SCH ×2 (08:52→20:30)
[2023-05-20] MEDS: FAMOTIDINE 20 MG/2 ML VIAL IV SCH ×2 (08:52→20:30)
[2023-05-20] MEDS: SIMVASTATIN 20 MG TAB PO SCH (08:52)
--- NOTE | 2023-05-20 08:54 | NUR ---
Patients temperature 101.1F gave 650 mg of Acetaminophen, patient tolerated medication. Will reassess patient within 1hr.
[2023-05-20] MEDS: ASPIRIN 81 MG TAB.CHEW GT SCH (08:55)
[2023-05-20] MEDS: levETIRAcetam 1,500 MG in NACL 0.9% 100 ML IV SCH ×2 (08:56→20:28)
--- NOTE | 2023-05-20 09:20 | NUR ---
Dr. aBrrera rounded at patients bedside. Mentioned to MD regarding patients edematous scrotum. MD ordered ultrasound for the scrotum. Wants patients to have CBC done at 1700 to recheck the patients platelet levels. Will continue to follow plan of care.
--- NOTE | 2023-05-20 09:54 | NUR ---
Status update: Patients temperature is 100.0F after reassessment. Provided patient with ice packs, took off patients socks, and removed covers. Will reassess patient. Will continue to follow plan of care.
--- NOTE | 2023-05-20 11:08 | NUR ---
Reassessed patients temperature after cooling measures were implemented patients temperature 101F. Reached out to Dr. Barrera regarding patients temperature. No response from MD yet. Will continue to follow plan of care.
--- NOTE | 2023-05-20 11:12 | NUR ---
Dr. Barrera gave new orders. Wants patient to get blood and urine culture and wants patient to have one dose of Motrin. Will continue to follow plan of care.
[2023-05-20] MEDS ORDERED: IBUPROFEN 600 MG TAB PO PRN (12:50)
[2023-05-20] MEDS: SKINTEGRITY HYDROGEL TP SCH (13:07)
[2023-05-20] MEDS: FLUCONAZOLE 400 MG/NS PREMIX 200 ML IV SCH (13:27)
[2023-05-20] MEDS: DEXMEDETOMIDINE HCL 400 MCG in NACL 0.9% 96 ML IV PRN (15:50)
[2023-05-20] MEDS: DOPamine 400 MG/D5W PREMIX 250 ML IV PRN (15:54)
--- NOTE | 2023-05-20 17:00 | NUR ---
Changed patients colostomy bag including flange, cut as closest possible to patients stoma to prevent skin irritation. Stoma is beefy red with no redness noted around the skin. Patient tolerated procedure. Will continue to follow plan of care.
[2023-05-20 17:39] LABS: HEMATOCRIT 33.6 % (36-52); HEMOGLOBIN 11.3 g/dL (12.0-18.0); MEAN CORPUSCULAR HEMOGLOBIN 32 pg (27-31); MEAN CORPUSCULAR HGB CONC 34 g/dL (33-37); MEAN CORPUSCULAR VOLUME 96.4 fL (80-94); PLATELET COUNT (AUTO) 114 K/uL (140-450); RED BLOOD CELL COUNT(AUTO) 3.49 MIL/uL (4.20-6.10); RED CELL DISTRIBUTION WIDTH 16.4 % (11.6-13.7); WHITE BLOOD COUNT (AUTO) 14.7 K/uL (4.8-10.8)
[2023-05-20 18:01] LABS: BASOPHILS % (MANUAL) 0 % (0-2); EOSINOPHILS % (MANUAL) 1 % (0-4); LYMPHOCYTES % (MANUAL) 6 % (20-46); MONOCYTES % (MANUAL) 4 % (5-12)
--- NOTE | 2023-05-20 19:21 | NUR ---
RECEIVED REPORT FROM DAY SHIFT NURSESALIMA RN FOR CONTINUITY OF CARE. ALL CARES ASSUMED.
--- NOTE | 2023-05-20 19:21 | NUR ---
Endorsed report to manager night nurse Michael Hendrix RN for continuity of care.
--- NOTE | 2023-05-20 19:23 | NUR ---
SEEN AND ASSESSED PT AT BEDSIDE. RECEIVED PT ON SEMI-MONACO'S POSITION WITH SIDE RAILS RAISED UP. PT IS SEDATED, AROUSABLE TO PAIN STIMULI. WITH NGT ATTACHED TO LEFT NARE ON LOW INTERMITTENT SUCTION- NO DRAINING MOVEMENT OBSERVED. WITH ETT ATTACHED TO VENT ON A/C VC MODE FIO2 30% TV-400ML PEEP-5 RR-16CPM, SPO2 98% NOT IN DISTRESS WITH BILATERAL CHEST RISE. WITH RIGHT UPPER ARM MIDLINE, WITH DRESSING DUE FOR CHANGE- FLOWING TO NS AT TKO. WITH ANOTHER LEFT UPPER ARM PICC LINE-DRESSING DRY AND INTACT- FLOWING WELL TO DOPAMINE AT 5 MCG/KG/MIN, PRECEDEX AT 0.3 MG/KG/HR, AND TPN AT 50 ML/HR. OVER-ALL SKIN IS PALE WITH MINOR PURPLISH BRUISE ON LEFT FOREARM. WITH ABDOMINAL MIDLINE SURGICAL WOUND DRESSING - DRY AND INTACT. WITH RLQ MOHSEN DRAIN ON NEGATIVE SUCTION WITH SEROSANGUINEOUS OUTPUT. WITH COLOSTOMY ATTACHED BAG- GREENISH LIQUID OUTPUT OBSERVED SMALL AMOUNT- STOMA IS MOIST AND PINK TO RED IN COLOR. WITH BROWN CATHETER DRAINING BY GRAVITY TO YELLOW-COLORED URINE. WITH SMALL OPEN SKIN TEAR ON RIGHT TOE. HEAD OF BED MAINTAINED AT [address] ON LOW POSITION.MAINTAINED ON SIDE RAILS. CALL LIGHT PLACED WITHIN REACHED. SAFETY AND SEIZURE PRECAUTIONS OBSERVED. WILL MONITOR PT. CLOSELY.
[2023-05-20] MEDS: MULTIVITAMIN-12 10 ML in DEXTROSE 50% 600 ML, AMINO ACIDS 8.5% 500 ML, FAT EMULSION 20%... IV SCH ×4 (19:44)
--- NOTE | 2023-05-20 20:00 | NUR ---
NEW TPN BAG STARTED AND REGULATED AT 50 ML/HR.
--- NOTE | 2023-05-20 20:10 | NUR ---
ADJUSTED NGT AND MAINTAINED ON LOW INTERMITTENT SUCTION- OBSERVED ACTIVE DRAINING OF YELLOWISH TO GREENISH OUTPUT.
--- NOTE | 2023-05-20 20:20 | NUR ---
RIGHT UPPER ARM MID LINE DRESSING CHANGED. KEPT INTACT.
--- NOTE | 2023-05-20 21:00 | NUR ---
MIDODRINE TAB NOT ADMINISTERED DUE TO ELEVATED BLOOD PRESSURE- 150/74 MMHG.
[2023-05-21] VITALS (31 sets, daily range): BP systolic 91–158; BP diastolic 51–81; PULSE 45–98; RESP 12–29; TEMP 98.1–99; O2SAT 81–100
[2023-05-21] MEDS: HYDRAGUARD CREAM TP SCH ×2 (01:00→12:15)
--- NOTE | 2023-05-21 03:00 | NUR ---
SPONGE BATHING DONE. LINENS AND GOWN CHANGED. WOUND ASSESSMENT DONE. MEASURED AND TAKEN PHOTO OF LEFT FOREARM PURPLISH BRUISE - 16CMS.
--- NOTE | 2023-05-21 03:30 | NUR ---
DESATURATION OF OXYGEN OBSERVED -80%. ORAL AND ETT SECRETIONS SUCTIONED NEEDED. RAISED HOB. ADJUSTED PULSE OXIMETER. SPO2 - 86-100%.
[2023-05-21] MEDS: VANCOMYCIN 1.25GM PREMIX 250 ML IV SCH ×2 (05:00→05:39)
[2023-05-21] MEDS: DEXMEDETOMIDINE HCL 400 MCG in NACL 0.9% 96 ML IV PRN ×2 (05:27→17:29)
[2023-05-21] MEDS: MIDODRINE 5 MG TAB PO SCH ×3 (05:38→20:40)
[2023-05-21] MEDS: methylPREDNISolone SS 40 MG/ML VIAL IVP SCH ×2 (05:39→20:10)
[2023-05-21] MEDS: MEROPENEM 1,000 MG in NACL 0.9% 50 ML IV SCH ×3 (05:39→20:10)
[2023-05-21 05:41] LABS: BASOPHILS % (AUTO) 0.2 % (0.0-2.0); HEMATOCRIT 28.7 % (36-52); HEMOGLOBIN 9.6 g/dL (12.0-18.0); LYMPHOCYTES # (AUTO) 0.2 K/uL (2.0-11.5); LYMPHOCYTES % (AUTO) 1.8 % (20.5-51.1); MEAN CORPUSCULAR HEMOGLOBIN 33 pg (27-31); MEAN CORPUSCULAR HGB CONC 34 g/dL (33-37); MEAN CORPUSCULAR VOLUME 96.8 fL (80-94); MONOCYTES # (AUTO) 0.6 K/uL (0.8-1.0); MONOCYTES % (AUTO) 4.8 % (1.7-9.3); NEUTROPHILS # (AUTO) 11.5 K/uL (1.8-7.7); PLATELET COUNT (AUTO) 105 K/uL (140-450); RED BLOOD CELL COUNT(AUTO) 2.97 MIL/uL (4.20-6.10); RED CELL DISTRIBUTION WIDTH 15.7 % (11.6-13.7); WHITE BLOOD COUNT (AUTO) 12.3 K/uL (4.8-10.8)
[2023-05-21 05:45] LABS: NEUTROPHILS % (AUTO) 93.2 % (42.2-75.2)
[2023-05-21 05:57] LABS: ANION GAP 7.8 (8-16); CARBON DIOXIDE 33.5 mmol/L (21-32); CREATININE 0.8 mg/dL (0.6-1.3); POTASSIUM 5.3 mmol/L (3.5-5.1)
[2023-05-21 05:58] LABS: MAGNESIUM 2.1 mg/dL (1.8-2.4); PHOSPHORUS 6.2 mg/dL (2.5-4.9)
--- NOTE | 2023-05-21 06:07 | NUR ---
LAB DEPT CALLED REPORTING CRITICAL LAB VALUES OF GLUCOSE 743 AND VANCOMYCIN 19.8. 6AM NURSE ACCUCHECK - 153 MG/DL. FOR REPEAT EXTRACTION OF BLOOD FOR REPEAT TESTING.
--- NOTE | 2023-05-21 06:10 | NUR ---
ABOUT TO ADMINISTER DUE VANCOMYCIN MED BUT LAB CALLED BECAUSE OF VANCO TROUGH RESULT OF 19.8. MEDICATION NOT ADMINISTERED.
[2023-05-21] MEDS: BLOOD GLUCOSE MONITORING 1 DEV DEV FS SCH ×4 (06:23→23:23)
[2023-05-21] MEDS: INSULIN LISPRO SLIDING SCALE 100 UNITS/ML VIAL SUBQ PRN ×4 (06:25→23:23)
[2023-05-21 06:46] LABS: ANION GAP 4.1 (8-16); CARBON DIOXIDE 36.6 mmol/L (21-32); CREATININE 0.8 mg/dL (0.6-1.3); POTASSIUM 3.7 mmol/L (3.5-5.1)
--- NOTE | 2023-05-21 07:00 | NUR ---
RECEIVED REPORT FROM AVNI ANTHONY PT IS ADMITTED FOR SEPSIS AND PNA PT CAN OPEN EYES AND MILDLY ABLE TO MOVE ALL EXTREMITY WITH MILD STIMULI VS/ 98.6, HR 46, 100% O2 SAT RR 16 TREE CARE FOREMAN 150/64 PT IS ON ETT TO VENT SETTING FIO2 30% TV 400 TRR 16 PEEP 5 PT HAS LEFT NARES NGT CONNECTED TO LIS DRAINAGE MARCUS YELLOW COLOR. PT HAS RIGHT LOWER COLOSTOMY. DARK BROWN LIQUID STOOL. PINK STOMA. PT HAS BROWN CATH PATENT DRAINING YELLOW URINE. PT HAS MARTHA PICC AND KRISTI MIDLINE. WITH DOPAMINE DRIP 2MCG, TPN AT 50, PRECEDEX 0.3 MCG. PT HAS BILATERAL ARM DISCOLORATION MIDABDOMEN INCISION WITH DRESSING DRY AND INTACT WITH 1 MOHSEN DRAIN SEROSANGUINOUS DRAINAGE. PT CALL LIGHT WITHIN REACH, BED IS LOCKED AND IN LOW POSITIION KEPT SAFE AND COMFORTABLE WILL MONITOR. Addendum: 05/21/23 at 0811 by ISAIAH MUSA RN CORRECTION FOR SKIN ASSESSMENT BILATERAL ARM ERROR ENTRY. CORRECTED LEFT ARM DISCOLORATION NOTED. Addendum: 05/21/23 at 1332 by ISAIAH MUSA RN ERROR ENTRY PT HAS COLOSTOMY , CORRECTION PT HAS ILEOSTOMY PATENT AND INTACT
--- NOTE | 2023-05-21 07:15 | NUR ---
REPORT GIVEN TO DAY SHIFT NURSES, SALIMA AND ISAIAH FOR CONTINUITY OF CARE. ALL QUESTIONS ANSWERED.
[2023-05-21] MEDS: ALBUTEROL 0.083% 2.5 MG/3 ML NEBU INH PRN (07:25)
--- NOTE | 2023-05-21 07:25 | NUR ---
RECEIVED ON A [employer] R860 VENTILATOR PLUGGED INTO RED OUTLET TOLERATING WELL WITHOUT ADVERSE REACTIONS NOTED TO AN ENDOTRACHEAL TUBE #7.5 SECURED AT 22cm TEETH/GUM LINE WITH AN ANCHOR FAST CUFF PRESSURE CHECKED NOTED AMBU BAG AT BEDSIDE SEDATED RESTING COMFORTABLY EQUAL CHEST RISE ENDOTRACHEAL SUCTION FOR SMALL THIN PALE YELLOW SECRETIONS AIRWAY PATENT
--- NOTE | 2023-05-21 07:28 | NUR ---
DR. PROSPER BROOKS ROUNDING ICU; VORBO: ROUTINE ABG; CALL MD WITH CRITICAL VALUES
--- NOTE | 2023-05-21 07:53 | NUR ---
Spoke to pharmacist Isabel regarding patients medications. Per pharmacist she's going to get a hold of the MD to talk about the patients dose change due to Trough levels being 19.8. Per Pharmacist she will also get a hold of lab due to patients increase in phosphorus levels thus can affect TPN.
--- NOTE | 2023-05-21 07:57 | NUR ---
DR. BROOKS CAME IN AND ASSESS PT DID CHART REVIEW MADE AWARE OF BP 150/64 NO NEW ORDER GIVEN TO NNURSING JUST TO MONITOR.
--- NOTE | 2023-05-21 08:29 | NUR ---
CXR DONE FOR PATIENT TODAY
[2023-05-21] MEDS: MAGNESIUM HYDROXIDE 2400 MG/30 ML UDC PO SCH (08:42)
[2023-05-21] MEDS: DOCUSATE 100 MG/10 ML UDC GT SCH ×3 (08:42→16:25)
[2023-05-21] MEDS: SIMVASTATIN 20 MG TAB PO SCH (08:42)
[2023-05-21] MEDS: FAMOTIDINE 20 MG/2 ML VIAL IV SCH (08:42)
[2023-05-21] MEDS: FUROSEMIDE 20 MG/2 ML VIAL IVP SCH ×2 (08:43→20:09)
[2023-05-21] MEDS: VANCOMYCIN 1,000 MG in DEXTROSE 5% 250 ML IV SCH ×2 (08:45→20:12)
--- NOTE | 2023-05-21 09:03 | NUR ---
Reached out to Dr. Barrera regarding patients dark red fluid being suctioned out via his NGT in intermittent suctioning. MD was also made aware that patients colostomy secretions are dark green now. MD gave orders to have a GI consultation with Dr. Gutierrez as the preferred MD.
--- NOTE | 2023-05-21 09:08 | NUR ---
assess pt today noticed pt has coffee ground color drain in the left nares ngt on low intemittest suction. pt has 80 ml serosaguinous drain in the grace drain. pt midabomen dressing dry and intact pt colostomy bag has dark green liquid color drain inatct, stoma color is beefy red. recheck labs hgb and hct 9.6 and 28.7 today. will call md regarding assessment findings. Addendum: 05/21/23 at 1333 by ISAIAH MUSA RN CORRECTION PT HAS IELOSTOMY.
--- NOTE | 2023-05-21 09:36 | NUR ---
GI consultation was entered. Reached out to Dr. Gutierrez regarding MD Folres consultation. No response from MD Gutierrez yet.
--- NOTE | 2023-05-21 09:40 | NUR ---
Salma from pharmacy called and stated that patients redrawn phosphorus is now the correct number. Also stated to have started the new dose of Vancomycin for patient.
--- NOTE | 2023-05-21 10:03 | NUR ---
05/21/23 RD FOLLOW UP COMPLETED.PLEASE REFER TO NUTRITION ASSESSMENT UNDER CARE ACTIVITY FOR ESTIMATED NUTRITIONAL NEEDS. 1. CONTINUE TPN PER PHARMACY. 2. RD WILL MONITOR NUTRITION ESTIMATED NEEDS, GI ISSUES, WEIGHT, AND NUTRITION RELATED LAB VALUES. 3. RD TO FOLLOW-UP IN 2-3 DAYS PATIENT IS HIGH RISK. RILEY TROTTER RD
[2023-05-21] MEDS: levETIRAcetam 1,500 MG in NACL 0.9% 100 ML IV SCH ×2 (10:08→20:38)
--- NOTE | 2023-05-21 10:15 | NUR ---
DR. SOTO CAME IN AND ASSESS PT FOR GI CONSULT REGARDING PT CHANGE ON CONDITION ON HIS NGT COFFEE GROUND COLOR DRAINAGE, CONNECTED TO LIS AND O COLOSTOMY HAS DARK GREEN LIQUID DRAINAGE. AND TRNDING DOWN ON HGBAND HCT TODAY. ORDER TO CALL DR. ESPINOZA SURGEON TO LET HIM AWARE. Addendum: 05/21/23 at 1023 by ISAIAH MUSA RN ERROR ENTRY NAME CORRECTION DR. VELIZ TO BE CALLED.
--- NOTE | 2023-05-21 10:30 | NUR ---
Dr. Gutierrez gave new orders for patient. Will hold intermittent suction for 5 hrs and continue for 1 hr after the 5 hrs are met. Once Dr. Arreola puts patient on feedings it can get stopped.
--- NOTE | 2023-05-21 10:36 | NUR ---
SEDATED STABLE EQUAL CHEST RISE GOOD AERATION THROUGHOUT BILATERAL LUNG ALMARAZ AIRWAY PATENT CALL LIGHT WITHIN REACH
--- NOTE | 2023-05-21 11:34 | NUR ---
CALLED DR. VELIZ FOR PT MOHSEN DRAIN OUTPUT IS 300 ML SEROSANGUINEOUS WITH MUCOUSY CLOT 300 ML AMOUNT AND FILL UP FAST. NO NEW ORDER GIVEN MD ASK FOR WBC AND HGB LEVEL TODAY MADE HIM AWARE. AWAITING CALL BACK.
--- NOTE | 2023-05-21 11:37 | NUR ---
CALLED DR. PROSPER BROOKS AT [facility] TO REVIEW ABG RESULTS; BETZAIDA/EXCHANGE TO TABATHA CARDENAS MD; REQUIRED PATIENT INFORMATION AND CALL BACK NUMBER GIVEN [phone]
--- NOTE | 2023-05-21 12:06 | NUR ---
CALL BACK FROM DR. PROSPER BROOKS; REVIEWED ABG RESULTS; ABG PUNCTURE X 4 WITHIN 22 MINS; PATIENT WITH INCREASED AGITATION AND RR AT 2--32 BPM; TORBO DR. BROOKS: DECREASED Vt TO 350ml; DECREASED MECHANICAL RATE TO 12 BPM; HOLD SBT TRIAL Addendum: 05/21/23 at 1217 by Logan Timmons RT ABG IN AM 05/21 0800
[2023-05-21] MEDS: FLUCONAZOLE 400 MG/NS PREMIX 200 ML IV SCH (12:14)
[2023-05-21] MEDS: SKINTEGRITY HYDROGEL TP SCH (12:15)
--- NOTE | 2023-05-21 12:50 | NUR ---
DR. LANG CAME IN AND ASSESS PT AND DID CHART REVIEW NO NEW ORDER GIVEN AT THIS TIME. Addendum: 05/21/23 at 1322 by ISAIAH MUSA RN ADDITIONALLY DOCTOR HAVE A DISCUSSION WITH DR. SOTO PT POSSIBLE EGD PROCEDURE TOMORROW
--- NOTE | 2023-05-21 12:52 | NUR ---
Salma pharmacist called stating that the patients TPN rate will be changed to 60 ml/hr and will start tonight when the new TPN bag is hung.
[2023-05-21 12:58] LABS: BASOPHILS % (AUTO) 0.1 % (0.0-2.0); HEMOGLOBIN 10.1 g/dL (12.0-18.0); LYMPHOCYTES # (AUTO) 0.4 K/uL (2.0-11.5); LYMPHOCYTES % (AUTO) 2.5 % (20.5-51.1); MEAN CORPUSCULAR HEMOGLOBIN 32 pg (27-31); MEAN CORPUSCULAR HGB CONC 34 g/dL (33-37); MEAN CORPUSCULAR VOLUME 94.6 fL (80-94); MONOCYTES # (AUTO) 0.6 K/uL (0.8-1.0); MONOCYTES % (AUTO) 4.5 % (1.7-9.3); NEUTROPHILS # (AUTO) 13.1 K/uL (1.8-7.7); NEUTROPHILS % (AUTO) 92.9 % (42.2-75.2); PLATELET COUNT (AUTO) 104 K/uL (140-450); RED BLOOD CELL COUNT(AUTO) 3.17 MIL/uL (4.20-6.10); RED CELL DISTRIBUTION WIDTH 15.6 % (11.6-13.7); WHITE BLOOD COUNT (AUTO) 14.1 K/uL (4.8-10.8)
--- NOTE | 2023-05-21 13:00 | NUR ---
SEDATED STABLE NO DISTRESS NOTED GOOD CHEST RISE AIRWAY PATENT; BECKI: DR. BROOKS PER ABG RESULTS DECREASED Vt 350ml DECREASED MECHANICAL RATE TO 12 BPM TOLERATING WELL WITHOUT COMPLICATIONS NOTED GOOD CHEST RISE AIRWAY PATENT CALL LIGHT WITHIN REACH Addendum: 05/21/23 at 1410 by Logan Timmons RT ISAIAH/DESK PEN SET ASSEMBLER NOTIFIED OF VENTILATOR CHANGES
--- NOTE | 2023-05-21 13:42 | NUR ---
ADULT SPECIALIST CALLED RD IN AFTERNOON WITH NEW ORDER FROM MD TO START "TRICKLE" FEEDINGS. KIM RECOMMENDS STARTING VITAL AF 1.2 MALLY @ 10 ML/HR FOR THE NEXT 24 HOURS AND RE-ASSESS AFTER THAT. FWF 50 ML/HR OR PER MD. Addendum: 05/21/23 at [address] FWF MISSING FREQUENCY. RECOMMEND FWF 50 ML Q6H OR PER MD.
--- NOTE | 2023-05-21 13:42 | NUR ---
Spoke with De ALVAREZ regarding patients trickle feedings. Per KIM stated she will do patients feeding recommendations.
--- NOTE | 2023-05-21 13:58 | NUR ---
DR. VELIZ ORDERED TO START NGT TRICKLE FEEDING RD RECOMMENCED VITAL AF 1.2 START AT 10 ML/HR WITH FREE WATER FLUSH AT 50 ML EVERY 6 HR. AND DO RESIDUAL CHECK Q6H AND HOLD FEEDING IF >300 ML AND RESUME FEED IF <100 ML
--- NOTE | 2023-05-21 14:56 | NUR ---
Reached out to Dr. Gutierrez regarding Dr. Arreola trickling feedings. Per MD Gutierrez ok to stop his prior orders.
--- NOTE | 2023-05-21 15:05 | NUR ---
Reached out to Dr. Arreola regarding patients new Vital AF 1.2 feeding. Per stated to keep patient on TPN until tube feedings are met. Addendum: 05/21/23 at 1806 by KUN SIDHU RN until feeding goal met
--- NOTE | 2023-05-21 15:50 | NUR ---
SEDATED RESTING COMFORTABLY WITHOUT EVIDENCE FOR RESPIRATORY DISTRESS NOTED EQUAL CHEST RISE GOOD AERATION THROUGHOUT BILATERAL LUNG ALMARAZ AIRWAY PATENT
--- NOTE | 2023-05-21 17:45 | NUR ---
SEDATED THROUGHOUT SHIFT INTERMITTENTLY OPENING OF EYES AND SLIGHTLY MOVING OF HEAD SIDE TO SIDE GOOD CHEST RISE ENDOTRACHEAL SUCTION FOR MODERATE THIN YELLOW SECRETIONS AIRWAY PATENT
--- NOTE | 2023-05-21 18:00 | NUR ---
started ngt feeding cleve af 1.2 at 10ml fwf at 50 q6 hr, and order to check residual q6hr schedule to do 0000 05/22 will endorse to night shift manager
--- NOTE | 2023-05-21 18:00 | NUR ---
started ngt feeding cleve af 1.2 at 10ml fwf at 50 q6 hr, and order to check residual q6hr schedule to do 0000 05/22 will endorse to mash grinder
--- NOTE | 2023-05-21 19:30 | NUR ---
RECEIVED REPORT FROM ISAIAH ANTHONY. PT IS ON ETT TO VENT- FIO2 28% TV 350 RR 12 PEEP 5. LEFT NARE NGT CONNECTED TO FEEDING @ 10ML/HR WITH 50ML/HR FWF Q6HRS. PT HAS RIGHT LOWER ILEOSTOMY WITH DARK GREEN DRAINAGE. BROWN CATH PATENT DRAINING YELLOW URINE. PT HAS MARTHA PICC AND KRISTI MIDLINE. DOPAMINE DRIP 2MCG, TPN AT 50, PRECEDEX 0.3 MCG. PT S/P EXPLORATORY LAPAROTOMY WITH DRESSING DRY AND INTACT WITH MOHSEN DRAINING TO GRAVITY. PT CALL LIGHT WITHIN REACH, SAFETY PRECAUTION IN PLACE.
--- NOTE | 2023-05-21 19:32 | NUR ---
REPORT GIVEN TO DREA ANTHONY FOR CONTINUITY OF CARE
[2023-05-21] MEDS: MULTIVITAMIN-12 10 ML in DEXTROSE 50% 600 ML, AMINO ACIDS 8.5% 500 ML, FAT EMULSION 20%... IV SCH ×4 (20:00)
[2023-05-21] MEDS: AMINO ACIDS IV SCH ×4 (20:04)
[2023-05-21] MEDS: MULTIVITAMIN IV SCH ×4 (20:04)
[2023-05-21] MEDS: [UNRECOGNIZED DRUG - OTHER] IV SCH ×4 (20:04)
[2023-05-21] MEDS: DEXTROSE IV SCH ×4 (20:04)
[2023-05-21] MEDS: PANTOPRAZOLE 40 MG INJ VIAL IVP SCH (20:09)
--- NOTE | 2023-05-21 21:00 | NUR ---
MIDODRINE 10 MG NOT GIVEN D/T BP WITHIN NORMAL LIMITS.
[2023-05-21] MEDS: DOPamine 400 MG/D5W PREMIX 250 ML IV PRN (22:22)
[2023-05-22] VITALS (36 sets, daily range): BP systolic 101–154; BP diastolic 42–88; PULSE 41–80; RESP 12–22; TEMP 97–99.2; O2SAT 59–99
--- NOTE | 2023-05-22 | NUR ---
PT WAS TURNED AND REPOSITIONED, ORAL CARE PROVIDED. NO DISTRESS NOTED
[2023-05-22] MEDS: HYDRAGUARD CREAM TP SCH ×3 (00:02→13:28)
--- NOTE | 2023-05-22 02:00 | NUR ---
PT TURNED AND REPOSITIONED, NO DISTRESS NOTED. WILL CONTINUE TO MONITOR.
--- NOTE | 2023-05-22 04:00 | NUR ---
MORNING CARE PROVIDED, TURNED AND REPOSITIONED. ORAL CARE DONE. NO DISTRESS
[2023-05-22] MEDS: MEROPENEM 1,000 MG in NACL 0.9% 50 ML IV SCH ×3 (04:53→20:59)
[2023-05-22] MEDS: POTASSIUM CHL 20 MEQ/D5-1/2NS 1,000 ML IV SCH ×2 (05:14→08:20)
[2023-05-22] MEDS: BLOOD GLUCOSE MONITORING 1 DEV DEV FS SCH ×3 (05:25→18:36)
[2023-05-22 05:33] LABS: BASOPHILS % (AUTO) 0.1 % (0.0-2.0); HEMATOCRIT 27.8 % (36-52); HEMOGLOBIN 9.3 g/dL (12.0-18.0); LYMPHOCYTES # (AUTO) 0.4 K/uL (2.0-11.5); LYMPHOCYTES % (AUTO) 2.7 % (20.5-51.1); MEAN CORPUSCULAR HEMOGLOBIN 32 pg (27-31); MEAN CORPUSCULAR HGB CONC 34 g/dL (33-37); MEAN CORPUSCULAR VOLUME 94.3 fL (80-94); MONOCYTES % (AUTO) 7.1 % (1.7-9.3); NEUTROPHILS # (AUTO) 12.7 K/uL (1.8-7.7); NEUTROPHILS % (AUTO) 90.1 % (42.2-75.2); PLATELET COUNT (AUTO) 100 K/uL (140-450); RED BLOOD CELL COUNT(AUTO) 2.95 MIL/uL (4.20-6.10); WHITE BLOOD COUNT (AUTO) 14.1 K/uL (4.8-10.8)
[2023-05-22] MEDS: MIDODRINE 5 MG TAB PO SCH ×4 (05:34→21:03)
[2023-05-22 05:35] LABS: ANION GAP 5.6 (8-16); CREATININE 0.7 mg/dL (0.6-1.3); POTASSIUM 3.6 mmol/L (3.5-5.1)
[2023-05-22 05:44] LABS: PHOSPHORUS 2.4 mg/dL (2.5-4.9)
--- NOTE | 2023-05-22 07:08 | NUR ---
ENDORSED PT TO GABRIELLE ANTUNEZ. PT IN NO DISTRESS.
--- NOTE | 2023-05-22 07:14 | NUR ---
ENDORSED TO MARKETING AUTOMATION MANAGER TO PRINT PHOTOGRAPHIC WOUND DOCUMENTATION. 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
--- NOTE | 2023-05-22 07:49 | NUR ---
NO SIGNS OF PAIN AT THIS TIME, CALL LIGHT IN HAND
--- NOTE | 2023-05-22 07:49 | NUR ---
ASSUMED CARE OF PT, ON VENT SETTINGS, ACVC FIO2 28%,TV 350, RATE 12, PEEP 5, PERRLA,SB 43, DIMINISHED ZANE SOUNDS,NG TUBE LEFT NARE VIT 1.2@ 100CC/HR, LEFT ARM PICC AND RGHT ARM MIDLINE, DOPAMINE @2MCG/KG/MIN ,TPN @ 600CC AND PRECEDX @ 0.3MCG/KG/HR, MOHSEN DRAIN LEFT ABD WITH SEROSANGUINEOUSB AND ILEOSTOMY TO RIGHT ABD, SACRUM NEW DISCOLORATION PER NIGHTSHIFT PICTURES TAKEN, HEALED ULCER RIGHT BUTTOCKS, SKIN TEAR RIGHT TOE, LFA PURPLE SKIN, F/C CLEAR YELLOW URINE.
--- NOTE | 2023-05-22 07:56 | NUR ---
started ngt feeding cleve af 1.2 at 10ml fwf at 50 q6 hr, and order to check residual q6hr schedule to do 0000 05/22 will endorse to surgical supply assistant Addendum: 05/22/23 at 0757 by ISAIAH MUSA RN error entry wrong date and time
[2023-05-22] MEDS: ALBUTEROL 0.083% 2.5 MG/3 ML NEBU INH PRN ×2 (07:59→13:25)
--- NOTE | 2023-05-22 08:00 | NUR ---
GOOD CHEST RISE COARSE RHONCHI BILATERAL ENDOTRACHEAL SUCTION FOR LARGE THIN YELLOW SECRETINS AIRWAY PATENT
--- NOTE | 2023-05-22 08:09 | NUR ---
ROUTINE ABG COMPLETED; NO ADVERSE REACTIONS NOTED
--- NOTE | 2023-05-22 08:12 | NUR ---
RECEIVED ON A [employer] PartnersSCAPE R860 VENTILATOR PLUGGED INTO RED OUTLET TOLERATING WELL WITHOUT COMPLICATIONS NOTED TO AN ENDOTRACHEAL TUBE #7.5 SECURED AT 22cm TEETH/GUM LINE WITH AN ANCHOR FAST CUFF PRESSURE CHECKED NOTED AMBU BAG AT BEDSIDE SEDATED EQUAL CHEST RISE GOOD AERATION THROUGHOUT BILATERAL LUNG ALMARAZ AIRWAY PATENT CALL LIGHT CONTROL WITHIN REACH
--- NOTE | 2023-05-22 08:28 | NUR ---
CALLED DR. GIANNI JUAREZ AT [facility] TO REVIEW ROUTINE ABG RESULTS; ERIK/EXCHANGE TO TABATHA CARDENAS MD; REQUIRED PATIENT INFORMATION AND CALL BACK NUMBER GIVEN [phone]
--- NOTE | 2023-05-22 08:44 | NUR ---
CALLL BACK FROM DR. ARLEEN GUZMAN; REVIEWED ABG RESULTS, CURRENT VENTILATOR SETTINGS, TOTAL RESPIRATORY RATE OF 3-5 BPM ABOVE MECHANICAL SET RATE OF [address] GUZMAN: NO VENTILATOR CHANGES
[2023-05-22] MEDS: DEXMEDETOMIDINE HCL 400 MCG in NACL 0.9% 96 ML IV PRN ×2 (08:52→21:17)
--- NOTE | 2023-05-22 09:28 | NUR ---
SEDATED RESTING WEL NO EVIDENCE FOR PULMONARY DISTRESS NOTED GOOD CHEST RISE AND AERATION THROUGHOUT BILATERAL LUNG ALMARAZ AIRWAY PATENT CALL LIGHT CONTROL WITHIN REACH
[2023-05-22] MEDS: levETIRAcetam 1,500 MG in NACL 0.9% 100 ML IV SCH ×2 (09:35→21:00)
[2023-05-22] MEDS: DOCUSATE 100 MG/10 ML UDC GT SCH ×3 (09:35→17:00)
[2023-05-22] MEDS: VANCOMYCIN 1,000 MG in DEXTROSE 5% 250 ML IV SCH ×2 (09:36→20:58)
[2023-05-22] MEDS: SIMVASTATIN 20 MG TAB PO SCH (09:40)
[2023-05-22] MEDS: PANTOPRAZOLE 40 MG INJ VIAL IVP SCH ×2 (09:40→21:02)
[2023-05-22] MEDS: FUROSEMIDE 20 MG/2 ML VIAL IVP SCH ×2 (09:41→21:02)
[2023-05-22] MEDS: methylPREDNISolone SS 40 MG/ML VIAL IVP SCH ×2 (09:41→21:01)
[2023-05-22] MEDS: MAGNESIUM HYDROXIDE 2400 MG/30 ML UDC PO SCH (09:41)
--- NOTE | 2023-05-22 10:06 | NUR ---
REPOSITIONED, CALL LIGHT IN HAND , NO SIGNS OF PAIN NOTED AT THIS TIME
--- NOTE | 2023-05-22 11:14 | NUR ---
DR SANON HERE AT THIS TIME
--- NOTE | 2023-05-22 11:31 | NUR ---
WOUND CARE NOTE: PT. NO TRACH AND PEG PROCEDURES INSTEAD PT. WITH CT SCAN DEMONSTRATED EVIDENCE OF PERFORATED VISCUS. EMERGENCY SURGICAL PROCEDURE DONE WITH DR. VELIZ. DRAINAGE OF INTRA-ABDOMINAL ABSCESS SMALL BOWEL RESECTION WITH ILEOCECTOMY WITH PRIMARY ANASTAMOSIS AND DIVERTING LOOP ILEOSTOMY. STAFF REPORT CHANGE OF SKIN CONDITION. SKIN ASSESSMENT DONE WITH PRIMARY RN TULIO WITH POC DISCUSSED WITH TULIO HUNT AND CHARGE NURSE SHANAE. COMORBIDITIES RELATED TO DELAY WOUND HEALING, FURTHER SKIN BREAKS AND UN-AVOIDABLE PRESSURE INJURY: INFECTION, ACUTE HYPOXEMIC RESPIRATORY FAILURE,HYPOXEMIC DECREASE TISSUE PERFUSION,BRADYCARDIA VASOPRESSORS TO MAINTAIN MAP, DECREASE MOBILITY AND FUNCTIONAL ABILITIES, AND HOB ELEVATED THE MAJORITY OF TIMES DUE TO MEDICAL REASONS. TODAYS LABS WBC 14.1, RBC 2.95, H/H 9.3/27.8, ALBUMIN 0.8 AND ERVIN. COUNT 100 INTEGUMENTARY: MULTIPLE NEW DIFFUSED ECCHYMOSIS/BRISING SKIN TO LEFT UPPER ARM/ELBOW AND RIGHT LATERAL TRUNK OF BODY ABOVE HIP AREA, SKIN INTACT, NO EDEMA -LEFT ABDOMINAL WALL SURGICAL WOUND WITH SHAINA IN PLACE 12CM IN LENGTH, AREA DRY. CLEAN NO S/S OF WOUND DEHISCENSE. -LLQ ABD ILEOSTOMY JR STOMA SKIN CLEAN AND INTACT, STOMA MOIST, BEEFY RED, ROUND SHAPE 1 3/4 (44MM), PROTRUSION 1.5CM , LUMEN OPENING TO 6 OCLOCK -SCROTAL EDEMA +3 WITH THIN EASILY TORN SKIN -MOISTURE ASSOCIATED SKIN DAMAGE(MASD) TO: B/L GROINS, SCROTAL, SKIN MOIST -COCCYX DTI 1.5X0.5CM 100% MAROON COLOR, SKIN INTACT, JR-WOUND SKIN WITH PREVIOUS PRESSURE INJURY SACRAL RESURFACING SCARING TISSUE. -RIGHT HALLUX MEDIAL ASPECT SKIN TEAR 1X0.3CM DRY SCAB RECOMMENDATIONS: -ILEOSTOMY CARE PER PROTOCOL -ABDOMINAL STAPLE WOUND, KEEP DRY AND CLEAN, APPLY DRY DRESSING QD AND PRN IF SOILING WITH OSTOMY LEAKAGE -APPLY HYDRAGUARD TO ALL LIMBS, TRUNK OF BODY, GROINS AND SCROTAL BID AND PRN IF SOILING -ELEVATE SCROTAL WITH ROLLED PILLOWCASE -SACRALCOCCYX APPLY HYDROGUARD AND COVER WITH FOAM DRESSING QD AND PRN IF SOILING. OFFLOADING SACRALCOCCYX AND BILATERAL HEELS -PRESSURE REDISTRIBUTION SURFACE THERAPY CAROL ISOFLEX BRADLY MATTRESS -POSITIONING: TURN AND REPOSITION PATIENT Q 2H OR SOONER USE PILLOWS TO KEEP BONY PROMINENCES FROM DIRECT CONTACT WITH SURFACES USE REPOSITIONING WEDGES TO PROVIDE 30-DEGREE ANGLE FOR SIDE LYING POSITIONS OFFLOADING OR FOAM DRESSING TO ALL TUBING TO PREVENT MEDICAL DEVICES RELATED PRESSURE INJURY -RE-EVALUATING AND MANAGING INCONTINENCE MONITOR SKIN CONDITION DURING POSITION CHANGE DO NOT MASSAGE REDNESS, BONY PROMINENCES, DO NOT USE DONUT-TYPE DEVICES FREQUENT JR-CARE AND PROVIDE BARRIER CREAMS PRN IF SOILING MOISTURE CONTROL BY F/C, ABSORBENT PAD TO WICK AND HOLD MOISTURE. KEEP SKIN DRY AND PROTECT FROM FRICTION -MANAGE FRICTION/SHEAR/MOBILITY KEEP HOB AT THE LOWEST LEVEL OF ELEVATION NO MORE THAN 30 DEGREES UNLESS OTHERWISE CONTRAINDICATED USE LIFT SHEET OR TRANSFER DEVICE TO MOVE PATIENT AND PREVENT LATERAL SHEER. CONSIDER TRAPEZE IF APPROPRIATE PROTECT HEELS, ELBOWS BONY PROMINENCES WITH SKIN BERRIES OR FOAM DRESSING IF EXPOSED TO FRICTION OFFLOAD BILATERAL HEELS BY PLACING PILLOWS UNDER CALVES AT ALL TIMES, UNLESS OTHERWISE CONTRAINDICATED -NUTRITION: PLEASE FOLLOW RD RECOMMENDATIONS AND OFFER NUTRITION SUPPLEMENTS IF ORDERED.
--- NOTE | 2023-05-22 11:32 | NUR ---
WOUND CARE NURSE AT BEDSIDE, POSITIONED CHANGED, CALL LIGHT IN HAND, NO PAIN NOTICED AT THIS TIME
--- NOTE | 2023-05-22 11:55 | NUR ---
DIETARY AT BEDSIDE AT THIS TIME
[2023-05-22] MEDS: FLUCONAZOLE 400 MG/NS PREMIX 200 ML IV SCH (12:00)
--- NOTE | 2023-05-22 13:11 | NUR ---
DR SOTO HERE STATED THE TUBE FEEDING WILL INCREASE TO 20 CC/HR
--- NOTE | 2023-05-22 13:25 | NUR ---
SEDATED STABLE GOOD CHEST RISE ENDOTRACHEAL SUCTION FOR SMALL THIN PALE YELLOW SECRETIONS AIRWAY PATENT
--- NOTE | 2023-05-22 13:25 | NUR ---
CALL LIGHT CONTROL IN LEFT HAND
[2023-05-22] MEDS: SKINTEGRITY HYDROGEL TP SCH (13:28)
--- NOTE | 2023-05-22 13:40 | NUR ---
05/22/23 RD FOLLOW UP COMPLETED PLEASE REFER TO NUTRITION ASSESSMENT UNDER CARE ACTIVITY FOR ESTIMATED NUTRITIONAL NEEDS. 1. CONTINUE TPN PER PHARMACY WITH TUBE FEEDING OF CURRENT RATE 10ML/HR VITAL A.F. WITH FWF 50 Q6H. 2. ONCE PATIENT IS ABLE TO TOLERATE FULL TUBE FEEDING, PLEASE START AT 20ML/HR OF VITAL AF AND INCREASE BY 20ML/HR Q4H. GOAL RATE OF 55ML/HR WITH FWF OF 200ML Q6H. THIS WILL PROVIDE 1,584 CALORIES AND 96 GRAMS OF PROTEIN, MEETING ESTIMATED NUTRITIONAL NEEDS. 3. ONCE MEDICALLY APPROPRIATE PLEASE OFFER TENISHA BID FOR WOUNDS. THIS WILL PROVIDE 160 CALORIES AND 5 GRAMS OF PROTEIN. 4. RD WILL CONTINUE TO MONITOR WEIGHTS, GI ISSUES, SKIN INTEGRITY AND NUTRITION RELATED LABS. 5. RD TO FOLLOW-UP 2-3 DAYS, HIGH RISK CHYNA CLAYTON RD
[2023-05-22] MEDS ORDERED: FOAM DRESSING TP PRN (14:05)
--- NOTE | 2023-05-22 14:17 | NUR ---
call light in hand, no pain noted at this time
--- NOTE | 2023-05-22 15:10 | NUR ---
SEDATED NO APPARENT RESPIRATORY DISTRESS NOTED GOOD CHEST RISE AIRWAY PATENT Addendum: 05/22/23 at 1554 by Logan Timmons RT ([id number]) CALL LIGHT CONTROL IN LEFT HAND
--- NOTE | 2023-05-22 16:08 | NUR ---
pt resting in bed appears to be in no acute distress noted at this time, repositioned , call light in hand, no pain noted
[2023-05-22] MEDS: INSULIN LISPRO SLIDING SCALE 100 UNITS/ML VIAL SUBQ PRN (18:34)
--- NOTE | 2023-05-22 19:16 | NUR ---
SBAR GIVEN TO CRISTY(RN) AWARE
[2023-05-22] MEDS: MULTIVITAMIN IV SCH ×4 (20:55)
[2023-05-22] MEDS: [UNRECOGNIZED DRUG - OTHER] IV SCH ×4 (20:55)
[2023-05-22] MEDS: AMINO ACIDS IV SCH ×4 (20:55)
[2023-05-22] MEDS: DEXTROSE IV SCH ×4 (20:55)
--- NOTE | 2023-05-22 21:45 | NUR ---
PATIENT IS IN NO DISTRESS, CALL LIGHT WITHIN REACH, WILL CONTINUE TO MONITOR
[2023-05-22] MEDS: ONDANSETRON 4 MG/2 ML VIAL IVP PRN (22:46)
--- NOTE | 2023-05-22 23:08 | NUR ---
BEDSIDE ENDORSEMENT WAS GIVEN BY DAY SHIFT GABRIELLE HOLLEY
--- NOTE | 2023-05-22 23:09 | NUR ---
2100- SOMEWHAT RESTLESS AND TRYING TO MOVED UP BOTH HANDS AND ARMS TOWARD THE ETT, HENCE RESTRAINTS BOTH SIDES APPLIED
--- NOTE | 2023-05-22 23:11 | NUR ---
2100- AGITATED, PRECEDEX WAS INCREASED, SIDERAILS UP TIMES THREE AND BED IN LOW POSITION
--- NOTE | 2023-05-22 23:13 | NUR ---
2200- REPOSITIONED, ORAL CARE DONE
[2023-05-23] VITALS (39 sets, daily range): BP systolic 101–168; BP diastolic 53–78; PULSE 42–90; RESP 10–19; TEMP 97.2–98; O2SAT 92–100
[2023-05-23] MEDS: BLOOD GLUCOSE MONITORING 1 DEV DEV FS SCH ×4 (00:24→17:22)
[2023-05-23] MEDS: INSULIN LISPRO SLIDING SCALE 100 UNITS/ML VIAL SUBQ PRN (00:29)
--- NOTE | 2023-05-23 00:31 | NUR ---
1229- UNABLE TO SCAN HUMALOG VIAL -THREE ATEMMPTS
--- NOTE | 2023-05-23 01:35 | NUR ---
0130-NPO AFTER MIDNIGHT, TURNED OFF FEEDING
--- NOTE | 2023-05-23 04:40 | NUR ---
0400PICC LINE DRESSING CHANGED ASEPTICALLY
--- NOTE | 2023-05-23 04:41 | NUR ---
0415- COMPLETE BED BATH GIVEN AND LINEN CHANGE DONE
[2023-05-23] MEDS: MIDODRINE 5 MG TAB PO SCH ×3 (04:45→21:00)
[2023-05-23] MEDS: MEROPENEM 1,000 MG in NACL 0.9% 50 ML IV SCH ×3 (05:13→21:18)
[2023-05-23 05:31] LABS: HEMATOCRIT 30.1 % (36-52); HEMOGLOBIN 10.2 g/dL (12.0-18.0); LYMPHOCYTES # (AUTO) 0.3 K/uL (2.0-11.5); LYMPHOCYTES % (AUTO) 2.3 % (20.5-51.1); MEAN CORPUSCULAR HEMOGLOBIN 32 pg (27-31); MEAN CORPUSCULAR HGB CONC 34 g/dL (33-37); MEAN CORPUSCULAR VOLUME 92.7 fL (80-94); MONOCYTES # (AUTO) 0.9 K/uL (0.8-1.0); MONOCYTES % (AUTO) 7.3 % (1.7-9.3); NEUTROPHILS # (AUTO) 11.4 K/uL (1.8-7.7); NEUTROPHILS % (AUTO) 90.4 % (42.2-75.2); PLATELET COUNT (AUTO) 112 K/uL (140-450); RED BLOOD CELL COUNT(AUTO) 3.25 MIL/uL (4.20-6.10); RED CELL DISTRIBUTION WIDTH 15.4 % (11.6-13.7); WHITE BLOOD COUNT (AUTO) 12.7 K/uL (4.8-10.8)
[2023-05-23 05:54] LABS: ANION GAP 4.9 (8-16); CARBON DIOXIDE 38.7 mmol/L (21-32); CREATININE 0.6 mg/dL (0.6-1.3); POTASSIUM 3.6 mmol/L (3.5-5.1)
[2023-05-23 06:08] LABS: MAGNESIUM 1.9 mg/dL (1.8-2.4); PHOSPHORUS 2.5 mg/dL (2.5-4.9)
--- NOTE | 2023-05-23 07:01 | NUR ---
0615-0[facility] DONE
--- NOTE | 2023-05-23 07:30 | NUR ---
ASSUME CARE OF PT AT THIS TIME, VSS 123/56, HR 49, RR 16, O2 98%, VENT SETTINGS ACVC 28%, TV 350, RR 12, PEEP 5,, SLEEPING, APPEARS TO BE IN NO PAIN AT THIS TIME, CALL LIGHT IN HAND, BILATERAL UPPER ARMS CENTRAL LINES, DOPAMINE @ 2MCG/MG/MIN AND TPN @60CC/HR AND D5 0.45 WITH KCL @ 70CC/HR NGT TO LEFT NARE NPO,LUNG SOUNDS CRACKLES, ABD WITH SHAINA INTACT NO DRAINAGE, MOHSEN DRAIN TO LEFT ABD INTACT AND ILEOSTOMY TO RIGHT ABD INTACT, SCROTUM STILL SWOLLEN,F/C TO GRAVITY CLEAR YELLOW URINE, DRESSING TO BUTTOCKS, HEELS OFFLOADED,, PENDING TRACH/PRG PLACEMENT.
--- NOTE | 2023-05-23 08:31 | NUR ---
VANCO LEVEL 15.9 STATED TO BE HELD TODAY PER CHARGE
[2023-05-23] MEDS: levETIRAcetam 1,500 MG in NACL 0.9% 100 ML IV SCH ×2 (08:50→21:20)
[2023-05-23] MEDS: DOCUSATE 100 MG/10 ML UDC GT SCH ×3 (08:51→17:00)
[2023-05-23] MEDS: VANCOMYCIN 1,000 MG in DEXTROSE 5% 250 ML IV SCH ×2 (08:51→19:33)
[2023-05-23] MEDS: PANTOPRAZOLE 40 MG INJ VIAL IVP SCH ×2 (08:52→21:19)
[2023-05-23] MEDS: MAGNESIUM HYDROXIDE 2400 MG/30 ML UDC PO SCH (08:52)
[2023-05-23] MEDS: SIMVASTATIN 20 MG TAB PO SCH (08:52)
[2023-05-23] MEDS: methylPREDNISolone SS 40 MG/ML VIAL IVP SCH ×2 (08:52→21:18)
[2023-05-23] MEDS: FUROSEMIDE 20 MG/2 ML VIAL IVP SCH ×2 (08:52→21:19)
--- NOTE | 2023-05-23 09:47 | NUR ---
dr wagner here (surgeon) stated pt will go to surgery within 2 hours
--- NOTE | 2023-05-23 09:49 | NUR ---
call light within reach , no pain noted at this time, repositioned for comfort
[2023-05-23] MEDS: POTASSIUM CHL 20 MEQ/D5-1/2NS 1,000 ML IV SCH (11:00)
--- NOTE | 2023-05-23 11:23 | NUR ---
DR GUZMAN HERE STATED TO DC D50.45 NS WITH KCL AT THIS TIME
[2023-05-23] MEDS ORDERED: BUPIVACAINE-MPF 0.25% 30 ML VIAL INJ ONE (11:45)
[2023-05-23] MEDS ORDERED: LIDOCAINE/EPI MPF 1%1:200000 30 ML VIAL INJ ONE (11:45)
[2023-05-23] MEDS: FLUCONAZOLE 400 MG/NS PREMIX 200 ML IV SCH (12:00)
--- NOTE | 2023-05-23 12:05 | NUR ---
Called pt.'s conservator at [phone], and spoke with Kajal Mcclain RN Executive Designee for pt. She provided consent for general anesthesia for placement of trach and abd. peg for pt. Consent witnessed via telephone by Donte Urrutia RN and Jessica Urrutia RN. OR staff notified and pt. will be taken for procedure soon.
--- NOTE | 2023-05-23 12:20 | NUR ---
Pt. take to OR via bed with RN and OR staff, mechanical engineering technician at bedside. Pt. stable to go
[2023-05-23] MEDS ORDERED: LIDOCAINE MPF 1% 15 ML ONE (12:26)
--- NOTE | 2023-05-23 13:10 | NUR ---
PT RETURNED TO ICU AFTER TRACH PROCEDURE. PT PLACED BACK ON VENTILATOR WITH DOCUMENTED VENT SETTINGS. TRACH SIZE IS A PORTEX 7, SUTURES ARE INTACT. SLGIHT REDNESS NOTED AROUND STOMA SITE. VENT ALARMS ON AND FUNCTIONING. WILL CONTINUE TO MONITOR.
--- NOTE | 2023-05-23 13:15 | NUR ---
pt returned from or at this time , trach to vent and peg placement
[2023-05-23] MEDS: FOAM DRESSING TP SCH (13:18)
[2023-05-23] MEDS: SKINTEGRITY HYDROGEL TP SCH (13:19)
[2023-05-23] MEDS: HYDRAGUARD CREAM TP SCH (13:19)
[2023-05-23] MEDS: DOPamine 400 MG/D5W PREMIX 250 ML IV PRN (14:04)
--- NOTE | 2023-05-23 14:09 | NUR ---
repositioned, no pain noted, nofacial grimacing, call light in hand
[2023-05-23] MEDS: DEXMEDETOMIDINE HCL 400 MCG in NACL 0.9% 96 ML IV PRN (14:34)
--- NOTE | 2023-05-23 15:25 | NUR ---
PERICARE PROVIDED AT THIS TIME, LINEN CHANGED , GOWN CHANGED, ORAL CARE PROVIDED, CALL LIGHT IN HAND , REPOSITIONED, NO PAIN NOTED AT THIS TIME
--- NOTE | 2023-05-23 19:18 | NUR ---
shannan haines(tram)
--- NOTE | 2023-05-23 19:20 | NUR ---
received report from Carter ANTHONY for continue of care. pt in bed on dopamine @2mcg. pt ventilated and trached, no signs of distress noted.
[2023-05-23] MEDS: DEXTROSE IV SCH ×4 (20:00)
[2023-05-23] MEDS: AMINO ACIDS IV SCH ×4 (20:00)
[2023-05-23] MEDS: [UNRECOGNIZED DRUG - OTHER] IV SCH ×4 (20:00)
[2023-05-23] MEDS: MULTIVITAMIN IV SCH ×4 (20:00)
--- NOTE | 2023-05-23 20:49 | NUR ---
emptied grace drain 100 mls
[2023-05-24] VITALS (31 sets, daily range): BP systolic 94–136; BP diastolic 50–84; PULSE 59–111; RESP 10–26; TEMP 96.3–98.1; O2SAT 93–100
--- NOTE | 2023-05-24 00:10 | NUR ---
EMPTIED MOHSEN DRAIN 100ML OUT.
[2023-05-24] MEDS: BLOOD GLUCOSE MONITORING 1 DEV DEV FS SCH ×4 (00:11→18:12)
[2023-05-24] MEDS: POTASSIUM CHL 20 MEQ/D5-1/2NS 1,000 ML IV SCH (00:27)
[2023-05-24] MEDS: HYDRAGUARD CREAM TP SCH ×2 (01:00→12:34)
[2023-05-24] MEDS: MIDODRINE 5 MG TAB PO SCH ×3 (05:00→20:32)
--- NOTE | 2023-05-24 05:00 | NUR ---
pt was bathe and cleaned with soap and water, mouth care performed. linen, pads changed. HOB @30 degrees. pt tolerated well, no distress noted.
[2023-05-24] MEDS: MEROPENEM 1,000 MG in NACL 0.9% 50 ML IV SCH ×3 (05:07→20:33)
[2023-05-24] MEDS: DEXMEDETOMIDINE HCL 400 MCG in NACL 0.9% 96 ML IV PRN (05:18)
[2023-05-24 05:21] LABS: BASOPHILS % (AUTO) 0.1 % (0.0-2.0); HEMATOCRIT 30.3 % (36-52); LYMPHOCYTES # (AUTO) 0.2 K/uL (2.0-11.5); LYMPHOCYTES % (AUTO) 1.3 % (20.5-51.1); MEAN CORPUSCULAR HEMOGLOBIN 31 pg (27-31); MEAN CORPUSCULAR HGB CONC 33 g/dL (33-37); MEAN CORPUSCULAR VOLUME 94.9 fL (80-94); MONOCYTES # (AUTO) 0.9 K/uL (0.8-1.0); MONOCYTES % (AUTO) 5.4 % (1.7-9.3); NEUTROPHILS # (AUTO) 15.9 K/uL (1.8-7.7); NEUTROPHILS % (AUTO) 93.2 % (42.2-75.2); PLATELET COUNT (AUTO) 117 K/uL (140-450); RED BLOOD CELL COUNT(AUTO) 3.19 MIL/uL (4.20-6.10); RED CELL DISTRIBUTION WIDTH 14.9 % (11.6-13.7); WHITE BLOOD COUNT (AUTO) 17.1 K/uL (4.8-10.8)
[2023-05-24 06:34] LABS: ANION GAP 6.6 (8-16); CARBON DIOXIDE 34.1 mmol/L (21-32); CREATININE 0.6 mg/dL (0.6-1.3); POTASSIUM 5.7 mmol/L (3.5-5.1)
--- NOTE | 2023-05-24 06:55 | NUR ---
RECEIVED CALL FROM LAB TO REPORT B/G OF 533. RECHECKED B/G IT WAS 196.
--- NOTE | 2023-05-24 07:18 | NUR ---
SBAR GIVEN TO ISAIAH/AURA RN FOR CONTINUE OF CARE.
--- NOTE | 2023-05-24 07:20 | NUR ---
RECEIVED ON A [employer]APE R680 VENTILATOR PLUGGED INTO RED OUTLET TOLERATING WELL WITHOUT COMPLICATIONS NOTED TO A PORTEX DCT #7 TRACH PLATE SUTURED (TRACHEOSTOMY 05/23) SECURED WITH A TRACH TIE CUFF PRESSURE CHECKED NOTED AMBU BAG AT BEDSIDE CALL LIGHT CONTROL WITHIN REACH SEDATED RESTING COMFORTABLY INTERMITTENTLY AWAKENS STABLE EQUAL CHEST RISE GOOD AERATION THROUGHOUT BILATERAL LUNG ALMARAZ AIRWAY PATENT
--- NOTE | 2023-05-24 07:30 | NUR ---
RECEIVED REPORT FROM WARREN ANTHONY PT IS ADMITTED FOR SEPSIS AND PNA PT CAN OPEN EYES AND MILDLY ABLE TO MOVE ALL EXTREMITY WITH MILD STIMULI VS/ 97.8 HR 67, 100% O2 SAT RR 10 STOCKFEED MILLER 130/69 PT IS ON TRACHE TO VENT AC/VC SETTING FIO2 28% TV 350 RATE 12 PEEP 5 PT HAS GTUBE UPPER MID ABDOMEN PLACED YESTERDAY NO FEEDING PLACED FOR NOW. PT HAS RIGHT LOWER ILEOSTOMY. DARK GREEN LIQUID STOOL. PINK STOMA. PT HAS MID ABDOMEN MOHSEN DRAIN SEROSGAUINIOUS DRAINAGE NOTED. AND MID ABDOMEN INCISION DRESSING DRY AND INTACT .PT HAS BROWN CATH PATENT DRAINING YELLOW URINE. PT HAS MARTHA PICC AND KRISTI MIDLINE. WITH DOPAMINE DRIP 2MCG, TPN AT 60, PRECEDEX 0.4 MCG. PT HAS BILATERAL ARM DISCOLORATION . PER WARREN ANTHONY PT HAS REPAET CMP AND VANCO LEVEL TODAY LABS CAME IN AND DRAW LABS. PT HAS BSWR. PT CALL LIGHT WITHIN REACH, BED IS LOCKED AND IN LOW POSITION KEPT SAFE AND COMFORTABLE WILL MONITOR.
[2023-05-24 07:49] LABS: ALBUMIN 1.5 g/dL (3.4-5.0); ANION GAP 6.2 (8-16); CARBON DIOXIDE 35.8 mmol/L (21-32); CREATININE 0.6 mg/dL (0.6-1.3); TOTAL BILIRUBIN 0.3 mg/dL (0.0-1.0)
[2023-05-24] MEDS: FUROSEMIDE 20 MG/2 ML VIAL IVP SCH ×2 (08:06→20:32)
[2023-05-24] MEDS: methylPREDNISolone SS 40 MG/ML VIAL IVP SCH ×2 (08:06→20:31)
[2023-05-24] MEDS: PANTOPRAZOLE 40 MG INJ VIAL IVP SCH ×2 (08:07→20:29)
--- NOTE | 2023-05-24 08:23 | NUR ---
MAG-1.7 REPLACED PER MD ORDER MAG 2 GM IV
[2023-05-24] MEDS: levETIRAcetam 1,500 MG in NACL 0.9% 100 ML IV SCH ×2 (08:46→20:33)
--- NOTE | 2023-05-24 09:34 | NUR ---
STABLE NO EVIDENCE FOR RESPIRATORY DISTRESS NOTED GOOD CHEST RISE AIRWAY PATENT
[2023-05-24] MEDS: VANCOMYCIN 1,000 MG in DEXTROSE 5% 250 ML IV SCH ×2 (09:42→20:33)
--- NOTE | 2023-05-24 11:05 | NUR ---
DR. JASMINE CAME IN AND ASSESS PATIENT DID CHART REVIEW GET FFUP ON PT TPN AND GTUBE FEED ORDER TO STOP TPN WHEN GTUBE FEED STARTS WILL FFUP WITH DIETARY RECS..
--- NOTE | 2023-05-24 11:54 | NUR ---
DR. VELIZ CALLED FOR REMBERTO SIEGEL TO USE ORDER GIVEN FOR POPEYE TO USE REMBERTO. WILL CALL DIETARY FOR TUBE FEEDING RECOMMENDATION Addendum: 05/24/23 at [address] M[address] RN [address] RECOMMENDATION WAS NOTED YESTERDAY WILL FFUP WITH DR. VELIZ TO ORDER
[2023-05-24] MEDS: FLUCONAZOLE 400 MG/NS PREMIX 200 ML IV SCH (12:11)
[2023-05-24] MEDS: MAGNESIUM HYDROXIDE 2400 MG/30 ML UDC PO SCH (12:11)
[2023-05-24] MEDS: SIMVASTATIN 20 MG TAB PO SCH (12:11)
[2023-05-24] MEDS: DOCUSATE 100 MG/10 ML UDC GT SCH ×3 (12:11→17:03)
[2023-05-24] MEDS: FOAM DRESSING TP SCH (12:34)
[2023-05-24] MEDS: SKINTEGRITY HYDROGEL TP SCH (12:34)
[2023-05-24] MEDS: INSULIN LISPRO SLIDING SCALE 100 UNITS/ML VIAL SUBQ PRN (12:35)
[2023-05-24] MEDS: ALBUTEROL 0.083% 2.5 MG/3 ML NEBU INH PRN (13:41)
--- NOTE | 2023-05-24 13:41 | NUR ---
AWAKE STABLE GOOD CHEST RISE WITH INCREASED WOB DEEP TRACHEAL FOR MODERATE HAZY PALE YELLOW SECRETIONS AIRWAY PATENT
--- NOTE | 2023-05-24 13:50 | NUR ---
05/24/23 RD FOLLOW UP COMPLETED PLEASE REFER TO NUTRITION ASSESSMENT UNDER CARE ACTIVITY FOR ESTIMATED NUTRITIONAL NEEDS. 1. RD RECOMMENDS TUBE FEEDING OF VITAL A.F. WITH GOAL RATE OF 55ML/HR WITH FWF OF 200ML Q6H. THIS WILL PROVIDE 1,584 CALORIES AND 96 GRAMS OF PROTEIN, MEETING AT LEAST 75% OF NUTRITIONAL NEEDS. 2. RD RECOMMENDS TENISHA BID FOR WOUNDS WHICH WILL PROVIDE 160 CALORIES AND 5 JAYDE OF PROTEIN. 3[address] WILL CONTINUE TO MONITOR WEIGHTS, GI ISSUES, SKIN INTEGRITY AND NUTRITION RELATED LABS. 4. RD TO FOLLOW-UP 2-3 DAYS, HIGH RISK CHYNA CLAYTON RD
--- NOTE | 2023-05-24 14:30 | NUR ---
DR. SANCHES CAME IN AND ASSESS PT, DID CHART REVIEW NO NEW ORDER GIVEN,
--- NOTE | 2023-05-24 15:02 | NUR ---
Pt. changed to [place] [facility] per protocol. Respiratory therapist at bedside to assist with transfer. Pt. tolerated with no diff. Acute distress.
--- NOTE | 2023-05-24 15:02 | NUR ---
PERSONAL LOAN SPECIALIST ASSIST FOR PATIENT TRANSFER TO AIR MATTRESS; REMOVED PATIENT FROM VENTILATOR PLACED ON SUPPLEMENTAL OXYGEN AT 15 LPM VIA E-TANK TO AMBU BAG/HME/INLINE SUCTION CATHETER/TRACHEOSTOMY; AMBU BAG DEPRESSION EVERY SIX SECONDS; TOLERATED TRANSFER WELL WITHOUT COMPLICATIONS NOTED; SATURATION 97%
--- NOTE | 2023-05-24 17:16 | NUR ---
STABLE RESTING WELL NO DISTRESS NOTED GOOD CHEST RISE AIRWAY PATENT
--- NOTE | 2023-05-24 19:30 | NUR ---
ENDORSED PT TO [employer] STATION MANAGERBONE COOKING OPERATOR FOR CONTINUITY OF CARE ALL QUESTIONS ANSWERED.
--- NOTE | 2023-05-24 19:30 | NUR ---
RECEIVED REPORT FROM DAY SHIFT NURSEISAIAHRN FOR CONTINUITY OF CARE. ALL CARES ASSUMED. RECEIVED PT ON SEMI-MONACO'S POSITION WITH SIDE RAILS RAISED UP. PT IS AWAKE WITH SPONTANEOUS EYE OPENING AND ABLE TO TRACK. WITH TRACHEOSTOMY TUBE ATTACHED TO VENTILATOR ON A/C VC MODE, FIO2-28% TV-350ML RATE-12CPM P33P-5, SPO2 AT 99%. NOT IN DISTRESS WITH EQUAL CHEST RISE OBSERVED. ON SINUS RHYTHM ON CLUB MANAGER. WITH RIGHT UPPER ARM MIDLINE, DRESSING DRY AND INTACT, FLOWING WELL TO NS AT TKO. WITH LEFT UPPER ARM PICC LINE- DRESSING DRY AND INTACT- FLOWING WELL TO TPN AT 30ML/HR. WITH ABDOMINAL MEDIAL WOUND DRESSING- WOUND SHAINA INTACT, NO REDNESS AND INFLAMMATION OBSERVED. WITH PEG TUBE ATTACHED TO TUBE FEEDING OF VITAL AF AT 40 ML/HR RATE. WITH MOHSEN DRAIN OVER LEFT UPPER QUADRANT WITH SEROSANGUINEOUS OUTPUT. WITH ILEOSTOMY BAG WITH OUTPUT OF GREENISH TO BROWN LIQUID STOOL, MODERATE AMOUNT. WITH BROWN CATHETER DRAINING TO GRAVITY TO YELLOW COLORED URINE. WITH SCROTAL EDEMA OBSERVED. WITH BILATERAL HEEL PROTECTORS APPLIED. ON PRESSURE REDISTRIBUTION MATTRESS. BILATERAL LEGS ELEVATED WITH PILLOWS. BED IN LOW AND LOCKED POSITION FOR SAFETY. CALL LIGHT PLACED WITHIN REACHED. SAFETY AND SEIZURE PRECAUTIONS OBSERVED AND MAINTAINED. WILL MONITOR PT CLOSELY.
--- NOTE | 2023-05-24 19:50 | NUR ---
G-TUBE RESIDUAL CHECKED. 20-30ML RESIDUAL OBTAINED. FEEDING INCREASED TO 50 ML/HR.
--- NOTE | 2023-05-24 20:00 | NUR ---
DUE TPN NOT ADMINISTERED. STOPPED PER DR. Sobeida CLARK ORDER SINCE PT IS ON TUBE FEEDING.
--- NOTE | 2023-05-24 20:05 | NUR ---
SCROTOM ELEVATED WITH ROLLED PILLOWCASE. MAINTAINED.
--- NOTE | 2023-05-24 21:30 | NUR ---
ILEOSTOMY BAG LEAKING - CLEANED STOMA AND BAG CHANGED. KEPT DRY AND INTACT.
--- NOTE | 2023-05-24 23:30 | NUR ---
SEEN AND EXAMINED BY DR. AMEZQUITA. UPDATED PTS INFORMATION. NO NEW ORDERS MADE.
[2023-05-25] VITALS (31 sets, daily range): BP systolic 91–129; BP diastolic 45–89; PULSE 90–122; RESP 7–28; TEMP 97–98.5; O2SAT 95–100
[2023-05-25] MEDS: BLOOD GLUCOSE MONITORING 1 DEV DEV FS SCH ×4 (00:15→18:44)
[2023-05-25] MEDS: HYDRAGUARD CREAM TP SCH ×2 (01:00→13:36)
[2023-05-25] MEDS: MIDODRINE 5 MG TAB PO SCH ×3 (04:44→20:24)
[2023-05-25] MEDS: MEROPENEM 1,000 MG in NACL 0.9% 50 ML IV SCH ×3 (04:44→20:21)
--- NOTE | 2023-05-25 04:44 | NUR ---
GTUBE RESIDUAL CHECKED: <30CC OBTAINED. MIDODRINE TAB GIVEN PER GT.
--- NOTE | 2023-05-25 05:00 | NUR ---
BEDSIDE SPONGE BATH DONE. LINENS AND GOWN CHECKED. ILEOSTOMY CARE DONE. ABDOMINAL DRESSINGS CHANGED.
--- NOTE | 2023-05-25 05:15 | NUR ---
VOMITING NOTED - MODERATE AMOUNT. REGLAN GIVEN IV PRN DOSE. TUBE FEEDING PUT STOPPED TEMPORARILY.
[2023-05-25] MEDS: ONDANSETRON 4 MG/2 ML VIAL IVP PRN ×2 (05:20→21:12)
[2023-05-25 05:31] LABS: BASOPHILS # (AUTO) 0.1 K/uL (0.00-0.22); BASOPHILS % (AUTO) 0.2 % (0.0-2.0); HEMATOCRIT 37.6 % (36-52); HEMOGLOBIN 12.4 g/dL (12.0-18.0); LYMPHOCYTES # (AUTO) 0.5 K/uL (2.0-11.5); LYMPHOCYTES % (AUTO) 1.9 % (20.5-51.1); MEAN CORPUSCULAR HEMOGLOBIN 31 pg (27-31); MEAN CORPUSCULAR HGB CONC 33 g/dL (33-37); MEAN CORPUSCULAR VOLUME 95.1 fL (80-94); MONOCYTES # (AUTO) 1.1 K/uL (0.8-1.0); MONOCYTES % (AUTO) 4.2 % (1.7-9.3); NEUTROPHILS # (AUTO) 25.6 K/uL (1.8-7.7); NEUTROPHILS % (AUTO) 93.7 % (42.2-75.2); PLATELET COUNT (AUTO) 168 K/uL (140-450); RED BLOOD CELL COUNT(AUTO) 3.96 MIL/uL (4.20-6.10); RED CELL DISTRIBUTION WIDTH 15.3 % (11.6-13.7)
[2023-05-25 05:43] LABS: WHITE BLOOD COUNT (AUTO) 27.3 K/uL (4.8-10.8)
--- NOTE | 2023-05-25 05:45 | NUR ---
RECEIVED A CALL FROM LAB DEPT ABOUT CRITICAL LAB VALUES FOR WBC AT 27.3. DR. AMEZQUITA INFORMED AND AWAITING REPLY.
[2023-05-25 05:57] LABS: ANION GAP 6.2 (8-16); CARBON DIOXIDE 38.3 mmol/L (21-32); CREATININE 0.7 mg/dL (0.6-1.3); POTASSIUM 3.5 mmol/L (3.5-5.1)
--- NOTE | 2023-05-25 06:35 | NUR ---
PT NORMOTENSIVE WITH STABLE V/S, SPO2 AT 100%, AFEBRILE AND ON SINUS RHYTHM. ASLEEP AND RESTING WELL SHAY WITH TUBE FEEDING TURNED OFF TEMPORARILY.
--- NOTE | 2023-05-25 07:15 | NUR ---
Endorsed report to restaurant shift supervisor nurse GABRIELLE Hendricks and Michael Hendrix RN for continuity of care. Addendum: 05/25/23 at 1932 by KUN SIDHU RN 1932: Endorsed report to restaurant shift supervisor nurse GABRIELLE Hendricks and Michael Hendrix RN for continuity of care
--- NOTE | 2023-05-25 07:20 | NUR ---
REPORT GIVEN TO DAYSWAFT NURSE, GABRIELLE BORREGO FOR CONTINUITY OF CARE. ALL QUESTIONS ANSWERED.
--- NOTE | 2023-05-25 07:35 | NUR ---
Received report from shiftman nurse GABRIELLE Moore. Patient is able to track people however unable to follow commands. PERRL noted. Currently on ETT to vent A/C VC FIO2 28%, VT 350, RR 12, Peep 5 with SpO2 saturation of 97%. Sinus tachycardia on monitor. Abdomen is soft with abdominal quadrants active, abdominal incision intact with no redness noted. Patient has ileostomy bag with stoma beefy red, no skin breakdown noted around ileostomy bag. Patient has peg tube with dressing dry and intact feeding on standby. MOHSEN drain on left lateral chest with serosanguineous fluid noted. Sacral wound. Left upper piccline saline locked with petechia noted around patients inner arm, patients dressing is dry and intact. Right upper midline with NS TKO at 5 ml/hr. Donis catheter to gravity with no dependent loops with clear yellow urine. Patient has bilateral mitten restraints in place for safety. contact precaution, HOB 30 degrees for aspiration precaution, bed wheels locked and in lowest position, call light within reach.
[2023-05-25] MEDS: DOCUSATE 100 MG/10 ML UDC GT SCH ×3 (10:02→17:37)
[2023-05-25] MEDS: MAGNESIUM HYDROXIDE 2400 MG/30 ML UDC PO SCH (10:02)
[2023-05-25] MEDS: FUROSEMIDE 20 MG/2 ML VIAL IVP SCH ×2 (10:02→20:23)
[2023-05-25] MEDS: SIMVASTATIN 20 MG TAB PO SCH (10:02)
[2023-05-25] MEDS: PANTOPRAZOLE 40 MG INJ VIAL IVP SCH ×2 (10:03→20:23)
[2023-05-25] MEDS: methylPREDNISolone SS 40 MG/ML VIAL IVP SCH ×2 (10:03→20:23)
[2023-05-25] MEDS: VANCOMYCIN 1,000 MG in DEXTROSE 5% 250 ML IV SCH ×2 (10:04→20:22)
[2023-05-25] MEDS: levETIRAcetam 1,500 MG in NACL 0.9% 100 ML IV SCH ×2 (10:04→20:22)
[2023-05-25] MEDS: FLUCONAZOLE 400 MG/NS PREMIX 200 ML IV SCH (12:34)
[2023-05-25] MEDS: INSULIN LISPRO SLIDING SCALE 100 UNITS/ML VIAL SUBQ PRN (12:41)
[2023-05-25] MEDS: SKINTEGRITY HYDROGEL TP SCH (13:29)
[2023-05-25] MEDS: FOAM DRESSING TP SCH (13:37)
--- NOTE | 2023-05-25 14:31 | NUR ---
Surgeon Dr. Arreola was asked via text message if external superficial surgical santiago could be removed as per Dr. Vuong's request
--- NOTE | 2023-05-25 15:05 | NUR ---
Dr. Arreola responded to previous message for staple removal "ok to remove pod [address]." This RN writing understood that santiago could be removed now and steristrips applied.
--- NOTE | 2023-05-25 15:40 | NUR ---
Reassessed patients dehisce wound, dressing is dry and intact. Patients is relaxed and asleep at the moment. No facial grimacing noted, no bleeding noted on dressing. Will continue to follow plan of care.
--- NOTE | 2023-05-25 16:23 | NUR ---
Per previous message from Dr. Henderson "Ok to remove pod [address]," this RN writing understood that santiago could be removed now. Surgical staple remover was obtained and preceded to remove surgical santiago from pt.'s abdominal surgical site. Aseptic technique was used and 7 santiago were removed without difficulty. After removing 7th staple, wound dehiscence noted and slight 1-2 cc of bleeding noted. Immediately pressure was applied with sterile 4x4 gauze and bleeding immediately stopped. This RN then immediately stopped removing more santiago and applied steri-strips to rest of wound over left over surgical santiago in place. Dr. Arreola immediately called via phone and reported incident. ordered wet to dry dressing be applied and for photogrammetric compilation specialist RN to be contacted for follow up. Wet to dry dressing applied and wound photograph was taken per hospital protocol. 17:47 Dr. Art also notified of incident described above via text message no new orders received.
--- NOTE | 2023-05-25 18:48 | NUR ---
Wet to dry dressing to abdominal surgical wound Dehiscence. Leave steri-strips and surgical santiago in place. Per Dr. Arreola. Addendum: 05/25/23 at 1850 by LUIS M SIDHU RN Amended: Links added.
--- NOTE | 2023-05-25 19:33 | NUR ---
Endorsed report to car shifter nurse Eladio RN and Michael Hendrix RN for continuity of care
--- NOTE | 2023-05-25 19:34 | NUR ---
RECEIVED REPORT FROM DAYSINFT NURSE KITA RN. PT IS AWAKE, OPENS EYES, TRACKS . ON SEMI-MONACO'S POSITION. NOT IN DISTRESS. TRACH TO VENT SETTINGS: A/C VC FIO2 28%, TV 350, RATE 12, PEEP 5, NOT IN DISTRESS SPO2 96%. ON GTUBE WITH FEEDING OF VITAL AF 1.2 50ML/HR 200FWF. WITH KRISTI MIDLINE FLOWING TO NS TKO AND MARTHA PICC LINE ATTACH TO SALINE LOCK. WITH ILEOSTOMY BAG STOMA MOIST PINK TO RED IN COLOR INTACT. WITH ABDOMINAL SURGICAL WOUND WITH SHAINA AND DRESSING ON DISTAL PART DRY AND INTACT, WITH LEFT UPPER QUADRANT MOHSEN DRAIN ON NEGATIVE PRESSURE WITH SEROUS SANGUINEOUS OUTPUT. WITH BROWN CATHETER DRAINING TO GRAVITY. WITH BILATERAL MITTENS NO INJURY NOTED. KEPT BED IN LOW POSITION, SIDE RAILS UP, CALL WITHIN REACH. WILL CONTINUOUSLY MONITOR PT.
--- NOTE | 2023-05-25 20:00 | NUR ---
GTUBE RESIDUAL CHECKED 200ML OBTAINED. FEEDING PUT ON HOLD.
--- NOTE | 2023-05-25 20:53 | NUR ---
RECEIVED STAT ORDER MEGAN C. DIFFICILE TOXIN SPECIMEN COLLECTION. SPECIMEN NOT COLLECTED PER PROTOCOL DUE TO LAXATIVES GIVEN 17 HRS EARLIER. WILL ENDORSE TO AM SHIFT.
--- NOTE | 2023-05-25 21:10 | NUR ---
PT APPEARS TO BE NAUSEOUS AFTER REPOSITIONING. ASPIRATION PRECAUTION OBSERVED. ZOFRAN IVP GIVEN PER MD PRN MEDS.
--- NOTE | 2023-05-25 21:30 | NUR ---
GT RESIDUAL RECHECKED. STILL AT 200ML. MAINTAINED FEEDING ON HOLD.
--- NOTE | 2023-05-25 22:00 | NUR ---
AT THE TIME 2142 PATHOLOGY REPORT RECEIVED FROM LAB. DR CLARK INFORMED - ACKNOWLEDGED. DR. CLARK REPLIED THAT NOTHING ACUTELY TO BE DONE NOW. MORNING PHYSICIAN WILL EXPLAIN PT AND THE PLAN.
[2023-05-26] VITALS (22 sets, daily range): BP systolic 82–112; BP diastolic 21–76; PULSE 78–104; RESP 12–28; TEMP 96.9–98.6; O2SAT 93–100
--- NOTE | 2023-05-26 | NUR ---
GT RESIDUAL CHECKED - 80ML NOTED. TUBE FEEDING CONTINUED AT 50 ML/HR. MONITORED FOR INTOLERANCE.
[2023-05-26] MEDS: BLOOD GLUCOSE MONITORING 1 DEV DEV FS SCH ×3 (00:39→12:58)
[2023-05-26] MEDS: HYDRAGUARD CREAM TP SCH ×2 (01:14→12:29)
[2023-05-26] MEDS ORDERED: NOREPINEPHRINE 4 MG/4 ML VIAL IV ONE (01:38)
--- NOTE | 2023-05-26 02:00 | NUR ---
INITIAL LOW BP OF 88/44 MMHG NOTED. REPOSITIONED PT, BP CUFF CHANGED, BP MONITORED Q 5MINS.REPEAT - 91/41 MMHG. LEVOPHED DRIP PREPARED.
[2023-05-26] MEDS: NOREPINEPHRINE 16 MG in DEXTROSE 5% 250 ML IV PRN (02:41)
--- NOTE | 2023-05-26 02:41 | NUR ---
BP 76/34 MMHG - LEVOPHED LINE HOOKED TO LEFT UPPER ARM CENTRAL LINE AND STARTED AT 2 MCG/MIN. BP MONITORED CLOSELY.
--- NOTE | 2023-05-26 03:00 | NUR ---
BOWEL MOVEMENT FROM RECTUM NOTED. CLEANED PT USING SPONGE AND CHG WIPES. MORNING CARE DONE. SURGICAL WOUND DEHISCENCE DRESSING CHANGED - WET TO DRY DRESSING. KEPT DRESSING DRY AND INTACT. SURGICAL SHAINA KEPT INTACT WITH STERISTRIPS.
[2023-05-26] MEDS: MEROPENEM 1,000 MG in NACL 0.9% 50 ML IV SCH ×2 (04:56→12:27)
[2023-05-26] MEDS: MIDODRINE 5 MG TAB PO SCH ×2 (04:57→12:27)
--- NOTE | 2023-05-26 05:00 | NUR ---
GT RESIDUAL CHECKED 150 ML OBTAINED. MAINTAINED ON TUBE FEEDING.
[2023-05-26 05:50] LABS: ANION GAP 3.1 (8-16); CARBON DIOXIDE 40.8 mmol/L (21-32); CREATININE 0.8 mg/dL (0.6-1.3); POTASSIUM 3.9 mmol/L (3.5-5.1)
--- NOTE | 2023-05-26 06:03 | NUR ---
RECEIVED CALL FROM LAB DEPT FOR CRITICAL LAB VALUES OF CO2 AT 40.8. RELAYED TO DR. CLARK WITH REPLY TO INFORM DAY SHIFT ROUNDING .
[2023-05-26 06:04] LABS: MAGNESIUM 2.4 mg/dL (1.8-2.4); PHOSPHORUS 2.5 mg/dL (2.5-4.9)
[2023-05-26] MEDS: INSULIN LISPRO SLIDING SCALE 100 UNITS/ML VIAL SUBQ PRN (06:11)
--- NOTE | 2023-05-26 06:50 | NUR ---
PT IS SLEEPING COMFOTABLY ON BED ON SEMI-MONACO'S POSITION. NOT IN DISTRESS. ON LEVOPHED DRIP. FOR TRANSFER TO [facility] BUT NO AVAILABLE BED OF THE MOMENT. STILL FOR C.DIFFICILE TOXIN SPECIMEN COLLECTION. CRITICAL LAB RESULT OF C02 RELAYED TO
--- NOTE | 2023-05-26 07:20 | NUR ---
Report received from Michael Hendrix RN, all cares assumed. Pt trach to vent, ACVC 12, 28%, 350, 5. Pt is awake, not tracking. FLACC 0. Levophed 6mcg/min infusing to MARTHA PICC. Vital AF 40mL/hr infusing to G-tube. Incision to abdomen; dressing clean, dry and intact. Donis catheter draining to gravity. Bed in low and locked position. Call light within reach.
--- NOTE | 2023-05-26 07:21 | NUR ---
CALLED PT SON (NEXT OF KIN) AUREA REGALADO. NO ANSWER. LEFT A MESSAGE FOR CALL BACK.
--- NOTE | 2023-05-26 07:29 | NUR ---
REPORT GIVEN TO DAYSHIFT NURSE, EDENRN. ALL QUESTIONS ANSWERED.
[2023-05-26] MEDS: DOCUSATE 100 MG/10 ML UDC GT SCH ×2 (09:00→12:27)
[2023-05-26] MEDS: MAGNESIUM HYDROXIDE 2400 MG/30 ML UDC PO SCH (09:00)
[2023-05-26] MEDS: methylPREDNISolone SS 40 MG/ML VIAL IVP SCH (09:17)
[2023-05-26] MEDS: PANTOPRAZOLE 40 MG INJ VIAL IVP SCH (09:17)
[2023-05-26] MEDS: levETIRAcetam 1,500 MG in NACL 0.9% 100 ML IV SCH (09:18)
[2023-05-26] MEDS: VANCOMYCIN 1,000 MG in DEXTROSE 5% 250 ML IV SCH (09:18)
[2023-05-26] MEDS: FUROSEMIDE 20 MG/2 ML VIAL IVP SCH (09:18)
[2023-05-26] MEDS: SIMVASTATIN 20 MG TAB PO SCH (09:19)
--- NOTE | 2023-05-26 10:32 | NUR ---
WOUND CARE NOTE: WOUND ASSESSMENT DONE AND DRESSING REINFORCE. ABDOMINAL SURGICAL WOUND INFERIOR ASPECT OF SURGICAL SITE S/P 7 SHAINA REMOVAL WOUND DEHISCENCE [id number] WOUND BED 100% RED TISSUE, SMALL AMOUNT SEROUS SANGUINOUS DRAINAGE, NO ODOR, JR WOUND SKIN DRY. ALL OTHER AREA WITH STERI STRIPS COVERED DRY AND CLEAN, NO S/S OF WOUND DEHISCENCE. CHECK COLOSTOMY PLACEMENT/LEAKAGE TO PREVENT WOUND CONTAMINATION FROM STOOL IF LEAKAGE SINCE JR-WOUND SKIN CLOSE TO JR-STOMA SKIN. POC DISCUSSED WITH PRIMARY RN. RECOMMENDATIONS: -CLEANSE ABDOMINAL WOUND WITH NS, PAT DRY PACK WITH THERAHONEY GEL WITH OIL EMULSION DRESSING, COVER WITH DRY DRESSING DAILY AND PRN IF SOILING
--- NOTE | 2023-05-26 11:08 | NUR ---
05/26/23 RD FOLLOW UP COMPLETED PLEASE REFER TO NUTRITION ASSESSMENT UNDER CARE ACTIVITY FOR ESTIMATED NUTRITIONAL NEEDS. 1. RD RECOMMENDS CONTINUING TUBE FEEDING OF VITAL A.F. WITH GOAL RATE OF 55ML/HR WITH FWF OF 200ML Q6H. THIS WILL PROVIDE 1,584 CALORIES AND 96 GRAMS OF PROTEIN, MEETING AT LEAST 75% OF NUTRITIONAL NEEDS. 2. RD RECOMMENDS CONTINUING TENISHA BID FOR WOUNDS WHICH WILL PROVIDE 160 CALORIES AND 5 GRAMS OF PROTEIN. 3. RD WILL CONTINUE TO MONITOR WEIGHTS, GI ISSUES, SKIN INTEGRITY AND NUTRITION RELATED LABS. 4. RD TO FOLLOW-UP 2-3 DAYS, HIGH RISK CHYNA CLAYTON RD
[2023-05-26] MEDS: FLUCONAZOLE 400 MG/NS PREMIX 200 ML IV SCH (12:27)
[2023-05-26] MEDS: FOAM DRESSING TP SCH (12:34)
[2023-05-26] MEDS: SKINTEGRITY HYDROGEL TP SCH (12:35)
[2023-05-26] MEDS ORDERED: THERAHONEY GEL 42.5 GM TP SCH (13:00)
[2023-05-26] MEDS ORDERED: COMPOSITE DRESSING TP SCH (13:00)
--- NOTE | 2023-05-26 15:00 | NUR ---
Called to give report at [facility]. RN not available, will call back. Made facility aware that [facility] has arrived to vegetable picker pt.
--- NOTE | 2023-05-26 15:15 | NUR ---
Report given to Jasper ANTHONY with [facility]. All cares endorsed. Discharge paperwork and transfer paperwork sent with [facility].
--- NOTE | 2023-05-26 15:15 | NUR ---
Called pt.'s Executive Designee at [facility] [phone], and obtained transfer consent to pt. to be transferred to [facility] for further medical care. Pt. is stable for transfer. No acute distress. See Transfer information in chart. Also notified pt.'s [facility] health outreach coordinator Betsey [phone]
--- NOTE | 2023-05-26 15:25 | NUR ---
[facility] leaving with pt now to [facility].
--- NOTE | 2023-05-26 15:35 | NUR ---
Second call to [place] to give report. RN not available and will call back.
--- NOTE | 2023-05-26 15:50 | NUR ---
Third call to [place] to give report. RN not available, will call when she is available.
--- NOTE | 2023-05-26 16:15 | NUR ---
Alcira ANTHONY called back from [facility] for report. Report given, all questions answered.
== END 2023-05-26 15:25 | DRG 3 ==
LOC: MED 21:24 → MTU 23:40 → MIC 04-29 10:05
PROVIDERS: ADMIT Family Medicine; ATTEND Family Medicine
PROC: 0BH17EZ Insertion of Endotracheal Airway into Trachea, Via Natural or Artificial Opening (ICD-10-PCS; 2023-04-29)
PROC: 5A1955Z Respiratory Ventilation, Greater than 96 Consecutive Hours (ICD-10-PCS; 2023-04-29)
PROC: 02HV33Z Insertion of Infusion Device into Superior Vena Cava, Percutaneous Approach (ICD-10-PCS; 2023-04-29)
PROC: B548ZZA Ultrasonography of Superior Vena Cava, Guidance (ICD-10-PCS; 2023-04-29)
PROC: 02HV33Z Insertion of Infusion Device into Superior Vena Cava, Percutaneous Approach (ICD-10-PCS; 2023-05-16)
PROC: B548ZZA Ultrasonography of Superior Vena Cava, Guidance (ICD-10-PCS; 2023-05-16)
PROC: 0DB80ZZ Excision of Small Intestine, Open Approach (ICD-10-PCS; 2023-05-19)
PROC: 0W9F0ZZ Drainage of Abdominal Wall, Open Approach (ICD-10-PCS; 2023-05-19)
PROC: 30233N1 Transfusion of Nonautologous Red Blood Cells into Peripheral Vein, Percutaneous Approach (ICD-10-PCS; 2023-05-19)
PROC: 0D1B0Z4 Bypass Ileum to Cutaneous, Open Approach (ICD-10-PCS; principal; 2023-05-19 12:00)
PROC: 0D9670Z Drainage of Stomach with Drainage Device, Via Natural or Artificial Opening (ICD-10-PCS; 2023-05-21)
PROC: 0B110F4 Bypass Trachea to Cutaneous with Tracheostomy Device, Open Approach (ICD-10-PCS; 2023-05-23)
PROC: 0DH63UZ Insertion of Feeding Device into Stomach, Percutaneous Approach (ICD-10-PCS; 2023-05-23)
DX: A41.9 Sepsis, unspecified organism (principal); E43 Unspecified severe protein-calorie malnutrition; I21.A1 Myocardial infarction type 2; N17.0 Acute kidney failure with tubular necrosis; K55.022 Diffuse acute infarction of small intestine; J69.0 Pneumonitis due to inhalation of food and vomit; R65.21 Severe sepsis with septic shock; J96.01 Acute respiratory failure with hypoxia; K63.1 Perforation of intestine (nontraumatic); K56.609 Unspecified intestinal obstruction, unspecified as to partial versus complete obstruction; J44.0 Chronic obstructive pulmonary disease with (acute) lower respiratory infection; I50.32 Chronic diastolic (congestive) heart failure; B37.49 Other urogenital candidiasis; I96 Gangrene, not elsewhere classified; G40.909 Epilepsy, unspecified, not intractable, without status epilepticus; E83.51 Hypocalcemia; R00.1 Bradycardia, unspecified; I11.0 Hypertensive heart disease with heart failure; Z20.822 Contact with and (suspected) exposure to COVID-19; F79 Unspecified intellectual disabilities; Y95 Nosocomial condition; E83.39 Other disorders of phosphorus metabolism; D69.6 Thrombocytopenia, unspecified; D64.9 Anemia, unspecified; E87.6 Hypokalemia; E83.41 Hypermagnesemia; Q90.9 Down syndrome, unspecified; Z79.82 Long term (current) use of aspirin; Z79.899 Other long term (current) drug therapy
CPT/HCPCS: 31500; 36415; 36600; 71045; 74018; 76870; 80048; 80053; 80076; 80202; 81003; 82040; 82803; 82948; 83605; 83690; 83735; 83880; 84100; 84439; 84443; 84478; 84484; 85025; 86886; 86900; 86901; 86920; 87040; 87070; 87081; 87086; 87186; 87205; 88307; 89220; 93005; 93308; 94002; 94003; 94640; 96361; 96365; 96375; 99291; A6248; A9153; C9113; J1100; J1265; J1450; J1644; J1815; J1940; J1953; J2001; J2060; J2185; J2250; J2370; J2405; J2543; J2704; J2920; J3010; J3370; J3372; J3475; J3480; J3490; J7030; J7060; J7120; J7613; P9016; Q0092; Q9967